=== PATIENT | female | born 1935 | race Caucasian/White ===

== ENCOUNTER → 2016-03-10 | Outpatient (CLI) | payer MEDICARE ==
[~2016-03-10] MED LIST: /RISE35TA PO; ALBU83IN IN; ASPI325T PO; BUDEPOW; CALCCHW12 PO; CEFT250T OR; CETI10TA PO; COLA100C2 OR; DIABETA PO; DRISDOL PO; FISHCAP PO; GLUC500T3 PO; KLOR10TA PO; LASI80TA PO; LISI10TA4 PO; LISI20TA5 OR; LOPR50TA PO; METO10TA2 PO; MULTIVIT PO; PLAV75TA2 PO; PREV15CA PO; QVAR INH; TYLENOL #3 PO; TYLENOL ES PO; VENTOLIN NEBULIZER INH; VITA500T PO; ZOCO40TA PO; [UNRECOGNIZED DRUG - REMARK] PO; bystolic PO; lasix PO; ventolin neb INH
--- NOTE | 2016-03-10 17:57 | REP ---
Chest x-ray: Three views: History: Asthma exacerbation. Comparison chest x-ray 01/08/2016. Findings: There is mild bilateral perihilar fibrosis. Heart is at the upper range of normal. Pulmonary vasculature is not increased. Pleural angles are sharp. The aorta is calcific and tortuous. There are degenerative changes in the lower thoracic spine. Impression: Borderline heart size. Bilateral perihilar fibrosis. No acute infiltrate. No significant change from 01/08/2016. Signed by Sam Chaudhry MD 03/11/2016 08:01 A
== END ==
LOC: M ADAMS 15:34
PROVIDERS: ATTEND Physician Assistant
DX: J84.10 Pulmonary fibrosis, unspecified (principal)
CPT/HCPCS: 71020; G0463

== ENCOUNTER → 2016-03-27 | Outpatient (REF) | payer MEDICARE ==
[2016-03-27 12:34] LABS: MEAN CORPUSCULAR HEMOGLOBIN 31.5 pg (27.0-33.0); MEAN CORPUSCULAR HGB CONC 32.9 g/dl (32.0-36.5); MEAN CORPUSCULAR VOLUME 95.6 fl (80.0-96.0); RED CELL DISTRIBUTION WIDTH 13.4 % (11.5-14.5); WHITE BLOOD COUNT 6.1 K/mm3 (4.0-10.0)
[2016-03-27 12:37] LABS: ALBUMIN 3.6 GM/DL (3.2-5.2); ALBUMIN/GLOBULIN RATIO 1.06 (1.00-1.93); BILIRUBIN,TOTAL 0.4 MG/DL (0.2-1.0); CALCIUM LEVEL 9.8 MG/DL (8.8-10.2); CREATININE FOR GFR 1.41 MG/DL (0.55-1.02); GLOMERULAR FILTRATION RATE 38.1 (>32); POTASSIUM SERUM 4.6 MEQ/L (3.5-5.1)
== END ==
LOC: M SFHCADAM 09:19
PROVIDERS: ATTEND Family Medicine
DX: E11.8 Type 2 diabetes mellitus with unspecified complications (principal); R07.89 Other chest pain
CPT/HCPCS: 80053; 82550; 82553; 83036; 83880; 84484; 85027; 93005; G0463

== ENCOUNTER → 2016-06-24 | Outpatient (REF) | payer MEDICARE ==
[2016-06-24 13:00] LABS: MEAN CORPUSCULAR HEMOGLOBIN 31.8 pg (27.0-33.0); MEAN CORPUSCULAR HGB CONC 32.7 g/dl (32.0-36.5); MEAN CORPUSCULAR VOLUME 97.5 fl (80.0-96.0); RED CELL DISTRIBUTION WIDTH 14.3 % (11.5-14.5); WHITE BLOOD COUNT 5.2 K/mm3 (4.0-10.0)
[2016-06-24 13:20] LABS: ALBUMIN 3.3 GM/DL (3.2-5.2); ALBUMIN/GLOBULIN RATIO 1.1 (1.00-1.93); BILIRUBIN,TOTAL 0.3 MG/DL (0.2-1.0); CALCIUM LEVEL 9.6 MG/DL (8.8-10.2); CREATININE FOR GFR 1.42 MG/DL (0.55-1.02); GLOMERULAR FILTRATION RATE 37.8 (>32); POTASSIUM SERUM 4.1 MEQ/L (3.5-5.1); TOTAL PROTEIN 6.3 GM/DL (6.4-8.2)
== END ==
LOC: M SFHCADAM 09:00
PROVIDERS: ATTEND Physician Assistant
DX: I13.0 Hypertensive heart and chronic kidney disease with heart failure and stage 1 through stage 4 chronic kidney disease, or unspecified chronic kidney disease (principal); I50.32 Chronic diastolic (congestive) heart failure; N18.3 Chronic kidney disease, stage 3 (moderate); E13.22 Other specified diabetes mellitus with diabetic chronic kidney disease

== ENCOUNTER → 2016-07-01 | Outpatient (REF) | payer MEDICARE ==
[2016-07-01 20:28] LABS: FOLATE > 24.0 NG/ML; VITAMIN B12 LEVEL 437 PG/ML
[2016-07-01 20:33] LABS: FERRITIN 109 NG/ML (8-252); FREE T4 0.95 NG/DL (0.76-1.46); PERCENT SATURATION 22.4 % (13.2-37.4); TOTAL IRON BINDING CAPACITY 384 UG/DL (250-450)
== END ==
LOC: M SFHCADAM 16:01
PROVIDERS: ATTEND Physician Assistant
DX: D64.9 Anemia, unspecified (principal)
CPT/HCPCS: 82607; 82728; 82746; 83550; 84439; 84443; G0463

== ENCOUNTER → 2016-09-22 | Outpatient (REF) | payer MEDICARE | LOC: M LAB REF 13:19 | PROVIDERS: ATTEND Internal Medicine Nephrology | DX: N18.3 Chronic kidney disease, stage 3 (moderate) (principal); E11.22 Type 2 diabetes mellitus with diabetic chronic kidney disease ==

== ENCOUNTER → 2016-09-23 | Outpatient (REF) | payer MEDICARE ==
[2016-09-23 12:53] LABS: ALBUMIN 3.3 GM/DL (3.2-5.2); ALBUMIN/GLOBULIN RATIO 1.03 (1.00-1.93); BILIRUBIN,TOTAL 0.4 MG/DL (0.2-1.0); CALCIUM LEVEL 10.1 MG/DL (8.8-10.2); CREATININE FOR GFR 1.49 MG/DL (0.55-1.02); GLOMERULAR FILTRATION RATE 35.8 (>32); POTASSIUM SERUM 4.4 MEQ/L (3.5-5.1); TOTAL PROTEIN 6.5 GM/DL (6.4-8.2)
[2016-09-23 12:59] LABS: MEAN CORPUSCULAR HEMOGLOBIN 32.8 pg (27.0-33.0); MEAN CORPUSCULAR HGB CONC 33.6 g/dl (32.0-36.5); MEAN CORPUSCULAR VOLUME 97.5 fl (80.0-96.0); RED CELL DISTRIBUTION WIDTH 14.1 % (11.5-14.5); WHITE BLOOD COUNT 5.8 K/mm3 (4.0-10.0)
== END ==
LOC: M SFHCADAM 09:21
PROVIDERS: ATTEND Physician Assistant
DX: E11.8 Type 2 diabetes mellitus with unspecified complications (principal); D64.9 Anemia, unspecified

== ENCOUNTER → 2016-09-28 | Outpatient (CLI) | payer MEDICARE ==
--- NOTE | 2016-09-28 15:09 | REP ---
REASON FOR EXAM: Renal disease. COMPARISON: None. Right kidney measures 11 x 4.8 x 4.3 cm and left kidney measures 11.7 x 5 x 4.9 cm. The renal cortices are echogenic bilaterally and there is less than optimal corticomedullary differentiation. There are no cystic or solid masses seen involving the right kidney. There is a tiny 1 cm sized cyst in the left kidney. There is no hydronephrosis. IMPRESSION: Echogenic kidney is consistent with medical renal disease. Signed by Beni García DO 09/29/2016 11:29 A
== END ==
LOC: M RAD 11:25
PROVIDERS: ATTEND Internal Medicine Nephrology
DX: N28.1 Cyst of kidney, acquired (principal); N18.3 Chronic kidney disease, stage 3 (moderate); E11.22 Type 2 diabetes mellitus with diabetic chronic kidney disease; I12.9 Hypertensive chronic kidney disease with stage 1 through stage 4 chronic kidney disease, or unspecified chronic kidney disease

== ENCOUNTER → 2016-11-23 | Outpatient (REF) | payer MEDICARE | LOC: M LAB REF 13:08 | PROVIDERS: ATTEND Internal Medicine Nephrology | DX: N18.3 Chronic kidney disease, stage 3 (moderate) (principal); E11.9 Type 2 diabetes mellitus without complications; I10 Essential (primary) hypertension ==

== ENCOUNTER → 2017-04-09 | Outpatient (REF) | payer MEDICARE ==
[2017-04-09 13:30] LABS: ESTIMATED AVERAGE GLUCOSE 180 MG/DL (60-110); HEMOGLOBIN A1c 7.9 %
== END ==
LOC: M SFHCADAM 10:29
DX: E11.8 Type 2 diabetes mellitus with unspecified complications (principal); I50.32 Chronic diastolic (congestive) heart failure
CPT/HCPCS: 83036

== ENCOUNTER → 2017-07-07 | Outpatient (REF) | payer MEDICARE ==
[2017-07-07 13:27] LABS: ESTIMATED AVERAGE GLUCOSE 157 MG/DL (60-110); HEMOGLOBIN A1c 7.1 %
== END ==
LOC: M SFHCADAM 09:27
DX: E11.8 Type 2 diabetes mellitus with unspecified complications (principal)
CPT/HCPCS: 83036

== ENCOUNTER → 2017-10-11 | Outpatient (REF) | payer MEDICARE ==
[2017-10-11 19:02] LABS: ESTIMATED AVERAGE GLUCOSE 166 MG/DL (60-110); HEMOGLOBIN A1c 7.4 %
[2017-10-11 19:15] LABS: CHOLESTEROL LEVEL 166 MG/DL (<200); FREE T4 1.01 NG/DL (0.76-1.46); HDL CHOLESTEROL 43 MG/DL (>40); LDL CHOLESTEROL 58.6 MG/DL (<100); NON-HDL-C 123 MG/DL; TRIGLYCERIDES LEVEL 322 MG/DL (<150)
== END ==
LOC: M SFHCADAM 13:47
DX: E11.8 Type 2 diabetes mellitus with unspecified complications (principal); I11.0 Hypertensive heart disease with heart failure
CPT/HCPCS: 84443

== ENCOUNTER → 2018-04-04 | Outpatient (REF) | payer MEDICARE ==
[2018-04-04 12:32] LABS: ALBUMIN 3.5 GM/DL (3.2-5.2); CALCIUM LEVEL 9.5 MG/DL (8.8-10.2); CREATININE FOR GFR 1.58 MG/DL (0.55-1.30); GLOMERULAR FILTRATION RATE 33.2 (>32); MAGNESIUM LEVEL 2.1 MG/DL (1.8-2.4); PHOSPHORUS LEVEL 3.3 MG/DL (2.5-4.9); POTASSIUM SERUM 4.2 MEQ/L (3.5-5.1)
== END ==
LOC: M LABDRAWP 10:56
PROVIDERS: ATTEND Internal Medicine Cardiovascular Disease
DX: I11.0 Hypertensive heart disease with heart failure (principal); I50.32 Chronic diastolic (congestive) heart failure; I49.3 Ventricular premature depolarization

== ENCOUNTER → 2018-04-27 | Outpatient (REF) | payer MEDICARE ==
[2018-04-27 13:16] LABS: HEMATOCRIT 38.6 % (36.0-47.0); HEMOGLOBIN 12.3 g/dl (12.0-15.5); MEAN CORPUSCULAR HEMOGLOBIN 31.2 pg (27.0-33.0); MEAN CORPUSCULAR HGB CONC 31.9 g/dl (32.0-36.5); PLATELET COUNT, AUTOMATED 169 10^3/uL (150-450); RED BLOOD COUNT 3.94 10^6/uL (4.00-5.40); WHITE BLOOD COUNT 5.7 10^3/uL (4.0-10.0)
[2018-04-27 13:20] LABS: ALBUMIN 3.5 GM/DL (3.2-5.2); BILIRUBIN,TOTAL 0.5 MG/DL (0.2-1.0); CALCIUM LEVEL 9.4 MG/DL (8.8-10.2); CREATININE FOR GFR 1.69 MG/DL (0.55-1.30); GLOMERULAR FILTRATION RATE 30.8 (>32); POTASSIUM SERUM 4.3 MEQ/L (3.5-5.1); TOTAL PROTEIN 6.7 GM/DL (6.4-8.2)
[2018-04-27 14:12] LABS: HEMOGLOBIN A1c 8.4 %
== END ==
LOC: M SFHCADAM 08:16
PROVIDERS: ATTEND Family Medicine
DX: Z00.00 Encounter for general adult medical examination without abnormal findings (principal); E11.8 Type 2 diabetes mellitus with unspecified complications; N18.3 Chronic kidney disease, stage 3 (moderate); I11.0 Hypertensive heart disease with heart failure

== ENCOUNTER → 2018-05-27 | Outpatient (REF) | payer MEDICARE | LOC: M SFHCPLAZ 15:52 | PROVIDERS: ATTEND Family Medicine | DX: D23.30 Other benign neoplasm of skin of unspecified part of face (principal) ==

== ENCOUNTER → 2018-07-05 | Outpatient (REF) | payer MEDICARE ==
[2018-07-05 19:50] LABS: ALBUMIN 3.6 GM/DL (3.2-5.2); CALCIUM LEVEL 9.6 MG/DL (8.8-10.2); CREATININE FOR GFR 1.65 MG/DL (0.55-1.30); GLOMERULAR FILTRATION RATE 31.6 (>32); MAGNESIUM LEVEL 2.3 MG/DL (1.8-2.4); PHOSPHORUS LEVEL 3.3 MG/DL (2.5-4.9); POTASSIUM SERUM 4.2 MEQ/L (3.5-5.1)
== END ==
LOC: M LABDRWAD 19:17
PROVIDERS: ATTEND Internal Medicine Cardiovascular Disease
DX: I50.32 Chronic diastolic (congestive) heart failure (principal)

== ENCOUNTER → 2018-07-29 | Outpatient (REF) | payer MEDICARE ==
[2018-07-29 12:52] LABS: HEMATOCRIT 39.2 % (36.0-47.0); HEMOGLOBIN 12.5 g/dl (12.0-15.5); MEAN CORPUSCULAR HGB CONC 31.9 g/dl (32.0-36.5); MEAN CORPUSCULAR VOLUME 97.3 fl (80.0-96.0); PLATELET COUNT, AUTOMATED 180 10^3/uL (150-450); RED BLOOD COUNT 4.03 10^6/uL (4.00-5.40); WHITE BLOOD COUNT 5.8 10^3/uL (4.0-10.0)
[2018-07-29 12:56] LABS: ALBUMIN 3.7 GM/DL (3.2-5.2); BILIRUBIN,TOTAL 0.5 MG/DL (0.2-1.0); CALCIUM LEVEL 10.2 MG/DL (8.8-10.2); CHOLESTEROL RISK RATIO 3.782 (<5); CREATININE FOR GFR 1.99 MG/DL (0.55-1.30); GLOMERULAR FILTRATION RATE 25.5 (>32); POTASSIUM SERUM 5.1 MEQ/L (3.5-5.1); TOTAL PROTEIN 6.8 GM/DL (6.4-8.2)
[2018-07-29 13:21] LABS: HEMOGLOBIN A1c 8.4 %
== END ==
LOC: M SFHCADAM 08:34
PROVIDERS: ATTEND Family Medicine
DX: N18.3 Chronic kidney disease, stage 3 (moderate) (principal); E11.8 Type 2 diabetes mellitus with unspecified complications; I25.10 Atherosclerotic heart disease of native coronary artery without angina pectoris; E78.2 Mixed hyperlipidemia

== ENCOUNTER 2018-08-18 14:09 | Emergency (ER) | payer MEDICARE ==
[~2018-08-18] VITALS: Ht 160 cm; Wt 286.0 kg
[2018-08-18] MEDS ORDERED: PANTOPRAZOLE 40MG INJ (PROTONIX) (C9113) IV ONE (14:45)
[2018-08-18] MEDS ORDERED: TORS100T PO (14:53)
[2018-08-18] MEDS ORDERED: FLON1SPR NARES (14:53)
[2018-08-18] MEDS ORDERED: TRAD5TAB PO (14:53)
[2018-08-18] MEDS ORDERED: OMEP-221 PO (14:53)
[2018-08-18] MEDS ORDERED: LOSA25TA14 PO (14:53)
[2018-08-18] MEDS ORDERED: SYST0.4D2 OP (14:53)
[2018-08-18] MEDS ORDERED: ALLO100T PO (14:53)
[2018-08-18] MEDS ORDERED: GLIM4TAB PO (14:53)
[2018-08-18 14:58] LABS: BASO % 0.4 % (0.0-1.0); EOS # 0.1 10^3/uL (0.0-0.50); EOS % 1.9 % (0.0-3.0); HEMATOCRIT 37.2 % (36.0-47.0); HEMOGLOBIN 12.3 g/dl (12.0-15.5); LYMPH # 1.2 10^3/uL (1.5-4.5); LYMPH % 25.6 % (24.0-44.0); MEAN CORPUSCULAR HEMOGLOBIN 31.9 pg (27.0-33.0); MEAN CORPUSCULAR HGB CONC 33.1 g/dl (32.0-36.5); MEAN CORPUSCULAR VOLUME 96.6 fl (80.0-96.0); MONO # 0.5 10^3/uL (0.0-0.8); MONO % 9.4 % (0.0-5.0); NEUTROPHILS % 62.3 % (36.0-66.0); PLATELET COUNT, AUTOMATED 158 10^3/uL (150-450); RED BLOOD COUNT 3.85 10^6/uL (4.00-5.40); WHITE BLOOD COUNT 4.8 10^3/uL (4.0-10.0)
--- NOTE | 2018-08-18 15:02 | REP ---
Portable chest, 02:47 p.m., single AP view, patient sitting: Comparisons are 01/28/2011 and 09/14/2011. There is chronic cardiomegaly, unchanged. Lung olw are clear. The bora, mediastinum, skeletal structures are unremarkable. Impression: Chronic cardiomegaly. No acute cardiopulmonary findings. Electronically Signed by Caleb Kwong MD 08/18/2018 02:53 P
[2018-08-18 15:28] LABS: ALBUMIN 3.5 GM/DL (3.2-5.2); ALT/SGPT 29 U/L (12-78); BILIRUBIN,DIRECT 0.1 MG/DL (0.0-0.2); BILIRUBIN,TOTAL 0.5 MG/DL (0.2-1.0); BLOOD UREA NITROGEN 69 MG/DL (7-18); CALCIUM LEVEL 9.6 MG/DL (8.8-10.2); CARBON DIOXIDE LEVEL 32 MEQ/L (21-32); CHLORIDE LEVEL 99 MEQ/L (98-107); CK-MB VALUE MASS < 1.0 NG/ML (<3.6); CPK CREATINE PHOSPHOKINASE 60 U/L (26-192); CREATININE FOR GFR 1.61 MG/DL (0.55-1.30); FREE T4 0.98 NG/DL (0.76-1.46); GLOMERULAR FILTRATION RATE 32.5 (>32); GLUCOSE, FASTING 243 MG/DL (70-100); LIPASE 276 U/L (73-393); MB/CK RELATIVE INDEX 1.67 (< OR =4); NT-PRO BNP 1863 PG/ML (<450); SODIUM LEVEL 138 MEQ/L (136-145); TOTAL PROTEIN 7.1 GM/DL (6.4-8.2); TROPONIN I < 0.02 NG/ML (< 0.10)
[2018-08-18] MEDS ORDERED: IPRATROPIUM 0.5MG/ALBUTEROL 2.5MG INH SOL UD 3ML (DUONEB)(J7620) NEB ONE (16:15)
[2018-08-18] MEDS ORDERED: MAALOX 30 ML SUSP *UDC PO ONE (16:15)
[2018-08-18 17:36] LABS: CK-MB VALUE MASS < 1.0 NG/ML (<3.6); CPK CREATINE PHOSPHOKINASE 60 U/L (26-192); MB/CK RELATIVE INDEX 1.67 (< OR =4); TROPONIN I < 0.02 NG/ML (< 0.10)
[2018-08-18] MEDS ORDERED: SUCR1SS PO (18:26)
[2018-08-18 18:39] VITALS: BP 157/62
--- NOTE | 2018-08-18 21:50 | ECGEPIP ---
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
--- NOTE | 2018-08-18 21:52 | ECGEPIP ---
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
== END 2018-08-18 18:46 | disposition home or self-care (01) ==
LOC: M ED 14:09
DX: K44.9 Diaphragmatic hernia without obstruction or gangrene (principal); R94.31 Abnormal electrocardiogram [ECG] [EKG]; E11.9 Type 2 diabetes mellitus without complications; I25.2 Old myocardial infarction; F32.9 Major depressive disorder, single episode, unspecified; Z79.51 Long term (current) use of inhaled steroids; Z79.82 Long term (current) use of aspirin; Z79.84 Long term (current) use of oral hypoglycemic drugs; Z79.891 Long term (current) use of opiate analgesic; Z79.899 Other long term (current) drug therapy; Z86.73 Personal history of transient ischemic attack (TIA), and cerebral infarction without residual deficits; Z88.0 Allergy status to penicillin; Z88.6 Allergy status to analgesic agent; Z88.8 Allergy status to other drugs, medicaments and biological substances; Z91.018 Allergy to other foods; Z91.030 Bee allergy status; Z91.048 Other nonmedicinal substance allergy status; Z95.5 Presence of coronary angioplasty implant and graft
CPT/HCPCS: 71045; 80048; 80076; 82550; 82553; 83690; 83880; 84439; 84443; 84484; 85025; 93005; 93041; 94640; 94760; 96374; 99285; C9113

== ENCOUNTER → 2018-10-21 | Outpatient (REF) | payer MEDICARE ==
[~2018-10-21] MED LIST changes: +ALLO100T PO; +FLON1SPR NARES; +GLIM4TAB PO; +LOSA25TA14 PO; +OMEP-221 PO; +SUCR1SS PO; +SYST0.4D2 OP; +TORS100T PO; +TRAD5TAB PO
[2018-10-21 13:40] LABS: ALBUMIN 3.3 GM/DL (3.2-5.2); CALCIUM LEVEL 9.6 MG/DL (8.8-10.2); CREATININE FOR GFR 1.52 MG/DL (0.55-1.30); GLOMERULAR FILTRATION RATE 34.8 (>32); MAGNESIUM LEVEL 2.5 MG/DL (1.8-2.4); PHOSPHORUS LEVEL 3.4 MG/DL (2.5-4.9); POTASSIUM SERUM 4.1 MEQ/L (3.5-5.1)
== END ==
LOC: M LABDRWAD 12:36
PROVIDERS: ATTEND Internal Medicine Cardiovascular Disease
DX: I50.32 Chronic diastolic (congestive) heart failure (principal)

== ENCOUNTER → 2018-11-07 | Outpatient (REF) | payer MEDICARE, MEDICAID ==
[~2018-11-07] MED LIST changes: +ALBU83IN INH; +ASPI325T36 PO; +BRONCHW PO; +CALC1TAB26 PO; +CETI10TA8 PO; +FLUT11IN INH; -GLIM4TAB PO; +GLIM4TAB5 PO; +GLUCCAP23 PO; +OMEP40CA97 PO; +RA T500C2 PO; +SIMV20TA22 PO; +SYST0.6S OP
[2018-11-07 19:45] LABS: HEMOGLOBIN A1c 8.2 %
== END ==
LOC: M SFHCADAM 14:06
PROVIDERS: ATTEND Physician Assistant Medical
DX: E11.8 Type 2 diabetes mellitus with unspecified complications (principal)
CPT/HCPCS: 83036; G0463

== ENCOUNTER 2018-11-17 08:47 | Day surgery (SDC) | payer MEDICARE ==
[~2018-11-17] VITALS: Ht 152.4 cm; Wt 130.6 kg
[~2018-11-17 08:47] MED LIST changes: +BALANCED SALT IRRIGATION SOLUTION 500ML BAG (FOR OR EYE MACHINE) As Ordered ONE; +DUOVISC (0.50ML VISCOAT/0.55ML PROVISC) OPHTH KIT As Ordered ONE; +GLIM4TAB PO; -GLIM4TAB5 PO; +OFLOXACIN 0.3 % (OCUFLOX) OPTH SOL 5ML OS ONE; +OMEP40CA2 PO; -OMEP40CA97 PO; +PHENYLEPHRINE 2.5% OPHTH SOL 2ML OS ONE; +POVIDONE-IODINE 5% OPHTH PREP SOL 30ML As Ordered ONE; +PROPARACAINE 0.5% OPHTH SOL 15ML OS ONE; +SIMV20TA2 PO; -SIMV20TA22 PO; +TROPICAMIDE 1% OPHTH SOLN 2ML OS ONE
[2018-11-17] MEDS ORDERED: MIDAZOLAM INJ 2 MG/2 ML VIAL (J2250) As Ordered ONE (09:41)
[2018-11-17] MEDS ORDERED: fentaNYL 100 MCG/2 ML INJECTION (J3010) As Ordered ONE (09:41)
[2018-11-17] MEDS ORDERED: METOCLOPRAMIDE INJ 10MG/2ML VIAL (J2765) As Ordered ONE (10:35)
[2018-11-17] MEDS ORDERED: BICITRA 30ML SOLN UDC As Ordered ONE (10:35)
[2018-11-17 11:50] VITALS: BP 148/82
--- NOTE | 2018-11-19 20:40 | RO ---
DATE OF PROCEDURE: 11/17/2018 PREOPERATIVE DIAGNOSIS: 1. Visually significant nuclear sclerotic cataract left eye. POSTOPERATIVE DIAGNOSIS: 1. Visually significant nuclear sclerotic cataract left eye. PROCEDURE: 1. Cataract extraction with use of phacoemulsification and placement of intraocular lens, AU00T0, 20.0 D, left eye. SURGEON: Rafat Guzmán DO WOOL DYER: None. ANESTHESIA: Local with monitored anesthesia care (MAC). COMPLICATIONS: None. POSTOPERATIVE CONDITION: Stable. INDICATIONS FOR SURGERY: 1. Blurred vision affecting patients activities of daily living. DESCRIPTION OF PROCEDURE: The patient was seen in the preoperative area and properly identified. The correct operative eye was identified and marked. The patient received topical anesthetic, antibiotics, and topical dilating drops. The patient was then transferred to the operating room. The correct side was re-identified, and a time-out was performed. The eye was prepped and draped in a sterile fashion. The eyelids were isolated with Tegaderm tape, and the lids were held open with an adjustable speculum. A 1.0 mm paracentesis incision was made. Intraocular preservative-free Shugarcaine was then injected into the anterior chamber. Viscoelastic was then injected into the anterior chamber through the paracentesis. Using a 2.4 mm sharp-tipped keratome, the anterior chamber was entered via a temporal clear cornea incision. A continuous curvilinear capsulorrhexis was created with Utrata forceps. Hydrodissection was performed with balanced salt solution (BSS) on a blunt cannula until the nucleus was able to rotate freely. The crystalline lens was phacoemulsified and aspirated. Irrigation/aspiration was used to remove the cortical material. Cohesive viscoelastic was placed into the capsular bag to deepen it. The implant was placed into the capsular bag and allowed to unfold. Placement was confirmed by visualizing the anterior capsulorrhexis. Irrigation/aspiration was used to remove the viscoelastic. The clear corneal incision was hydrated with BSS on a blunt cannula. The lens was well positioned. The incisions were then tested for leaks and found to be negative. The eye was then palpated for appropriate pressure and adjusted accordingly with BSS. The eyelid speculum was then carefully removed. A shield was placed over the eye. The patient tolerated the procedure well and was discharged to the recovery unit in a stable condition.
== END 2018-11-17 12:17 | disposition home or self-care (01) ==
LOC: M SDC 08:47
PROVIDERS: ATTEND Ophthalmology
DX: H25.12 Age-related nuclear cataract, left eye (principal); I25.10 Atherosclerotic heart disease of native coronary artery without angina pectoris; I10 Essential (primary) hypertension; J44.9 Chronic obstructive pulmonary disease, unspecified; D64.9 Anemia, unspecified; E11.9 Type 2 diabetes mellitus without complications; K21.9 Gastro-esophageal reflux disease without esophagitis; Z86.73 Personal history of transient ischemic attack (TIA), and cerebral infarction without residual deficits; F32.9 Major depressive disorder, single episode, unspecified; Z79.82 Long term (current) use of aspirin; Z79.899 Other long term (current) drug therapy; E78.5 Hyperlipidemia, unspecified; Z91.040 Latex allergy status; Z91.030 Bee allergy status; Z88.0 Allergy status to penicillin; Z88.8 Allergy status to other drugs, medicaments and biological substances; G47.30 Sleep apnea, unspecified
CPT/HCPCS: 66984; J2250; J2765; J3010; V2632

== ENCOUNTER 2018-12-01 10:59 | Day surgery (SDC) | payer MEDICARE ==
[~2018-12-01] VITALS: Ht 154.9 cm; Wt 106.1 kg
[~2018-12-01 10:59] MED LIST changes: +LIDOCAINE 0.75%/EPINEPHRINE 0.025% IN BSS 0.8ML SYR INTRACAMERAL--OR ONLY As Ordered ONE; +MIDAZOLAM INJ 2 MG/2 ML VIAL (J2250) As Ordered ONE; +OFLOXACIN 0.3 % (OCUFLOX) OPTH SOL 5ML OD ONE; -OFLOXACIN 0.3 % (OCUFLOX) OPTH SOL 5ML OS ONE; +PHENYLEPHRINE 2.5% OPHTH SOL 2ML OD ONE; -PHENYLEPHRINE 2.5% OPHTH SOL 2ML OS ONE; +PROPARACAINE 0.5% OPHTH SOL 15ML OD ONE; -PROPARACAINE 0.5% OPHTH SOL 15ML OS ONE; +TROPICAMIDE 1% OPHTH SOLN 2ML OD ONE; -TROPICAMIDE 1% OPHTH SOLN 2ML OS ONE; +fentaNYL 100 MCG/2 ML INJECTION (J3010) As Ordered ONE
[2018-12-01] MEDS ORDERED: BICITRA 30ML SOLN UDC As Ordered ONE (11:58)
[2018-12-01] MEDS ORDERED: HumaLOG INSULIN (NovoLOG) PER UNIT As Ordered ONE (11:58)
[2018-12-01] MEDS ORDERED: METOCLOPRAMIDE INJ 10MG/2ML VIAL (J2765) As Ordered ONE (11:59)
[2018-12-01] MEDS ORDERED: HumuLIN R (REGULAR) INSULIN (NovoLIN R) **100U/ML** PER UNIT SC ONE (12:30)
[2018-12-01] MEDS ORDERED: BICITRA 30ML SOLN UDC PO ONE (13:00)
[2018-12-01] MEDS ORDERED: METOCLOPRAMIDE INJ 10MG/2ML VIAL (J2765) IV ONE (13:00)
[2018-12-01 13:10] VITALS: BP 134/87
[2018-12-01] MEDS ORDERED: HumaLOG INSULIN (NovoLOG) PER UNIT SC ONE (14:00)
--- NOTE | 2018-12-06 18:00 | RO ---
DATE OF PROCEDURE: 12/01/2018 PREOPERATIVE DIAGNOSIS: 1. Visually significant nuclear sclerotic cataract right eye. POSTOPERATIVE DIAGNOSIS: 1. Visually significant nuclear sclerotic cataract right eye. PROCEDURE: 1. Cataract extraction with use of phacoemulsification and placement of intraocular lens, AU00T0, 21.0 D, right eye. SURGEON: Rafat Guzmán DO VARNISH DIPPER: None. ANESTHESIA: Local with monitored anesthesia care (MAC). COMPLICATIONS: None. POSTOPERATIVE CONDITION: Stable. INDICATIONS FOR SURGERY: 1. Blurred vision affecting patients activities of daily living. DESCRIPTION OF PROCEDURE: The patient was seen in the preoperative area and properly identified. The correct operative eye was identified and marked. The patient received topical anesthetic, antibiotics, and topical dilating drops. The patient was then transferred to the operating room. The correct side was re-identified, and a time-out was performed. The eye was prepped and draped in a sterile fashion. The eyelids were isolated with Tegaderm tape, and the lids were held open with an adjustable speculum. A 1.0 mm paracentesis incision was made. Intraocular preservative-free Shugarcaine was then injected into the anterior chamber. Viscoelastic was then injected into the anterior chamber through the paracentesis. Using a 2.4 mm sharp-tipped keratome, the anterior chamber was entered via a temporal clear cornea incision. A continuous curvilinear capsulorrhexis was created with Utrata forceps. Hydrodissection was performed with balanced salt solution (BSS) on a blunt cannula until the nucleus was able to rotate freely. The crystalline lens was phacoemulsified and aspirated. Irrigation/aspiration was used to remove the cortical material. Cohesive viscoelastic was placed into the capsular bag to deepen it. The implant was placed into the capsular bag and allowed to unfold. Placement was confirmed by visualizing the anterior capsulorrhexis. Irrigation/aspiration was used to remove the viscoelastic. The clear corneal incision was hydrated with BSS on a blunt cannula. The lens was well positioned. The incisions were then tested for leaks and found to be negative. The eye was then palpated for appropriate pressure and adjusted accordingly with BSS. The eyelid speculum was then carefully removed. A shield was placed over the eye. The patient tolerated the procedure well and was discharged to the recovery unit in a stable condition.
== END 2018-12-01 13:34 | disposition home or self-care (01) ==
LOC: M SDC 10:59
PROVIDERS: ATTEND Ophthalmology
DX: H25.11 Age-related nuclear cataract, right eye (principal); I10 Essential (primary) hypertension; E11.9 Type 2 diabetes mellitus without complications; E78.5 Hyperlipidemia, unspecified; K21.9 Gastro-esophageal reflux disease without esophagitis; K44.9 Diaphragmatic hernia without obstruction or gangrene; Z91.040 Latex allergy status; G47.30 Sleep apnea, unspecified; Z88.0 Allergy status to penicillin; Z88.5 Allergy status to narcotic agent; Z88.8 Allergy status to other drugs, medicaments and biological substances; Z91.030 Bee allergy status; Z79.899 Other long term (current) drug therapy; Z79.82 Long term (current) use of aspirin
CPT/HCPCS: 66984; J2250; J2765; J3010; V2632

== ENCOUNTER 2019-04-26 14:45 | Emergency (ER) | payer MEDICARE ==
[~2019-04-26] VITALS: Ht 157.5 cm; Wt 127.4 kg
[~2019-04-26 14:45] MED LIST changes: -BALANCED SALT IRRIGATION SOLUTION 500ML BAG (FOR OR EYE MACHINE) As Ordered ONE; -DUOVISC (0.50ML VISCOAT/0.55ML PROVISC) OPHTH KIT As Ordered ONE; -GLIM4TAB PO; +GLIM4TAB5 PO; -LIDOCAINE 0.75%/EPINEPHRINE 0.025% IN BSS 0.8ML SYR INTRACAMERAL--OR ONLY As Ordered ONE; -MIDAZOLAM INJ 2 MG/2 ML VIAL (J2250) As Ordered ONE; -OFLOXACIN 0.3 % (OCUFLOX) OPTH SOL 5ML OD ONE; -OMEP40CA2 PO; +OMEP40CA97 PO; -PHENYLEPHRINE 2.5% OPHTH SOL 2ML OD ONE; -POVIDONE-IODINE 5% OPHTH PREP SOL 30ML As Ordered ONE; -PROPARACAINE 0.5% OPHTH SOL 15ML OD ONE; -SIMV20TA2 PO; +SIMV20TA22 PO; -TROPICAMIDE 1% OPHTH SOLN 2ML OD ONE; -fentaNYL 100 MCG/2 ML INJECTION (J3010) As Ordered ONE
[2019-04-26 16:26] LABS: BASO % 0.5 % (0.0-1.0); EOS # 0.2 10^3/uL (0.0-0.5); HEMATOCRIT 38.8 % (36.0-47.0); HEMOGLOBIN 12.7 g/dl (12.0-15.5); LYMPH # 1.8 10^3/uL (1.5-5.0); MEAN CORPUSCULAR HEMOGLOBIN 31.3 pg (27.0-33.0); MEAN CORPUSCULAR HGB CONC 32.7 g/dl (32.0-36.5); MEAN CORPUSCULAR VOLUME 95.6 fl (80.0-96.0); MONO # 0.7 10^3/uL (0.0-0.8); NEUTROPHILS # 3.3 10^3/uL (1.5-8.5); NEUTROPHILS % 55.2 % (36.0-66.0); PLATELET COUNT, AUTOMATED 179 10^3/uL (150-450); RED BLOOD COUNT 4.06 10^6/uL (4.00-5.40); WHITE BLOOD COUNT 5.9 10^3/uL (4.0-10.0)
[2019-04-26 16:33] LABS: BLOOD UREA NITROGEN 37 MG/DL (7-18); CALCIUM LEVEL 9.8 MG/DL (8.8-10.2); CARBON DIOXIDE LEVEL 30 MEQ/L (21-32); CHLORIDE LEVEL 100 MEQ/L (98-107); CK-MB VALUE MASS < 1.0 NG/ML (<3.6); CPK CREATINE PHOSPHOKINASE 43 U/L (26-192); CREATININE FOR GFR 1.41 MG/DL (0.55-1.30); GLOMERULAR FILTRATION RATE 37.8 (>32); GLUCOSE, FASTING 190 MG/DL (70-100); MB/CK RELATIVE INDEX 2.33 (< OR =4); POTASSIUM SERUM 3.8 MEQ/L (3.5-5.1); SODIUM LEVEL 137 MEQ/L (136-145); TROPONIN I < 0.02 NG/ML (< 0.10)
[2019-04-26] MEDS ORDERED: DICYCLOMINE 10 MG CAP PO ONE (16:45)
[2019-04-26] MEDS ORDERED: LABETALOL HCL 100 MG/20 ML VIAL IV STA ×2 (17:33→17:45)
[2019-04-26 17:54] VITALS: BP 170/74
--- NOTE | 2019-04-26 18:18 | REP ---
CHEST, PORTABLE: AP portable view of the chest is performed and compared to prior study of 08/18/2018. Cardiomegaly is unchanged. There is linear fibroatelectatic change bilaterally. No acute infiltrate is seen. There is calcification of the thoracic aorta. The mediastinal silhouette is unchanged. IMPRESSION: Cardiomegaly and chronic changes with no acute infiltrate. Electronically Signed by Caleb Dos Santos MD 04/27/2019 10:25 A
--- NOTE | 2019-04-26 18:19 | REP ---
KUB ABDOMEN AND PELVIS: Two KUB films of abdomen and pelvis performed. Bowel gas pattern is unremarkable. No significantly dilated small bowel loops are seen, with no evidence of small bowel obstruction. There is mild air and fecal material scattered throughout the colon. There are moderate degenerative changes of the spine. IMPRESSION: No radiographic evidence of bowel obstruction. Electronically Signed by Caleb Dos Santos MD 04/27/2019 10:25 A
[2019-04-26 18:30] VITALS: BP 147/59
[2019-04-26] MEDS ORDERED: DICY10CA13 PO (18:48)
--- NOTE | 2019-04-27 05:52 | ECGEPIP ---
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
== END 2019-04-26 19:07 | disposition home or self-care (01) ==
LOC: M ED 14:45 → EDBD 14:45 → EDSEX 14:45 → M ED 19:07
DX: K29.70 Gastritis, unspecified, without bleeding (principal); I51.7 Cardiomegaly; E11.9 Type 2 diabetes mellitus without complications; E78.5 Hyperlipidemia, unspecified; K21.9 Gastro-esophageal reflux disease without esophagitis; J44.1 Chronic obstructive pulmonary disease with (acute) exacerbation; Z88.0 Allergy status to penicillin; Z88.1 Allergy status to other antibiotic agents; Z88.4 Allergy status to anesthetic agent; Z88.8 Allergy status to other drugs, medicaments and biological substances; Z91.018 Allergy to other foods; Z91.048 Other nonmedicinal substance allergy status; Z91.040 Latex allergy status; Z79.51 Long term (current) use of inhaled steroids; Z79.82 Long term (current) use of aspirin; Z79.899 Other long term (current) drug therapy

== ENCOUNTER → 2019-06-21 | Outpatient (REF) | payer MEDICARE ==
[~2019-06-21] MED LIST changes: +DICY10CA13 PO; +VITA-243 PO
[2019-06-21 13:11] LABS: CALCIUM LEVEL 10.5 MG/DL (8.8-10.2); CREATININE FOR GFR 1.58 MG/DL (0.55-1.30); GLOMERULAR FILTRATION RATE 33.2 (>32); POTASSIUM SERUM 4.7 MEQ/L (3.5-5.1)
[2019-06-21 13:28] LABS: HEMOGLOBIN A1c 8.2 %
== END ==
LOC: M SFHCADAM 09:10
PROVIDERS: ATTEND Family Medicine
DX: E11.8 Type 2 diabetes mellitus with unspecified complications (principal)

== ENCOUNTER → 2019-11-30 | Outpatient (REF) | payer MEDICARE ==
[~2019-11-30] MED LIST changes: +ALB2.5NEB INH; +D31000TA2 PO; +DOK1CAP7 PO; +HYDR20VI2 IV; +IMIP1INJ IV; +INSUHUMDS SC; +MORP2INJ4 IV; +ONDA4INJ4 IV; +PANT40IN4 IV; +THERTAB52 PO
[2019-11-30 13:10] LABS: HEMATOCRIT 37.4 % (36.0-47.0); HEMOGLOBIN 11.9 g/dl (12.0-15.5); MEAN CORPUSCULAR HEMOGLOBIN 30.1 pg (27.0-33.0); MEAN CORPUSCULAR HGB CONC 31.8 g/dl (32.0-36.5); MEAN CORPUSCULAR VOLUME 94.4 fl (80.0-96.0); PLATELET COUNT, AUTOMATED 252 10^3/uL (150-450); RED BLOOD COUNT 3.96 10^6/uL (4.00-5.40); WHITE BLOOD COUNT 8.1 10^3/uL (4.0-10.0)
[2019-11-30 13:26] LABS: HEMOGLOBIN A1c 7.7 %
[2019-11-30 13:41] LABS: ALBUMIN 3.2 GM/DL (3.2-5.2); BILIRUBIN,TOTAL 0.4 MG/DL (0.2-1.0); CALCIUM LEVEL 10.3 MG/DL (8.8-10.2); CREATININE FOR GFR 1.66 MG/DL (0.55-1.30); GLOMERULAR FILTRATION RATE 31.3 (>32); POTASSIUM SERUM 3.9 MEQ/L (3.5-5.1); TOTAL PROTEIN 6.9 GM/DL (6.4-8.2)
== END ==
LOC: M SFHCADAM 10:38
PROVIDERS: ATTEND Family Medicine
DX: N18.30 Chronic kidney disease, stage 3 unspecified (principal); E11.8 Type 2 diabetes mellitus with unspecified complications

== ENCOUNTER 2019-12-22 18:04 | Inpatient (IN) | payer MEDICARE ==
[~2019-12-22] VITALS: Ht 160 cm; Wt 117.0 kg
[~2019-12-22 18:04] MED LIST changes: -ALB2.5NEB INH; -D31000TA2 PO; -DOK1CAP7 PO; -HYDR20VI2 IV; -IMIP1INJ IV; -INSUHUMDS SC; -MORP2INJ4 IV; -ONDA4INJ4 IV; -PANT40IN4 IV; -THERTAB52 PO
[2019-12-22] MEDS ORDERED: ONDANSETRON 4MG/2ML VIAL IV ONE ×2 (18:45→21:00)
[2019-12-22 19:00] LABS: BASO % 0.4 % (0.0-1.0); EOS # 0.1 10^3/uL (0.0-0.5); EOS % 1.1 % (0.0-3.0); HEMATOCRIT 37.9 % (36.0-47.0); LYMPH # 1.2 10^3/uL (1.5-5.0); LYMPH % 16.3 % (24.0-44.0); MEAN CORPUSCULAR HEMOGLOBIN 29.7 pg (27.0-33.0); MEAN CORPUSCULAR HGB CONC 31.7 g/dl (32.0-36.5); MEAN CORPUSCULAR VOLUME 93.8 fl (80.0-96.0); MONO # 0.6 10^3/uL (0.0-0.8); MONO % 8.1 % (0.0-5.0); NEUTROPHILS # 5.2 10^3/uL (1.5-8.5); NEUTROPHILS % 73.4 % (36.0-66.0); PLATELET COUNT, AUTOMATED 225 10^3/uL (150-450); RED BLOOD COUNT 4.04 10^6/uL (4.00-5.40)
[2019-12-22 19:13] LABS: INR 0.91; PROTHROMBIN TIME 12.4 SECONDS (12.5-14.3)
[2019-12-22 19:14] LABS: PARTIAL THROMBOPLASTIN TIME 34.5 SECONDS (24.2-38.5)
--- NOTE | 2019-12-22 19:30 | REP ---
INDICATION: CHEST PAIN COMPARISON: 04/26/2019 TECHNIQUE: Portable semi upright AP view FINDINGS: The mediastinum and cardiac silhouette are stable and cardiomegaly is again noted. The lung low are clear without acute consolidation, effusion, or pneumothorax. Skeletal structures are intact. IMPRESSION: No acute cardiopulmonary process appreciated. <Electronically signed by Austin Charles > 12/22/19 [id number]
[2019-12-22 19:31] LABS: ALT/SGPT 19 U/L (12-78); BILIRUBIN,DIRECT 0.2 MG/DL (0.0-0.2); BILIRUBIN,TOTAL 0.5 MG/DL (0.2-1.0); BLOOD UREA NITROGEN 26 MG/DL (7-18); CALCIUM LEVEL 9.9 MG/DL (8.8-10.2); CARBON DIOXIDE LEVEL 31 MEQ/L (21-32); CHLORIDE LEVEL 98 MEQ/L (98-107); CK-MB VALUE MASS < 1.0 NG/ML (<3.6); CPK CREATINE PHOSPHOKINASE 33 U/L (26-192); CREATININE FOR GFR 1.38 MG/DL (0.55-1.30); GLOMERULAR FILTRATION RATE 38.8 (>32); GLUCOSE, FASTING 207 MG/DL (70-100); LIPASE 187 U/L (73-393); MB/CK RELATIVE INDEX 3.03 (< OR =4); SODIUM LEVEL 136 MEQ/L (136-145); TOTAL PROTEIN 7.1 GM/DL (6.4-8.2); TROPONIN I < 0.02 NG/ML (< 0.10)
[2019-12-22] MEDS ORDERED: MAALOX 30 ML SUSP *UDC PO ONE (19:45)
[2019-12-22] MEDS: FLUTICASONE HFA 110 MCG 12 GM INHALER (FLOVENT) INH SCH (20:00)
--- NOTE | 2019-12-22 20:41 | ECGEPIP ---
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
[2019-12-22] MEDS ORDERED: PANTOPRAZOLE 40MG VIAL (C9113 PER 1) IV ONE (21:00)
[2019-12-22] MEDS ORDERED: NS 1,000 ML IV SCH (21:01)
[2019-12-22] MEDS ORDERED: ISOVUE-370 76% 100ML VIAL As Ordered ONE (21:07)
--- NOTE | 2019-12-22 22:04 | REPVR ---
PROCEDURE INFORMATION: Exam: CT Angiography Chest With Contrast Exam date and time: 12/22/2019 9:30 PM Age: 84 years old Clinical indication: Chest pain TECHNIQUE: Imaging protocol: Computed tomographic angiography of the chest with intravenous contrast. 3D rendering (Not supervised by radiologist): MIP and/or 3D reconstructed images were created by the technologist. Radiation optimization: All CT scans at this facility use at least one of these dose optimization techniques: automated exposure control; mA and/or kV adjustment per patient size (includes targeted exams where dose is matched to clinical indication); or iterative reconstruction. Contrast material: ISOVUE 370; Contrast volume: 100 ml; Contrast route: INTRAVENOUS (IV); COMPARISON: CR PORTABLE CHEST X-RAY 12/22/2019 7:10 PM FINDINGS: Pulmonary arteries: No pulmonary embolism. Aorta: The thoracic aorta is intact and patent. There is no thoracic aortic aneurysm, pseudoaneurysm, penetrating atherosclerotic ulcer, intramural hematoma, or dissection. There are moderate atherosclerotic calcifications. Great vessels off aortic arch: The brachiocephalic artery, imaged proximal portions of the common carotid arteries, imaged proximal portions of the vertebral arteries, and subclavian arteries are intact. No stenosis or occlusion of these vessels is noted. Thyroid: The thyroid gland is heterogeneous in appearance and there is a 12 mm in nodule in the right lobe of the thyroid gland and a 9 mm nodule in the left lobe of the thyroid gland (image 30 of the axial series 401). Tracheobronchial tree: Intact and patent. Lungs: There is dependent atelectasis in both lower lobes. There are scars in both upper lobes. The lungs are otherwise clear. There is no lung consolidation or mass. No emphysematous changes or interstitial lung disease is noted. Pleural space: Normal. No pneumothorax or pleural effusion. Heart: There is dilation of the left ventricle and left atrium. There is thinning of the wall of the apex of the left ventricle. Coronary artery calcifications are present. No pericardial effusion is noted. Mediastinal space: No mediastinal fluid collection or pneumomediastinum is noted. Lymph nodes: No enlarged lymph nodes. Bones/joints: There is no fracture or dislocation. No suspicious osteolytic or osteoblastic lesion. 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 There are degenerative changes in the thoracic spine imaged portion of the cervical spine. Soft tissues: Unremarkable. No soft tissue fluid collection. Other findings: Refer to the CT abdomen and pelvis report on 12/22/2019 for details regarding the abdominal and pelvic findings. IMPRESSION: 1. No acute findings in the chest. No pulmonary embolism. 2. Thyroid nodules as described above, the largest measuring 12 mm, for which further evaluation or follow-up is not necessary. COMMENTS: Consistent with the [employer]'s Incidental Findings Committee white paper (J Am Agatha Radiol 2015): In patients aged 35 years and older with an incidental thyroid nodule equal to or greater than 1.[address], MRI or extrathyroidal US, further evaluation with dedicated thyroid US is recommended for patients with normal life expectancy and without comorbidities. For smaller nodules without suspicious features, no further evaluation or follow up is recommended. Electronically signed by: Jerry Barrios On 12/22/2019 22:04:11 PM
--- NOTE | 2019-12-22 22:05 | REPVR ---
PROCEDURE INFORMATION: Exam: CT Abdomen And Pelvis With Contrast Exam date and time: 12/22/2019 9:30 PM Age: 84 years old Clinical indication: Vomiting; Abdominal pain; Localized; Upper; Additional info: Upper abd pain, vomiting TECHNIQUE: Imaging protocol: Computed tomography of the abdomen and pelvis with intravenous contrast. Radiation optimization: All CT scans at this facility use at least one of these dose optimization techniques: automated exposure control; mA and/or kV adjustment per patient size (includes targeted exams where dose is matched to clinical indication); or iterative reconstruction. Contrast material: ISOVUE 370; Contrast volume: 100 ml; Contrast route: INTRAVENOUS (IV); COMPARISON: No relevant prior studies available. FINDINGS: Lungs: Refer to the CTA chest report on 12/22/2019 for details. Heart: Refer to the CTA chest report on 12/22/2019 for details. Liver: No liver lesion is seen. The contour of the liver is smooth. The liver is enlarged and measures 18.2 cm in craniocaudal dimension at the level of the right midclavicular line. Gallbladder and bile ducts: There is thickening of the wall of the gallbladder and inflammatory fat stranding around the gallbladder. There is a probable fistulous connection between the gallbladder and antrum of the stomach with calculi measuring approximately 1.9 cm and 4.2 cm in the antrum of the stomach, the smaller of which has a rim of calcification. The common bile duct is dilated and measures 11 mm in diameter. No intrahepatic biliary ductal dilation is noted. Pancreas: Normal. No dilation of the main pancreatic duct is noted. There is no inflammatory fat stranding around the pancreas to suggest acute pancreatitis. Spleen: The spleen is heterogeneous in appearance, which is likely secondary to the arterial timing of the contrast bolus. The spleen is enlarged and measures 16 cm. Adrenals: Normal. No adrenal mass is noted. Kidneys and ureters: There is a 12 mm simple cyst in the superior pole of the left kidney, for which follow-up is not necessary. No stones are noted in the kidneys or ureters. There is no hydronephrosis or hydroureter. Stomach and bowel: The stomach is distended with fluid. There is a periampullary duodenal diverticulum. There is colonic diverticulosis without evidence for diverticulitis. There is no evidence for a bowel obstruction, colitis, pneumatosis intestinalis, intussusception, volvulus, or perforated viscus. There is a large amount of formed stool in the rectum. Appendix: Normal. There is no evidence for appendicitis. Intraperitoneal space: No fluid collection. No free air. Retroperitoneal space: No fluid collection. No mass. Vasculature: The abdominal aorta is normal in caliber and there are extensive atherosclerotic calcifications. Lymph nodes: Normal. No enlarged lymph nodes. Urinary bladder: The partially distended urinary bladder is unremarkable. No stones or masses are seen in the bladder. Reproductive: The uterus is anterverted and unremarkable. The ovaries are unremarkable. Bones/joints: There is no fracture or dislocation. No suspicious osteolytic or osteoblastic lesion. There are degenerative changes involving the lumbar spine. Soft tissues: There is a large fat containing umbilical hernia. IMPRESSION: 1. Thickening of the wall of the gallbladder and inflammatory changes around the gallbladder, which are findings compatible with acute cholecystitis, and there is a probable fistulous connection between the gallbladder and antrum of the stomach, with calculi in the antrum of the stomach and proximal distention of the stomach with fluid. 2. Duodenal and colonic diverticulosis without evidence for diverticulitis. 3. Large amount of formed stool in the rectum. 4. Large fat containing umbilical hernia. 5. Hepatosplenomegaly. Electronically signed by: Jerry Barrios On 12/22/2019 22:05:12 PM
[2019-12-22] MEDS: NS 1,000 ML IV SCH (22:45)
[2019-12-22] MEDS ORDERED: GLUCOSE 4GM CHEW TABLET PO PRN (22:45)
[2019-12-22] MEDS ORDERED: DEXTROSE 50% 50 ML SYRINGE IV PRN (22:45)
[2019-12-22] MEDS ORDERED: GLUCAGON INJ 1MG VIAL SC PRN (22:45)
[2019-12-22] MEDS ORDERED: IMIPENEM/CILASTATIN 500 MG in D5W MINI-BAG PLUS 100 ML IV ONE (22:45)
--- NOTE | 2019-12-22 22:47 | HPEPDOC ---
[facility] Medical History & Physical Date of Admission Dec 22, 2019 Date of Service: Dec 22, 2019 Primary Care Physician: Hitesh Worthington MD Attending Physician: ALEXANDER NICOLE MD History and Physical TIME OF SERVICE 1120PM CHIEF COMPLAINT: abdominal pain HISTORY OF PRESENT ILLNESS: This 84 yr old F presented w c/o 8/10 in severity epigastric pain that radiates to the shoulders that she has had for 3 days. She initially thought it was due to her hiatal hernia, but today she had multiple episodes of vomiting (bilious and clear) therefore she decided to come to the hospital. She has been told that the has a "bad gallbladder" in the past but that she would not be a candidate for surgery because she may have problems with anesthesia because she has multiple co-morbidities. ROS: 12 point ROS negative except as listed in HPI PAST MEDICAL/SURGICAL HISTORY: CKD 3/4 CAD s/p PTCAx 3 w placement of RAFAELA in LAD CVA DM2 refused insulin Chronic diastolic CHF Dyslipidemia Gout LA w periodic limb movement disorder on CPAP 8cm H2O GERD/ Hiatal Hernia Umbilical hernia Hepatosplenomegaly Diverticulosis Impaired hearing Left knee osteoarthritis Osteoporosis had ADR to Fosamax Left breast lumpectomy for benign mass SOCIAL HISTORY: - Tobacco or alcohol FAMILY HISTORY: Cervical, Pancreatic, bladder and lung Cancer CAD DM ALLERGIES: Please see below. HOME MEDICATIONS: Please see below. PHYSICAL EXAMINATION: Vital Signs Date Time Temp Pulse Resp B/P (MAP) Pulse Ox O2 Delivery O2 Flow Rate FiO2 12/22/19 18:04 97.1 83 20 112/75 (87) 95 Room Air GEN: well-nourished / well developed/ appears ill INTEGUMENT: not flushed/ not jaundice / slightly pale HEENT: lips acyanotic /mucus membranes moist and pink / sclera anicteric CVS: RRR/NMRG/ radial pulses intact LUNGS: able to speak full sentences without stopping to take a breath / no coughing / lungs are clear to auscultation bilaterally on room air ABDOMEN: gagging and vomiting frequently / Contour ( obese ) /soft & not tender with palpation MSK/EXTREMITIES: NCAT / range of motion intact in all 4 extremities NEURO: CN 2-12 are grossly intact / speech is not dysarthric PSYCH: alert and oriented / able to understand and follow all commands LABORATORY DATA: 12/22/19 18:48 12/22/19 18:48: Immature Granulocyte % (Auto) 0.7, Neutrophils (%) (Auto) 73.4H, Lymphocytes (%) (Auto) 16.3L, Monocytes (%) (Auto) 8.1H, Eosinophils (%) (Auto) 1.1, Basophils (%) (Auto) 0.4, Neutrophils # (Auto) 5.2, Lymphocytes # (Auto) 1.2L, Monocytes # (Auto) 0.6, Eosinophils # (Auto) 0.1, Basophils # (Auto) 0.0, Nucleated Red Blood Cells % (auto) 0.0, Prothrombin Time 12.4, Prothromb Time International Ratio 0.91, Activated Partial Thromboplast Time 34.5, Anion Gap 7L, Glomerular Filtration Rate 38.8, Calcium Level 9.9, Total Bilirubin 0.5, Direct Bilirubin 0.2, Aspartate Amino Transf (AST/SGOT) 22, Alanine Aminotransferase (ALT/SGPT) 19, Alkaline Phosphatase 91, Total Creatine Kinase 33, Creatine Kinase MB < 1.0, Creatine Kinase MB Relative Index 3.03, Troponin I < 0.02, Total Protein 7.1, Albumin 3.0L, Albumin/Globulin Ratio 0.7L, Lipase 187 IMAGING: Chest xray "IMPRESSION: No acute cardiopulmonary process appreciated." CTA chest "IMPRESSION: 1. No acute findings in the chest. No pulmonary embolism. 2. Thyroid nodules as described above, the largest measuring 12 mm, for which further evaluation or follow-up is not necessary. COMMENTS: Consistent with the [employer]'s Incidental Findings Committee white paper (J Am Agatha Radiol 2015): In patients aged 35 years and older with an incidental thyroid nodule equal to or greater than 1.[address], MRI or extrathyroidal US, further evaluation with dedicated thyroid US is recommended for patients with normal life expectancy and without comorbidities. For smaller nodules without suspicious features, no further evaluation or follow up is recommended. " CT abd/pelvis " IMPRESSION: 1. Thickening of the wall of the gallbladder and inflammatory changes around the gallbladder, which are findings compatible with acute cholecystitis, and there is a probable fistulous connection between the gallbladder and antrum of the stomach, with calculi in the antrum of the stomach and proximal distention of the stomach with fluid. 2. Duodenal and colonic diverticulosis without evidence for diverticulitis. 3. Large amount of formed stool in the rectum. 4. Large fat containing umbilical hernia. 5. Hepatosplenomegaly." ASSESSMENT: Ms Abdi is an 84-year-old with a history of CKD 3, chronic CAD, CVA, diabetes, chronic diastolic CHF, dyslipidemia, gout, LA, hiatal hernia, hepatosplenomegaly, osteoporosis, osteoarthritis, and history of biliary colic who presented with complaints of nausea, vomiting and abdominal pain and was found to have imaging findings c/w acute cholecystitis; she will be admitted for management of the later. PLAN: 1. Acute cholecystitis She currently doesn't meet SIRS criteria. Plan: Admit to medical floor/nothing by mouth/IV fluids/IV Primaxin (selected this abx per PharmD Roshan mcmahon pt has multiple allergies) /follow-up with Dr. Benitez in the morning / every Zofran when necessary for n/v /morphine for pain when necessary 2. GERD/Hiatal Hernia Plan: IV PPI 3. Osteoporosis Plan: hold CA w vitamin D 4. CKD 3/4 Plan: f/u BMP 5. Chronic CAD / CVA / Dyslipidemia Plan: hold ASA & statin 6. DM2 refused insulin Plan: f/u FSBS, A1C / SSI w hypoglycemia protocol / hold home DM meds 7. Chronic diastolic CHF / Chronic HTN Plan: losartan & torsemide 8. Gout Plan: allopurinol 9. LA Plan: CPAP 10. Class 3 obesity She has co-existing DM and LA Complicates care Plan: f/u w PCP to discuss diet and exercise recommendations DVT PROPHYLAXIS: SCDs DISPOSITION: home after more than 2 midnight's stay Home Medications Scheduled Allopurinol (Allopurinol) 100 Mg Tablet, 100 MG PO DAILY NOON Ascorbic Acid (Vitamin C) 500 Mg Tablet, 1,000 MG PO DAILY NOON Aspirin (Aspirin EC) 325 Mg Tablet.dr, 325 MG PO DAILY Calcium Carbonate/Vitamin D3 (Calcium 600-Vit D3 800 Tablet) 1 Each Tablet, 1 TAB PO DAILY NOON Cetirizine HCl (Cetirizine HCl) 10 Mg Tablet, 10 MG PO DAILY Cholecalciferol (Vitamin D3) (Vitamin D3) 1,000 Unit Tablet, 1,000 UNITS PO DAILY NOON Fluticasone Propionate (Flonase Allergy Relief) 9.9 Ml Blair.susp, 2 SPRAY NARES DAILY Fluticasone Propionate (Flovent Hfa) 110 Mcg/Act Aer.w.adap, 2 PUFF INH BID Glimepiride (Glimepiride) 4 Mg Tablet, 4 MG PO BID Glucos Sul 2Kcl/MSM/Chond/C/Mn (Glucosamine Chondroitin Cap) 1 Each Capsule, 1 EACH PO DAILY NOON Linagliptin (Tradjenta) 5 Mg Tablet, 5 MG PO DAILY Losartan Potassium (Losartan Potassium) 25 Mg Tablet, 25 MG PO QPM Metoclopramide HCl (Metoclopramide HCl) 10 Mg Tablet, 10 MG PO QAM Multivitamin,Therapeutic (Thera-Tabs) 1 Each Tablet, 1 TAB PO DAILY NOON Omeprazole (Omeprazole) 40 Mg Capsule.dr, 40 MG PO DAILY Propylene Glycol (Systane Complete) 10 Ml Drops, 0.6 % OP BID Simvastatin (Simvastatin) 20 Mg Tablet, 20 MG PO QPM Torsemide (Torsemide) 100 Mg Tablet, 50 MG PO BID Turmeric Root Extract (Turmeric) 500 Mg Capsule, 500 MG PO DAILY NOON Scheduled PRN Albuterol Sulf (Albuterol Sulfate) 2.5 Mg/3 Ml Vial.neb, 2.5 MG INH BIDP PRN for SHORTNESS OF BREATH Docusate Sodium (Dok) 100 Mg Capsule, 100 MG PO DAILY PRN for CONSTIPATION Allergies Coded Allergies: Penicillins (Verified Allergy, Severe, angioedema, 11/10/18) bee pollen (Verified Allergy, Severe, anaphylaxis, 11/10/18) erythromycin base (Verified Allergy, Severe, anaphylaxis, 11/10/18) lidocaine (Verified Allergy, Severe, anaphylaxis, 11/10/18) procaine (Verified Allergy, Severe, facial swelling, 11/10/18) TAPE (Verified Allergy, Intermediate, RASH, 03/18/10) doxycycline (Verified Allergy, Intermediate, hives, 11/10/18) alendronate sodium (Verified Allergy, Mild, nausea, vomiting, rash, ) WOOL (FABRIC) (Verified Allergy, Unknown, rash, 08/18/18) diclofenac (Verified Allergy, Unknown, unknown, 08/18/18) latex (Verified Allergy, Unknown, swells up and breaks out, 11/10/18) PEPPERS (Verified Adverse Reaction, Mild, NAUSEA, 03/18/10) sucralfate (Verified Adverse Reaction, Mild, nausea and vomiting, 11/10/18) moxifloxacin (Verified Adverse Reaction, Unknown, biceps tendonitis, 08/18/18) prednisone (Verified Adverse Reaction, Unknown, palpitations, syncope, 08/18/18) A-FIB/CHADSVASC A-FIB History Current/History of A-Fib/PAF?: No Current PO Anticoag Therapy: No ALEXANDER NICOLE MD Dec 22, 2019 22:47
[2019-12-22] MEDS ORDERED: THERTAB52 PO (23:15)
[2019-12-22] MEDS ORDERED: D31000TA2 PO (23:17)
[2019-12-22] MEDS ORDERED: DOK1CAP7 PO (23:17)
[2019-12-23] VITALS (7 sets, daily range): BP systolic 138–176; BP diastolic 60–82; O2SAT 90–93
[2019-12-23] MEDS ORDERED: MORPHINE 2 MG/ML 1ML VIAL (J2270) IV PRN (00:45)
[2019-12-23] MEDS ORDERED: ALBUTEROL SULFATE 2.5 MG/0.5 ML INH NEB SOLN INH PRN (00:45)
[2019-12-23] MEDS ORDERED: cefTRIAXone SOD 1 GM in D5W MINI-BAG PLUS 50 ML IV SCH (01:00)
[2019-12-23] MEDS ORDERED: IMIPENEM/CILASTATIN 250 MG in D5W MINI-BAG PLUS 100 ML IV SCH (01:00)
[2019-12-23] MEDS: ONDANSETRON 4MG/2ML VIAL IV PRN ×4 (01:45→20:28)
[2019-12-23] MEDS: LOSARTAN 25 MG TAB PO SCH ×2 (01:46→20:29)
[2019-12-23] MEDS: TORSEMIDE (DEMADEX) 50 MG PER 1/2 TAB PO SCH ×3 (02:04→20:28)
[2019-12-23] MEDS: IMIPENEM/CILASTATIN 500 MG in D5W MINI-BAG PLUS 100 ML IV SCH ×2 (02:20→15:55)
[2019-12-23] MEDS: HumaLOG INSULIN (NovoLOG) PER UNIT SC SCH ×4 (06:00→18:24)
[2019-12-23 06:51] LABS: HEMATOCRIT 37.8 % (36.0-47.0); MEAN CORPUSCULAR HEMOGLOBIN 30.1 pg (27.0-33.0); MEAN CORPUSCULAR HGB CONC 31.7 g/dl (32.0-36.5); MEAN CORPUSCULAR VOLUME 94.7 fl (80.0-96.0); PLATELET COUNT, AUTOMATED 233 10^3/uL (150-450); RED BLOOD COUNT 3.99 10^6/uL (4.00-5.40); WHITE BLOOD COUNT 7.4 10^3/uL (4.0-10.0)
[2019-12-23 07:32] LABS: ALBUMIN 2.8 GM/DL (3.2-5.2); BILIRUBIN,TOTAL 0.5 MG/DL (0.2-1.0); CALCIUM LEVEL 9.8 MG/DL (8.8-10.2); CREATININE FOR GFR 1.51 MG/DL (0.55-1.30); MAGNESIUM LEVEL 2.1 MG/DL (1.8-2.4); POTASSIUM SERUM 3.6 MEQ/L (3.5-5.1); TOTAL PROTEIN 7.4 GM/DL (6.4-8.2)
[2019-12-23] MEDS: FLUTICASONE HFA 110 MCG 12 GM INHALER (FLOVENT) INH SCH ×2 (07:39→20:00)
[2019-12-23] MEDS: PANTOPRAZOLE 40MG VIAL (C9113 PER 1) IV SCH (08:52)
[2019-12-23] MEDS ORDERED: OMEPRAZOLE 20 MG CAP PO SCH (09:00)
[2019-12-23] MEDS: FLUTICASONE PROP 0.05% NASAL SPRAY 16 GM (FLONASE) NARES SCH (09:00)
[2019-12-23] MEDS: allopurinoL 100 MG TAB PO SCH (12:38)
--- NOTE | 2019-12-23 14:35 | IPNPDOC ---
Text Note Date of Service The patient was seen on 12/23/19. NOTE Subjective: Patient seen at bedside on 12/23/2019. She reports having mild abdominal pain, and nausea. She reports having few episodes of vomiting bilious without any blood overnight. She states she has headache since coming to the hospital. Denies having any diarrhea, chest pain. Objective:; no JVD, no displacement of PMI, no carotid or abdominal bruits. General: Built: obese, Patient is awake, alert, oriented times three, lying in bed , no apparent distress. Eyes: Conjunctiva clear, pupils equal round and reactive to light. Cardiovascular: S1, S2, normal rhythm, no murmur, rub, or gallop Respiratory: Chest is clear to auscultation bilaterally. No rhonchi, wheezes or rubs. Abdomen: Soft, bowel sounds positive, no bruits. No tenderness on palpation, no masses felt. Couldn't appreciate the liver border cause of the body habitus. Extremities: No clubbing or cyanosis. No edema, no tenderness. Central nervous system (HAZMAT TECHNICIAN): Awake, alert and fully oriented. Motor: Strength normal, patient moves all extremities. Skin: No rashes, lesions, ulcerations, subcutaneous nodules or induration. Assessment: Mr. Abdi is an 84-year-old female patient with extensive past medical history of CKD III, chronic CAD s/p drug eluting stent in LAD, CVA, diabetes type 2, ch ronic diastolic CHF, dyslipidemia, gout, LA on CPAP, hiatal hernia, osteoporosis, osteoarthritis and diverticulosis presented to the emergency department with multiple episodes of vomiting, abdominal pain on further imaging showed acute cholecystitis and was admitted to the hospital for further man agement. Imaging: Chest x-ray 12/22/2019: Reported as no acute cardiopulmonary process. CT angiogram chest, 12/22/2019: Reported as no acute findings in chest. No pulmonary embolism. Thyroid gland is heterogeneous in appearance and there is 12mm nodule in right lobe of the thyroid gland and 9 mm nodule in the left lobe of the thyroid gland for which further evaluation or follow-up is not necessary. CT abdomen/pelvis with IV contrast, 12/22/2019: Reported as thickening of the wall of gallbladder and and symmetric changes around the gallbladder, which are findings compatible with acute cholecystitis and there is probable fistulous connection between the gallbladder and the antrum of the stomach, with calculus in the antrum of the stomach and proximal distention of the stomach with fluid. Duodenal and colonic diverticulosis without evidence for diverticulitis. Large amount of formed stool in the rectum. Large fat containing umbilical hernia. Hepatosplenomegaly. Plan: 1. Acute cholecystitis / Fistula between gallbladder and stomach / Possible gastric outlet obstruction She was kept nothing by mouth overnight. Surgery was consulted Dr. Benitez saw her in the morning and decided to do an endoscopy tomorrow morning. Plan for surgery based on the endoscopic findings. Continue Zofran for her vomiting. Continue antibiotics imipenem Day# 1 Her labs were looking normal today morning. LFT normal, bilirubin 0.5, WBC 7.4 Will give patient clear liquid diet for now and will keep him nothing by mouth from midnight. 2. CAD/CVA/dyslipidemia. Will Start aspirin and statin. 3. Diabetes mellitus type 2: Patient is on sliding scale insulin. 4. Hypertension: Will continue losartan and torsemide. 5. Gout: Will continue allopurinol.. 6. LA: Patient is on CPAP at home. Can continue CPAP. 7. DVT prophylaxis: Teds and sequentials 8. GI prophylaxis: IV Protonix 40 MG VS,Fishbone, I+O VS, Fishbone, I+O Laboratory Tests 12/22/19 18:48 12/23/19 06:41 Vital Signs Date Time Temp Pulse Resp B/P (MAP) Pulse Ox O2 Delivery O2 Flow Rate FiO2 12/23/19 12:00 97.4 79 18 138/71 (93) Room Air 12/23/19 08:00 96 I&O- Last 24 Hours up to 6 AM 12/23/19 06:00 Intake Total 1330 ml Output Total 0 ml Balance 1330 ml GME ATTESTATION GME ATTESTATION My faculty preceptor for this patient encounter was physically present during the encounter and was fully available. All aspects of the patient interview, examination, medical decision making process, and medical care plan development were reviewed and approved by the faculty preceptor. The faculty preceptor is aware and concurs with the plan as stated in the body of this note and will attest to such by his/her cosignature. ATTENDING NOTE I, Sathya Spence, have independently examined this patient and performed my own physical exam, as well as reviewed the documentation and edited where necessary. I have discussed in detail with the resident / student the findings and plan of treatment as documented by the resident / student and edited their note. I agree with their findings and treatment plan and have edited their documentation. I will continue to follow the patient during this hospital stay. Ute Tuttle MD Dec 23, 2019 14:35 SATHYA SPNECE MD Dec 24, 2019 11:46
[2019-12-23] MEDS ORDERED: ASPIRIN 325 MG TAB PO ONE (15:00)
[2019-12-23] MEDS: NS 1,000 ML IV SCH (20:29)
[2019-12-23] MEDS: SIMVASTATIN 20 MG TAB PO SCH (20:29)
[2019-12-24] VITALS (9 sets, daily range): BP systolic 143–182; BP diastolic 64–76; O2SAT 92–96
[2019-12-24] MEDS ORDERED: PROMETHAZINE INJ 25 MG/ML VIAL (J2550) IV ONE (00:45)
[2019-12-24] MEDS: IMIPENEM/CILASTATIN 500 MG in D5W MINI-BAG PLUS 100 ML IV SCH ×2 (01:10→13:47)
[2019-12-24] MEDS: HumaLOG INSULIN (NovoLOG) PER UNIT SC SCH ×4 (01:25→18:50)
[2019-12-24] MEDS: D5W/0.45% SODIUM CHLORIDE 1,000 ML IV SCH ×2 (05:20→13:47)
--- NOTE | 2019-12-24 08:46 | IPNPDOC ---
Text Note Date of Service The patient was seen on 12/24/19. NOTE No acute events overnight. She is still having persistent nausea and emesis, and an NG is being placed this am. No other new complaints. VSSAF NAD abd - soft, nt, nd labs - below A) 84y/o female with possible fistula between the gallbladder and stomach persistent emesis possible due to gastric outlet obstruction P) NPO NGT OR for EGD this am No changes to H+P. Ben Benitez DO VS,Stare, I+O VS, Fishbone, I+O Vital Signs Date Time Temp Pulse Resp B/P (MAP) Pulse Ox O2 Delivery O2 Flow Rate FiO2 12/24/19 05:00 69 12/24/19 04:00 97.8 18 145/75 (98) 92 Nasal Cannula 1.0 I&O- Last 24 Hours up to 6 AM 12/24/19 06:00 Intake Total 1010 ml Output Total 600 ml Balance 410 ml NETO BENITEZ DO Dec 24, 2019 08:45
[2019-12-24] MEDS: FLUTICASONE PROP 0.05% NASAL SPRAY 16 GM (FLONASE) NARES SCH (09:00)
--- NOTE | 2019-12-24 09:15 | IPNPDOC ---
Text Note Date of Service The patient was seen on 12/24/19. NOTE Subjective: Patient is an 84-year-old female with a PMHx of CAD s/p RAFAELA in LAD, Chronic Diastolic CHF, CVA, LA on CPAP, DM2, DLP, CKD3, Gout, GERD/Hiatal hernia who presented to the hospital with abdominal pain started with nausea, vomiting. 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 Patient was admitted to hospital service and general surgery was called on consultation. Patient was seen and examined at the bedside. Currently patient has continued to experience worsening nausea and vomiting overnight describes the vomitus as clear yellow. Denies any chest pain, any significant abdominal pain, diarrhea, or urinary discomfort. Denies chest pain, short of breath. Objective: Vitals (See below) General: Sitting up in bed, nauseated, had vomited once while in the room, AAOx3 HEENT: NC, AT CVS: +S1S2 Lungs: Fair air entry b/l, -w/r/r Abdomen: Soft, ND, NT, obese, buccal hernia noted Extremities: - Edema, - Calf tenderness Imaging: CXR 12/21: No acute cardiopulmonary process appreciated." CTA chest 12/21: 1. No acute findings in the chest. No pulmonary embolism. 2. Thyroid nodules as described above, the largest measuring 12 mm, for which further evaluation or follow-up is not necessary. COMMENTS: Consistent with the [place] [employer]'s Incidental Findings Committee white paper (J Am Agatha Radiol 2015): In patients aged 35 years and older with an incidental thyroid nodule equal to or greater than 1.[address], MRI or extrathyroidal US, further evaluation with dedicated thyroid US is recommended for patients with normal life expectancy and without comorbidities. For smaller nodules without suspicious features, no further evaluation or follow up is recommended. " CT abd/pelvis 12/21: 1. Thickening of the wall of the gallbladder and inflammatory changes around the gallbladder, which are findings compatible with acute cholecystitis, and there is a probable fistulous connection between the gallbladder and antrum of the stomach, with calculi in the antrum of the stomach and proximal distention of the stomach with fluid. 2. Duodenal and colonic diverticulosis without evidence for diverticulitis. 3. Large amount of formed stool in the rectum. 4. Large fat containing umbilical hernia. 5. Hepatosplenomegaly." Assessment and plan: Nausea / Vomiting - possibly 2/2 Gastric outlet obstruction / Fistula (Gallbladder to stomach); less likely 2/2 acute cholecystitis - Currently patient - Hemodynamically stable / Afebrile - c/w Imipenem for intra-abdominal coverage (Day #3) - c/w symptomatic control with Zofran / Reglan / Morphine - Will insert NG tube for decompression of stomach and alleviation of nausea and vomiting - Dr. Benitez on consultation; will be taking patient for EGD today CKD3 - Baseline Cr of ~1.5 - Cr at baseline - Will hold Torsemide - Will start Fluids (re: persistent nausea and vomiting) Chronic CAD / CVA / Dyslipidemia - c/w ASA & statin - non-administered (re: N&V) DM2 - c/w ISS Chronic diastolic CHF / Chronic HTN - c/w Losartan - Will DC Torsemide (re: Nausea and Vomiting / NPO; Rx: on fluids) Gout - c/w allopurinol AL on CPAP - Allow CPAP use while inpatient Class 3 obesity - BMI 46.5 - Complicating medical care Osteoporosis - Hold CA w vitamin D (re: N&V with possible gastric outlet obstruction) GI prophylaxis / GERD / Hiatal hernia - c/w Protonix DVT prophylaxis - c/w TEDs/Sequentials - Will start Heparin post EGD if possible Disposition: - Awaiting clinical improvement VS,Arnulfo, I+O VS, Estebanbone, I+O Vital Signs Date Time Temp Pulse Resp B/P (MAP) Pulse Ox O2 Delivery O2 Flow Rate FiO2 12/24/19 08:00 98.0 81 8 143/64 (90) 95 Room Air 12/24/19 04:00 1.0 I&O- Last 24 Hours up to 6 AM 12/24/19 06:00 Intake Total 1010 ml Output Total 600 ml Balance 410 ml WELLINGTON FINLEY MD Dec 24, 2019 09:15
[2019-12-24] MEDS ORDERED: ROCURONIUM BROMIDE 50 MG/5 ML VIAL As Ordered ONE (10:03)
[2019-12-24] MEDS ORDERED: fentaNYL 100 MCG/2 ML INJECTION (J3010) As Ordered ONE (10:03)
[2019-12-24] MEDS ORDERED: dexameTHASONE 4 MG/ML 1ML VIAL (J1100 PER 1MG) As Ordered ONE (10:03)
[2019-12-24] MEDS ORDERED: ePHEDrine SULFATE 25 MG/5 ML(5MG/ML) SYRINGE As Ordered ONE (10:03)
[2019-12-24] MEDS ORDERED: ONDANSETRON 4MG/2ML VIAL As Ordered ONE (10:03)
[2019-12-24] MEDS ORDERED: propofoL 200 MG/20 ML VIAL As Ordered ONE (10:03)
[2019-12-24] MEDS ORDERED: SUCCINYLCHOLINE 100 MG/5 ML SYRINGE (J0330) As Ordered ONE (10:03)
--- NOTE | 2019-12-24 10:39 | ROOR ---
Patient Name: Yola Abdi Procedure Date: 12/24/2019 7:58 AM Date of : 1935 Age: 84 Room: Main OR Gender: Female Note Status: Finalized Procedure: Upper GI endoscopy Indications: Suspected gastric outlet obstruction, Gastric Fistula Providers: Caleb Benitez DO Referring MD: Caleb Benitez DO Requesting Provider: Medicines: General Anesthesia Complications: No immediate complications. Procedure: Pre-Anesthesia Assessment: - Prior to the procedure, a History and Physical was performed, and patient medications and allergies were reviewed. The patient is competent. The risks and benefits of the procedure and the sedation options and risks were discussed with the patient. All questions were answered and informed consent was obtained. Patient identification and proposed procedure were verified by the physician, the nurse, the anesthesiologist, the satellite communications engineer and the control technician in the procedure room. Mental Status Examination: alert and oriented. Airway Examination: normal oropharyngeal airway and neck mobility. Respiratory Examination: clear to auscultation. CV Examination: normal. Prophylactic Antibiotics: The patient does not require prophylactic antibiotics. Prior Anticoagulants: The patient has taken no previous anticoagulant or antiplatelet agents. ASA Grade Assessment: IV - A patient with severe systemic disease that is a constant threat to life. After reviewing the risks and benefits, the patient was deemed in satisfactory condition to undergo the procedure. The anesthesia plan was to use general anesthesia. Immediately prior to administration of medications, the patient was re-assessed for adequacy to receive sedatives. The heart rate, respiratory rate, oxygen saturations, blood pressure, adequacy of pulmonary ventilation, and response to care were monitored throughout the procedure. The physical status of the patient was re-assessed after the procedure. The Endoscope was introduced through the mouth, and advanced to the pylorus. The upper GI endoscopy was technically difficult and complex due to abnormal anatomy. The patient tolerated the procedure fairly well. Findings: Gallstone were found at the pylorus. Estimated blood loss was minimal. The exam was otherwise without abnormality. Impression: - Gallstone were found in the stomach. - The examination was otherwise normal. - No specimens collected. Recommendation: - Return patient to [facility] for ongoing care. - NPO today. - Continue present medications. Caleb Benitez DO 12/24/2019 10:39:02 AM Electronically signed by Caleb Benitez DO Number of Addenda: 0 Note Initiated On: 12/24/2019 7:58 AM Estimated Blood Loss: Estimated blood loss was minimal.
[2019-12-24] MEDS: allopurinoL 100 MG TAB PO SCH (12:00)
[2019-12-24] MEDS: PANTOPRAZOLE 40MG VIAL (C9113 PER 1) IV SCH (13:10)
[2019-12-24] MEDS: FLUTICASONE HFA 110 MCG 12 GM INHALER (FLOVENT) INH SCH (19:58)
[2019-12-24] MEDS: LOSARTAN 25 MG TAB PO SCH (20:57)
[2019-12-24] MEDS: SIMVASTATIN 20 MG TAB PO SCH (20:57)
[2019-12-25] VITALS: BP 150/86
[2019-12-25] MEDS: HumaLOG INSULIN (NovoLOG) PER UNIT SC SCH ×4 (00:25→17:44)
[2019-12-25] MEDS: IMIPENEM/CILASTATIN 500 MG in D5W MINI-BAG PLUS 100 ML IV SCH ×2 (02:59→14:48)
[2019-12-25 04:00] VITALS: BP 154/82
--- NOTE | 2019-12-25 07:35 | IPNPDOC ---
Text Note Date of Service The patient was seen on 12/25/19. NOTE No acute events overnight. She is still having epigastric pains, but the nausea and emesis have subsided with the NG in place. 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 I gave her the option of stone removal endoscopically vs. robotic cholecystectomy and partial gastrectomy. She is going to think about it, and we will discuss it together and come up with a plan in the morning. Ben Benitez DO VS,Arnulfo, I+O VS, Stare, I+O Vital Signs Date Time Temp Pulse Resp B/P (MAP) Pulse Ox O2 Delivery O2 Flow Rate FiO2 12/25/19 04:00 2.0 12/25/19 04:00 97.2 71 22 154/82 (106) 96 Nasal Cannula I&O- Last 24 Hours up to 6 AM 12/25/19 06:00 Intake Total 1020 ml Output Total 2050 ml Balance -1030 ml NETO BENITEZ DO Dec 25, 2019 07:35
[2019-12-25] MEDS: FLUTICASONE PROP 0.05% NASAL SPRAY 16 GM (FLONASE) NARES SCH (07:54)
[2019-12-25 08:00] VITALS: BP 132/62
[2019-12-25 08:02] LABS: BASO % 0.5 % (0.0-1.0); EOS # 0.1 10^3/uL (0.0-0.5); EOS % 1.6 % (0.0-3.0); HEMOGLOBIN 10.8 g/dl (12.0-15.5); LYMPH # 1.7 10^3/uL (1.5-5.0); LYMPH % 22.5 % (24.0-44.0); MEAN CORPUSCULAR HEMOGLOBIN 29.8 pg (27.0-33.0); MEAN CORPUSCULAR HGB CONC 30.9 g/dl (32.0-36.5); MEAN CORPUSCULAR VOLUME 96.7 fl (80.0-96.0); MONO # 0.9 10^3/uL (0.0-0.8); MONO % 12.3 % (0.0-5.0); NEUTROPHILS # 4.8 10^3/uL (1.5-8.5); NEUTROPHILS % 62.8 % (36.0-66.0); PLATELET COUNT, AUTOMATED 210 10^3/uL (150-450); RED BLOOD COUNT 3.62 10^6/uL (4.00-5.40); WHITE BLOOD COUNT 7.6 10^3/uL (4.0-10.0)
[2019-12-25] MEDS: PANTOPRAZOLE 40MG VIAL (C9113 PER 1) IV SCH (08:04)
[2019-12-25] MEDS: D5W/0.45% SODIUM CHLORIDE 1,000 ML IV SCH (08:05)
[2019-12-25] MEDS: FLUTICASONE HFA 110 MCG 12 GM INHALER (FLOVENT) INH SCH ×2 (08:14→20:21)
[2019-12-25 08:31] LABS: ALBUMIN 2.6 GM/DL (3.2-5.2); BILIRUBIN,TOTAL 0.4 MG/DL (0.2-1.0); CALCIUM LEVEL 9.4 MG/DL (8.8-10.2); CREATININE FOR GFR 2.15 MG/DL (0.55-1.30); GLOMERULAR FILTRATION RATE 23.2 (>32); MAGNESIUM LEVEL 2.2 MG/DL (1.8-2.4); TOTAL PROTEIN 6.4 GM/DL (6.4-8.2)
[2019-12-25 08:32] LABS: POTASSIUM SERUM 2.9 MEQ/L (3.5-5.1)
[2019-12-25] MEDS: KCL 40MEQ IN D5/0.45NS 1000ML 1,000 ML IV SCH ×2 (09:28→21:15)
[2019-12-25] MEDS: KCL 10MEQ/100ML SWI (KRUN) 10 MEQ in IV 1 EA IV SCH ×5 (09:29→18:53)
--- NOTE | 2019-12-25 10:15 | IPNPDOC ---
Text Note Date of Service The patient was seen on 12/25/19. NOTE Subjective: Patient is an 84-year-old female with a PMHx of CAD s/p RAFAELA in LAD, Chronic Diastolic CHF, CVA, LA on CPAP, DM2, DLP, CKD3, Gout, GERD/Hiatal hernia who presented to the hospital with abdominal pain started with nausea, vomiting. 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 Patient was admitted to hospital service and general surgery was called on consultation. Patient was seen and examined at the bedside. Patient reports her nausea and v omiting have resolved with NG tube. Reports some abdominal discomfort in the upper portion of her abdomen. Denies any CP, SOB or palpitations. Objective: Vitals (See below) General: Sitting up in bed, appears comfortable, AAOx3 HEENT: NC, AT CVS: +S1S2 Lungs: Fair air entry b/l, no appreciable wheezing / rhonchi / rales Abdomen: Soft, non-distended, non-tender Extremities: No evidence of LE edema, - Calf tenderness Imaging: CXR 12/21: No acute cardiopulmonary process appreciated." CTA chest 12/21: 1. No acute findings in the chest. No pulmonary embolism. 2. Thyroid nodules as described above, the largest measuring 12 mm, for which furt her evaluation or follow-up is not necessary. COMMENTS: Consistent with the [employer]'s Incidental Findings Committee white paper (J Am Agatha Radiol 2015): In patients aged 35 years and older with an incidental thyroid nodule equal to or greater than 1.[address], MRI or extrathyroidal US, further evaluation with dedicated thyroid US is recommended for patients with normal life expectancy and without comorbidities. For smaller nodules without suspicious features, no further evaluation or follow up is recommended. " CT abd/pelvis 12/21: 1. Thickening of the wall of the gallbladder and inflammatory changes around the gallbladder, which are findings compatible with acute cholecystitis, and there is a probable fistulous connection between the gallbladder and antrum of the stomach, with calculi in the antrum of the stomach and proximal distention of the stomach with fluid. 2. Duodenal and colonic diverticulosis without evidence for diverticulitis. 3. Large amount of formed stool in the rectum. 4. Large fat containing umbilical hernia. 5. Hepatosplenomegaly." Assessment and plan: Nausea / Vomiting - possibly 2/2 Gastric outlet obstruction / Fistula (Gallbladder to stomach); less likely 2/2 acute cholecystitis - Currently patient reports resolution of nausea and vomiting - Hemodynamically stable / Afebrile - c/w Imipenem for intra-abdominal coverage (Day #3) - c/w symptomatic control with Zofran / Reglan / Morphine - c/w NG tube (re: decompression of stomach / alleviation of nausea and vomiting) - s/p EGD 12/23: Evidence of gastric obstruction from gallstones; unable to remove gallstones completely - Dr. Benitez on consultation; discussed case plan for potential transfer to [facility] Increased Cr on baselien CKD3 - Baseline Cr of ~1.5 - Cr has increased - Will hold Torsemide - Will increase rate of IV Fluids (re: persistent nausea and vomiting) Hypokalemia - Will provide potassium supplementation via IV routes (re: NPO) Chronic CAD / CVA / Dyslipidemia - c/w ASA & statin - non-administered (re: N&V) DM2 - c/w ISS Chronic diastolic CHF / Chronic HTN - BP well controlled - Will DC Losartan - Will DC Torsemide (re: Nausea and Vomiting / NPO; Rx: on fluids) Gout - Will DC allopurinol LA on CPAP - Allow CPAP use while inpatient Class 3 obesity - BMI 46.5 - Complicating medical care Osteoporosis - Will Hold Calcium and vitamin D (re: N&V with possible gastric outlet obstruction) GI prophylaxis / GERD / Hiatal hernia - c/w Protonix DVT prophylaxis - c/w TEDs/Sequentials Disposition: - Awaiting clinical improvement Arnulfo POWERS, I+O VSArnulfo I+O Laboratory Tests 12/25/19 07:36 Vital Signs Date Time Temp Pulse Resp B/P (MAP) Pulse Ox O2 Delivery O2 Flow Rate FiO2 12/25/19 08:00 97.1 71 18 132/62 (85) 97 Nasal Cannula 2.0 I&O- Last 24 Hours up to 6 AM 12/25/19 05:59 Intake Total 940 ml Output Total 1550 ml Balance -610 ml WELLINGTON FINLEY MD Dec 25, 2019 10:15
[2019-12-25] MEDS: ONDANSETRON 4MG/2ML VIAL IV PRN (11:00)
[2019-12-25 12:00] VITALS: BP 152/71
[2019-12-25 15:43] LABS: CALCIUM LEVEL 9.9 MG/DL (8.8-10.2); CREATININE FOR GFR 2.17 MG/DL (0.55-1.30); POTASSIUM SERUM 3.1 MEQ/L (3.5-5.1)
[2019-12-25 16:00] VITALS: BP 135/97
[2019-12-25 20:00] VITALS: BP 128/70
[2019-12-26] VITALS (7 sets, daily range): BP systolic 116–160; BP diastolic 50–86
[2019-12-26] MEDS: HumaLOG INSULIN (NovoLOG) PER UNIT SC SCH ×4 (00:33→17:51)
[2019-12-26] MEDS: IMIPENEM/CILASTATIN 500 MG in D5W MINI-BAG PLUS 100 ML IV SCH ×2 (02:58→14:47)
[2019-12-26] MEDS: KCL 40MEQ IN D5/0.45NS 1000ML 1,000 ML IV SCH (06:06)
[2019-12-26 06:16] LABS: BASO % 0.6 % (0.0-1.0); EOS # 0.4 10^3/uL (0.0-0.5); EOS % 5.5 % (0.0-3.0); HEMATOCRIT 37.8 % (36.0-47.0); HEMOGLOBIN 11.9 g/dl (12.0-15.5); LYMPH # 1.6 10^3/uL (1.5-5.0); MEAN CORPUSCULAR HEMOGLOBIN 30.4 pg (27.0-33.0); MEAN CORPUSCULAR HGB CONC 31.5 g/dl (32.0-36.5); MEAN CORPUSCULAR VOLUME 96.7 fl (80.0-96.0); MONO # 0.8 10^3/uL (0.0-0.8); MONO % 11.5 % (0.0-5.0); NEUTROPHILS # 3.8 10^3/uL (1.5-8.5); NEUTROPHILS % 57.9 % (36.0-66.0); PLATELET COUNT, AUTOMATED 245 10^3/uL (150-450); RED BLOOD COUNT 3.91 10^6/uL (4.00-5.40); WHITE BLOOD COUNT 6.5 10^3/uL (4.0-10.0)
[2019-12-26 06:43] LABS: ALBUMIN 2.8 GM/DL (3.2-5.2); BILIRUBIN,TOTAL 0.6 MG/DL (0.2-1.0); CREATININE FOR GFR 2.21 MG/DL (0.55-1.30); GLOMERULAR FILTRATION RATE 22.5 (>32); MAGNESIUM LEVEL 2.1 MG/DL (1.8-2.4); POTASSIUM SERUM 3.5 MEQ/L (3.5-5.1); TOTAL PROTEIN 6.5 GM/DL (6.4-8.2)
[2019-12-26] MEDS: FLUTICASONE HFA 110 MCG 12 GM INHALER (FLOVENT) INH SCH ×2 (07:54→20:02)
--- NOTE | 2019-12-26 08:33 | IPNPDOC ---
Text Note Date of Service The patient was seen on 12/26/19. NOTE No acute events overnight. She is still feeling much better. The pains are all gone, and she is in much better spirits. I explained to her about going to [facility] soon with the hopes of just removing the stone and avoiding a major operation. She understands and has no questions for me. 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 We do not have the proper equipment here to be able to do this. Ben Benitez DO VS,Arnulfo, I+O VS, Arnulfo, I+O Laboratory Tests 12/25/19 15:04 12/26/19 05:56 Vital Signs Date Time Temp Pulse Resp B/P (MAP) Pulse Ox O2 Delivery O2 Flow Rate FiO2 12/26/19 04:00 2.0 12/26/19 04:00 97.1 72 20 156/86 (109) 97 Nasal Cannula I&O- Last 24 Hours up to 6 AM 12/26/19 05:59 Intake Total 1340 ml Output Total 1675 ml Balance -335 ml NETO BENITEZ DO Dec 26, 2019 08:33
[2019-12-26] MEDS: PANTOPRAZOLE 40MG VIAL (C9113 PER 1) IV SCH (09:30)
[2019-12-26] MEDS: KCL 40MEQ IN D5/NS 1000ML 1,000 ML IV SCH ×2 (09:30→22:08)
[2019-12-26] MEDS: FLUTICASONE PROP 0.05% NASAL SPRAY 16 GM (FLONASE) NARES SCH (09:30)
--- NOTE | 2019-12-26 10:27 | IPNPDOC ---
Text Note Date of Service The patient was seen on 12/26/19. NOTE Subjective: Patient is an 84-year-old female with a PMHx of CAD s/p RAFAELA in LAD, Chronic Diastolic CHF, CVA, LA on CPAP, DM2, DLP, CKD3, Gout, GERD/Hiatal hernia who presented to the hospital with abdominal pain started with nausea, vomiting. 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 Patient was admitted to hospital service and general surgery was called on consultation. Patient was seen and examined at the bedside. Patient reports that she has not experience any further nausea, vomiting. Denies any chest pain, shortness breath, palpitations. Reports no significant pain. No constipation, diarrhea, dysuria. Reports restless legs. Objective: Vitals (See below) General: Patient is sitting up in bed, does not appear to be in any acute distress, AAOx3 HEENT: NC, AT, NG tube in place CVS: +S1S2 Lungs: Air entry is fair bilaterally without any auscultated rhonchi, crackles or wheezing Abdomen: Remains soft without any distention or tenderness Extremities: No edema of lower extremities, - Calf tenderness Imaging: CXR 12/21: No acute cardiopulmonary process appreciated." CTA chest 12/21: 1. No acute findings in the chest. No pulmonary embolism. 2. Thyroid nodules as described above, the largest measuring 12 mm, for which further evaluation or follow-up is not necessary. COMMENTS: Consistent with the [employer]'s Incidental Findings Committee white paper (J Am Agatha Radiol 2015): In patients aged 35 years and older with an incidental thyroid nodule equal to or greater than 1.[address], MRI or extrathyroidal US, further evaluation with dedicated thyroid US is recommended for patients with normal life expectancy and without comorbidities. For smaller nodules without suspicious features, no further evaluation or follow up is recommended. " CT abd/pelvis 12/21: 1. Thickening of the wall of the gallbladder and inflammatory changes around the gallbladder, which are findings compatible with acute cholecystitis, and there is a probable fistulous connection between the gallbladder and antrum of the stomach, with calculi in the antrum of the stomach and proximal distention of the stomach with fluid. 2. Duodenal and colonic diverticulosis without evidence for diverticulitis. 3. Large amount of formed stool in the rectum. 4. Large fat containing umbilical hernia. 5. Hepatosplenomegaly." Assessment and plan: Nausea / Vomiting - possibly 2/2 Gastric outlet obstruction / Fistula (Gallbladder to stomach); less likely 2/2 acute cholecystitis - NG tube has improved nausea and vomiting - Hemodynamically stable / Afebrile - c/w Imipenem for intra-abdominal coverage (Day #4) - c/w symptomatic control with Zofran / Reglan / Morphine - c/w NG tube (re: decompression of stomach / alleviation of nausea and vomiting) - s/p EGD 12/23: Evidence of gastric obstruction from gallstones; unable to remove gallstones completely - Dr. Benitez on consultation; discussed case plan for potential transfer to [facility] - Awaiting bed [facility] Increased Cr on baselien CKD3 - Baseline Cr of ~1.5 - Cr has increased - Will hold Torsemide - c/w IV Fluids (re: persistent nausea and vomiting) - will adjust s/p Hypokalemia Chronic CAD / CVA / Dyslipidemia - c/w ASA & statin - non-administered (re: N&V) DM2 - c/w ISS Chronic diastolic CHF / Chronic HTN - BP well controlled - Will DC Losartan - Will DC Torsemide (re: Nausea and Vomiting / NPO; Rx: on fluids) Gout - Will DC allopurinol LA on CPAP - Allow CPAP use while inpatient Class 3 obesity - BMI 46.5 - Complicating medical care Osteoporosis - Will Hold Calcium and vitamin D (re: N&V with possible gastric outlet obstruction) GI prophylaxis / GERD / Hiatal hernia - c/w Protonix DVT prophylaxis - c/w TEDs/Sequentials Disposition: - Awaiting bed [facility] VS,Arnulfo, I+O VS, Arnulfo, I+O Laboratory Tests 12/25/19 15:04 12/26/19 05:56 Vital Signs Date Time Temp Pulse Resp B/P (MAP) Pulse Ox O2 Delivery O2 Flow Rate FiO2 12/26/19 04:00 2.0 12/26/19 04:00 97.1 72 20 156/86 (109) 97 Nasal Cannula I&O- Last 24 Hours up to 6 AM0 12/26/19 06:00 Intake Total 1220 ml Output Total 1175 ml Balance 45 ml WELLINGTON FINLEY MD Dec 26, 2019:27
[2019-12-26] MEDS: hydrALAZINE 20MG/ML 1ML VIAL (J0360 PER 20MG) IV SCH ×3 (11:57→23:00)
[2019-12-27] VITALS: BP 140/76
[2019-12-27] MEDS: HumaLOG INSULIN (NovoLOG) PER UNIT SC SCH ×3 (00:36→13:12)
[2019-12-27] MEDS: IMIPENEM/CILASTATIN 500 MG in D5W MINI-BAG PLUS 100 ML IV SCH ×2 (02:41→13:12)
[2019-12-27 04:00] VITALS: BP 136/80
[2019-12-27] MEDS: hydrALAZINE 20MG/ML 1ML VIAL (J0360 PER 20MG) IV SCH ×3 (05:00→15:42)
[2019-12-27 05:04] LABS: BASO % 0.8 % (0.0-1.0); EOS # 0.2 10^3/uL (0.0-0.5); EOS % 4.7 % (0.0-3.0); HEMATOCRIT 36.4 % (36.0-47.0); HEMOGLOBIN 11.2 g/dl (12.0-15.5); LYMPH # 1.1 10^3/uL (1.5-5.0); LYMPH % 23.3 % (24.0-44.0); MEAN CORPUSCULAR HEMOGLOBIN 29.8 pg (27.0-33.0); MEAN CORPUSCULAR HGB CONC 30.8 g/dl (32.0-36.5); MEAN CORPUSCULAR VOLUME 96.8 fl (80.0-96.0); MONO # 0.7 10^3/uL (0.0-0.8); MONO % 14.1 % (0.0-5.0); NEUTROPHILS # 2.8 10^3/uL (1.5-8.5); NEUTROPHILS % 56.3 % (36.0-66.0); PLATELET COUNT, AUTOMATED 188 10^3/uL (150-450); RED BLOOD COUNT 3.76 10^6/uL (4.00-5.40); WHITE BLOOD COUNT 4.9 10^3/uL (4.0-10.0)
[2019-12-27 05:23] LABS: ALBUMIN 2.4 GM/DL (3.2-5.2); BILIRUBIN,TOTAL 0.5 MG/DL (0.2-1.0); CALCIUM LEVEL 9.5 MG/DL (8.8-10.2); CREATININE FOR GFR 2.15 MG/DL (0.55-1.30); GLOMERULAR FILTRATION RATE 23.2 (>32); MAGNESIUM LEVEL 2.1 MG/DL (1.8-2.4); POTASSIUM SERUM 3.8 MEQ/L (3.5-5.1); TOTAL PROTEIN 6.2 GM/DL (6.4-8.2)
[2019-12-27] MEDS: KCL 40MEQ IN D5/NS 1000ML 1,000 ML IV SCH ×2 (06:11→16:34)
[2019-12-27] MEDS: FLUTICASONE HFA 110 MCG 12 GM INHALER (FLOVENT) INH SCH (07:54)
[2019-12-27 08:00] VITALS: BP 160/70
[2019-12-27] MEDS: FLUTICASONE PROP 0.05% NASAL SPRAY 16 GM (FLONASE) NARES SCH (10:08)
[2019-12-27] MEDS: PANTOPRAZOLE 40MG VIAL (C9113 PER 1) IV SCH (10:08)
--- NOTE | 2019-12-27 10:10 | IPNPDOC ---
Text Note Date of Service The patient was seen on 12/27/19. NOTE Subjective: Patient is an 84-year-old female with a PMHx of CAD s/p RAFAELA in LAD, Chronic Diastolic CHF, CVA, LA on CPAP, DM2, DLP, CKD3, Gout, GERD/Hiatal hernia who presented to the hospital with abdominal pain started with nausea, vomiting. 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 Patient was admitted to hospital service and general surgery was called on consultation. Patient was seen and examined at the bedside. Patient has not experience any f urther nausea or vomiting. Denies any abdominal discomfort. Denies any chest pain, shortness of breath. Does report a mild cough. Denies any diarrhea, or urinary discomfort. Objective: Vitals (See below) General: Patient is sitting up in bed, reports a mild cough, appears comfortable, AAOx3 HEENT: NC, AT, NG tube in place CVS: +S1S2 Lungs: Again, air entry is fair bilaterally without any auscultated rhonchi, wheezing or crackles Abdomen: without distention / tenderness, remains soft Extremities: LE are without any edema, - Calf tenderness Imaging: CXR 12/21: No acute cardiopulmonary process appreciated." CTA chest 12/21: 1. No acute findings in the chest. No pulmonary embolism. 2. Thyroid nodules as described above, the largest measuring 12 mm, for which further evaluation or follow-up is not necessary. COMMENTS: Consistent with the [employer]'s Incidental Findings Committee white paper (J Am Agatha Radiol 2015): In patients aged 35 years and older with an incidental thyroid nodule equal to or greater than 1.[address], MRI or extrathyroidal US, further evaluation with dedicated thyroid US is recommended for patients with normal life expectancy and without comorbidities. For smaller nodules without suspicious features, no further evaluation or follow up is recommended. " CT abd/pelvis 12/21: 1. Thickening of the wall of the gallbladder and inflammatory changes around the gallbladder, which are findings compatible with acute cholecystitis, and there is a probable fistulous connection between the gallbladder and antrum of the stomach, with calculi in the antrum of the stomach and proximal distention of the stomach with fluid. 2. Duodenal and colonic diverticulosis without evidence for diverticulitis. 3. Large amount of formed stool in the rectum. 4. Large fat containing umbilical hernia. 5. Hepatosplenomegaly." Assessment and plan: Nausea / Vomiting - possibly 2/2 Gastric outlet obstruction / Fistula (Gallbladder to stomach); less likely 2/2 acute cholecystitis - Remains hemodynamically stable / Afebrile - No leukocytosis - Imaging reviewed above - c/w Imipenem for intra-abdominal coverage (Day #5) - c/w symptomatic control with Zofran / Reglan / Morphine - c/w NG tube (re: decompression of stomach / alleviation of nausea and vomiting) - s/p EGD 12/23: Evidence of gastric obstruction from gallstones; unable to remove gallstones completely - Dr. Benitez on consultation; discussed case plan for potential transfer to [facility], will discuss with [facility] - awaiting call back - Awaiting transfer for higher level of care Increased Cr on baseline CKD3 - Baseline Cr of ~1.5 - Cr remains stable - s/p Torsemide - Will increase rate of IV Fluids (re: persistent nausea and vomiting) - will adjust s/p Hypokalemia Chronic CAD / CVA / Dyslipidemia - c/w ASA & statin - non-administered (re: N&V) DM2 - c/w ISS Chronic diastolic CHF / Chronic HTN - BP well controlled - Hold Losartan - Hold Torsemide (re: Nausea and Vomiting / NPO; Rx: on fluids) Gout - Hold allopurinol LA on CPAP - Allow CPAP use while inpatient Class 3 obesity - BMI 46.5 - Complicating medical care Osteoporosis - Hold Calcium and vitamin D (re: N&V with possible gastric outlet obstruction) GI prophylaxis / GERD / Hiatal hernia - c/w Protonix DVT prophylaxis - c/w TEDs/Sequentials Disposition: - Awaiting transfer to higher level of care VS,Fishbone, I+O VS, Fishbone, I+O Laboratory Tests 12/27/19 04:42 12/27/19 04:43 Vital Signs Date Time Temp Pulse Resp B/P (MAP) Pulse Ox O2 Delivery O2 Flow Rate FiO2 12/27/19 09:54 78 18 97 Nasal Cannula 2 12/27/19 08:56 97.9 12/27/19 08:00 160/70 (100) I&O- Last 24 Hours up to 6 AM 12/27/19 06:00 Intake Total 720 ml Output Total 1500 ml Balance -780 ml WELLINGTON FINLEY MD Dec 27, 2019 10:10
--- NOTE | 2019-12-27 10:56 | IPNPDOC ---
Text Note Date of Service The patient was seen on 12/27/19. NOTE No acute events overnight. Only complaint this morning is a productive cough with yellow sputum as well as a sore throat and right nostril. No problems with nausea, emesis, or abd pains. 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 We do not have the proper equipment here to be able to do this. I am also waiting to talk to [place] about possible transfer there as well. check chest xray due to cough with risk of possible aspiration pnemonia prior to the NGT being placed. Ben Benitez DO VS,Arnulfo, I+O VS, Stare, I+O Laboratory Tests 12/27/19 04:42 12/27/19 04:43 Vital Signs Date Time Temp Pulse Resp B/P (MAP) Pulse Ox O2 Delivery O2 Flow Rate FiO2 12/27/19 10:08 167/83 12/27/19 09:54 78 18 97 Nasal Cannula 2 12/27/19 08:56 97.9 I&O- Last 24 Hours up to 6 AM 12/27/19 06:00 Intake Total 720 ml Output Total 1500 ml Balance -780 ml NETO BENITEZ DO Dec 27, 2019 10:56
[2019-12-27] MEDS ORDERED: SODIUM CHLORIDE 0.9% INJ 10 ML SYR IV PRN (11:30)
--- NOTE | 2019-12-27 11:54 | REP ---
INDICATION: cough. COMPARISON: 12/22/2019 TECHNIQUE: SINGLE PORTABLE AP VIEW OF THE CHEST WAS PERFORMED. FINDINGS: There is no evidence of acute infiltrate. Lung low appear unchanged. There is mild cardiomegaly. The mediastinal silhouette is unchanged with mild calcification of the thoracic aorta. Right arm PICC line is seen with the tip in the right subclavian vein. A nasogastric tube traverses into the stomach. IMPRESSION: No acute infiltrate. <Electronically signed by Caleb Dos Santos > 12/27/19 [id number]
--- NOTE | 2019-12-27 13:12 | REP ---
INDICATION: Calf pain. COMPARISON: No comparison study.. TECHNIQUE: Bilateral lower extremity duplex venous scanning. FINDINGS: The deep veins are anechoic and fully compressible from the groin to the popliteal fossa in the left and right lower extremity. Color flow imaging is homogeneous. Spectral Doppler interrogation demonstrates intact respiratory variation in flow and normal manual augmentation of flow. There is no evidence of deep vein thrombosis. IMPRESSION: Negative bilateral lower extremity duplex venous ultrasound. No evidence of deep vein thrombosis. <Electronically signed by Brendan Chaudhry > 12/27/19 [id number]
--- NOTE | 2019-12-27 14:13 | DS.PDOC ---
Discharge Summary General Date of Admission Dec 22, 2019 at 22:39 Date of Discharge 12/27/2019 Discharge Summary PROCEDURES PERFORMED DURING STAY: EGD with Dr. 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 HISTORY OF PRESENT ILLNESS: Patient is an 84-year-old female with a PMHx of CAD s/p RAFAELA in LAD, Chronic Diastolic CHF, CVA, LA on CPAP, DM2, DLP, CKD3, Gout, GERD/Hiatal hernia who presented to the hospital with abdominal pain started with nausea, vomiting. 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 Patient was admitted to hospital service and general surgery was called on consultation. 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 Benitez on consultation; discussed case plan with [facility]; will be transferred today for higher level of care Increased Cr on baseline CKD3 - Baseline Cr of ~1.5 - Cr remains stable at ~2.0 - s/p Torsemide - Will c/w Fluids (re: persistent nausea and vomiting) - will adjust s/p Hypokalemia Chronic CAD / CVA / Dyslipidemia - c/w ASA & statin - non-administered (re: N&V) DM2 - c/w ISS Chronic diastolic CHF / Chronic HTN - BP well controlled - Hold Losartan - Hold Torsemide (re: Nausea and Vomiting / NPO; Rx: on fluids) Gout - Hold allopurinol LA on CPAP - Allow CPAP use while inpatient Class 3 obesity - BMI 46.5 - Complicating medical care Osteoporosis - Hold Calcium and vitamin D (re: N&V with possible gastric outlet obstruction) GI prophylaxis / GERD / Hiatal hernia - c/w Protonix DVT prophylaxis - c/w TEDs/Sequentials DISCHARGE MEDICATIONS: Please see below. ALLERGIES: Please see below. PHYSICAL EXAMINATION ON DISCHARGE: Vitals (See below) General: Sitting up in bed, appears comfortable, AAOx3 HEENT: NC, AT, NG tube in place CVS: +S1S2 Lungs: Air entry is fair bilaterally, no evidence of rhonchi, wheezing or crackles Abdomen: no distention / tenderness, remains soft Extremities: LE are without any edema, - Calf tenderness LABORATORY DATA: Please see below. IMAGING: CXR 12/21: No acute cardiopulmonary process appreciated. CTA chest 12/21: 1. No acute findings in the chest. No pulmonary embolism. 2. Thyroid nodules as described above, the largest measuring 12 mm, for which further evaluation or follow-up is not necessary. COMMENTS: Consistent with the [employer]'s Incidental Findings Committee white paper (J Am Agatha Radiol 2015): In patients aged 35 years and older with an incidental thyroid nodule equal to or greater than 1.[address], MRI or extrathyroidal US, further evaluation with dedicated thyroid US is recommended for patients with normal life expectancy and without comorbidities. For smaller nodules without suspicious features, no further evaluation or follow up is recommended. CT abd/pelvis 12/21: 1. Thickening of the wall of the gallbladder and inflammatory changes around the gallbladder, which are findings compatible with acute cholecystitis, and there is a probable fistulous connection between the gallbladder and antrum of the stomach, with calculi in the antrum of the stomach and proximal distention of the stomach with fluid. 2. Duodenal and colonic diverticulosis without evidence for diverticulitis. 3. Large amount of formed stool in the rectum. 4. Large fat containing umbilical hernia. 5. Hepatosplenomegaly. ACTIVITY: [As tolerated]. DIET: NPO DISCHARGE PLAN: Transfer to [facility] under the care of Dr. Warren Remain compliant with treatment plan and medications Return to the ER if you experience any problems DISPOSITION: Transfer to [facility] DISCHARGE CONDITION: [Stable]. TIME SPENT ON DISCHARGE: 35 minutes. Vital Signs/I&Os Vital Signs Date Time Temp Pulse Resp B/P (MAP) Pulse Ox O2 Delivery O2 Flow Rate FiO2 12/27/19 13:12 18 Nasal Cannula 12/27/19 12:00 97.7 78 99 2.0 12/27/19 10:08 167/83 I&O- Last 24 Hours up to 6 AM 12/27/19 06:00 Intake Total 720 ml Output Total 1500 ml Balance -780 ml Laboratory Data Labs 24H Laboratory Tests 2 12/26/19 17:35: Bedside Glucose (Misc Panel) 166H 12/27/19 00:03: Bedside Glucose (Misc Panel) 155H 12/27/19 04:42: Immature Granulocyte % (Auto) 0.8, Neutrophils (%) (Auto) 56.3, Lymphocytes (%) (Auto) 23.3L, Monocytes (%) (Auto) 14.1H, Eosinophils (%) (Auto) 4.7H, Basophils (%) (Auto) 0.8, Neutrophils # (Auto) 2.8, Lymphocytes # (Auto) 1.1L, Monocytes # (Auto) 0.7, Eosinophils # (Auto) 0.2, Basophils # (Auto) 0.0, Nucleated Red Blood Cells % (auto) 0.0 12/27/19 04:43: Anion Gap 6L, Glomerular Filtration Rate 23.2L, Calcium Level 9.5, Magnesium Level 2.1, Total Bilirubin 0.5, Aspartate Amino Transf (AST/SGOT) 25, Alanine Aminotransferase (ALT/SGPT) 14, Alkaline Phosphatase 67, Total Protein 6.2L, Albumin 2.4L, Albumin/Globulin Ratio 0.6L 12/27/19 11:32: Coronavirus (COVID-19)(PCR) NEGATIVE 12/27/19 12:09: Bedside Glucose (Misc Panel) 215H CBC/BMP Laboratory Tests 12/27/19 04:42 12/27/19 04:43 FSBS Laboratory Tests Test 12/26/19 17:35 12/27/19 00:03 12/27/19 12:09 Range/Units Bedside Glucose (Misc Panel) 166 155 215 83-110 MG/DL Discharge Medications Scheduled Allopurinol (Allopurinol) 100 Mg Tablet, 100 MG PO DAILY, (Reported) NOON Ascorbic Acid (Vitamin C) 500 Mg Tablet, 1,000 MG PO DAILY, (Reported) NOON Aspirin (Aspirin EC) 325 Mg Tablet.dr, 325 MG PO DAILY, (Reported) Calcium Carbonate/Vitamin D3 (Calcium 600-Vit D3 800 Tablet) 1 Each Tablet, 1 TAB PO DAILY, (Reported) NOON Cetirizine HCl (Cetirizine HCl) 10 Mg Tablet, 10 MG PO DAILY, (Reported) Cholecalciferol (Vitamin D3) (Vitamin D3) 1,000 Unit Tablet, 1,000 UNITS PO DAILY, (Reported) NOON Fluticasone Propionate (Flonase Allergy Relief) 9.9 Ml [place]akes[place].susp, 2 SPRAY NARES DAILY, (Reported) Fluticasone Propionate (Flovent Hfa) 110 Mcg/Act Aer.w.adap, 2 PUFF INH BID, (Reported) Glimepiride (Glimepiride) 4 Mg Tablet, 4 MG PO BID, (Reported) Glucos Sul 2Kcl/MSM/Chond/C/Mn (Glucosamine Chondroitin Cap) 1 Each Capsule, 1 EACH PO DAILY, (Reported) NOON Linagliptin (Tradjenta) 5 Mg Tablet, 5 MG PO DAILY, (Reported) Losartan Potassium (Losartan Potassium) 25 Mg Tablet, 25 MG PO QPM, (Reported) Metoclopramide HCl (Metoclopramide HCl) 10 Mg Tablet, 10 MG PO QAM, (Reported) Multivitamin,Therapeutic (Thera-Tabs) 1 Each Tablet, 1 TAB PO DAILY, (Reported) NOON Omeprazole (Omeprazole) 40 Mg Capsule.dr, 40 MG PO DAILY, (Reported) Propylene Glycol (Systane Complete) 10 Ml Drops, 0.6 % OP BID, (Reported) Simvastatin (Simvastatin) 20 Mg Tablet, 20 MG PO QPM, (Reported) Torsemide (Torsemide) 100 Mg Tablet, 50 MG PO BID, (Reported) Turmeric Root Extract (Turmeric) 500 Mg Capsule, 500 MG PO DAILY, (Reported) NOON Scheduled PRN Albuterol Sulf (Albuterol Sulfate) 2.5 Mg/3 Ml Vial.neb, 2.5 MG INH BIDP PRN for SHORTNESS OF BREATH, (Reported) Docusate Sodium (Dok) 100 Mg Capsule, 100 MG PO DAILY PRN for CONSTIPATION, (Reported) Allergies Coded Allergies: Penicillins (Verified Allergy, Severe, angioedema, 11/10/18) bee pollen (Verified Allergy, Severe, anaphylaxis, 11/10/18) erythromycin base (Verified Allergy, Severe, anaphylaxis, 11/10/18) lidocaine (Verified Allergy, Severe, anaphylaxis, 11/10/18) procaine (Verified Allergy, Severe, facial swelling, 11/10/18) TAPE (Verified Allergy, Intermediate, RASH, 03/18/10) doxycycline (Verified Allergy, Intermediate, hives, 11/10/18) alendronate sodium (Verified Allergy, Mild, nausea, vomiting, rash, 11/10/18) WOOL (FABRIC) (Verified Allergy, Unknown, rash, 08/18/18) diclofenac (Verified Allergy, Unknown, unknown, 08/18/18) latex (Verified Allergy, Unknown, swells up and breaks out, 11/10/18) PEPPERS (Verified Adverse Reaction, Mild, NAUSEA, 03/18/10) sucralfate (Verified Adverse Reaction, Mild, nausea and vomiting, 11/10/18) moxifloxacin (Verified Adverse Reaction, Unknown, biceps tendonitis, 08/18/18) prednisone (Verified Adverse Reaction, Unknown, palpitations, syncope, 08/18/18) WELLINGTON FINLEY MD Dec 27, 2019 14:13
[2019-12-27] MEDS ORDERED: HYDR20VI2 IV (14:33)
[2019-12-27] MEDS ORDERED: ALB2.5NEB INH (14:33)
[2019-12-27] MEDS ORDERED: IMIP1INJ IV (14:33)
[2019-12-27] MEDS ORDERED: FLUT11IN INH (14:33)
[2019-12-27] MEDS ORDERED: ONDA4INJ4 IV (14:33)
[2019-12-27] MEDS ORDERED: MORP2INJ4 IV (14:33)
[2019-12-27] MEDS ORDERED: INSUHUMDS SC (14:33)
[2019-12-27] MEDS ORDERED: PANT40IN4 IV (14:33)
[2019-12-27 15:42] VITALS: BP 180/60
[2019-12-27 15:54] VITALS: BP 180/60
[2019-12-27] MEDS ORDERED: ANALGESIC BALM CRM 120 GM TOP PRN (16:00)
--- NOTE | 2019-12-27 16:49 | REP ---
PROCEDURE NAME: PICC LINE INSERTION W/SITERITE CLINICAL INFORMATION: poor access. COMPARISON: None. PROCEDURE DESCRIPTION: The procedure was performed by EDWARD Davenport, under the direct supervision of Dr. Dos Santos. The risks and benefits of the procedure were explained to the patient and an informed consent was obtained both verbally and written. Directly prior to the start of the procedure a formal time-out was completed in the procedure room. The right basilic vein was localized using ultrasound guidance. The skin was prepped and draped in sterile fashion. One mL of 1% lidocaine 10 mg/mL was used as a local anesthetic. Using ultrasound guidance the right basilic vein was cannulated, and a 0.018 guidewire was inserted and advanced to the level of SVC using fluoroscopic guidance. The needle was removed and a 5.5 Beninese dilator and peel-away sheath was inserted over the guidewire. A 5.5 Beninese dual lumen catheter was cut to a length of 40 cm. The dilator was removed and the catheter was inserted over the guidewire with the tip ending at the level of the SVC. The peel-away sheath was removed and the catheter was flushed with heparinized saline as per hospital protocol. The catheter was affixed to the skin and a sterile dressing was applied. 0.2 minutes of fluoroscopy time was utilized for this procedure. Some fluoroscopic images are performed with last image hold technology. These images require no additional radiation. The patient tolerated the procedure well and there were no immediate complications. CONCLUSION: Successful PICC line insertion into the right basilic vein. <Electronically signed by Nataliya Christensen > 12/27/19 1307 <Electronically signed by Caleb Dos Santos > 12/27/19 [id number]
[2019-12-27] MEDS ORDERED: SODIUM CHLORIDE 0.9% INJ 10 ML SYR IV SCH (18:00)
--- NOTE | 2019-12-29 14:31 | CR ---
REASON FOR CONSULTATION: Abdominal pain. HISTORY OF PRESENT ILLNESS: The patient is an 84-year-old female who presented with severe epigastric pain going on for the past 3 days that radiates into her back and shoulders. She came into the Emergency Room thinking that it was hiatal hernia. She has had a known medium sized hiatal hernia in the past and at first assumed that her nausea, vomiting and pains were from that. However when the pain was persistent she came in for evaluation. She also has a known history of cholelithiasis. She has been in the hospital, she claims once a year for like the last 30-40 years due to bad gallbladder, but was always told that due to her comorbidities surgery would be difficult, so she has not had any surgeries. She also has pain around her umbilicus from a large umbilical hernia and also has been recommended in the past to not have any surgery for that. She is currently complaining of mainly of emesis. She had multiple episodes every 5 minutes in the E.R. Since reaching the Floor, she has only had a few episodes, mainly of just spitting up yellow to biliously colored fluid. Her abdominal pain is all in the epigastric area only. No radiation to the sides. No right upper quadrant or left upper quadrant pains, but the pain does shoot straight in through her back. No lower abdominal pains either. She denies fevers or chills. No shortness of breath or cough. PAST MEDICAL HISTORY: The patient's past medical history is significant for: * Chronic kidney disease. * Coronary artery disease. * CVA. * Diabetes. * Diastolic congestive heart failure. * Dyslipidemia. * Gout. * Obstructive sleep apnea. * Gastroesophageal reflux disease. * Hiatal hernia. * Umbilical hernia. * Hepatosplenomegaly. * Diverticulosis. * Hearing impairment. * Left knee osteoarthritis. * Osteoporosis. PAST SURGICAL HISTORY: The patient's past surgical history is significant for: * Left breast lumpectomy. * Bilateral cataract surgery. FAMILY HISTORY: Noncontributory. SOCIAL HISTORY: Denies drug, alcohol, tobacco usage. ALLERGIES: Multiple please see Med Rec. MEDICATIONS: Please see Med Rec. REVIEW OF SYSTEMS: Pertinent positives and negatives as stated in the HPI. PHYSICAL EXAMINATION: GENERAL APPEARANCE: The patient is alert and oriented x3, in no acute distress. VITAL SIGNS: Temperature 97.9, pulse 91, respirations 20, blood pressure 156/74, pulse oximetry 96% on room air. HEENT: Pupils are equal, round and reactive to light and accommodation. HEART: S1, S2, regular rate and rhythm. LUNGS: Clear to auscultation bilaterally. ABDOMEN: Soft, tenderness to palpation in the epigastric. No rebound or guarding. No rigidity. There is a large periumbilical hernia, non reducible. EXTREMITIES: Bilateral lower extremity edema. LABORATORY DATA: White count 7.4, hemoglobin 12, platelets 233. Sodium 137, potassium 3.6, creatinine 1.51, glucose 188. LFTs within normal limits, albumin 2.8. IMAGING DATA: CT abdomen and pelvis shows thickening of the wall of the gallbladder with inflammatory changes surrounding the gallbladder, consistent with acute cholecystitis and there is probable fistulous connection between the gallbladder and the antrum of the stomach with a calculi in the antrum of the stomach and proximal distention of the stomach with fluid. Duodenal and colonic diverticulosis without evidence for diverticulitis. Large amount of formed stool in the rectum. Large fat containing umbilical hernia and hepatosplenomegaly. ASSESSMENT AND PLAN: The patient is an 84-year-old female with significant comorbidities, currently presenting with possible gastric outlet, partial versus complete obstruction as well as cholecystitis and possible fistulous connection between the gallbladder and the antrum of the stomach. She also has an incarcerated fat containing umbilical hernia. RECOMMENDATIONS: * At this time start with an EGD to evaluate the stomach to see if there is any outlet obstruction or stones within the stomach. * Also evaluate to see if I can determine exactly where the fistula is connecting. Once that is completed, we will discuss with the patient and her family and determine the next course of action, whether it be further imaging versus preparing her for an operative procedure to do the cholecystectomy as well as partial gastrectomy. I explained this in detail with the patient and she asked me to speak to her daughter, Veena, which I did as well and both are on board for the procedure tomorrow morning, and I will have further recommendations after the EGD. [facility]
== END 2019-12-27 16:43 | disposition short-term general hospital (02) | DRG 381 ==
LOC: M ED 18:04 → M ED INP 22:39 → ENRESERV 23:18 → M PCU 12-23 00:45
PROVIDERS: ADMIT Internal Medicine; ATTEND Internal Medicine
PROC: 0DJ08ZZ Inspection of Upper Intestinal Tract, Via Natural or Artificial Opening Endoscopic (ICD-10-PCS; principal; 2019-12-24 08:30)
PROC: 02HV33Z Insertion of Infusion Device into Superior Vena Cava, Percutaneous Approach (ICD-10-PCS; 2019-12-27)
DX: K31.1 Adult hypertrophic pyloric stenosis (principal); K82.3 Fistula of gallbladder; I50.32 Chronic diastolic (congestive) heart failure; K81.0 Acute cholecystitis; I13.0 Hypertensive heart and chronic kidney disease with heart failure and stage 1 through stage 4 chronic kidney disease, or unspecified chronic kidney disease; Z68.42 Body mass index [BMI] 45.0-49.9, adult; N18.30 Chronic kidney disease, stage 3 unspecified; E78.5 Hyperlipidemia, unspecified; I25.10 Atherosclerotic heart disease of native coronary artery without angina pectoris; K21.9 Gastro-esophageal reflux disease without esophagitis; M81.0 Age-related osteoporosis without current pathological fracture; Z86.73 Personal history of transient ischemic attack (TIA), and cerebral infarction without residual deficits; G47.33 Obstructive sleep apnea (adult) (pediatric); E87.6 Hypokalemia; E11.9 Type 2 diabetes mellitus without complications; E66.9 Obesity, unspecified; K44.9 Diaphragmatic hernia without obstruction or gangrene; Z79.82 Long term (current) use of aspirin; Z79.899 Other long term (current) drug therapy; Z88.0 Allergy status to penicillin; Z91.030 Bee allergy status; Z91.040 Latex allergy status; Z91.018 Allergy to other foods; Z88.1 Allergy status to other antibiotic agents

== ENCOUNTER 2020-01-15 00:23 | Inpatient (IN) | payer MEDICARE ==
[~2020-01-15] VITALS: Ht 172.7 cm; Wt 122.9 kg
[~2020-01-15 00:23] MED LIST changes: +ALB2.5NEB INH; +D31000TA2 PO; +DOK1CAP7 PO; +HYDR20VI2 IV; +IMIP1INJ IV; +INSUHUMDS SC; +MORP2INJ4 IV; +ONDA4INJ4 IV; +PANT40IN4 IV; +THERTAB52 PO
[2020-01-15 01:14] LABS: BASO % 0.3 % (0.0-1.0); EOS # 0.2 10^3/uL (0.0-0.5); EOS % 1.6 % (0.0-3.0); HEMATOCRIT 31.8 % (36.0-47.0); HEMOGLOBIN 9.7 g/dl (12.0-15.5); LYMPH # 1.5 10^3/uL (1.5-5.0); MEAN CORPUSCULAR HEMOGLOBIN 29.7 pg (27.0-33.0); MEAN CORPUSCULAR HGB CONC 30.5 g/dl (32.0-36.5); MEAN CORPUSCULAR VOLUME 97.2 fl (80.0-96.0); MONO # 0.8 10^3/uL (0.0-0.8); NEUTROPHILS # 7.2 10^3/uL (1.5-8.5); NEUTROPHILS % 73.4 % (36.0-66.0); PLATELET COUNT, AUTOMATED 313 10^3/uL (150-450); RED BLOOD COUNT 3.27 10^6/uL (4.00-5.40); WHITE BLOOD COUNT 9.9 10^3/uL (4.0-10.0)
[2020-01-15 01:26] LABS: INR 1.06
[2020-01-15 01:27] LABS: PARTIAL THROMBOPLASTIN TIME 32.2 SECONDS (24.2-38.5)
[2020-01-15 01:51] LABS: ALBUMIN 2.7 GM/DL (3.2-5.2); ALT/SGPT 24 U/L (12-78); BILIRUBIN,DIRECT 0.1 MG/DL (0.0-0.2); BILIRUBIN,TOTAL 0.3 MG/DL (0.2-1.0); BLOOD UREA NITROGEN 44 MG/DL (7-18); CALCIUM LEVEL 9.1 MG/DL (8.8-10.2); CARBON DIOXIDE LEVEL 25 MEQ/L (21-32); CHLORIDE LEVEL 104 MEQ/L (98-107); CK-MB VALUE MASS 1.4 NG/ML (<3.6); CPK CREATINE PHOSPHOKINASE 49 U/L (26-192); CREATININE FOR GFR 1.51 MG/DL (0.55-1.30); FREE T4 1.13 NG/DL (0.76-1.46); GLUCOSE, FASTING 52 MG/DL (70-100); MB/CK RELATIVE INDEX 2.86 (< OR =4); POTASSIUM SERUM 4.4 MEQ/L (3.5-5.1); SODIUM LEVEL 136 MEQ/L (136-145); TOTAL PROTEIN 6.7 GM/DL (6.4-8.2); TROPONIN I < 0.02 NG/ML (< 0.10)
[2020-01-15] MEDS ORDERED: DEXTROSE 50% 50 ML SYRINGE IV STA ×2 (03:00→05:00)
[2020-01-15] MEDS ORDERED: DEXTROSE 50% 50 ML SYRINGE As Ordered ONE ×2 (03:01→03:02)
--- NOTE | 2020-01-15 03:05 | REPVR ---
PROCEDURE INFORMATION: Exam: CT Head Without Contrast Exam date and time: 01/15/2020 2:49 AM Age: 84 years old Clinical indication: Pain; Headache; Additional info: Altered mental status TECHNIQUE: Imaging protocol: Computed tomography of the head without contrast. Radiation optimization: All CT scans at this facility use at least one of these dose optimization techniques: automated exposure control; mA and/or kV adjustment per patient size (includes targeted exams where dose is matched to clinical indication); or iterative reconstruction. COMPARISON: CT IAC W/O CONTRAST 07/03/2013 1:21 PM FINDINGS: Brain: Mild decreased attenuation of the supratentorial white matter is likely secondary to chronic microvascular ischemia. No acute intracranial hemorrhage. Cerebral ventricles: Ventricular and subarachnoid spaces are age appropriate. Bones/joints: Unremarkable. No acute fracture. Paranasal sinuses: Visualized sinuses are unremarkable. No fluid levels. Mastoid air cells: Visualized mastoid air cells are well aerated. Vasculature: Intracranial vascular calcification. Soft tissues: Unremarkable. IMPRESSION: No acute intracranial abnormality. Electronically signed by: Diego Morris On 01/15/2020 03:05:20 AM
[2020-01-15] MEDS ORDERED: D5W/0.45% SODIUM CHLORIDE 1,000 ML IV SCH (03:15)
--- NOTE | 2020-01-15 03:15 | REPVR ---
PROCEDURE INFORMATION: Exam: XR Chest, 2 Views Exam date and time: 01/15/2020 2:54 AM Age: 84 years old Clinical indication: Shortness of breath; Additional info: SOB TECHNIQUE: Imaging protocol: XR of the chest Views: 2 views. COMPARISON: [facility] PORTABLE CHEST X-RAY 12/27/2019 11:07 AM FINDINGS: Lungs: No consolidation. Pleural space: Unremarkable. No pleural effusion. No pneumothorax. Heart/Mediastinum: Cardiomegaly. Vasculature: Elongation of the thoracic aorta with calcification. Bones/joints: Osteopenia. There are degenerative changes involving the spine. IMPRESSION: No acute cardiopulmonary process. Electronically signed by: Diego Morris On 01/15/2020 03:14:54 AM
[2020-01-15] MEDS ORDERED: OYST1TAB PO (03:38)
[2020-01-15] MEDS ORDERED: FLUT11IN INH (03:38)
[2020-01-15] MEDS ORDERED: TORS100T PO (03:38)
[2020-01-15] MEDS ORDERED: GLIM4TAB5 PO (03:38)
[2020-01-15] MEDS ORDERED: ALLO100T PO (03:38)
[2020-01-15] MEDS ORDERED: D31000TA2 PO (03:38)
[2020-01-15] MEDS ORDERED: VITA500C19 PO (03:38)
[2020-01-15] MEDS ORDERED: SIMV20TA22 PO (03:38)
[2020-01-15] MEDS ORDERED: THERTAB52 PO (03:38)
[2020-01-15] MEDS ORDERED: TRAD5TAB PO (03:38)
[2020-01-15] MEDS ORDERED: FLUTISP (03:38)
[2020-01-15] MEDS ORDERED: OMEP-221 PO (03:38)
[2020-01-15] MEDS ORDERED: LOSA25TA14 PO (03:38)
[2020-01-15] MEDS ORDERED: METO10TA2 PO (03:38)
[2020-01-15] MEDS: D10W/0.45% SODIUM CHLORIDE 1,000 ML IV SCH ×2 (04:54→15:13)
--- NOTE | 2020-01-15 06:22 | HPEPDOC ---
[facility] Medical History & Physical Date of Admission Jan 15, 2020 Date of Service: Jan 15, 2020 History and Physical CHIEF COMPLAINT: Sluggish altered mental status HISTORY OF PRESENT ILLNESS: 84-year-old female with history of diabetes, recently underwent cholecystectomy at [facility] found to be sluggish and not herself without any diaphoresis or tremors. Glucose level was persistently at home 58 despite holding her med ications. EMS administered glucagon IM due to lack of access. Repeat glucose in the ER was 44. Patient was given D5 half-normal saline , D50 and orange juice. . She denies any diaphoresis, palpitations, lightheadedness or dizziness. Hospitalist was asked to admit the patient for persistent hypoglycemia. Patient denies any acute infections. Denies any fever, chills, dysuria, urgency, frequency, cough, shortness of breath. No open skin sores or lesions. . UA was negative. Chest x-ray and Covid [address] of the head negative PAST MEDICAL HISTORY: LA w periodic limb movement disorder on CPAP 8cm H2O GERD Hiatal Hernia Umbilical hernia Osteoporosis had ADR to Fosamax Left breast lumpectomy for benign mass CKD 3 HepatosplenomegalyDiverticulosis Impaired hearing Left knee osteoarthritis CAD s/p PTCAx 3 w placement of RAFAELA in LAD, cholecystitis CVA DM2 refused insulin Chronic diastolic CHF Dyslipidemia Gout, diverticulitis, morbid obesity, anxiety, depression, Osteoporosis, vitamin D deficiency PAST SURGICAL HISTORY: Left breast lumpectomy for benign mass. He CA 3. Placement of drug-eluting stent in the LAD, cholecystectomy, Colonoscopy HOME MEDICATIONS: SEE BELOW ALLERGIES: SEE BELOW SOCIAL HISTORY: Lives at home. Denies tobacco , recreational drug or alcohol use. FAMILY HISTORY: Noncontributory due to age REVIEW OF SYSTEMS 10 POINT SYSTEMS REVIEW NEGATIVE ASIDE FROM POSITIVE FINDINGS ON HPI PHYSICAL EXAMINATION: VITALS: See below Gen: Awake, alert, oriented 3 HEENT: Pupils are round, reactive to light accommodation. Extra muscles are intact. No JVD, no thyromegaly, no cervical lymphadenopathy. Moist mucous membranes HEART: S1, S2, sinus rhythm, no murmurs, rubs or gallop LUNGS: Clear to auscultation. Wheezing, rales or rhonchi. No adventitious breath sounds. No kyphoscoliosis ABDOMEN: Positive bowel sounds, obese, bilateral ecchymoses in the lower quadrant. Midline incision with maxine, some erythema without any purulent drainage, no induration EXTREMITIES: 2+ pitting edema to the sacrum LABORATORY DATA: See below IMAGING STUDIES: See below Exam: CT Head Without Contrast Exam date and time: 01/15/2020 2:49 AM Age: 84 years old Clinical indication: Pain; Headache; Additional info: Altered mental status TECHNIQUE: Imaging protocol: Computed tomography of the head without contrast. Radiation optimization: All CT scans at this facility use at least one of these dose optimization techniques: automated exposure control; mA and/or kV adjustment per patient size (includes targeted exams where dose is matched to clinical indication); or iterative reconstruction. COMPARISON: CT IAC W/O CONTRAST 07/03/2013 1:21 PM FINDINGS: Brain: Mild decreased attenuation of the supratentorial white matter is likely secondary to chronic microvascular ischemia. No acute intracranial hemorrhage. Cerebral ventricles: Ventricular and subarachnoid spaces are age appropriate. Bones/joints: Unremarkable. No acute fracture. Paranasal sinuses: Visualized sinuses are unremarkable. No fluid levels. Mastoid air cells: Visualized mastoid air cells are well aerated. Vasculature: Intracranial vascular calcification. Soft tissues: Unremarkable. IMPRESSION: No acute intracranial abnormality. Electronically signed by: Diego Morris On 01/15/2020 03:05:20 AM Exam: XR Chest, 2 Views Exam date and time: 01/15/2020 2:54 AM Age: 84 years old Clinical indication: Shortness of breath; Additional info: SOB TECHNIQUE: Imaging protocol: XR of the chest Views: 2 views. COMPARISON: [place] PORTABLE CHEST X-RAY 12/27/2019 11:07 AM FINDINGS: Lungs: No consolidation. Pleural space: Unremarkable. No pleural effusion. No pneumothorax. Heart/Mediastinum: Cardiomegaly. Vasculature: Elongation of the thoracic aorta with calcification. Bones/joints: Osteopenia. There are degenerative changes involving the spine. IMPRESSION: No acute cardiopulmonary process. Electronically signed by: Diego Morris On 01/15/2020 03:14:54 AM ASSESSMENT AND PLAN: 84-year-old female with history of diabetes, recently underwent cholecystectomy at [facility] found to be sluggish and not herself without any diaphoresis or tremors. Glucose level was persistently at home 58 despite holding her medications. EMS administered glucagon IM due to lack of access. Repeat glucose in the ER was 44. Patient was given D5 half-normal saline , D50 and orange juice. . She denies any diaphoresis, palpitations, lightheadedness or dizziness. Hospitalist was asked to admit the patient for persistent hypoglycemia. Patient denies any acute infections. Denies any fever, chills, dysuria, urgency, frequency, cough, shortness of breath. No open skin sores or lesions. . UA was negative. Chest x-ray and Covid [address] of the head negative Hypoglycemia -Patient does not appear to have any acute infectious process. UA, chest x-ray respiratory panel Covid 19 all negative. Patient is on hypoglycemic protocol. Initially D5 half-normal saline changed to D10. Due to persistent hypoglycemia less than 50, consistent carbohydrate diet, sliding scale. Patient received glucagon IM given by EMS. CAD s/p PTCAx 3 w placement of RAFAELA in LAD, -Resume all home medications with holding parameters for hypotension -Denies any acute cardiac ischemia Symptoms History of cholecystitis status post cholecystectomy -Obtain records from [facility] regarding recent surgery CVA -Chronic. Assisted ambulation only. Activity as tolerated. -Continue home meds DM2 with hypoglycemia -Check A1c. Continue with supportive care with D10. Monitor patient's metabolic panel, mental status changes Fingerstick Chronic diastolic CHF, compensated -May resume patient's diuretic despite being on IV fluids for hypoglycemia To prevent decompensation and fluid overload LA w periodic limb movement disorder on CPAP 8cm H2O -Resume home CPAP, complicating care GERD Hiatal Hernia Umbilical hernia -Resume home meds Osteoporosis Left breast lumpectomy for benign mass -Chronic CKD 3 -Avoid nephrotoxins. Renally dose all medications -Serial BMP testing daily Dyslipidemia -Check lipid profile. Resume home meds Gout, -Resume home meds morbid obesity, -Complicating care. Check lipid profile, A1c anxiety, depression, -Chronic. Denies any suicidal or homicidal ideation. Resume home medications Osteoporosis/vitamin D deficiency -Chronic resume home meds Vital Signs Vital Signs Date Time Temp Pulse Resp B/P (MAP) Pulse Ox O2 Delivery O2 Flow Rate FiO2 01/15/20 03:16 76 14 99 Room Air 01/15/20 03:15 136/62 (86) 01/15/20 01:26 97.5 Laboratory Data Labs 24H Laboratory Tests 2 01/15/20 00:47: Immature Granulocyte % (Auto) 1.7, Neutrophils (%) (Auto) 73.4H, Lymphocytes (%) (Auto) 15.0L, Monocytes (%) (Auto) 8.0H, Eosinophils (%) (Auto) 1.6, Basophils (%) (Auto) 0.3, Neutrophils # (Auto) 7.2, Lymphocytes # (Auto) 1.5, Monocytes # (Auto) 0.8, Eosinophils # (Auto) 0.2, Basophils # (Auto) 0.0, Nucleated Red Blood Cells % (auto) 0.0, Prothrombin Time 14.0, Prothromb Time International Ratio 1.06, Activated Partial Thromboplast Time 32.2, Anion Gap 7L, Glomerular Filtration Rate 35.0, Calcium Level 9.1, Total Bilirubin 0.3, Direct Bilirubin 0.1, Aspartate Amino Transf (AST/SGOT) 32, Alanine Aminotransferase (ALT/SGPT) 24, Alkaline Phosphatase 144H, Total Creatine Kinase 49, Creatine Kinase MB 1.4, Creatine Kinase MB Relative Index 2.86, Troponin I < 0.02, Total Protein 6.7, Albumin 2.7L, Albumin/Globulin Ratio 0.7L, Thyroid Stimulating Hormone (TSH) 1.580, Free Thyroxine 1.13 01/15/20 01:07: Bedside Glucose (Misc Panel) 71L 01/15/20 02:16: Urine Color STRAW, Urine Appearance CLEAR, Urine pH 5.0, Urine Specific [place] 1.003, Urine Protein NEGATIVE, Urine Glucose (UA) NEGATIVE, Urine Ketones NEGATIVE, Urine Blood NEGATIVE, Urine Nitrite NEGATIVE, Urine Bilirubin NEGATIVE, Urine Urobilinogen 0.2, Urine Leukocyte Esterase NEGATIVE, Urine WBC (Auto) 0, Urine RBC (Auto) 0, Urine Hyaline Casts (Auto) 0, Urine Bacteria (Auto) NEGATIVE, Urine Squamous Epithelial Cells 0, Urine Mucus (Auto) SMALL, Urine Sperm (Auto) CBC/BMP Laboratory Tests 01/15/20 00:47 Microbiology Microbiology 01/15/20 Respiratory Virus Panel (PCR) ([facility]) - Final, Complete Home Medications Scheduled Allopurinol (Allopurinol) 100 Mg Tablet, 100 MG PO DAILY Ascorbic Acid (Vitamin C) 500 Mg Capsule.er, 500 MG PO BID Calcium Carbonate (Calcium) 500 Mg Tablet, 500 MG PO BID Cholecalciferol (Vitamin D3) (Vitamin D3) 1,000 Unit Tablet, 1,000 UNITS PO DAILY Fluticasone Propionate (Flovent Hfa) 110 Mcg/Act Aer.w.adap, 2 PUFF INH BID Fluticasone Propionate (Fluticasone Propionate) 16 Gm [place].susp, 2 SPRAYS NA DAILY Glimepiride (Glimepiride) 4 Mg Tablet, 4 MG PO BID Linagliptin (Tradjenta) 5 Mg Tablet, 5 MG PO DAILY Losartan Potassium (Losartan Potassium) 25 Mg Tablet, 25 MG PO QHS Metoclopramide HCl (Metoclopramide HCl) 10 Mg Tablet, 10 MG PO DAILY Multivitamin,Therapeutic (Thera-Tabs) 1 Each Tablet, 1 TAB PO DAILY Omeprazole (Omeprazole) 40 Mg Capsule.dr, 20 MG PO DAILY Simvastatin (Simvastatin) 20 Mg Tablet, 20 MG PO QHS Torsemide (Torsemide) 100 Mg Tablet, 50 MG PO BID skip dose if light headed Allergies Coded Allergies: Penicillins (Verified Allergy, Severe, angioedema, 11/10/18) bee pollen (Verified Allergy, Severe, anaphylaxis, 11/10/18) erythromycin base (Verified Allergy, Severe, anaphylaxis, 11/10/18) lidocaine (Verified Allergy, Severe, anaphylaxis, 11/10/18) procaine (Verified Allergy, Severe, facial swelling, 11/10/18) TAPE (Verified Allergy, Intermediate, RASH, 03/18/10) doxycycline (Verified Allergy, Intermediate, hives, 11/10/18) alendronate sodium (Verified Allergy, Mild, nausea, vomiting, rash, 11/10/18) WOOL (FABRIC) (Verified Allergy, Unknown, rash, 08/18/18) diclofenac (Verified Allergy, Unknown, unknown, 08/18/18) latex (Verified Allergy, Unknown, swells up and breaks out, 11/10/18) PEPPERS (Verified Adverse Reaction, Mild, NAUSEA, 03/18/10) sucralfate (Verified Adverse Reaction, Mild, nausea and vomiting, 11/10/18) moxifloxacin (Verified Adverse Reaction, Unknown, biceps tendonitis, 08/18/18) prednisone (Verified Adverse Reaction, Unknown, palpitations, syncope, 08/18/18) A-FIB/CHADSVASC A-FIB History Current/History of A-Fib/PAF?: No Current PO Anticoag Therapy: No Age/Risk Factor Scoring CHADSVASC: CHADSVASC Response (Comments) Value Age Risk Factor Age >/= 75 years old 2 Gender Risk Factor Female 1 Hx of CHF Yes 1 Hx of HTN Yes 1 Hx of Stroke/TIA/or VTE No 0 Hx of Diabetes Yes 1 Hx of Vascular Disease No 0 Total 6 Treatment Treatment ordered: NONE LINK SHAW MD Jan 15, 2020 03:27
[2020-01-15 09:05] VITALS: BP 134/42
[2020-01-15] MEDS: VITAMIN D 1,000 INTERNATIONAL UNITS TABLET PO SCH (10:14)
[2020-01-15] MEDS: allopurinoL 100 MG TAB PO SCH (10:14)
[2020-01-15] MEDS: MULTIVITAMINS/MINERALS THERAP 1 TAB PO SCH (10:14)
[2020-01-15] MEDS: OMEPRAZOLE 20 MG CAP PO SCH (10:14)
[2020-01-15] MEDS: METOCLOPRAMIDE 10 MG TAB PO SCH (10:14)
[2020-01-15] MEDS: ASCORBIC ACID 500 MG TAB PO SCH ×2 (10:14→22:13)
--- NOTE | 2020-01-15 10:23 | ECGEPIP ---
[facility] - ED Test Date: 2020-01-15 Pat Name: TERESA CAMPBELL Department: Room: [place] [address] Gender: Female [employer] Singer: : 1935 Requested By: DANETTE Phillips Order Number: [id number] Reading MD: Noam Winter Measurements Intervals [place] Rate: 77 P: -60 NV: 156 QRS: -31 QRSD: 99 T: 110 QT: 365 QTc: 414 Interpretive Statements SINUS RHYTHM WITH FIRST DEGREE AV BLOCK WITH OCCASIONAL VENTRICULAR PREMATURE COMPLEXES NSTTW ABNORMALITY(S) SIMILAR TO 12/22/19 Electronically Signed on 01-15-2020 10:23:32 EST by Noam Winter
[2020-01-15] MEDS: TORSEMIDE (DEMADEX) 50 MG PER 1/2 TAB PO SCH ×2 (11:08→22:14)
[2020-01-15] MEDS: OYSTER SHELL CALCIUM 500 MG TAB PO SCH ×2 (11:08→22:13)
[2020-01-15] MEDS: FLUTICASONE PROP 0.05% NASAL SPRAY 16 GM (FLONASE) SCH (11:08)
[2020-01-15] MEDS: FLUTICASONE HFA 110 MCG 12 GM INHALER (FLOVENT) INH SCH ×2 (11:39→20:07)
--- NOTE | 2020-01-15 11:48 | IPNPDOC ---
Text Note Date of Service The patient was seen on 01/15/20. NOTE Patient was seen and examined this morning at the bedside with the nurse. The patient states that she is feeling okay. No acute overnight events. The patient is still on D5 water 100 mL and had 2 episodes where her sugars were still in 60s. PHYSICAL EXAMINATION: Gen: Awake, alert, oriented 3 HEENT: Pupils are round, reactive to light accommodation. Extra muscles are intact. No JVD, no thyromegaly, no cervical lymphadenopathy. Moist mucous membranes HEART: S1, S2, sinus rhythm, no murmurs, rubs or gallop LUNGS: Clear to auscultation. Wheezing, rales or rhonchi. No adventitious breath sounds. No kyphoscoliosis ABDOMEN: Positive bowel sounds, obese, bilateral ecchymoses in the lower quadrant. Midline incision with lyn[place], some erythema without any purulent drainage, no induration EXTREMITIES: 2+ pitting edema to the sacrum Labs reviewed Radiology reviewed ASSESSMENT AND PLAN: 84-year-old female with history of diabetes linagliptin and glemepride. The patient recently underwent cholecystectomy at [place] and was discharged home, where she continued to take her oral hypoglycemics till Wednesday. Her PCP told her to stop taking the. She was found to be sluggish and not herself without any diaphoresis or tremors. Glucose level was persistently at home 58 despite holding her medications. EMS administered glucagon IM due to lack of ac cess. Repeat glucose in the ER was 44. Patient was given D5 half-normal saline , D50 and orange juice. And she was admitted to the hospital for persistent hypoglycemia. No acute infections identified. UA was negative. Chest x-ray and Covid [address] of the head negative 1. Hypoglycemia: Likely medication induced. She is on linagliptin and glemepride which she took until her stay after surgery. Given her age and renal function glemepride will be discontinued.. We will get HbA1c as well. Patient is on hypoglycemic protocol with frequent glucose checks. On D10. Will continue to follow. 2. CAD s/p PTCAx 3 w placement of RAFAELA in LAD in the remote past : Resume all home medications with holding parameters for hypotension, Denies any acute cardiac ischemia Symptoms 3. History of cholecystitis status post cholecystectomy : Midline surgical wound healing well. [place] in place. No erythema 4. CVA : Chronic. Assisted ambulation only. Activity as tolerated. Continue home meds 5. DM2 with hypoglycemia . Check A1c. Continue with supportive care with D10. Management as per 1. 6. Chronic diastolic CHF, compensated . We'll continue to follow. 7. LA w periodic limb movement disorder on CPAP 8cm H2O Resume home CPAP 8. CKD 3 . Avoid nephrotoxins. Renally dose all medications Disposition unknown at this time. But likely home in the next 48 hours. VS,Fishbone, I+O VS, Fishbone, I+O Laboratory Tests 01/15/20 00:47 Vital Signs Date Time Temp Pulse Resp B/P (MAP) Pulse Ox O2 Delivery O2 Flow Rate FiO2 01/15/20 09:05 98.3 84 21 134/42 (72) 99 Room Air I&O- Last 24 Hours up to 6 AM 01/15/20 06:00 Intake Total 200 ml Balance 200 ml JON MCKINNEY MD Jan 15, 2020 11:48
[2020-01-15 14:00] VITALS: BP 129/50
[2020-01-15 22:00] VITALS: BP 143/50
[2020-01-15] MEDS: SIMVASTATIN 20 MG TAB PO SCH (22:13)
[2020-01-15] MEDS: LOSARTAN 25 MG TAB PO SCH (22:14)
[2020-01-16] MEDS: D10W/0.45% SODIUM CHLORIDE 1,000 ML IV SCH (00:16)
[2020-01-16] MEDS ORDERED: ACETAMINOPHEN TAB 650MG DOSE (2X325MG) PO ONE (05:00)
[2020-01-16 06:00] VITALS: BP 147/51
[2020-01-16 07:08] LABS: HEMOGLOBIN A1c 7.5 %
[2020-01-16 07:11] LABS: CHOLESTEROL RISK RATIO 2.641 (<5)
[2020-01-16] MEDS: FLUTICASONE HFA 110 MCG 12 GM INHALER (FLOVENT) INH SCH ×2 (08:00→19:26)
[2020-01-16] MEDS: OMEPRAZOLE 20 MG CAP PO SCH (09:59)
[2020-01-16] MEDS: ASCORBIC ACID 500 MG TAB PO SCH ×2 (09:59→21:18)
[2020-01-16] MEDS: MULTIVITAMINS/MINERALS THERAP 1 TAB PO SCH (09:59)
[2020-01-16] MEDS: VITAMIN D 1,000 INTERNATIONAL UNITS TABLET PO SCH (09:59)
[2020-01-16] MEDS: OYSTER SHELL CALCIUM 500 MG TAB PO SCH ×2 (09:59→21:18)
[2020-01-16] MEDS: METOCLOPRAMIDE 10 MG TAB PO SCH (10:00)
[2020-01-16] MEDS: allopurinoL 100 MG TAB PO SCH (10:00)
[2020-01-16] MEDS: FLUTICASONE PROP 0.05% NASAL SPRAY 16 GM (FLONASE) SCH (10:04)
[2020-01-16] MEDS ORDERED: GLUCOSE 4GM CHEW TABLET PO PRN (10:30)
[2020-01-16] MEDS ORDERED: DEXTROSE 50% 50 ML SYRINGE IV PRN (10:30)
[2020-01-16] MEDS ORDERED: GLUCAGON INJ 1MG VIAL SC PRN (10:30)
[2020-01-16] MEDS: TORSEMIDE (DEMADEX) 50 MG PER 1/2 TAB PO SCH ×2 (10:41→21:17)
[2020-01-16] MEDS: HumaLOG INSULIN (NovoLOG) PER UNIT SC SCH ×3 (12:08→21:18)
[2020-01-16 14:00] VITALS: BP 136/48
--- NOTE | 2020-01-16 14:41 | IPNPDOC ---
Text Note Date of Service The patient was seen on 01/16/20. NOTE Patient was seen and examined this morning at the bedside with the nurse. The patient states that she is feeling okay. No acute overnight events. PHYSICAL EXAMINATION: Gen: Awake, alert, oriented 3 HEENT: Pupils are round, reactive to light accommodation. Extra muscles are intact. No JVD, no thyromegaly, no cervical lymphadenopathy. Moist mucous membranes HEART: S1, S2, sinus rhythm, no murmurs, rubs or gallop LUNGS: Clear to auscultation. Wheezing, rales or rhonchi. No adventitious breath sounds. No kyphoscoliosis ABDOMEN: Positive bowel sounds, obese, bilateral ecchymoses in the lower quadrant. Midline incision with maxine, some erythema without any purulent drainage, no induration EXTREMITIES: 2+ pitting edema to the sacrum Labs reviewed Radiology reviewed ASSESSMENT AND PLAN: 84-year-old female with history of diabetes linagliptin and glemepride. The pat ienathaly recently underwent cholecystectomy at [place] and was discharged home, where she continued to take her oral hypoglycemics till Wednesday. Her PCP told her to stop taking the. She was found to be sluggish and not herself without any diaphoresis or tremors. Glucose level was persistently at home 58 despite holding her medications. EMS administered glucagon IM due to lack of access. Repeat glucose in the ER was 44. Patient was given D5 half-normal saline , D50 and orange juice. And she was admitted to the hospital for persistent hypoglycemia. No acute infections identified. UA was negative. Chest x-ray and Covid [address] of the head negative 1. Hypoglycemia: Resolved. Likely medication induced. She is on linagliptin and glemepride which she took until her stay after surgery. Given her age and renal function glemepride will be discontinued A1c of 7.5 Patient is on hypoglycemic protocol with frequent glucose checks. D10 has been discontinued as the patient's blood sugars have been consistently in 160s to 250s. Sliding scale insulin has been started, before meals and at bedtime. 2. CAD s/p PTCAx 3 w placement of RAFAELA in LAD in the remote past : Resume all home medications with holding parameters for hypotension, Denies any acute cardiac ischemia Symptoms 3. History of cholecystitis status post cholecystectomy : Midline surgical wound healing well. [place] in place. No erythema 4. CVA : Chronic. Assisted ambulation only. Activity as tolerated. Continue home meds 5. DM2 with hypoglycemia . Check A1c. Continue with supportive care with D10. Management as per 1. 6. Chronic diastolic CHF, compensated . We'll continue to follow. 7. LA w periodic limb movement disorder on CPAP 8cm H2O Resume home CPAP 8. CKD 3 . Avoid nephrotoxins. Renally dose all medications Disposition unknown at this time. But likely home in the next 48 hours. VS,Fishbone, I+O VS, Fishbone, I+O Vital Signs Date Time Temp Pulse Resp B/P (MAP) Pulse Ox O2 Delivery O2 Flow Rate FiO2 01/16/20 14:00 98.4 69 17 136/48 (77) 94 Room Air I&O- Last 24 Hours up to 6 AM 01/16/20 06:00 Intake Total 1850 ml Output Total 1550 ml Balance 300 ml JON MCKINNEY MD Jan 16, 2020 14:41
[2020-01-16] MEDS: ACETAMINOPHEN TAB 650MG DOSE (2X325MG) PO PRN (18:04)
[2020-01-16] MEDS: LOSARTAN 25 MG TAB PO SCH (21:18)
[2020-01-16] MEDS: SIMVASTATIN 20 MG TAB PO SCH (21:18)
[2020-01-16 22:00] VITALS: BP 160/68
[2020-01-17] MEDS: ACETAMINOPHEN TAB 650MG DOSE (2X325MG) PO PRN ×4 (00:21→21:50)
[2020-01-17 06:00] VITALS: BP 166/73
[2020-01-17 06:41] LABS: BASO % 0.4 % (0.0-1.0); EOS # 0.1 10^3/uL (0.0-0.5); EOS % 1.9 % (0.0-3.0); LYMPH # 1.3 10^3/uL (1.5-5.0); LYMPH % 23.1 % (24.0-44.0); MEAN CORPUSCULAR HEMOGLOBIN 29.7 pg (27.0-33.0); MEAN CORPUSCULAR VOLUME 95.7 fl (80.0-96.0); MONO # 0.7 10^3/uL (0.0-0.8); MONO % 12.4 % (0.0-5.0); NEUTROPHILS # 3.4 10^3/uL (1.5-8.5); NEUTROPHILS % 59.9 % (36.0-66.0); PLATELET COUNT, AUTOMATED 243 10^3/uL (150-450); RED BLOOD COUNT 3.03 10^6/uL (4.00-5.40); WHITE BLOOD COUNT 5.7 10^3/uL (4.0-10.0)
[2020-01-17 07:08] LABS: CALCIUM LEVEL 9.6 MG/DL (8.8-10.2); CREATININE FOR GFR 1.58 MG/DL (0.55-1.30); GLOMERULAR FILTRATION RATE 33.2 (>32); POTASSIUM SERUM 3.7 MEQ/L (3.5-5.1)
[2020-01-17] MEDS: FLUTICASONE HFA 110 MCG 12 GM INHALER (FLOVENT) INH SCH ×2 (07:20→20:21)
[2020-01-17] MEDS: OYSTER SHELL CALCIUM 500 MG TAB PO SCH ×2 (07:58→21:49)
[2020-01-17] MEDS: METOCLOPRAMIDE 10 MG TAB PO SCH (07:59)
[2020-01-17] MEDS: VITAMIN D 1,000 INTERNATIONAL UNITS TABLET PO SCH (07:59)
[2020-01-17] MEDS: TORSEMIDE (DEMADEX) 50 MG PER 1/2 TAB PO SCH ×2 (07:59→21:49)
[2020-01-17] MEDS: ASCORBIC ACID 500 MG TAB PO SCH ×2 (07:59→21:50)
[2020-01-17] MEDS: allopurinoL 100 MG TAB PO SCH (07:59)
[2020-01-17] MEDS: MULTIVITAMINS/MINERALS THERAP 1 TAB PO SCH (07:59)
[2020-01-17] MEDS: OMEPRAZOLE 20 MG CAP PO SCH (07:59)
[2020-01-17] MEDS: HumaLOG INSULIN (NovoLOG) PER UNIT SC SCH ×4 (08:00→21:00)
[2020-01-17] MEDS: FLUTICASONE PROP 0.05% NASAL SPRAY 16 GM (FLONASE) SCH (08:00)
--- NOTE | 2020-01-17 14:08 | IPNPDOC ---
Text Note Date of Service The patient was seen on 01/17/20. NOTE Patient was seen and examined this morning at the bedside with the nurse. The patient states that she is feeling okay. No acute overnight events. PHYSICAL EXAMINATION: Gen: Awake, alert, oriented 3 HEENT: Pupils are round, reactive to light accommodation. Extra muscles are intact. No JVD, no thyromegaly, no cervical lymphadenopathy. Moist mucous membranes HEART: S1, S2, sinus rhythm, no murmurs, rubs or gallop LUNGS: Clear to auscultation. Wheezing, rales or rhonchi. No adventitious breath sounds. No kyphoscoliosis ABDOMEN: Positive bowel sounds, obese, bilateral ecchymoses in the lower quadrant. Midline incision with maxine, some erythema without any purulent venessa inage, no induration EXTREMITIES: 2+ pitting edema to the sacrum Labs reviewed Radiology reviewed ASSESSMENT AND PLAN: 84-year-old female with history of diabetes linagliptin and glemepride. The patient recently underwent cholecystectomy at [place] and was discharged [facility] , where she continued to take her oral hypoglycemics till Wednesday. Her PCP told her to stop taking the. She was found to be sluggish and not herself without any diaphoresis or tremors. Glucose level was persistently at home 58 despite holding her medications. EMS administered glucagon IM due to lack of access. Repeat glucose in the ER was 44. Patient was given D5 half-normal saline , D50 and orange juice. And she was admitted to the hospital for persistent hypoglycemia. No acute infections identified. UA was negative. Chest x-ray and Covid [address] of the head negative 1. Hypoglycemia: Resolved. Likely medication induced. She is on linagliptin and glemepride which she took until her stay after surgery. Given her age and renal function glemepride will be discontinued A1c of 7.5 Patient is on hypoglycemic protocol with frequent glucose checks. D10 has been discontinued as the patient's blood sugars have been consistently in 160s to 250s. Sliding scale insulin has been started, before meals and at bedtime. 2. CAD s/p PTCAx 3 w placement of RAFAELA in LAD in the remote past : Resume all home medications with holding parameters for hypotension, Denies any acute cardiac ischemia Symptoms 3. History of cholecystitis status post cholecystectomy : Midline surgical wound healing well. [place] in place. No erythema 4. CVA : Chronic. Assisted ambulation only. Activity as tolerated. Continue home meds 5. DM2 with hypoglycemia . Check A1c. Continue with supportive care with D10. Management as per 1. 6. Chronic diastolic CHF, compensated . We'll continue to follow. 7. LA w periodic limb movement disorder on CPAP 8cm H2O Resume home CPAP 8. CKD 3 . Avoid nephrotoxins. Renally dose all medications Disposition: likely home tomorrow VS,Fishbone, I+O VS, Fishbone, I+O Laboratory Tests 01/17/20 06:28 Vital Signs Date Time Temp Pulse Resp B/P (MAP) Pulse Ox O2 Delivery O2 Flow Rate FiO2 01/17/20 06:00 97.4 75 18 166/73 (104) 96 Room Air I&O- Last 24 Hours up to 6 AM 01/17/20 06:00 Intake Total 1700 ml Output Total 5200 ml Balance -3500 ml JON MCKINNEY MD Jan 17, 2020 14:08
[2020-01-17 14:29] VITALS: BP 152/50
[2020-01-17 21:50] VITALS: BP 133/60
[2020-01-17] MEDS: LOSARTAN 25 MG TAB PO SCH (21:50)
[2020-01-17] MEDS: SIMVASTATIN 20 MG TAB PO SCH (21:50)
[2020-01-17 21:51] VITALS: BP 133/60
[2020-01-18] MEDS: ACETAMINOPHEN TAB 650MG DOSE (2X325MG) PO PRN ×2 (04:14→16:07)
[2020-01-18 05:42] VITALS: BP 163/83
[2020-01-18 06:10] LABS: BASO % 0.6 % (0.0-1.0); EOS # 0.1 10^3/uL (0.0-0.5); EOS % 1.9 % (0.0-3.0); HEMATOCRIT 28.3 % (36.0-47.0); HEMOGLOBIN 8.8 g/dl (12.0-15.5); LYMPH # 1.4 10^3/uL (1.5-5.0); LYMPH % 25.1 % (24.0-44.0); MEAN CORPUSCULAR HEMOGLOBIN 29.6 pg (27.0-33.0); MEAN CORPUSCULAR HGB CONC 31.1 g/dl (32.0-36.5); MEAN CORPUSCULAR VOLUME 95.3 fl (80.0-96.0); MONO # 0.8 10^3/uL (0.0-0.8); MONO % 14.1 % (0.0-5.0); NEUTROPHILS # 3.1 10^3/uL (1.5-8.5); NEUTROPHILS % 57.2 % (36.0-66.0); PLATELET COUNT, AUTOMATED 250 10^3/uL (150-450); RED BLOOD COUNT 2.97 10^6/uL (4.00-5.40); WHITE BLOOD COUNT 5.4 10^3/uL (4.0-10.0)
[2020-01-18 06:24] LABS: CALCIUM LEVEL 9.3 MG/DL (8.8-10.2); CREATININE FOR GFR 1.43 MG/DL (0.55-1.30); GLOMERULAR FILTRATION RATE 37.2 (>32); POTASSIUM SERUM 3.8 MEQ/L (3.5-5.1)
[2020-01-18] MEDS: FLUTICASONE HFA 110 MCG 12 GM INHALER (FLOVENT) INH SCH (07:24)
[2020-01-18] MEDS: HumaLOG INSULIN (NovoLOG) PER UNIT SC SCH ×2 (07:59→12:20)
[2020-01-18] MEDS: TORSEMIDE (DEMADEX) 50 MG PER 1/2 TAB PO SCH (08:00)
[2020-01-18] MEDS: METOCLOPRAMIDE 10 MG TAB PO SCH (08:00)
[2020-01-18] MEDS: OMEPRAZOLE 20 MG CAP PO SCH (08:00)
[2020-01-18] MEDS: VITAMIN D 1,000 INTERNATIONAL UNITS TABLET PO SCH (08:00)
[2020-01-18] MEDS: ASCORBIC ACID 500 MG TAB PO SCH (08:00)
[2020-01-18] MEDS: MULTIVITAMINS/MINERALS THERAP 1 TAB PO SCH (08:01)
[2020-01-18] MEDS: allopurinoL 100 MG TAB PO SCH (08:01)
[2020-01-18] MEDS: FLUTICASONE PROP 0.05% NASAL SPRAY 16 GM (FLONASE) SCH (08:01)
[2020-01-18] MEDS: OYSTER SHELL CALCIUM 500 MG TAB PO SCH (08:01)
--- NOTE | 2020-01-18 11:33 | DS.PDOC ---
Discharge Summary General Date of Admission Jan 15, 2020 at 03:28 Date of Discharge 01/18/20 Discharge Summary Chief complaint Alteration in mental status Final diagnosis Hypoglycemia Status post cholecystectomy History of present illness and Hospital course 84-year-old female with history of diabetes linagliptin and glemepride. The patient recently underwent cholecystectomy at [place] and was discharged home, where she continued to take her oral hypoglycemics till Wednesday. Her PCP told her to stop taking the. She was found to be sluggish and not herself without any diaphoresis or tremors. Glucose level was persistently at home 58 despite holding her medications. EMS administered glucagon IM due to lack of access. Repeat glucose in the ER was 44. Patient was given D5 half-normal saline , D50 and orange juice. And she was admitted to the hospital for persistent hypoglycemia. No acute infections identified. UA was negative. Chest x-ray and Covid [address] of the head negative For her Hypoglycemia which is Resolved. Likely medication induced. She is on linagliptin and glemepride which she took until her stay after surgery. Given her age and renal function glemepride will be discontinued A1c of 7.5. patient's blood sugars have been consistently in 160s to 250s. . She is doing fairly well now and will be only discharged on Levaquin" 10 and she has been advised to follow with her PCP regarding any other adjustment of her diabetic medications. Again, given her age as well as CK. The degree adjustment needs to be done for her diabetic medications. For her History of cholecystitis status post cholecystectomy : Midline surgical wound healing well. Lyndsay in place. No puneet thema. Placed to follow with PCP for that. She has been advised to follow-up with her PCP for all other chronic medical problems which are at baseline, requiring no further adjustments. She is medically optimized for discharge. All the information has been given to her daughter as well PHYSICAL EXAMINATION: Gen: Awake, alert, oriented 3 HEENT: Pupils are round, reactive to light accommodation. Extra muscles are intact. No JVD, no thyromegaly, no cervical lymphadenopathy. Moist mucous membranes HEART: S1, S2, sinus rhythm, no murmurs, rubs or gallop LUNGS: Clear to auscultation. Wheezing, rales or rhonchi. No adventitious breath sounds. No kyphoscoliosis ABDOMEN: Positive bowel sounds, obese, bilateral ecchymoses in the lower quadrant. Midline incision with lyndsay, some erythema without any purulent drainage, no induration EXTREMITIES: 2+ pitting edema to the sacrum Medications. As per discharge reconciliation medication list Activity as tolerated Diet. 2 g sodium diet, consistent carb diet Follow-up appointments. PCP in 1 week. Condition on discharge. Patient is medically optimized for discharge Wound care. She will need to follow with the PCP/surgeon for the staple removals in the next 1-2 weeks. Discharge disposition: Home Total time spent on this discharge including coordination of care, review of chart documentation and actual patient contact is around 35 minutes Vital Signs/I&Os Vital Signs Date Time Temp Pulse Resp B/P (MAP) Pulse Ox O2 Delivery O2 Flow Rate FiO2 01/18/20 05:42 98.0 80 16 163/83 (109) 98 Room Air I&O- Last 24 Hours up to 6 AM 01/18/20 06:00 Intake Total 2360 ml Output Total 5250 ml Balance -2890 ml Laboratory Data Labs 24H Laboratory Tests 2 01/17/20 11:52: Bedside Glucose (Misc Panel) 217H 01/17/20 16:48: Bedside Glucose (Misc Panel) 284H 01/17/20 21:43: Bedside Glucose (Misc Panel) 214H 01/18/20 05:34: Immature Granulocyte % (Auto) 1.1, Neutrophils (%) (Auto) 57.2, Lymphocytes (%) (Auto) 25.1, Monocytes (%) (Auto) 14.1H, Eosinophils (%) (Auto) 1.9, Basophils (%) (Auto) 0.6, Neutrophils # (Auto) 3.1, Lymphocytes # (Auto) 1.4L, Monocytes # (Auto) 0.8, Eosinophils # (Auto) 0.1, Basophils # (Auto) 0.0, Nucleated Red Blood Cells % (auto) 0.0, Anion Gap 6L, Glomerular Filtration Rate 37.2, Calcium Level 9.3 CBC/BMP Laboratory Tests 01/18/20 05:34 FSBS Laboratory Tests Test 01/17/20 11:52 01/17/20 16:48 01/17/20 21:43 Range/Units Bedside Glucose (Misc Panel) 217 284 214 83-110 MG/DL Microbiology Microbiology 01/15/20 Respiratory Virus Panel (PCR) (JENNA) - Final, Complete Discharge Medications Scheduled Allopurinol (Allopurinol) 100 Mg Tablet, 100 MG PO DAILY, (Reported) Ascorbic Acid (Vitamin C) 500 Mg Capsule.er, 500 MG PO BID, (Reported) Calcium Carbonate (Calcium) 500 Mg Tablet, 500 MG PO BID, (Reported) Cholecalciferol (Vitamin D3) (Vitamin D3) 1,000 Unit Tablet, 1,000 UNITS PO DAILY, (Reported) Fluticasone Propionate (Flovent Hfa) 110 Mcg/Act Aer.w.adap, 2 PUFF INH BID, (Reported) Fluticasone Propionate (Fluticasone Propionate) 16 Gm [place].susp, 2 SPRAYS NA DAILY, (Reported) Linagliptin (Tradjenta) 5 Mg Tablet, 5 MG PO DAILY, (Reported) Losartan Potassium (Losartan Potassium) 25 Mg Tablet, 25 MG PO QHS, (Reported) Metoclopramide HCl (Metoclopramide HCl) 10 Mg Tablet, 10 MG PO DAILY, (Reported) Multivitamin,Therapeutic (Thera-Tabs) 1 Each Tablet, 1 TAB PO DAILY, (Reported) Omeprazole (Omeprazole) 40 Mg Capsule.dr, 20 MG PO DAILY, (Reported) Simvastatin (Simvastatin) 20 Mg Tablet, 20 MG PO QHS, (Reported) Torsemide (Torsemide) 100 Mg Tablet, 50 MG PO BID, (Reported) skip dose if light headed Allergies Coded Allergies: Penicillins (Verified Allergy, Severe, angioedema, 11/10/18) bee pollen (Verified Allergy, Severe, anaphylaxis, 11/10/18) erythromycin base (Verified Allergy, Severe, anaphylaxis, 11/10/18) lidocaine (Verified Allergy, Severe, anaphylaxis, 11/10/18) procaine (Verified Allergy, Severe, facial swelling, 11/10/18) TAPE (Verified Allergy, Intermediate, RASH, 03/18/10) doxycycline (Verified Allergy, Intermediate, hives, 11/10/18) alendronate sodium (Verified Allergy, Mild, nausea, vomiting, rash, 11/10/18) WOOL (FABRIC) (Verified Allergy, Unknown, rash, 08/18/18) diclofenac (Verified Allergy, Unknown, unknown, 08/18/18) latex (Verified Allergy, Unknown, swells up and breaks out, 11/10/18) PEPPERS (Verified Adverse Reaction, Mild, NAUSEA, 03/18/10) sucralfate (Verified Adverse Reaction, Mild, nausea and vomiting, 11/10/18) moxifloxacin (Verified Adverse Reaction, Unknown, biceps tendonitis, 08/18/18) prednisone (Verified Adverse Reaction, Unknown, palpitations, syncope, 08/18/18) JON MCKINNEY MD Jan 18, 2020 11:33
[2020-01-18 14:00] VITALS: BP 145/55
== END 2020-01-18 17:25 | disposition home or self-care (01) | DRG 638 ==
LOC: M ED 00:23 → M ED INP 03:28 → ENRESERV 07:35 → M MS5PR 09:05
PROVIDERS: ADMIT General Practice; ATTEND Internal Medicine
DX: E11.649 Type 2 diabetes mellitus with hypoglycemia without coma (principal); I50.32 Chronic diastolic (congestive) heart failure; Z68.41 Body mass index [BMI] 40.0-44.9, adult; E66.01 Morbid (severe) obesity due to excess calories; Z79.899 Other long term (current) drug therapy; Z88.0 Allergy status to penicillin; Z88.8 Allergy status to other drugs, medicaments and biological substances; Z91.030 Bee allergy status; Z88.1 Allergy status to other antibiotic agents; Z91.018 Allergy to other foods; Z91.040 Latex allergy status; G47.33 Obstructive sleep apnea (adult) (pediatric); K21.9 Gastro-esophageal reflux disease without esophagitis; K44.9 Diaphragmatic hernia without obstruction or gangrene; M81.0 Age-related osteoporosis without current pathological fracture; N18.30 Chronic kidney disease, stage 3 unspecified; K57.30 Diverticulosis of large intestine without perforation or abscess without bleeding; Z86.73 Personal history of transient ischemic attack (TIA), and cerebral infarction without residual deficits; M17.12 Unilateral primary osteoarthritis, left knee; E78.5 Hyperlipidemia, unspecified; E55.9 Vitamin D deficiency, unspecified; F41.9 Anxiety disorder, unspecified; F32.9 Major depressive disorder, single episode, unspecified

== ENCOUNTER → 2020-02-14 | Outpatient (REF) | payer MEDICARE ==
[~2020-02-14] MED LIST changes: +FLUTISP; +OYST1TAB PO; +VITA500C19 PO
[2020-02-14 18:18] LABS: PERCENT SATURATION 13.1 % (13.2-45.0)
== END ==
LOC: M LAB REF 16:45
PROVIDERS: ATTEND Internal Medicine Nephrology
DX: N18.30 Chronic kidney disease, stage 3 unspecified (principal); D63.1 Anemia in chronic kidney disease

== ENCOUNTER → 2020-03-05 | Outpatient (REF) | payer MEDICARE ==
[2020-03-05 13:17] LABS: HEMATOCRIT 35.3 % (36.0-47.0); MEAN CORPUSCULAR HEMOGLOBIN 29.6 pg (27.0-33.0); MEAN CORPUSCULAR HGB CONC 31.2 g/dl (32.0-36.5); MEAN CORPUSCULAR VOLUME 95.1 fl (80.0-96.0); PLATELET COUNT, AUTOMATED 195 10^3/uL (150-450); RED BLOOD COUNT 3.71 10^6/uL (4.00-5.40); WHITE BLOOD COUNT 6.7 10^3/uL (4.0-10.0)
[2020-03-05 13:19] LABS: ALBUMIN 3.3 GM/DL (3.2-5.2); BILIRUBIN,TOTAL 0.4 MG/DL (0.2-1.0); CHOLESTEROL RISK RATIO 3.458 (<5); CREATININE FOR GFR 1.35 MG/DL (0.55-1.30); GLOMERULAR FILTRATION RATE 39.7 (>32); POTASSIUM SERUM 4.5 MEQ/L (3.5-5.1); TOTAL PROTEIN 6.9 GM/DL (6.4-8.2)
[2020-03-05 14:43] LABS: HEMOGLOBIN A1c 6.8 %
== END ==
LOC: M SFHCADAM 09:36
PROVIDERS: ATTEND Family Medicine
DX: I50.32 Chronic diastolic (congestive) heart failure (principal); N18.30 Chronic kidney disease, stage 3 unspecified; I11.0 Hypertensive heart disease with heart failure; E11.8 Type 2 diabetes mellitus with unspecified complications; I25.10 Atherosclerotic heart disease of native coronary artery without angina pectoris; E78.2 Mixed hyperlipidemia

== ENCOUNTER → 2020-03-05 | Outpatient (REF) | payer MEDICARE | LOC: M LABDRWAD 12:26 | PROVIDERS: ATTEND Internal Medicine Cardiovascular Disease | DX: I50.32 Chronic diastolic (congestive) heart failure (principal) ==

== ENCOUNTER → 2020-04-16 | Outpatient (CLI) | payer MEDICARE ==
--- NOTE | 2020-04-16 17:09 | REP ---
INDICATION: HEMOPTYSIS. COMPARISON: CT a chest 12/22/2019. TECHNIQUE: Noncontrast CT of the chest with coronal and sagittal reconstructions provided FINDINGS: The lung low are better inflated than on the previous study. Some basilar fibrotic change as well some curvilinear fibrotic change in the right mid and upper lung zone. Some ground-glass opacities are seen in the left upper lobe the posterior segment of the right upper lobe and in the right lower lobe. These are scattered in a different pattern compared to the previous study. Findings may reflect some subsegmental atelectatic change or interstitial infiltrates versus edema. There is cardiomegaly with left atrial and ventricular enlargement. I do not see pericardial effusion. Heavy atherosclerotic calcifications in the coronary arteries are suggested. Main, right and left pulmonary arteries are prominent, centrally taper fairly rapidly suggesting some degree of pulmonary artery hypertension. There is no pleural effusion. No dense consolidation with air bronchograms or discrete masses. The aorta is a tortuous, somewhat ectatic and with calcifications at the arch and descending portion as well as at the aortic root. Some calcifications at the mitral annulus also noted. No pathologic sized mediastinal or hilar adenopathy identified. No axillary or supraclavicular mass seen. Stable appearance of the some small of slightly hypodense thyroid nodules again seen. Bone windows show scattered areas with the endplate sclerosis and diffuse marginal osteophytes with some disc space narrowing and vacuum phenomenon, also scattered. No acute compression deformity or destructive lesion. The sternum, manubrium, medial clavicles and visualized ribs are without evidence of an acute fracture or destructive lesion. There are advanced degenerative changes at the right greater than left shoulder. The upper abdomen shows liver in part and suggests some hepatomegaly. Spleen is not enlarged and shows no focal lesion. Gallbladder shows no calcified stone or mass. There is colonic interposition between the chest wall and right lobe of the liver as anatomic normal variation. A portion of the pancreas seen was grossly intact adrenal glands unchanged. The kidneys show no hydronephrosis, stone or visible mass. There are some vascular calcifications in the left renal hilus. No hiatal hernia. IMPRESSION: 1. Cardiomegaly with left atrial and ventricular enlargement but no pericardial effusion. Some venous engorgement and some patchy ground-glass opacities are present but no pleural effusion on either side. Pattern of the ground-glass opacities in the lung low is different than on the previous study suggesting subsegmental atelectatic change, interstitial infiltrates and/or edema. 2. Chronic changes in the spine and shoulders, probable hepatomegaly and a tortuous calcified aorta without gross aneurysm. <Electronically signed by Jatinder Camacho > 04/16/20 [id number]
== END ==
LOC: M RAD 13:54
PROVIDERS: ATTEND Internal Medicine Cardiovascular Disease
DX: K92.0 Hematemesis (principal)

== ENCOUNTER → 2020-06-20 | Outpatient (REF) | payer MEDICARE ==
[~2020-06-20] MED LIST changes: -ASPI325T36 PO; +ASPI325T49 PO
[2020-06-20 13:05] LABS: CALCIUM LEVEL 10.1 MG/DL (8.8-10.2); CREATININE FOR GFR 1.52 MG/DL (0.55-1.30); GLOMERULAR FILTRATION RATE 34.6 (>32); POTASSIUM SERUM 4.1 MEQ/L (3.5-5.1)
[2020-06-20 13:25] LABS: HEMOGLOBIN A1c 7.1 %
== END ==
LOC: M SFHCADAM 08:41
PROVIDERS: ATTEND Family Medicine
DX: E11.8 Type 2 diabetes mellitus with unspecified complications (principal)

== ENCOUNTER 2020-07-29 14:27 | Emergency (ER) | payer MEDICARE ==
[~2020-07-29] VITALS: Ht 160 cm; Wt 114.1 kg
[2020-07-29] MEDS ORDERED: CALC1TAB26 PO (14:46)
[2020-07-29] MEDS ORDERED: ASPI81TA26 PO (14:46)
[2020-07-29] MEDS ORDERED: TORS100T PO (14:46)
[2020-07-29] MEDS ORDERED: CETI10CH PO (14:46)
[2020-07-29] MEDS ORDERED: ALBU83IN INH (14:46)
[2020-07-29] MEDS ORDERED: tumeric PO (14:46)
[2020-07-29] MEDS ORDERED: GLUCTAB6 PO (14:46)
[2020-07-29] MEDS ORDERED: GLIM1TAB4 PO (14:47)
[2020-07-29] MEDS ORDERED: COLA100C5 PO (14:47)
[2020-07-29] MEDS ORDERED: ACET500P3 PO (14:47)
[2020-07-29] MEDS ORDERED: tylenol with codeine PO (14:47)
[2020-07-29] MEDS ORDERED: DICY10CA13 PO (14:47)
[2020-07-29] MEDS ORDERED: D3 H10002 PO (14:47)
[2020-07-29] MEDS ORDERED: ACETAMINOPHEN 500 MG TAB PO ONE (15:00)
--- NOTE | 2020-07-29 15:37 | REP ---
INDICATION: trauma COMPARISON: 01/15/2020 TECHNIQUE: Axial noncontrast images from the skull base to the thoracic inlet with coronal reformations. This CT examination was performed using the following dose reduction techniques: Automated exposure control, adjustment of mA and/or kv according to the patient's size, and use of iterative reconstruction technique. FINDINGS: Atrophy with periventricular leukomalacia and microvascular ischemic changes are appreciated. The ventricles and sulci are symmetric. Dos Santos-white differentiation is maintained. There is no evidence for acute intracranial hemorrhage, mass/mass effect, pathology or infarction. No extra-axial fluid collection. Calvarium is intact. Paranasal sinuses and mastoid air cells are clear. IMPRESSION: Atrophy and microvascular ischemic changes. No acute intracranial hemorrhage, infarction, or mass/mass effect. <Electronically signed by Austin Charles > 07/29/20 1530
--- NOTE | 2020-07-29 15:39 | REP ---
INDICATION: trauma COMPARISON: None. TECHNIQUE: Axial noncontrast images from the skull base to the thoracic inlet with coronal and sagittal re-formations This CT examination was performed using the following dose reduction techniques: Automated exposure control, adjustment of mA and/or kv according to the patient's size, and use of iterative reconstruction technique. FINDINGS: Age-related osteopenia and advanced multilevel degenerative disc osteophyte complexes are appreciated. Findings include osteophytosis, endplate sclerosis, disc space narrowing and facet hypertrophy. No acute fracture/compression injury or subluxation. Spinal canal is grossly patent.. Paravertebral soft tissues are normal. IMPRESSION: Advanced multilevel degenerative spondylosis. No acute fracture/compression injury or subluxation. <Electronically signed by Austin Charles > 07/29/20 [id number]
--- NOTE | 2020-07-29 15:45 | REP ---
INDICATION: trauma COMPARISON: None. TECHNIQUE: Four views of the right and left hemithorax. FINDINGS: Examination is significantly limited due to underpenetration and body habitus. Multiple views of the right and left hemithorax demonstrates no obvious acute rib fracture/injury or pathology. IMPRESSION: No obvious acute rib fracture.. <Electronically signed by Austin Charles > 07/29/20 1547
[2020-07-29 16:34] VITALS: BP 204/98
== END 2020-07-29 16:35 | disposition home or self-care (01) ==
LOC: M ED 14:27
DX: S20.219A Contusion of unspecified front wall of thorax, initial encounter (principal); S00.03XA Contusion of scalp, initial encounter; W01.0XXA Fall on same level from slipping, tripping and stumbling without subsequent striking against object, initial encounter; N18.30 Chronic kidney disease, stage 3 unspecified; G47.33 Obstructive sleep apnea (adult) (pediatric); E11.9 Type 2 diabetes mellitus without complications; I11.0 Hypertensive heart disease with heart failure; I50.9 Heart failure, unspecified; J45.909 Unspecified asthma, uncomplicated; Z79.51 Long term (current) use of inhaled steroids; Z79.82 Long term (current) use of aspirin; Z79.899 Other long term (current) drug therapy; Z88.0 Allergy status to penicillin; Z88.6 Allergy status to analgesic agent; Z88.8 Allergy status to other drugs, medicaments and biological substances; Z91.09 Other allergy status, other than to drugs and biological substances; Z91.040 Latex allergy status; Z99.89 Dependence on other enabling machines and devices

== ENCOUNTER → 2020-08-01 | Outpatient (REF) | payer MEDICARE ==
[~2020-08-01] MED LIST changes: +ACET500P3 PO; +ASPI81TA26 PO; +CETI10CH PO; +COLA100C5 PO; +D3 H10002 PO; +GLIM1TAB4 PO; +GLUCTAB6 PO; +OMEP40CA4 PO; -OMEP40CA97 PO; +tumeric PO; +tylenol with codeine PO
== END ==
LOC: M SFHCPLAZ 10:10
PROVIDERS: ATTEND Family Medicine
DX: L72.0 Epidermal cyst (principal); D10.30 Benign neoplasm of unspecified part of mouth

== ENCOUNTER → 2020-08-13 | Outpatient (CLI) | payer MEDICARE ==
--- NOTE | 2020-08-13 16:56 | REP ---
INDICATION: RIB AND BACK PAIN. COMPARISON: 07/29/2020 TECHNIQUE: Bilateral FINDINGS: The frontal view of the chest today's unchanged from the prior frontal view the chest showing no evidence of acute disease. Once again, the exam is limited particularly due to the patient's body habitus obscuring multiple views of the lower ribs bilaterally. I cannot rule out a lower rib fracture on either side. There is evidence of a fracture involving the right 6th rib. This was not present on the prior exam. The right 5th rib might also be fractured. The right 7th rib might be fractured. I see no evidence of a definite left rib fracture. IMPRESSION: Findings and limitations as described above. Although there are visualize rib fractures I would recommend a CT of the chest to assess for other fractures. <Electronically signed by Beni García > 08/13/20 0531
--- NOTE | 2020-08-13 17:01 | REP ---
INDICATION: RIB AND BACK PAIN. COMPARISON: None. TECHNIQUE: AP and lateral views FINDINGS: There is advanced disc space narrowing seen at multiple levels with heavy anterior lipping involving the lower thoracic levels. Vertebral body height and alignment appears to be within normal limits. There is bilateral marginal osteophyte formation seen at multiple all. IMPRESSION: Chronic changes <Electronically signed by Beni García > 08/13/20 [id number]
== END ==
LOC: M ADAMS 15:30
PROVIDERS: ATTEND Family Medicine
DX: M51.34 Other intervertebral disc degeneration, thoracic region (principal); R07.81 Pleurodynia
CPT/HCPCS: 71111; 72072; G0463

== ENCOUNTER 2020-08-19 15:41 | Emergency (ER) | payer MEDICARE ==
[~2020-08-19] VITALS: Ht 162.6 cm; Wt 116.4 kg
--- NOTE | 2020-08-19 16:21 | REP ---
INDICATION: CHEST PAIN. COMPARISON: Comparison study August 13, 2020. TECHNIQUE: Portable upright AP chest radiograph. FINDINGS: The lungs are symmetrically aerated and free of infiltrate. The pleural angles are sharp. Monitoring electrodes are seen. Moderate cardiac enlargement is observed unchanged. Pulmonary vasculature is not increased. The aorta is calcific and tortuous.. IMPRESSION: Moderate cardiac enlargement. Otherwise no acute disease.. <Electronically signed by Brendan Chaudhry > 08/19/20 [id number]
[2020-08-19 16:59] LABS: BASO % 0.3 % (0.0-1.0); EOS # 0.2 10^3/uL (0.0-0.5); EOS % 2.4 % (0.0-3.0); HEMATOCRIT 35.3 % (36.0-47.0); HEMOGLOBIN 11.3 g/dl (12.0-15.5); LYMPH # 1.4 10^3/uL (1.5-5.0); LYMPH % 22.9 % (24.0-44.0); MEAN CORPUSCULAR HEMOGLOBIN 31.4 pg (27.0-33.0); MEAN CORPUSCULAR VOLUME 98.1 fl (80.0-96.0); MONO # 0.5 10^3/uL (0.0-0.8); MONO % 7.3 % (2.0-8.0); NEUTROPHILS # 4.1 10^3/uL (1.5-8.5); NEUTROPHILS % 66.6 % (36.0-66.0); PLATELET COUNT, AUTOMATED 187 10^3/uL (150-450); WHITE BLOOD COUNT 6.2 10^3/uL (4.0-10.0)
[2020-08-19] MEDS ORDERED: ACETAMINOPHEN 325 MG TAB PO ONE (17:10)
[2020-08-19] MEDS ORDERED: MAALOX 30 ML SUSP *UDC PO ONE (17:10)
[2020-08-19 17:13] LABS: INR 0.99; PROTHROMBIN TIME 13.3 SECONDS (12.5-14.3)
[2020-08-19 17:14] LABS: PARTIAL THROMBOPLASTIN TIME 33.3 SECONDS (24.2-38.5)
[2020-08-19 17:19] LABS: ALBUMIN 3.5 GM/DL (3.2-5.2); ALT/SGPT 19 U/L (12-78); BILIRUBIN,DIRECT 0.1 MG/DL (0.0-0.2); BILIRUBIN,TOTAL 0.5 MG/DL (0.2-1.0); BLOOD UREA NITROGEN 66 MG/DL (7-18); CALCIUM LEVEL 9.4 MG/DL (8.8-10.2); CARBON DIOXIDE LEVEL 30 MEQ/L (21-32); CHLORIDE LEVEL 101 MEQ/L (98-107); CK-MB VALUE MASS 1.1 NG/ML (<3.6); CPK CREATINE PHOSPHOKINASE 41 U/L (26-192); GLOMERULAR FILTRATION RATE 32.6 (>32); GLUCOSE, FASTING 138 MG/DL (70-100); LIPASE 208 U/L (73-393); MB/CK RELATIVE INDEX 2.68 (< OR =4); NT-PRO BNP 1375 PG/ML (<450); SODIUM LEVEL 136 MEQ/L (136-145); TOTAL PROTEIN 7.1 GM/DL (6.4-8.2); TROPONIN I < 0.02 NG/ML (< 0.10)
--- NOTE | 2020-08-19 18:20 | REPVR ---
PROCEDURE INFORMATION: Exam: CT Head Without Contrast Exam date and time: 08/19/2020 5:06 PM Age: 85 years old Clinical indication: Pain; Headache; Additional info: Severe headache TECHNIQUE: Imaging protocol: Computed tomography of the head without contrast. Radiation optimization: All CT scans at this facility use at least one of these dose optimization techniques: automated exposure control; mA and/or kV adjustment per patient size (includes targeted exams where dose is matched to clinical indication); or iterative reconstruction. COMPARISON: CT Head without contrast 07/29/2020 3:09 PM FINDINGS: Brain: There is no acute intracranial hemorrhage, cerebral edema, or midline shift. Age-related cerebral and cerebellar volume loss is present. Cerebral ventricles: No hydrocephalus. Paranasal sinuses: There is no acute sinusitis. Mastoid air cells: Visualized mastoid air cells are well aerated. Orbital cavity: Unremarkable as visualized. Vasculature: Atherosclerotic calcifications are seen involving the cavernous carotid arteries. Bones/joints: No acute fracture. Soft tissues: Unremarkable. IMPRESSION: No acute intracranial abnormality. Electronically signed by: Jeremiah Holcomb On 08/19/2020 18:19:48 PM
--- NOTE | 2020-08-19 20:37 | ECGEPIP ---
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
--- NOTE | 2020-08-19 20:46 | ECGEPIP ---
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
[2020-08-19 20:59] LABS: CK-MB VALUE MASS < 1.0 NG/ML (<3.6); CPK CREATINE PHOSPHOKINASE 43 U/L (26-192); MB/CK RELATIVE INDEX 2.33 (< OR =4); TROPONIN I < 0.02 NG/ML (< 0.10)
[2020-08-19 21:31] VITALS: BP 167/85
== END 2020-08-19 21:52 | disposition home or self-care (01) ==
LOC: M ED 15:41
DX: R10.13 Epigastric pain (principal); R51.9 Headache, unspecified; I11.0 Hypertensive heart disease with heart failure; E78.5 Hyperlipidemia, unspecified; J44.9 Chronic obstructive pulmonary disease, unspecified; Z88.0 Allergy status to penicillin; Z88.6 Allergy status to analgesic agent; Z91.048 Other nonmedicinal substance allergy status; Z91.040 Latex allergy status; Z95.5 Presence of coronary angioplasty implant and graft

== ENCOUNTER → 2020-10-15 | Outpatient (REF) | payer MEDICARE ==
[~2020-10-15] MED LIST changes: +DOK1CAP4 PO; -DOK1CAP7 PO
[2020-10-15 13:50] LABS: ALBUMIN 3.6 GM/DL (3.2-5.2); BILIRUBIN,TOTAL 0.5 MG/DL (0.2-1.0); CALCIUM LEVEL 9.8 MG/DL (8.8-10.2); CREATININE FOR GFR 1.3 MG/DL (0.55-1.30); GLOMERULAR FILTRATION RATE 41.4 (>32); POTASSIUM SERUM 3.9 MEQ/L (3.5-5.1); TOTAL PROTEIN 6.9 GM/DL (6.4-8.2)
[2020-10-15 14:24] LABS: HEMATOCRIT 38.8 % (36.0-47.0); HEMOGLOBIN 12.5 g/dl (12.0-15.5); MEAN CORPUSCULAR HEMOGLOBIN 31.6 pg (27.0-33.0); MEAN CORPUSCULAR HGB CONC 32.2 g/dl (32.0-36.5); PLATELET COUNT, AUTOMATED 195 10^3/uL (150-450); RED BLOOD COUNT 3.96 10^6/uL (4.00-5.40); WHITE BLOOD COUNT 6.4 10^3/uL (4.0-10.0)
[2020-10-15 14:28] LABS: BASO % 0.5 % (0.0-1.0); EOS # 0.2 10^3/uL (0.0-0.5); EOS % 3.4 % (0.0-3.0); LYMPH # 2.2 10^3/uL (1.5-5.0); LYMPH % 33.9 % (24.0-44.0); MONO # 0.7 10^3/uL (0.0-0.8); MONO % 11.4 % (2.0-8.0); NEUTROPHILS # 3.2 10^3/uL (1.5-8.5); NEUTROPHILS % 50.5 % (36.0-66.0)
== END ==
LOC: M LABDRWAD 13:22
PROVIDERS: ATTEND Internal Medicine Cardiovascular Disease
DX: I50.32 Chronic diastolic (congestive) heart failure (principal); I34.0 Nonrheumatic mitral (valve) insufficiency; I25.10 Atherosclerotic heart disease of native coronary artery without angina pectoris; I11.0 Hypertensive heart disease with heart failure

== ENCOUNTER → 2020-10-15 | Outpatient (REF) | payer MEDICARE ==
[2020-10-15 12:31] LABS: BASO % 0.5 % (0.0-1.0); EOS # 0.2 10^3/uL (0.0-0.5); EOS % 3.4 % (0.0-3.0); HEMATOCRIT 38.8 % (36.0-47.0); HEMOGLOBIN 12.5 g/dl (12.0-15.5); LYMPH # 2.2 10^3/uL (1.5-5.0); LYMPH % 33.9 % (24.0-44.0); MEAN CORPUSCULAR HEMOGLOBIN 31.6 pg (27.0-33.0); MEAN CORPUSCULAR HGB CONC 32.2 g/dl (32.0-36.5); MONO # 0.7 10^3/uL (0.0-0.8); MONO % 11.4 % (2.0-8.0); NEUTROPHILS # 3.2 10^3/uL (1.5-8.5); NEUTROPHILS % 50.5 % (36.0-66.0); PLATELET COUNT, AUTOMATED 195 10^3/uL (150-450); RED BLOOD COUNT 3.96 10^6/uL (4.00-5.40); WHITE BLOOD COUNT 6.4 10^3/uL (4.0-10.0)
[2020-10-15 12:48] LABS: HEMOGLOBIN A1c 7.1 %
[2020-10-15 13:12] LABS: ALBUMIN 3.7 GM/DL (3.2-5.2); ALT/SGPT 19 U/L (12-78); BILIRUBIN,TOTAL 0.5 MG/DL (0.2-1.0); BLOOD UREA NITROGEN 39 MG/DL (7-18); CALCIUM LEVEL 10.2 MG/DL (8.8-10.2); CARBON DIOXIDE LEVEL 34 MEQ/L (21-32); CHLORIDE LEVEL 103 MEQ/L (98-107); CHOLESTEROL LEVEL 183 MG/DL (<200); CHOLESTEROL RISK RATIO 3.734 (<5); CREATININE FOR GFR 1.31 MG/DL (0.55-1.30); FOLATE > 24.0 NG/ML; GLOMERULAR FILTRATION RATE 41.1 (>32); GLUCOSE, FASTING 119 MG/DL (70-100); HDL CHOLESTEROL 49 MG/DL (>40); LDL CHOLESTEROL 74 MG/DL (<100); NON-HDL-C 134 MG/DL; POTASSIUM SERUM 3.9 MEQ/L (3.5-5.1); SODIUM LEVEL 140 MEQ/L (136-145); TRIGLYCERIDES LEVEL 299 MG/DL (<150); VITAMIN B12 LEVEL 725 PG/ML
== END ==
LOC: M SFHCADAM 09:32
PROVIDERS: ATTEND Family Medicine
DX: I25.10 Atherosclerotic heart disease of native coronary artery without angina pectoris (principal); I11.0 Hypertensive heart disease with heart failure; E11.8 Type 2 diabetes mellitus with unspecified complications; K21.9 Gastro-esophageal reflux disease without esophagitis; I50.32 Chronic diastolic (congestive) heart failure; I34.0 Nonrheumatic mitral (valve) insufficiency

== ENCOUNTER → 2020-10-24 | Outpatient (CLI) | payer MEDICARE ==
--- NOTE | 2020-10-24 14:15 | REP ---
INDICATION: ARTHRITIS OF RIGHT SHOULDER REGION COMPARISON: None. TECHNIQUE: Internal rotation, external rotation, and Y view. FINDINGS: Osteoarthritic degenerative changes include subchondral heterogeneity and cystic changes to the humeral head with osteophyte formation along the inferior margin as well as irregular sclerosis and contour to the calcified glenoid rim. Cortical irregularities are also identified at the acromioclavicular. The subacromial space is normal. No discrete periarticular calcifications or loose bodies are identified. No acute fracture or dislocation. IMPRESSION: Osteoarthritic degenerative changes. <Electronically signed by Austin Charles > 10/24/20 [id number]
== END ==
LOC: M ADAMS 13:51
PROVIDERS: ATTEND Family Medicine
DX: M19.011 Primary osteoarthritis, right shoulder (principal)

== ENCOUNTER → 2020-12-24 | Outpatient (REF) | payer MEDICARE | LOC: M LAB REF 18:06 | PROVIDERS: ATTEND Internal Medicine Nephrology | DX: E83.42 Hypomagnesemia (principal) ==

== ENCOUNTER → 2021-01-08 | Outpatient (REF) | payer MEDICARE ==
[2021-01-08 13:09] LABS: HEMATOCRIT 35.4 % (36.0-47.0); HEMOGLOBIN 11.3 g/dl (12.0-15.5); MEAN CORPUSCULAR HEMOGLOBIN 31.5 pg (27.0-33.0); MEAN CORPUSCULAR HGB CONC 31.9 g/dl (32.0-36.5); MEAN CORPUSCULAR VOLUME 98.6 fl (80.0-96.0); PLATELET COUNT, AUTOMATED 172 10^3/uL (150-450); RED BLOOD COUNT 3.59 10^6/uL (4.00-5.40); WHITE BLOOD COUNT 5.7 10^3/uL (4.0-10.0)
[2021-01-08 13:24] LABS: ALBUMIN 3.2 GM/DL (3.2-5.2); BILIRUBIN,TOTAL 0.5 MG/DL (0.2-1.0); CREATININE FOR GFR 1.61 MG/DL (0.55-1.30); GLOMERULAR FILTRATION RATE 32.4 (>32); POTASSIUM SERUM 4.4 MEQ/L (3.5-5.1); TOTAL PROTEIN 6.8 GM/DL (6.4-8.2)
[2021-01-08 13:33] LABS: HEMOGLOBIN A1c 7.5 %
== END ==
LOC: M SFHCADAM 10:14
PROVIDERS: ATTEND Family Medicine
DX: I11.0 Hypertensive heart disease with heart failure (principal); E11.8 Type 2 diabetes mellitus with unspecified complications; D63.1 Anemia in chronic kidney disease

== ENCOUNTER → 2021-05-14 | Outpatient (REF) | payer MEDICARE ==
[~2021-05-14] MED LIST changes: +CETI-25 PO; -CETI10TA8 PO; -D31000TA2 PO; +LOSA25TA13 PO; -LOSA25TA14 PO; -OMEP-221 PO; +OMEP40CA5 PO; +VITA100093 PO
[2021-05-14 11:52] LABS: HEMATOCRIT 35.3 % (36.0-47.0); HEMOGLOBIN 11.7 g/dl (12.0-15.5); MEAN CORPUSCULAR HEMOGLOBIN 32.2 pg (27.0-33.0); MEAN CORPUSCULAR HGB CONC 33.1 g/dl (32.0-36.5); MEAN CORPUSCULAR VOLUME 97.2 fl (80.0-96.0); PLATELET COUNT, AUTOMATED 169 10^3/uL (150-450); RED BLOOD COUNT 3.63 10^6/uL (4.00-5.40)
[2021-05-14 12:12] LABS: HEMOGLOBIN A1c 7.5 %
[2021-05-14 12:30] LABS: CALCIUM LEVEL 9.8 MG/DL (8.8-10.2); CREATININE FOR GFR 1.58 MG/DL (0.55-1.30); PERCENT SATURATION 28.8 % (13.2-45.0); POTASSIUM SERUM 4.1 MEQ/L (3.5-5.1)
== END ==
LOC: M SFHCADAM 09:28
PROVIDERS: ATTEND Family Medicine
DX: E11.8 Type 2 diabetes mellitus with unspecified complications (principal); D63.1 Anemia in chronic kidney disease

== ENCOUNTER → 2021-06-03 | Outpatient (REF) | payer MEDICARE | LOC: M SFHCADAM 12:24 | PROVIDERS: ATTEND Physician Assistant | DX: J06.9 Acute upper respiratory infection, unspecified (principal) ==

== ENCOUNTER → 2021-09-10 | Outpatient (REF) | payer MEDICARE ==
[~2021-09-10] MED LIST changes: +ALBU2.5V10 INH; -ALBU83IN INH; -GLUCTAB6 PO; +GLUCTAB7 PO
[2021-09-10 13:28] LABS: HEMATOCRIT 32.5 % (36.0-47.0); HEMOGLOBIN 10.5 g/dl (12.0-15.5); MEAN CORPUSCULAR HEMOGLOBIN 31.6 pg (27.0-33.0); MEAN CORPUSCULAR HGB CONC 32.3 g/dl (32.0-36.5); MEAN CORPUSCULAR VOLUME 97.9 fl (80.0-96.0); PLATELET COUNT, AUTOMATED 168 10^3/uL (150-450); RED BLOOD COUNT 3.32 10^6/uL (4.00-5.40); WHITE BLOOD COUNT 6.2 10^3/uL (4.0-10.0)
[2021-09-10 14:11] LABS: ALBUMIN 3.2 GM/DL (3.2-5.2); BILIRUBIN,TOTAL 0.4 MG/DL (0.2-1.0); CALCIUM LEVEL 9.6 MG/DL (8.8-10.2); CHOLESTEROL RISK RATIO 3.605 (<5); CREATININE FOR GFR 2.2 MG/DL (0.55-1.30); GLOMERULAR FILTRATION RATE 22.5 (>32); PERCENT SATURATION 20.8 % (13.2-45.0); TOTAL PROTEIN 6.5 GM/DL (6.4-8.2)
[2021-09-10 21:42] LABS: HEMOGLOBIN A1c 7.3 %
== END ==
LOC: M SFHCADAM 07:48
PROVIDERS: ATTEND Family Medicine
DX: I11.0 Hypertensive heart disease with heart failure (principal); E11.8 Type 2 diabetes mellitus with unspecified complications; I25.10 Atherosclerotic heart disease of native coronary artery without angina pectoris; E78.2 Mixed hyperlipidemia; D63.1 Anemia in chronic kidney disease

== ENCOUNTER 2021-10-29 06:15 | Inpatient (IN) | payer MEDICARE ==
[~2021-10-29] VITALS: Ht 162.6 cm; Wt 124.9 kg
[~2021-10-29 06:15] MED LIST changes: -FLUTISP; +FLUTISP NARES
[2021-10-29] MEDS ORDERED: dexameTHASONE 20MG/5ML VIAL (J1100 PER 1MG) IV ONE (06:35)
[2021-10-29 06:53] LABS: VENOUS BASE EXCESS 2.5 (-2.0-2.0); VENOUS HCO3 28.6 MEQ/L (23.0-27.0); VENOUS O2 SATURATION 82.4 % (60.0-80.0); VENOUS PARTIAL PRESSURE CO2 50.3 mmHg (38.0-50.0); VENOUS PARTIAL PRESSURE O2 48.1 mmHg (30.0-50.0); VENOUS PH 7.372 UNITS (7.330-7.430); VENOUS STANDARD HCO3 26.4 MEQ/L; VENOUS TOTAL CO2 30.1 MEQ/L (24.0-28.0)
[2021-10-29 07:13] LABS: BASO % 0.5 % (0.0-1.0); EOS # 0.1 10^3/uL (0.0-0.5); HEMATOCRIT 37.8 % (36.0-47.0); HEMOGLOBIN 12.1 g/dl (12.0-15.5); LYMPH # 2.1 10^3/uL (1.5-5.0); LYMPH % 32.7 % (24.0-44.0); MEAN CORPUSCULAR HEMOGLOBIN 30.7 pg (27.0-33.0); MEAN CORPUSCULAR VOLUME 95.9 fl (80.0-96.0); MONO # 0.7 10^3/uL (0.0-0.8); MONO % 10.1 % (2.0-8.0); NEUTROPHILS # 3.5 10^3/uL (1.5-8.5); NEUTROPHILS % 54.2 % (36.0-66.0); PLATELET COUNT, AUTOMATED 187 10^3/uL (150-450); RED BLOOD COUNT 3.94 10^6/uL (4.00-5.40); WHITE BLOOD COUNT 6.5 10^3/uL (4.0-10.0)
[2021-10-29] MEDS ORDERED: ALBUTEROL SULFATE 2.5 MG/0.5 ML INH NEB SOLN NEB ONE (07:25)
[2021-10-29 07:35] LABS: CK-MB VALUE MASS 1.1 NG/ML (<3.6); MB/CK RELATIVE INDEX 1.77 (< OR =4)
[2021-10-29 07:50] LABS: ALBUMIN 3.3 GM/DL (3.2-5.2); BILIRUBIN,DIRECT 0.3 MG/DL (0.0-0.2); BILIRUBIN,TOTAL 0.5 MG/DL (0.2-1.0); CALCIUM LEVEL 9.4 MG/DL (8.8-10.2); CREATININE FOR GFR 1.8 MG/DL (0.55-1.30); GLOMERULAR FILTRATION RATE 28.4 (>32); POTASSIUM SERUM 5.4 MEQ/L (3.5-5.1); THYROID STIMULATING HORMONE 1.23 uIU/ML (0.358-3.740); TOTAL PROTEIN 7.7 GM/DL (6.4-8.2)
[2021-10-29] MEDS ORDERED: FUROSEMIDE 100MG/10ML VIAL (J1940) IV ONE (08:40)
[2021-10-29] MEDS ORDERED: ACETAMINOPHEN 500 MG TAB PO ONE (08:50)
[2021-10-29 09:00] LABS: CK-MB VALUE MASS 1.1 NG/ML (<3.6); MB/CK RELATIVE INDEX 1.24 (< OR =4)
[2021-10-29] MEDS ORDERED: GLUCAGON INJ 1MG VIAL SC PRN (09:15)
[2021-10-29] MEDS ORDERED: GLUCOSE 4GM CHEW TABLET PO PRN (09:15)
[2021-10-29] MEDS ORDERED: DEXTROSE 50% 50 ML SYRINGE IV PRN (09:15)
[2021-10-29 09:56] LABS: INR 0.95; PROTHROMBIN TIME 13.1 SECONDS (12.7-14.5)
[2021-10-29 09:57] LABS: PARTIAL THROMBOPLASTIN TIME 34.6 SECONDS (25.9-37.0)
[2021-10-29] MEDS ORDERED: CETI-24 PO (10:11)
[2021-10-29] MEDS ORDERED: ACET500T15 PO (10:11)
[2021-10-29] MEDS ORDERED: VENTAER INH (10:11)
[2021-10-29] MEDS ORDERED: TURM500T PO (10:11)
[2021-10-29] MEDS ORDERED: TORS20TA2 PO (10:11)
[2021-10-29] MEDS ORDERED: ASCO500T PO (10:11)
[2021-10-29] MEDS ORDERED: HOME MED LIST COMPLETE! XX SCH (10:15)
[2021-10-29] MEDS ORDERED: DOCUSATE SODIUM 100MG CAPSULE PO PRN (11:15)
[2021-10-29] MEDS ORDERED: ALBUTEROL SULFATE 2.5 MG/0.5 ML INH NEB SOLN INH PRN (11:15)
[2021-10-29] MEDS ORDERED: NITROGLYCERIN 0.4 MG SUBL TABLET SL PRN (11:30)
[2021-10-29] MEDS: INSULIN LISPRO (NovoLOG) PER UNIT SC SCH ×3 (12:23→20:36)
[2021-10-29] MEDS: HEPARIN SOD (PORCINE) 5000UNITS/ML 1ML VIAL/SYRINGE SQ SCH ×2 (12:25→20:50)
[2021-10-29] MEDS: ASPIRIN 81MG ENTERIC TABLET PO SCH (12:27)
[2021-10-29] MEDS: METOCLOPRAMIDE 10MG TAB PO SCH (12:28)
[2021-10-29] MEDS: OMEPRAZOLE 20MG CAP PO SCH (12:28)
[2021-10-29] MEDS: allopurinoL 100 MG TAB PO SCH (12:29)
[2021-10-29] MEDS: CETIRIZINE (ZyrTEC) 10 MG TAB PO SCH (12:29)
[2021-10-29] MEDS: ASCORBIC ACID 500 MG TAB PO SCH ×2 (12:29→20:49)
[2021-10-29] MEDS: FLUTICASONE PROP 0.05% NASAL SPRAY 16 GM (FLONASE) NARES SCH ×2 (12:32→20:52)
[2021-10-29] MEDS: FUROSEMIDE 100MG/10ML VIAL (J1940) IV SCH (17:24)
[2021-10-29 18:15] VITALS: BP 187/78
[2021-10-29 20:00] VITALS: BP 190/81
[2021-10-29] MEDS: FLUTICASONE HFA 110 MCG 12 GM INHALER (FLOVENT) INH SCH (20:46)
[2021-10-29] MEDS: SIMVASTATIN 20 MG TAB PO SCH (20:49)
[2021-10-29] MEDS: ACETAMINOPHEN TAB 650MG DOSE (2X325MG) PO PRN (20:53)
[2021-10-29] MEDS ORDERED: **hydrALAZINE** 50 MG TAB PO ONE (21:05)
[2021-10-29] MEDS: ANALGESIC BALM CRM 3OZ TOP PRN (23:30)
[2021-10-29] MEDS ORDERED: CYCLOBENZAPRINE 10MG TABLET PO ONE (23:35)
[2021-10-30] VITALS (7 sets, daily range): BP systolic 151–192; BP diastolic 57–77
[2021-10-30] MEDS: FUROSEMIDE 100MG/10ML VIAL (J1940) IV SCH ×3 (00:30→17:12)
[2021-10-30] MEDS: HEPARIN SOD (PORCINE) 5000UNITS/ML 1ML VIAL/SYRINGE SQ SCH ×3 (05:27→21:10)
[2021-10-30] MEDS ORDERED: **hydrALAZINE** 50 MG TAB PO ONE (05:35)
[2021-10-30 07:18] LABS: MEAN CORPUSCULAR HEMOGLOBIN 31.6 pg (27.0-33.0); MEAN CORPUSCULAR HGB CONC 33.3 g/dl (32.0-36.5); MEAN CORPUSCULAR VOLUME 94.8 fl (80.0-96.0); PLATELET COUNT, AUTOMATED 220 10^3/uL (150-450); RED BLOOD COUNT 3.48 10^6/uL (4.00-5.40); WHITE BLOOD COUNT 7.1 10^3/uL (4.0-10.0)
[2021-10-30] MEDS: FLUTICASONE HFA 110 MCG 12 GM INHALER (FLOVENT) INH SCH ×2 (07:23→19:52)
[2021-10-30] MEDS: INSULIN LISPRO (NovoLOG) PER UNIT SC SCH ×4 (07:55→21:00)
[2021-10-30 08:03] LABS: ALBUMIN 3.3 GM/DL (3.2-5.2); BILIRUBIN,TOTAL 0.4 MG/DL (0.2-1.0); CALCIUM LEVEL 10.3 MG/DL (8.8-10.2); CREATININE FOR GFR 1.71 MG/DL (0.55-1.30); GLOMERULAR FILTRATION RATE 30.1 (>32); POTASSIUM SERUM 4.4 MEQ/L (3.5-5.1); TOTAL PROTEIN 6.7 GM/DL (6.4-8.2)
[2021-10-30] MEDS: FLUTICASONE PROP 0.05% NASAL SPRAY 16 GM (FLONASE) NARES SCH ×2 (09:04→21:00)
[2021-10-30] MEDS: CETIRIZINE (ZyrTEC) 10 MG TAB PO SCH (09:04)
[2021-10-30] MEDS: OMEPRAZOLE 20MG CAP PO SCH (09:04)
[2021-10-30] MEDS: METOCLOPRAMIDE 10MG TAB PO SCH (09:05)
[2021-10-30] MEDS: ASPIRIN 81MG ENTERIC TABLET PO SCH (09:05)
[2021-10-30] MEDS: allopurinoL 100 MG TAB PO SCH (12:23)
[2021-10-30] MEDS: ASCORBIC ACID 500 MG TAB PO SCH ×2 (12:23→17:11)
[2021-10-30] MEDS: **hydrALAZINE** 50 MG TAB PO SCH ×2 (14:53→21:10)
[2021-10-30] MEDS ORDERED: amLODIPine 5 MG TAB PO ONE (15:45)
[2021-10-30] MEDS: ACETAMINOPHEN TAB 650MG DOSE (2X325MG) PO PRN (17:35)
[2021-10-30] MEDS ORDERED: LOSARTAN 25 MG TAB PO SCH (21:00)
[2021-10-30] MEDS: SIMVASTATIN 20 MG TAB PO SCH (21:10)
[2021-10-31] MEDS: FUROSEMIDE 100MG/10ML VIAL (J1940) IV SCH ×3 (01:03→17:38)
[2021-10-31 05:30] VITALS: BP 152/58
[2021-10-31] MEDS: **hydrALAZINE** 50 MG TAB PO SCH ×3 (05:33→21:42)
[2021-10-31] MEDS: HEPARIN SOD (PORCINE) 5000UNITS/ML 1ML VIAL/SYRINGE SQ SCH ×3 (05:34→20:23)
[2021-10-31 05:59] LABS: HEMATOCRIT 33.4 % (36.0-47.0); HEMOGLOBIN 10.8 g/dl (12.0-15.5); MEAN CORPUSCULAR HEMOGLOBIN 30.9 pg (27.0-33.0); MEAN CORPUSCULAR HGB CONC 32.3 g/dl (32.0-36.5); MEAN CORPUSCULAR VOLUME 95.4 fl (80.0-96.0); PLATELET COUNT, AUTOMATED 214 10^3/uL (150-450); WHITE BLOOD COUNT 6.8 10^3/uL (4.0-10.0)
[2021-10-31 06:44] LABS: ALBUMIN 3.1 GM/DL (3.2-5.2); BILIRUBIN,TOTAL 0.4 MG/DL (0.2-1.0); CALCIUM LEVEL 9.7 MG/DL (8.8-10.2); CREATININE FOR GFR 1.79 MG/DL (0.55-1.30); GLOMERULAR FILTRATION RATE 28.6 (>32); MAGNESIUM LEVEL 2.4 MG/DL (1.8-2.4); PHOSPHORUS LEVEL 3.1 MG/DL (2.5-4.9); POTASSIUM SERUM 4.2 MEQ/L (3.5-5.1); TOTAL PROTEIN 6.6 GM/DL (6.4-8.2)
[2021-10-31] MEDS: FLUTICASONE HFA 110 MCG 12 GM INHALER (FLOVENT) INH SCH ×2 (07:21→21:10)
[2021-10-31] MEDS ORDERED: IPRATROPIUM 0.5MG/ALBUTEROL 2.5MG INH SOL UD 3ML (DUONEB) NEB SCH ×2 (08:00→10:00)
[2021-10-31] MEDS: ACETAMINOPHEN TAB 650MG DOSE (2X325MG) PO PRN ×2 (08:32→13:13)
[2021-10-31] MEDS: ASPIRIN 81MG ENTERIC TABLET PO SCH (08:33)
[2021-10-31] MEDS: INSULIN LISPRO (NovoLOG) PER UNIT SC SCH ×4 (08:33→20:23)
[2021-10-31] MEDS: OMEPRAZOLE 20MG CAP PO SCH (08:33)
[2021-10-31] MEDS: amLODIPine 5 MG TAB PO SCH (08:33)
[2021-10-31] MEDS: CETIRIZINE (ZyrTEC) 10 MG TAB PO SCH (08:33)
[2021-10-31] MEDS: METOCLOPRAMIDE 10MG TAB PO SCH (08:34)
[2021-10-31] MEDS: FLUTICASONE PROP 0.05% NASAL SPRAY 16 GM (FLONASE) NARES SCH ×2 (08:34→20:24)
[2021-10-31] MEDS ORDERED: guaiFENesin 200 MG TAB PO PRN (09:55)
[2021-10-31] MEDS ORDERED: AZITHROMYCIN 250MG TABLET PO SCH (10:00)
[2021-10-31 13:02] LABS: HEMATOCRIT 33.8 % (36.0-47.0); HEMOGLOBIN 11.3 g/dl (12.0-15.5)
[2021-10-31] MEDS: allopurinoL 100 MG TAB PO SCH (13:15)
[2021-10-31] MEDS: ASCORBIC ACID 500 MG TAB PO SCH ×2 (13:15→17:37)
[2021-10-31] MEDS: CEFDINIR 300 MG CAP (OMNICEF) PO SCH ×2 (13:24→20:22)
[2021-10-31] MEDS: methylPREDNISolone 40MG 1ML VIAL IV SCH (13:24)
[2021-10-31 13:56] VITALS: BP 147/56
[2021-10-31] MEDS: LEVALBUTEROL 1.25 MG/0.5 ML CONCENTRATE NEB INH SCH ×2 (15:15→20:00)
[2021-10-31] MEDS: SIMVASTATIN 20 MG TAB PO SCH (20:22)
[2021-10-31 21:00] VITALS: BP 162/61
[2021-11-01] MEDS: LEVALBUTEROL 1.25 MG/0.5 ML CONCENTRATE NEB INH SCH ×4 (02:00→19:40)
[2021-11-01] MEDS: HEPARIN SOD (PORCINE) 5000UNITS/ML 1ML VIAL/SYRINGE SQ SCH ×3 (05:57→20:31)
[2021-11-01] MEDS: **hydrALAZINE** 50 MG TAB PO SCH ×3 (05:59→21:53)
[2021-11-01 06:00] VITALS: BP 173/67
[2021-11-01] MEDS: ACETAMINOPHEN TAB 650MG DOSE (2X325MG) PO PRN (06:03)
[2021-11-01 06:07] LABS: HEMATOCRIT 31.4 % (36.0-47.0); HEMOGLOBIN 10.4 g/dl (12.0-15.5); MEAN CORPUSCULAR HEMOGLOBIN 31.6 pg (27.0-33.0); MEAN CORPUSCULAR HGB CONC 33.1 g/dl (32.0-36.5); MEAN CORPUSCULAR VOLUME 95.4 fl (80.0-96.0); PLATELET COUNT, AUTOMATED 209 10^3/uL (150-450); RED BLOOD COUNT 3.29 10^6/uL (4.00-5.40); WHITE BLOOD COUNT 5.2 10^3/uL (4.0-10.0)
[2021-11-01 06:48] LABS: ALBUMIN 3.1 GM/DL (3.2-5.2); BILIRUBIN,TOTAL 0.2 MG/DL (0.2-1.0); CALCIUM LEVEL 9.5 MG/DL (8.8-10.2); CREATININE FOR GFR 1.81 MG/DL (0.55-1.30); GLOMERULAR FILTRATION RATE 28.2 (>32); POTASSIUM SERUM 4.6 MEQ/L (3.5-5.1); TOTAL PROTEIN 6.6 GM/DL (6.4-8.2)
[2021-11-01] MEDS: FLUTICASONE HFA 110 MCG 12 GM INHALER (FLOVENT) INH SCH ×2 (07:43→19:40)
[2021-11-01] MEDS: INSULIN LISPRO (NovoLOG) PER UNIT SC SCH ×4 (08:34→20:32)
[2021-11-01] MEDS: ASPIRIN 81MG ENTERIC TABLET PO SCH (08:34)
[2021-11-01] MEDS: FLUTICASONE PROP 0.05% NASAL SPRAY 16 GM (FLONASE) NARES SCH ×2 (08:37→20:32)
[2021-11-01] MEDS: OMEPRAZOLE 20MG CAP PO SCH (08:37)
[2021-11-01] MEDS: CEFDINIR 300 MG CAP (OMNICEF) PO SCH ×2 (08:37→20:31)
[2021-11-01] MEDS: METOCLOPRAMIDE 10MG TAB PO SCH (08:37)
[2021-11-01] MEDS: CETIRIZINE (ZyrTEC) 10 MG TAB PO SCH (08:37)
[2021-11-01] MEDS: amLODIPine 5 MG TAB PO SCH (08:37)
[2021-11-01] MEDS: FUROSEMIDE 100MG/10ML VIAL (J1940) IV SCH ×2 (10:32→18:03)
[2021-11-01] MEDS: ASCORBIC ACID 500 MG TAB PO SCH ×2 (11:26→18:02)
[2021-11-01] MEDS: allopurinoL 100 MG TAB PO SCH (11:26)
[2021-11-01] MEDS: LOSARTAN 25 MG TAB PO SCH (11:27)
[2021-11-01] MEDS: methylPREDNISolone 40MG 1ML VIAL IV SCH (13:54)
[2021-11-01 14:00] VITALS: BP 164/66
[2021-11-01 20:00] VITALS: BP 162/66
[2021-11-01] MEDS: SIMVASTATIN 20 MG TAB PO SCH (20:31)
[2021-11-01] MEDS: SODIUM CHLORIDE NASAL 0.65% SPRAY BTL (OCEAN) SCH (20:31)
[2021-11-02] MEDS: LEVALBUTEROL 1.25 MG/0.5 ML CONCENTRATE NEB INH SCH ×4 (02:24→19:38)
[2021-11-02] MEDS: ACETAMINOPHEN TAB 650MG DOSE (2X325MG) PO PRN (03:22)
[2021-11-02] MEDS: **hydrALAZINE** 50 MG TAB PO SCH ×3 (05:20→21:07)
[2021-11-02] MEDS: HEPARIN SOD (PORCINE) 5000UNITS/ML 1ML VIAL/SYRINGE SQ SCH ×3 (05:20→21:07)
[2021-11-02 06:00] VITALS: BP 167/64
[2021-11-02 06:15] LABS: HEMATOCRIT 30.7 % (36.0-47.0); MEAN CORPUSCULAR HEMOGLOBIN 30.9 pg (27.0-33.0); MEAN CORPUSCULAR HGB CONC 32.6 g/dl (32.0-36.5); MEAN CORPUSCULAR VOLUME 94.8 fl (80.0-96.0); PLATELET COUNT, AUTOMATED 203 10^3/uL (150-450); RED BLOOD COUNT 3.24 10^6/uL (4.00-5.40); WHITE BLOOD COUNT 6.1 10^3/uL (4.0-10.0)
[2021-11-02 07:05] LABS: ALBUMIN 3.1 GM/DL (3.2-5.2); BILIRUBIN,TOTAL 0.4 MG/DL (0.2-1.0); CALCIUM LEVEL 9.4 MG/DL (8.8-10.2); CREATININE FOR GFR 1.75 MG/DL (0.55-1.30); GLOMERULAR FILTRATION RATE 29.3 (>32); MAGNESIUM LEVEL 2.3 MG/DL (1.8-2.4); POTASSIUM SERUM 4.2 MEQ/L (3.5-5.1); TOTAL PROTEIN 6.3 GM/DL (6.4-8.2)
[2021-11-02] MEDS: FLUTICASONE HFA 110 MCG 12 GM INHALER (FLOVENT) INH SCH ×2 (07:44→19:38)
[2021-11-02] MEDS: ASPIRIN 81MG ENTERIC TABLET PO SCH (08:33)
[2021-11-02] MEDS: INSULIN LISPRO (NovoLOG) PER UNIT SC SCH ×4 (08:33→21:08)
[2021-11-02] MEDS: FUROSEMIDE 100MG/10ML VIAL (J1940) IV SCH ×2 (08:33→17:45)
[2021-11-02] MEDS: amLODIPine 5 MG TAB PO SCH (08:34)
[2021-11-02] MEDS: OMEPRAZOLE 20MG CAP PO SCH (08:34)
[2021-11-02] MEDS: METOCLOPRAMIDE 10MG TAB PO SCH (08:34)
[2021-11-02] MEDS: FLUTICASONE PROP 0.05% NASAL SPRAY 16 GM (FLONASE) NARES SCH ×2 (08:34→21:08)
[2021-11-02] MEDS: LOSARTAN 25 MG TAB PO SCH (08:34)
[2021-11-02] MEDS: CEFDINIR 300 MG CAP (OMNICEF) PO SCH ×2 (08:34→21:07)
[2021-11-02] MEDS: CETIRIZINE (ZyrTEC) 10 MG TAB PO SCH (08:34)
[2021-11-02] MEDS: SENOKOT S TAB PO SCH ×2 (10:51→21:06)
[2021-11-02] MEDS: methylPREDNISolone 40MG 1ML VIAL IV SCH ×2 (13:17→14:00)
[2021-11-02] MEDS: ASCORBIC ACID 500 MG TAB PO SCH ×2 (13:17→17:45)
[2021-11-02] MEDS: allopurinoL 100 MG TAB PO SCH (13:17)
[2021-11-02 14:00] VITALS: BP 160/70
[2021-11-02 20:55] VITALS: BP 157/53
[2021-11-02] MEDS: SIMVASTATIN 20 MG TAB PO SCH (21:07)
[2021-11-02] MEDS: SODIUM CHLORIDE NASAL 0.65% SPRAY BTL (OCEAN) SCH (21:08)
[2021-11-03] MEDS: LEVALBUTEROL 1.25 MG/0.5 ML CONCENTRATE NEB INH SCH ×4 (02:45→19:43)
[2021-11-03] MEDS: HEPARIN SOD (PORCINE) 5000UNITS/ML 1ML VIAL/SYRINGE SQ SCH ×3 (05:28→21:13)
[2021-11-03 05:30] VITALS: BP 114/66
[2021-11-03] MEDS: **hydrALAZINE** 50 MG TAB PO SCH ×3 (05:30→21:14)
[2021-11-03 05:36] VITALS: BP 134/76
[2021-11-03 06:56] LABS: HEMATOCRIT 32.1 % (36.0-47.0); HEMOGLOBIN 10.3 g/dl (12.0-15.5); MEAN CORPUSCULAR HEMOGLOBIN 31.6 pg (27.0-33.0); MEAN CORPUSCULAR HGB CONC 32.1 g/dl (32.0-36.5); MEAN CORPUSCULAR VOLUME 98.5 fl (80.0-96.0); PLATELET COUNT, AUTOMATED 188 10^3/uL (150-450); RED BLOOD COUNT 3.26 10^6/uL (4.00-5.40)
[2021-11-03 07:32] LABS: ALBUMIN 2.9 GM/DL (3.2-5.2); BILIRUBIN,TOTAL 0.4 MG/DL (0.2-1.0); CALCIUM LEVEL 9.6 MG/DL (8.8-10.2); CREATININE FOR GFR 2.01 MG/DL (0.55-1.30); MAGNESIUM LEVEL 2.4 MG/DL (1.8-2.4); POTASSIUM SERUM 4.5 MEQ/L (3.5-5.1); TOTAL PROTEIN 5.9 GM/DL (6.4-8.2)
[2021-11-03] MEDS: FLUTICASONE HFA 110 MCG 12 GM INHALER (FLOVENT) INH SCH ×2 (07:56→19:43)
[2021-11-03] MEDS: OMEPRAZOLE 20MG CAP PO SCH (08:33)
[2021-11-03] MEDS: SENOKOT S TAB PO SCH ×2 (08:33→20:26)
[2021-11-03] MEDS: CEFDINIR 300 MG CAP (OMNICEF) PO SCH ×2 (08:33→20:26)
[2021-11-03] MEDS: INSULIN LISPRO (NovoLOG) PER UNIT SC SCH ×4 (08:33→21:00)
[2021-11-03] MEDS: ASPIRIN 81MG ENTERIC TABLET PO SCH (08:34)
[2021-11-03] MEDS: CETIRIZINE (ZyrTEC) 10 MG TAB PO SCH (08:34)
[2021-11-03] MEDS: METOCLOPRAMIDE 10MG TAB PO SCH (08:34)
[2021-11-03] MEDS: LOSARTAN 25 MG TAB PO SCH (08:34)
[2021-11-03] MEDS: FUROSEMIDE 100MG/10ML VIAL (J1940) IV SCH ×3 (08:39→21:13)
[2021-11-03] MEDS: amLODIPine 5 MG TAB PO SCH (08:42)
[2021-11-03] MEDS: FLUTICASONE PROP 0.05% NASAL SPRAY 16 GM (FLONASE) NARES SCH ×2 (08:43→20:26)
[2021-11-03] MEDS: ASCORBIC ACID 500 MG TAB PO SCH ×2 (13:09→17:44)
[2021-11-03] MEDS: allopurinoL 100 MG TAB PO SCH (13:09)
[2021-11-03 14:00] VITALS: BP 143/70
[2021-11-03] MEDS: SIMVASTATIN 20 MG TAB PO SCH (20:26)
[2021-11-03] MEDS: ANALGESIC BALM CRM 3OZ TOP PRN (20:27)
[2021-11-03] MEDS: SODIUM CHLORIDE NASAL 0.65% SPRAY BTL (OCEAN) SCH (20:28)
[2021-11-03] MEDS: ACETAMINOPHEN TAB 650MG DOSE (2X325MG) PO PRN (21:14)
[2021-11-03 22:00] VITALS: BP 160/62
[2021-11-04] MEDS: LEVALBUTEROL 1.25 MG/0.5 ML CONCENTRATE NEB INH SCH ×4 (02:50→19:53)
[2021-11-04 04:53] VITALS: BP 165/73
[2021-11-04] MEDS: HEPARIN SOD (PORCINE) 5000UNITS/ML 1ML VIAL/SYRINGE SQ SCH ×3 (05:45→22:03)
[2021-11-04] MEDS: **hydrALAZINE** 50 MG TAB PO SCH ×3 (05:46→22:04)
[2021-11-04] MEDS: FUROSEMIDE 100MG/10ML VIAL (J1940) IV SCH ×3 (05:46→20:17)
[2021-11-04 06:49] LABS: HEMATOCRIT 32.5 % (36.0-47.0); HEMOGLOBIN 10.5 g/dl (12.0-15.5); MEAN CORPUSCULAR HEMOGLOBIN 31.7 pg (27.0-33.0); MEAN CORPUSCULAR HGB CONC 32.3 g/dl (32.0-36.5); MEAN CORPUSCULAR VOLUME 98.2 fl (80.0-96.0); PLATELET COUNT, AUTOMATED 181 10^3/uL (150-450); RED BLOOD COUNT 3.31 10^6/uL (4.00-5.40); WHITE BLOOD COUNT 5.3 10^3/uL (4.0-10.0)
[2021-11-04] MEDS: FLUTICASONE HFA 110 MCG 12 GM INHALER (FLOVENT) INH SCH ×2 (07:13→19:53)
[2021-11-04 07:32] LABS: BILIRUBIN,TOTAL 0.4 MG/DL (0.2-1.0); CALCIUM LEVEL 9.8 MG/DL (8.8-10.2); CREATININE FOR GFR 2.12 MG/DL (0.55-1.30); GLOMERULAR FILTRATION RATE 23.5 (>32); MAGNESIUM LEVEL 2.3 MG/DL (1.8-2.4); POTASSIUM SERUM 4.3 MEQ/L (3.5-5.1); TOTAL PROTEIN 6.1 GM/DL (6.4-8.2)
[2021-11-04] MEDS: METOCLOPRAMIDE 10MG TAB PO SCH (07:54)
[2021-11-04] MEDS: amLODIPine 5 MG TAB PO SCH (07:54)
[2021-11-04] MEDS: INSULIN LISPRO (NovoLOG) PER UNIT SC SCH ×4 (07:54→21:00)
[2021-11-04] MEDS: CEFDINIR 300 MG CAP (OMNICEF) PO SCH ×2 (07:54→20:17)
[2021-11-04] MEDS: OMEPRAZOLE 20MG CAP PO SCH (07:55)
[2021-11-04] MEDS: FLUTICASONE PROP 0.05% NASAL SPRAY 16 GM (FLONASE) NARES SCH ×2 (07:55→20:17)
[2021-11-04] MEDS: ASPIRIN 81MG ENTERIC TABLET PO SCH (07:55)
[2021-11-04] MEDS: LOSARTAN 25 MG TAB PO SCH (07:56)
[2021-11-04] MEDS: SENOKOT S TAB PO SCH ×2 (07:56→20:17)
[2021-11-04] MEDS: CETIRIZINE (ZyrTEC) 10 MG TAB PO SCH (07:56)
[2021-11-04] MEDS ORDERED: predniSONE 10 MG TAB PO SCH (09:00)
[2021-11-04] MEDS: ASCORBIC ACID 500 MG TAB PO SCH ×2 (11:52→17:25)
[2021-11-04] MEDS: allopurinoL 100 MG TAB PO SCH (11:52)
[2021-11-04] MEDS: ACETAMINOPHEN TAB 650MG DOSE (2X325MG) PO PRN ×2 (11:52→16:08)
[2021-11-04 14:00] VITALS: BP 154/66
[2021-11-04 20:00] VITALS: BP 143/58
[2021-11-04] MEDS: SIMVASTATIN 20 MG TAB PO SCH (20:17)
[2021-11-04] MEDS: SODIUM CHLORIDE NASAL 0.65% SPRAY BTL (OCEAN) SCH (20:18)
[2021-11-04] MEDS: ANALGESIC BALM CRM 3OZ TOP PRN (20:23)
[2021-11-05] MEDS: LEVALBUTEROL 1.25 MG/0.5 ML CONCENTRATE NEB INH SCH ×3 (00:54→15:05)
[2021-11-05 06:00] VITALS: BP 149/56
[2021-11-05 06:26] LABS: HEMOGLOBIN 10.1 g/dl (12.0-15.5); MEAN CORPUSCULAR HEMOGLOBIN 31.5 pg (27.0-33.0); MEAN CORPUSCULAR HGB CONC 32.6 g/dl (32.0-36.5); MEAN CORPUSCULAR VOLUME 96.6 fl (80.0-96.0); PLATELET COUNT, AUTOMATED 168 10^3/uL (150-450); RED BLOOD COUNT 3.21 10^6/uL (4.00-5.40); WHITE BLOOD COUNT 5.2 10^3/uL (4.0-10.0)
[2021-11-05] MEDS: HEPARIN SOD (PORCINE) 5000UNITS/ML 1ML VIAL/SYRINGE SQ SCH (06:38)
[2021-11-05] MEDS: **hydrALAZINE** 50 MG TAB PO SCH (06:39)
[2021-11-05 07:01] LABS: ALBUMIN 2.9 GM/DL (3.2-5.2); BILIRUBIN,TOTAL 0.4 MG/DL (0.2-1.0); CALCIUM LEVEL 9.3 MG/DL (8.8-10.2); CREATININE FOR GFR 2.17 MG/DL (0.55-1.30); GLOMERULAR FILTRATION RATE 22.9 (>32); MAGNESIUM LEVEL 2.2 MG/DL (1.8-2.4); POTASSIUM SERUM 4.3 MEQ/L (3.5-5.1); TOTAL PROTEIN 5.8 GM/DL (6.4-8.2)
[2021-11-05] MEDS: FLUTICASONE HFA 110 MCG 12 GM INHALER (FLOVENT) INH SCH (07:38)
[2021-11-05] MEDS: INSULIN LISPRO (NovoLOG) PER UNIT SC SCH ×2 (09:07→12:41)
[2021-11-05] MEDS: ASPIRIN 81MG ENTERIC TABLET PO SCH (09:08)
[2021-11-05] MEDS: OMEPRAZOLE 20MG CAP PO SCH (09:08)
[2021-11-05] MEDS: METOCLOPRAMIDE 10MG TAB PO SCH (09:08)
[2021-11-05] MEDS: SENOKOT S TAB PO SCH (09:08)
[2021-11-05] MEDS: CETIRIZINE (ZyrTEC) 10 MG TAB PO SCH (09:08)
[2021-11-05] MEDS: ACETAMINOPHEN TAB 650MG DOSE (2X325MG) PO PRN (09:08)
[2021-11-05 09:11] VITALS: BP 172/60
[2021-11-05] MEDS: amLODIPine 5 MG TAB PO SCH (09:11)
[2021-11-05] MEDS: FUROSEMIDE 100MG/10ML VIAL (J1940) IV SCH (09:11)
[2021-11-05] MEDS: FLUTICASONE PROP 0.05% NASAL SPRAY 16 GM (FLONASE) NARES SCH (09:12)
[2021-11-05] MEDS ORDERED: AMLO1TAB24 PO (10:43)
[2021-11-05] MEDS ORDERED: HYDR50TA PO (10:43)
[2021-11-05 10:58] VITALS: BP 154/56
[2021-11-05] MEDS: ASCORBIC ACID 500 MG TAB PO SCH (12:41)
[2021-11-05] MEDS: allopurinoL 100 MG TAB PO SCH (12:41)
== END 2021-11-05 15:12 | disposition home or self-care (01) | DRG 291 ==
LOC: M ED 06:15 → EDBD 06:15 → M ED INP 09:15 → ENRESERV 16:16 → CANRESERV 16:16 → M 4MAIN 18:15 → M MSPAV 10-30 16:40
PROVIDERS: ADMIT Internal Medicine; ATTEND Internal Medicine
DX: I13.0 Hypertensive heart and chronic kidney disease with heart failure and stage 1 through stage 4 chronic kidney disease, or unspecified chronic kidney disease (principal); I50.33 Acute on chronic diastolic (congestive) heart failure; E87.1 Hypo-osmolality and hyponatremia; N17.9 Acute kidney failure, unspecified; E87.5 Hyperkalemia; E11.22 Type 2 diabetes mellitus with diabetic chronic kidney disease; E78.5 Hyperlipidemia, unspecified; N18.30 Chronic kidney disease, stage 3 unspecified; I25.10 Atherosclerotic heart disease of native coronary artery without angina pectoris; Z95.2 Presence of prosthetic heart valve; G47.33 Obstructive sleep apnea (adult) (pediatric); K21.9 Gastro-esophageal reflux disease without esophagitis; Z86.73 Personal history of transient ischemic attack (TIA), and cerebral infarction without residual deficits; Z79.899 Other long term (current) drug therapy; Z88.0 Allergy status to penicillin; Z91.030 Bee allergy status; Z88.2 Allergy status to sulfonamides; Z88.8 Allergy status to other drugs, medicaments and biological substances; Z91.018 Allergy to other foods; M10.9 Gout, unspecified; E66.01 Morbid (severe) obesity due to excess calories; F32.A Depression, unspecified; F41.9 Anxiety disorder, unspecified; M17.12 Unilateral primary osteoarthritis, left knee; E55.9 Vitamin D deficiency, unspecified; Z79.82 Long term (current) use of aspirin; D64.9 Anemia, unspecified

== ENCOUNTER → 2021-11-11 | Outpatient (REF) | payer MEDICARE ==
[~2021-11-11] MED LIST changes: +ACET500T15 PO; +AMLO1TAB24 PO; +ASCO500T PO; +CETI-24 PO; +HYDR50TA PO; +TORS20TA2 PO; +TURM500T PO; +VENTAER INH
[2021-11-11 18:30] LABS: HEMATOCRIT 34.2 % (36.0-47.0); HEMOGLOBIN 10.9 g/dl (12.0-15.5); MEAN CORPUSCULAR HEMOGLOBIN 31.6 pg (27.0-33.0); MEAN CORPUSCULAR HGB CONC 31.9 g/dl (32.0-36.5); MEAN CORPUSCULAR VOLUME 99.1 fl (80.0-96.0); PLATELET COUNT, AUTOMATED 154 10^3/uL (150-450); RED BLOOD COUNT 3.45 10^6/uL (4.00-5.40); WHITE BLOOD COUNT 5.9 10^3/uL (4.0-10.0)
[2021-11-11 18:51] LABS: ALBUMIN 3.3 GM/DL (3.2-5.2); BILIRUBIN,TOTAL 0.5 MG/DL (0.2-1.0); CALCIUM LEVEL 9.8 MG/DL (8.8-10.2); CREATININE FOR GFR 1.8 MG/DL (0.55-1.30); GLOMERULAR FILTRATION RATE 28.4 (>32); POTASSIUM SERUM 3.6 MEQ/L (3.5-5.1); TOTAL PROTEIN 6.8 GM/DL (6.4-8.2)
[2021-11-11 19:24] LABS: HEMOGLOBIN A1c 7.5 %
== END ==
LOC: M SFHCADAM 11:18
PROVIDERS: ATTEND Family Medicine
DX: I12.9 Hypertensive chronic kidney disease with stage 1 through stage 4 chronic kidney disease, or unspecified chronic kidney disease (principal); I50.32 Chronic diastolic (congestive) heart failure; E11.8 Type 2 diabetes mellitus with unspecified complications

== ENCOUNTER 2021-11-16 08:28 | Inpatient (IN) | payer MEDICARE ==
[~2021-11-16] VITALS: Ht 162.6 cm; Wt 118.1 kg
[2021-11-16] MEDS ORDERED: IPRATROPIUM 0.5MG/ALBUTEROL 2.5MG INH SOL UD 3ML (DUONEB) NEB ONE (08:40)
[2021-11-16] MEDS ORDERED: NITROGLYCERIN 0.4 MG SUBL TABLET SL STA (08:48)
[2021-11-16 08:49] LABS: VENOUS BASE EXCESS 0.9 (-2.0-2.0); VENOUS HCO3 27.7 MEQ/L (23.0-27.0); VENOUS O2 SATURATION 70.7 % (60.0-80.0); VENOUS PARTIAL PRESSURE CO2 54.3 mmHg (38.0-50.0); VENOUS PARTIAL PRESSURE O2 40.3 mmHg (30.0-50.0); VENOUS PH 7.325 UNITS (7.330-7.430); VENOUS STANDARD HCO3 24.7 MEQ/L; VENOUS TOTAL CO2 29.3 MEQ/L (24.0-28.0)
[2021-11-16] MEDS: ASPIRIN 81 MG CHEW TABLET PO SCH (09:00)
[2021-11-16] MEDS: allopurinoL 100 MG TAB PO SCH (09:00)
[2021-11-16] MEDS: OMEPRAZOLE 20MG CAP PO SCH (09:00)
[2021-11-16] MEDS: ASCORBIC ACID 500 MG TAB PO SCH ×2 (09:00→21:29)
[2021-11-16] MEDS: CETIRIZINE (ZyrTEC) 10 MG TAB PO SCH (09:00)
[2021-11-16] MEDS: FLUTICASONE HFA 110 MCG 12 GM INHALER (FLOVENT) INH SCH ×2 (09:00→19:43)
[2021-11-16 09:13] LABS: BASO % 0.3 % (0.0-1.0); EOS # 0.1 10^3/uL (0.0-0.5); EOS % 1.8 % (0.0-3.0); HEMATOCRIT 33.8 % (36.0-47.0); LYMPH # 1.7 10^3/uL (1.5-5.0); LYMPH % 25.2 % (24.0-44.0); MEAN CORPUSCULAR HGB CONC 32.5 g/dl (32.0-36.5); MEAN CORPUSCULAR VOLUME 98.3 fl (80.0-96.0); MONO # 0.4 10^3/uL (0.0-0.8); MONO % 6.5 % (2.0-8.0); NEUTROPHILS # 4.4 10^3/uL (1.5-8.5); NEUTROPHILS % 65.6 % (36.0-66.0); PLATELET COUNT, AUTOMATED 208 10^3/uL (150-450); RED BLOOD COUNT 3.44 10^6/uL (4.00-5.40); WHITE BLOOD COUNT 6.6 10^3/uL (4.0-10.0)
[2021-11-16] MEDS ORDERED: FUROSEMIDE 100MG/10ML VIAL (J1940) IV ONE (09:30)
[2021-11-16 09:34] LABS: ALBUMIN 3.4 GM/DL (3.2-5.2); BILIRUBIN,DIRECT 0.2 MG/DL (0.0-0.2); BILIRUBIN,TOTAL 0.6 MG/DL (0.2-1.0); CALCIUM LEVEL 9.5 MG/DL (8.8-10.2); CREATININE FOR GFR 1.79 MG/DL (0.55-1.30); GLOMERULAR FILTRATION RATE 28.6 (>32); POTASSIUM SERUM 3.6 MEQ/L (3.5-5.1); THYROID STIMULATING HORMONE 1.19 uIU/ML (0.358-3.740); TOTAL PROTEIN 6.9 GM/DL (6.4-8.2)
[2021-11-16] MEDS ORDERED: GLUCAGON INJ 1MG VIAL SC PRN (10:10)
[2021-11-16] MEDS ORDERED: DOCUSATE SODIUM 100MG CAPSULE PO PRN (10:10)
[2021-11-16] MEDS ORDERED: DEXTROSE 50% 50 ML SYRINGE IV PRN (10:10)
[2021-11-16] MEDS ORDERED: GLUCOSE 4GM CHEW TABLET PO PRN (10:10)
[2021-11-16] MEDS ORDERED: AMLO1TAB24 PO (10:32)
[2021-11-16] MEDS ORDERED: HYDR-3911 PO (10:32)
[2021-11-16] MEDS ORDERED: HOME MED LIST COMPLETE! XX SCH (10:35)
[2021-11-16] MEDS: LEVALBUTEROL 1.25 MG/0.5 ML CONCENTRATE NEB INH SCH ×3 (11:28→19:43)
[2021-11-16] MEDS: INSULIN LISPRO (NovoLOG) PER UNIT SC SCH ×3 (11:30→20:24)
[2021-11-16] MEDS: NITROGLYCERIN 2% OINT 1 GM *U/D* PKT TOP SCH ×2 (12:00→23:16)
[2021-11-16 15:04] VITALS: BP 142/58
[2021-11-16 16:00] VITALS: BP 148/76
[2021-11-16] MEDS ORDERED: LEVEMIR (INSULIN DETEMIR) 1 UNITS/0.01ML SC ONE (16:00)
[2021-11-16] MEDS ORDERED: NALOXONE INJ 0.4MG/1ML VIAL (J2310 PER 1MG) IV PRN (16:05)
[2021-11-16] MEDS ORDERED: FIORICET TAB PO ONE (16:30)
[2021-11-16] MEDS: FUROSEMIDE 100MG/10ML VIAL (J1940) IV SCH (17:09)
[2021-11-16] MEDS: ANALGESIC BALM CRM 3OZ TOP SCH ×2 (18:10→21:30)
[2021-11-16 19:06] LABS: CALCIUM LEVEL 9.1 MG/DL (8.8-10.2); CREATININE FOR GFR 1.73 MG/DL (0.55-1.30); GLOMERULAR FILTRATION RATE 29.7 (>32); MAGNESIUM LEVEL 2.3 MG/DL (1.8-2.4); POTASSIUM SERUM 3.8 MEQ/L (3.5-5.1)
[2021-11-16 19:10] LABS: CK-MB VALUE MASS 2.6 NG/ML (<3.6); MB/CK RELATIVE INDEX 4.26 (< OR =4)
[2021-11-16] MEDS: ACETAMINOPHEN TAB 650MG DOSE (2X325MG) PO PRN (19:39)
[2021-11-16 20:08] VITALS: BP 163/69
[2021-11-16] MEDS: LEVEMIR (INSULIN DETEMIR) 1 UNITS/0.01ML SC SCH (20:23)
[2021-11-16] MEDS ORDERED: FLUTICASONE HFA 110 MCG 12 GM INHALER (FLOVENT) INH SCH (21:00)
[2021-11-16] MEDS: SIMVASTATIN 20 MG TAB PO SCH (21:29)
[2021-11-16] MEDS: LEVALBUTEROL 1.25 MG/0.5 ML CONCENTRATE NEB INH PRN (23:06)
[2021-11-16] MEDS: PERCOCET 5MG/325MG TAB PO PRN (23:06)
[2021-11-17] VITALS: BP 174/82
[2021-11-17 00:43] LABS: CALCIUM LEVEL 9.3 MG/DL (8.8-10.2); CREATININE FOR GFR 1.76 MG/DL (0.55-1.30); GLOMERULAR FILTRATION RATE 29.1 (>32); MAGNESIUM LEVEL 2.1 MG/DL (1.8-2.4); POTASSIUM SERUM 3.8 MEQ/L (3.5-5.1)
[2021-11-17 00:46] LABS: CK-MB VALUE MASS 2.8 NG/ML (<3.6); MB/CK RELATIVE INDEX 4.31 (< OR =4)
[2021-11-17] MEDS: FUROSEMIDE 100MG/10ML VIAL (J1940) IV SCH ×3 (02:35→17:41)
[2021-11-17 04:00] VITALS: BP 138/60
[2021-11-17 04:58] LABS: HEMATOCRIT 29.3 % (36.0-47.0); HEMOGLOBIN 9.4 g/dl (12.0-15.5); MEAN CORPUSCULAR HEMOGLOBIN 31.3 pg (27.0-33.0); MEAN CORPUSCULAR HGB CONC 32.1 g/dl (32.0-36.5); MEAN CORPUSCULAR VOLUME 97.7 fl (80.0-96.0); PLATELET COUNT, AUTOMATED 188 10^3/uL (150-450); WHITE BLOOD COUNT 4.8 10^3/uL (4.0-10.0)
[2021-11-17] MEDS: ACETAMINOPHEN TAB 650MG DOSE (2X325MG) PO PRN ×3 (05:16→22:59)
[2021-11-17 05:34] LABS: CALCIUM LEVEL 9.5 MG/DL (8.8-10.2); CREATININE FOR GFR 1.69 MG/DL (0.55-1.30); GLOMERULAR FILTRATION RATE 30.5 (>32); MAGNESIUM LEVEL 2.1 MG/DL (1.8-2.4); POTASSIUM SERUM 3.4 MEQ/L (3.5-5.1)
[2021-11-17] MEDS: FLUTICASONE HFA 110 MCG 12 GM INHALER (FLOVENT) INH SCH ×2 (07:20→19:41)
[2021-11-17] MEDS: LEVALBUTEROL 1.25 MG/0.5 ML CONCENTRATE NEB INH SCH ×4 (07:20→19:41)
[2021-11-17 08:00] VITALS: BP 167/70
[2021-11-17] MEDS ORDERED: NITROGLYCERIN 0.4 MG SUBL TABLET SL STA (08:42)
[2021-11-17] MEDS ORDERED: MIRALAX *UNIT DOSE* 17GM PACKET PO PRN (08:45)
[2021-11-17] MEDS: ASPIRIN 81 MG CHEW TABLET PO SCH (09:57)
[2021-11-17] MEDS: ASCORBIC ACID 500 MG TAB PO SCH ×2 (09:58→21:13)
[2021-11-17] MEDS: CETIRIZINE (ZyrTEC) 10 MG TAB PO SCH (09:58)
[2021-11-17] MEDS: allopurinoL 100 MG TAB PO SCH (09:58)
[2021-11-17] MEDS: POTASSIUM CHLORIDE 10MEQ SR TABLET PO SCH ×2 (09:58→21:11)
[2021-11-17] MEDS: OMEPRAZOLE 20MG CAP PO SCH (09:58)
[2021-11-17] MEDS: SENOKOT S TAB PO SCH ×2 (09:59→21:12)
[2021-11-17] MEDS: LEVEMIR (INSULIN DETEMIR) 1 UNITS/0.01ML SC SCH ×2 (09:59→21:15)
[2021-11-17] MEDS: **hydrALAZINE** 50 MG TAB PO SCH ×2 (09:59→21:13)
[2021-11-17] MEDS: INSULIN LISPRO (NovoLOG) PER UNIT SC SCH ×4 (10:00→21:00)
[2021-11-17] MEDS: ANALGESIC BALM CRM 3OZ TOP SCH ×4 (10:01→21:15)
[2021-11-17] MEDS ORDERED: metOLazone 2.5 MG TAB PO ONE (10:05)
[2021-11-17 10:47] LABS: CK-MB VALUE MASS 2.2 NG/ML (<3.6); MB/CK RELATIVE INDEX 4.07 (< OR =4)
[2021-11-17 12:00] VITALS: BP 152/72
[2021-11-17 16:00] VITALS: BP 142/61
[2021-11-17 20:00] VITALS: BP 176/71
[2021-11-17] MEDS: SIMVASTATIN 20 MG TAB PO SCH (21:13)
[2021-11-17] MEDS: LEVALBUTEROL 1.25 MG/0.5 ML CONCENTRATE NEB INH PRN (23:17)
[2021-11-18] VITALS: BP 172/72
[2021-11-18] MEDS: FUROSEMIDE 100MG/10ML VIAL (J1940) IV SCH ×3 (02:51→17:58)
[2021-11-18 04:00] VITALS: BP 180/72
[2021-11-18 05:30] LABS: HEMATOCRIT 29.3 % (36.0-47.0); HEMOGLOBIN 9.3 g/dl (12.0-15.5); MEAN CORPUSCULAR HEMOGLOBIN 31.2 pg (27.0-33.0); MEAN CORPUSCULAR HGB CONC 31.7 g/dl (32.0-36.5); MEAN CORPUSCULAR VOLUME 98.3 fl (80.0-96.0); PLATELET COUNT, AUTOMATED 186 10^3/uL (150-450); RED BLOOD COUNT 2.98 10^6/uL (4.00-5.40); WHITE BLOOD COUNT 4.8 10^3/uL (4.0-10.0)
[2021-11-18 06:28] LABS: CALCIUM LEVEL 9.7 MG/DL (8.8-10.2); CREATININE FOR GFR 1.94 MG/DL (0.55-1.30); MAGNESIUM LEVEL 2.3 MG/DL (1.8-2.4); PERCENT SATURATION 12.5 % (13.2-45.0); POTASSIUM SERUM 3.9 MEQ/L (3.5-5.1)
[2021-11-18] MEDS: LEVALBUTEROL 1.25 MG/0.5 ML CONCENTRATE NEB INH SCH ×4 (07:03→20:27)
[2021-11-18] MEDS: FLUTICASONE HFA 110 MCG 12 GM INHALER (FLOVENT) INH SCH ×2 (07:04→20:30)
[2021-11-18 07:30] VITALS: BP 168/67
[2021-11-18] MEDS: LEVEMIR (INSULIN DETEMIR) 1 UNITS/0.01ML SC SCH ×2 (09:00→21:13)
[2021-11-18] MEDS: INSULIN LISPRO (NovoLOG) PER UNIT SC SCH ×4 (09:27→21:00)
[2021-11-18] MEDS ORDERED: metOLazone 5 MG TAB PO ONE (10:55)
[2021-11-18] MEDS: allopurinoL 100 MG TAB PO SCH (11:36)
[2021-11-18] MEDS: SENOKOT S TAB PO SCH ×2 (11:36→21:13)
[2021-11-18] MEDS: OMEPRAZOLE 20MG CAP PO SCH (11:36)
[2021-11-18] MEDS: POTASSIUM CHLORIDE 10MEQ SR TABLET PO SCH ×2 (11:37→21:14)
[2021-11-18] MEDS: ACETAMINOPHEN TAB 650MG DOSE (2X325MG) PO PRN (11:38)
[2021-11-18] MEDS: ASPIRIN 81 MG CHEW TABLET PO SCH (11:38)
[2021-11-18] MEDS: CETIRIZINE (ZyrTEC) 10 MG TAB PO SCH (11:38)
[2021-11-18] MEDS: ASCORBIC ACID 500 MG TAB PO SCH ×2 (11:38→21:13)
[2021-11-18] MEDS: **hydrALAZINE** 50 MG TAB PO SCH ×2 (11:45→21:14)
[2021-11-18] MEDS: ANALGESIC BALM CRM 3OZ TOP SCH ×4 (11:46→21:15)
[2021-11-18 12:00] VITALS: BP 149/71
[2021-11-18 15:00] VITALS: BP 145/64
[2021-11-18] MEDS ORDERED: POTASSIUM CHLORIDE 10MEQ SR TABLET PO ONE (15:00)
[2021-11-18 20:00] VITALS: BP 160/70
[2021-11-18] MEDS: SIMVASTATIN 20 MG TAB PO SCH (21:14)
[2021-11-19] VITALS (7 sets, daily range): BP systolic 122–208; BP diastolic 60–90
[2021-11-19] MEDS: ACETAMINOPHEN TAB 650MG DOSE (2X325MG) PO PRN ×4 (00:48→21:03)
[2021-11-19] MEDS: PERCOCET 5MG/325MG TAB PO PRN (03:24)
[2021-11-19] MEDS: FUROSEMIDE 100MG/10ML VIAL (J1940) IV SCH ×2 (03:25→21:03)
[2021-11-19 05:39] LABS: HEMATOCRIT 32.7 % (36.0-47.0); HEMOGLOBIN 10.3 g/dl (12.0-15.5); MEAN CORPUSCULAR HEMOGLOBIN 31.5 pg (27.0-33.0); MEAN CORPUSCULAR HGB CONC 31.5 g/dl (32.0-36.5); PLATELET COUNT, AUTOMATED 221 10^3/uL (150-450); RED BLOOD COUNT 3.27 10^6/uL (4.00-5.40); WHITE BLOOD COUNT 5.8 10^3/uL (4.0-10.0)
[2021-11-19 06:16] LABS: CALCIUM LEVEL 10.3 MG/DL (8.8-10.2); CREATININE FOR GFR 1.99 MG/DL (0.55-1.30); GLOMERULAR FILTRATION RATE 25.3 (>32); MAGNESIUM LEVEL 2.3 MG/DL (1.8-2.4); POTASSIUM SERUM 4.6 MEQ/L (3.5-5.1)
[2021-11-19 08:09] LABS: FOLATE 18.9 ng/mL (>3.0)
[2021-11-19] MEDS: FLUTICASONE HFA 110 MCG 12 GM INHALER (FLOVENT) INH SCH ×2 (08:14→19:25)
[2021-11-19] MEDS: LEVALBUTEROL 1.25 MG/0.5 ML CONCENTRATE NEB INH SCH ×4 (08:14→19:24)
[2021-11-19] MEDS: INSULIN LISPRO (NovoLOG) PER UNIT SC SCH ×4 (09:45→20:42)
[2021-11-19] MEDS: ASCORBIC ACID 500 MG TAB PO SCH ×2 (09:46→21:03)
[2021-11-19] MEDS: LEVEMIR (INSULIN DETEMIR) 1 UNITS/0.01ML SC SCH ×2 (09:46→21:02)
[2021-11-19] MEDS: SENOKOT S TAB PO SCH ×2 (09:46→21:03)
[2021-11-19] MEDS: ASPIRIN 81 MG CHEW TABLET PO SCH (09:47)
[2021-11-19] MEDS: allopurinoL 100 MG TAB PO SCH (09:47)
[2021-11-19] MEDS: POTASSIUM CHLORIDE 10MEQ SR TABLET PO SCH (09:47)
[2021-11-19] MEDS: OMEPRAZOLE 20MG CAP PO SCH (09:47)
[2021-11-19] MEDS: CETIRIZINE (ZyrTEC) 10 MG TAB PO SCH (09:48)
[2021-11-19] MEDS: **hydrALAZINE** 50 MG TAB PO SCH ×2 (09:48→21:10)
[2021-11-19] MEDS: SODIUM CHLORIDE NASAL 0.65% SPRAY BTL (OCEAN) SCH ×2 (09:50→21:12)
[2021-11-19] MEDS: ANALGESIC BALM CRM 3OZ TOP SCH ×4 (09:50→21:00)
[2021-11-19] MEDS ORDERED: metOLazone 2.5 MG TAB PO ONE (10:30)
[2021-11-19] MEDS: SIMVASTATIN 20 MG TAB PO SCH (21:11)
[2021-11-20 00:38] VITALS: BP 150/80
[2021-11-20] MEDS: PERCOCET 5MG/325MG TAB PO PRN (00:41)
[2021-11-20 04:10] VITALS: BP 132/60
[2021-11-20 06:08] LABS: HEMATOCRIT 32.7 % (36.0-47.0); HEMOGLOBIN 10.3 g/dl (12.0-15.5); MEAN CORPUSCULAR HEMOGLOBIN 31.1 pg (27.0-33.0); MEAN CORPUSCULAR HGB CONC 31.5 g/dl (32.0-36.5); MEAN CORPUSCULAR VOLUME 98.8 fl (80.0-96.0); PLATELET COUNT, AUTOMATED 206 10^3/uL (150-450); RED BLOOD COUNT 3.31 10^6/uL (4.00-5.40); WHITE BLOOD COUNT 5.5 10^3/uL (4.0-10.0)
[2021-11-20 06:35] LABS: CALCIUM LEVEL 9.9 MG/DL (8.8-10.2); CREATININE FOR GFR 2.04 MG/DL (0.55-1.30); GLOMERULAR FILTRATION RATE 24.6 (>32); MAGNESIUM LEVEL 2.3 MG/DL (1.8-2.4)
[2021-11-20] MEDS: FLUTICASONE HFA 110 MCG 12 GM INHALER (FLOVENT) INH SCH ×2 (07:31→20:27)
[2021-11-20] MEDS: LEVALBUTEROL 1.25 MG/0.5 ML CONCENTRATE NEB INH SCH ×4 (07:31→20:28)
[2021-11-20 08:00] VITALS: BP 148/68
[2021-11-20] MEDS: ACETAMINOPHEN TAB 650MG DOSE (2X325MG) PO PRN ×3 (08:43→20:56)
[2021-11-20] MEDS: INSULIN LISPRO (NovoLOG) PER UNIT SC SCH ×4 (08:51→20:51)
[2021-11-20] MEDS: FUROSEMIDE 100MG/10ML VIAL (J1940) IV SCH ×3 (09:00→20:52)
[2021-11-20] MEDS: LEVEMIR (INSULIN DETEMIR) 1 UNITS/0.01ML SC SCH ×2 (10:31→20:52)
[2021-11-20] MEDS: OMEPRAZOLE 20MG CAP PO SCH (10:32)
[2021-11-20] MEDS: CETIRIZINE (ZyrTEC) 10 MG TAB PO SCH (10:34)
[2021-11-20] MEDS: POTASSIUM CHLORIDE 10MEQ SR TABLET PO SCH (10:34)
[2021-11-20] MEDS: allopurinoL 100 MG TAB PO SCH (10:35)
[2021-11-20] MEDS: ASCORBIC ACID 500 MG TAB PO SCH ×2 (10:44→20:51)
[2021-11-20] MEDS: **hydrALAZINE** 50 MG TAB PO SCH ×2 (10:45→20:50)
[2021-11-20] MEDS: ASPIRIN 81 MG CHEW TABLET PO SCH (10:50)
[2021-11-20] MEDS: SODIUM CHLORIDE NASAL 0.65% SPRAY BTL (OCEAN) SCH ×2 (10:52→20:53)
[2021-11-20] MEDS: ANALGESIC BALM CRM 3OZ TOP SCH ×4 (10:53→20:53)
[2021-11-20] MEDS: SENOKOT S TAB PO SCH ×2 (10:58→20:51)
[2021-11-20 12:00] VITALS: BP 185/75
[2021-11-20 16:00] VITALS: BP 150/60
[2021-11-20 20:00] VITALS: BP 175/70
[2021-11-20] MEDS: SIMVASTATIN 20 MG TAB PO SCH (20:51)
[2021-11-21 00:16] VITALS: BP 156/70
[2021-11-21 03:52] VITALS: BP_SYST 112; BP_SYST 165; BP_DIAS 55; BP_DIAS 75
[2021-11-21] MEDS: ACETAMINOPHEN TAB 650MG DOSE (2X325MG) PO PRN ×2 (04:53→12:30)
[2021-11-21 07:15] LABS: HEMATOCRIT 32.1 % (36.0-47.0); HEMOGLOBIN 10.1 g/dl (12.0-15.5); MEAN CORPUSCULAR HEMOGLOBIN 30.8 pg (27.0-33.0); MEAN CORPUSCULAR HGB CONC 31.5 g/dl (32.0-36.5); MEAN CORPUSCULAR VOLUME 97.9 fl (80.0-96.0); PLATELET COUNT, AUTOMATED 209 10^3/uL (150-450); RED BLOOD COUNT 3.28 10^6/uL (4.00-5.40); WHITE BLOOD COUNT 4.9 10^3/uL (4.0-10.0)
[2021-11-21] MEDS: FLUTICASONE HFA 110 MCG 12 GM INHALER (FLOVENT) INH SCH ×2 (07:41→19:37)
[2021-11-21] MEDS: LEVALBUTEROL 1.25 MG/0.5 ML CONCENTRATE NEB INH SCH ×4 (07:41→19:37)
[2021-11-21 07:44] LABS: CALCIUM LEVEL 9.7 MG/DL (8.8-10.2); CREATININE FOR GFR 1.9 MG/DL (0.55-1.30); GLOMERULAR FILTRATION RATE 26.7 (>32); MAGNESIUM LEVEL 2.2 MG/DL (1.8-2.4); POTASSIUM SERUM 3.7 MEQ/L (3.5-5.1)
[2021-11-21 08:00] VITALS: BP 140/82
[2021-11-21] MEDS: ASCORBIC ACID 500 MG TAB PO SCH ×2 (08:38→21:22)
[2021-11-21] MEDS: **hydrALAZINE** 50 MG TAB PO SCH ×2 (08:38→21:21)
[2021-11-21] MEDS: CETIRIZINE (ZyrTEC) 10 MG TAB PO SCH (08:38)
[2021-11-21] MEDS: PERCOCET 5MG/325MG TAB PO PRN (08:38)
[2021-11-21] MEDS: OMEPRAZOLE 20MG CAP PO SCH (08:39)
[2021-11-21] MEDS: POTASSIUM CHLORIDE 10MEQ SR TABLET PO SCH (08:39)
[2021-11-21] MEDS: FUROSEMIDE 100MG/10ML VIAL (J1940) IV SCH ×2 (08:39→21:23)
[2021-11-21] MEDS: SENOKOT S TAB PO SCH ×2 (08:39→21:22)
[2021-11-21] MEDS: LEVEMIR (INSULIN DETEMIR) 1 UNITS/0.01ML SC SCH ×2 (08:40→21:22)
[2021-11-21] MEDS: INSULIN LISPRO (NovoLOG) PER UNIT SC SCH ×4 (08:40→21:00)
[2021-11-21] MEDS: allopurinoL 100 MG TAB PO SCH (08:40)
[2021-11-21] MEDS: ASPIRIN 81 MG CHEW TABLET PO SCH (08:40)
[2021-11-21] MEDS: ANALGESIC BALM CRM 3OZ TOP SCH ×4 (08:41→21:00)
[2021-11-21] MEDS: SODIUM CHLORIDE NASAL 0.65% SPRAY BTL (OCEAN) SCH ×2 (08:41→21:23)
[2021-11-21 12:37] VITALS: BP 155/77
[2021-11-21 19:47] VITALS: BP 164/60
[2021-11-21] MEDS: SIMVASTATIN 20 MG TAB PO SCH (21:22)
[2021-11-21 23:54] VITALS: BP 186/98
[2021-11-22] MEDS ORDERED: hydrALAZINE 20MG/ML 1ML VIAL (J0360 PER 20MG) IV ONE (00:05)
[2021-11-22 02:00] VITALS: BP 150/80
[2021-11-22] MEDS: ACETAMINOPHEN TAB 650MG DOSE (2X325MG) PO PRN ×4 (02:09→23:02)
[2021-11-22 03:49] VITALS: BP 149/68
[2021-11-22 06:59] LABS: HEMATOCRIT 33.7 % (36.0-47.0); HEMOGLOBIN 10.9 g/dl (12.0-15.5); MEAN CORPUSCULAR HEMOGLOBIN 31.1 pg (27.0-33.0); MEAN CORPUSCULAR HGB CONC 32.3 g/dl (32.0-36.5); MEAN CORPUSCULAR VOLUME 96.3 fl (80.0-96.0); PLATELET COUNT, AUTOMATED 220 10^3/uL (150-450); WHITE BLOOD COUNT 5.6 10^3/uL (4.0-10.0)
[2021-11-22 07:39] LABS: CALCIUM LEVEL 9.5 MG/DL (8.8-10.2); CREATININE FOR GFR 1.91 MG/DL (0.55-1.30); GLOMERULAR FILTRATION RATE 26.5 (>32); MAGNESIUM LEVEL 2.1 MG/DL (1.8-2.4); POTASSIUM SERUM 3.7 MEQ/L (3.5-5.1)
[2021-11-22] MEDS: FLUTICASONE HFA 110 MCG 12 GM INHALER (FLOVENT) INH SCH ×2 (07:50→19:37)
[2021-11-22] MEDS: LEVALBUTEROL 1.25 MG/0.5 ML CONCENTRATE NEB INH SCH ×4 (07:50→19:37)
[2021-11-22 08:00] VITALS: BP 160/80
[2021-11-22] MEDS: INSULIN LISPRO (NovoLOG) PER UNIT SC SCH ×4 (08:54→21:57)
[2021-11-22] MEDS: LEVEMIR (INSULIN DETEMIR) 1 UNITS/0.01ML SC SCH ×2 (08:54→21:53)
[2021-11-22] MEDS: allopurinoL 100 MG TAB PO SCH (08:55)
[2021-11-22] MEDS: OMEPRAZOLE 20MG CAP PO SCH (08:55)
[2021-11-22] MEDS: CETIRIZINE (ZyrTEC) 10 MG TAB PO SCH (08:55)
[2021-11-22] MEDS: ASPIRIN 81 MG CHEW TABLET PO SCH (08:55)
[2021-11-22] MEDS: POTASSIUM CHLORIDE 10MEQ SR TABLET PO SCH (08:55)
[2021-11-22] MEDS: ASCORBIC ACID 500 MG TAB PO SCH ×2 (08:55→21:53)
[2021-11-22] MEDS: **hydrALAZINE** 50 MG TAB PO SCH ×2 (08:55→21:59)
[2021-11-22] MEDS: SENOKOT S TAB PO SCH ×2 (08:56→21:53)
[2021-11-22] MEDS: FUROSEMIDE 100MG/10ML VIAL (J1940) IV SCH (08:56)
[2021-11-22] MEDS: ANALGESIC BALM CRM 3OZ TOP SCH ×4 (08:56→21:58)
[2021-11-22] MEDS: SODIUM CHLORIDE NASAL 0.65% SPRAY BTL (OCEAN) SCH ×2 (08:56→21:57)
[2021-11-22 16:39] VITALS: BP 119/57
[2021-11-22] MEDS: TORSEMIDE (DEMADEX) 50 MG PER 1/2 TAB PO SCH (17:22)
[2021-11-22 20:11] VITALS: BP 144/62
[2021-11-22] MEDS: SIMVASTATIN 20 MG TAB PO SCH (21:53)
[2021-11-22 23:28] VITALS: BP 160/68
[2021-11-23 03:41] VITALS: BP 160/58
[2021-11-23 06:08] LABS: HEMATOCRIT 31.2 % (36.0-47.0); HEMOGLOBIN 9.8 g/dl (12.0-15.5); MEAN CORPUSCULAR HEMOGLOBIN 30.2 pg (27.0-33.0); MEAN CORPUSCULAR HGB CONC 31.4 g/dl (32.0-36.5); MEAN CORPUSCULAR VOLUME 96.3 fl (80.0-96.0); PLATELET COUNT, AUTOMATED 208 10^3/uL (150-450); RED BLOOD COUNT 3.24 10^6/uL (4.00-5.40)
[2021-11-23 07:01] LABS: CALCIUM LEVEL 9.5 MG/DL (8.8-10.2); CREATININE FOR GFR 1.83 MG/DL (0.55-1.30); GLOMERULAR FILTRATION RATE 27.9 (>32); MAGNESIUM LEVEL 2.2 MG/DL (1.8-2.4); POTASSIUM SERUM 3.2 MEQ/L (3.5-5.1)
[2021-11-23] MEDS: LEVALBUTEROL 1.25 MG/0.5 ML CONCENTRATE NEB INH SCH ×4 (07:35→19:47)
[2021-11-23] MEDS: FLUTICASONE HFA 110 MCG 12 GM INHALER (FLOVENT) INH SCH ×2 (07:35→19:47)
[2021-11-23 08:00] VITALS: BP 162/78
[2021-11-23] MEDS ORDERED: POTASSIUM CHLORIDE 10MEQ SR TABLET PO ONE (08:00)
[2021-11-23] MEDS: CETIRIZINE (ZyrTEC) 10 MG TAB PO SCH (09:21)
[2021-11-23] MEDS: ASCORBIC ACID 500 MG TAB PO SCH ×2 (09:22→20:30)
[2021-11-23] MEDS: allopurinoL 100 MG TAB PO SCH (09:22)
[2021-11-23] MEDS: ASPIRIN 81 MG CHEW TABLET PO SCH (09:22)
[2021-11-23] MEDS: SENOKOT S TAB PO SCH ×2 (09:22→20:29)
[2021-11-23] MEDS: TORSEMIDE (DEMADEX) 50 MG PER 1/2 TAB PO SCH ×2 (09:22→17:47)
[2021-11-23] MEDS: OMEPRAZOLE 20MG CAP PO SCH (09:22)
[2021-11-23] MEDS: **hydrALAZINE** 50 MG TAB PO SCH ×2 (09:22→20:30)
[2021-11-23] MEDS: POTASSIUM CHLORIDE 10MEQ SR TABLET PO SCH (09:23)
[2021-11-23] MEDS: LEVEMIR (INSULIN DETEMIR) 1 UNITS/0.01ML SC SCH ×2 (09:23→20:30)
[2021-11-23] MEDS: INSULIN LISPRO (NovoLOG) PER UNIT SC SCH ×4 (09:23→20:30)
[2021-11-23] MEDS: ANALGESIC BALM CRM 3OZ TOP SCH ×4 (09:24→20:32)
[2021-11-23] MEDS: SODIUM CHLORIDE NASAL 0.65% SPRAY BTL (OCEAN) SCH ×2 (09:24→20:31)
[2021-11-23] MEDS: ACETAMINOPHEN TAB 650MG DOSE (2X325MG) PO PRN ×2 (11:38→17:47)
[2021-11-23 15:48] VITALS: BP 134/62
[2021-11-23 20:09] VITALS: BP 142/68
[2021-11-23] MEDS: SIMVASTATIN 20 MG TAB PO SCH (20:29)
[2021-11-24 05:10] VITALS: BP 129/58
[2021-11-24] MEDS: ACETAMINOPHEN TAB 650MG DOSE (2X325MG) PO PRN (05:39)
[2021-11-24] MEDS: FLUTICASONE HFA 110 MCG 12 GM INHALER (FLOVENT) INH SCH (07:17)
[2021-11-24] MEDS: LEVALBUTEROL 1.25 MG/0.5 ML CONCENTRATE NEB INH SCH ×2 (07:17→11:21)
[2021-11-24 08:00] VITALS: BP 175/77
[2021-11-24 08:44] LABS: HEMATOCRIT 31.5 % (36.0-47.0); HEMOGLOBIN 10.2 g/dl (12.0-15.5); MEAN CORPUSCULAR HEMOGLOBIN 31.5 pg (27.0-33.0); MEAN CORPUSCULAR HGB CONC 32.4 g/dl (32.0-36.5); MEAN CORPUSCULAR VOLUME 97.2 fl (80.0-96.0); PLATELET COUNT, AUTOMATED 217 10^3/uL (150-450); RED BLOOD COUNT 3.24 10^6/uL (4.00-5.40); WHITE BLOOD COUNT 5.5 10^3/uL (4.0-10.0)
[2021-11-24] MEDS: LEVEMIR (INSULIN DETEMIR) 1 UNITS/0.01ML SC SCH (09:00)
[2021-11-24] MEDS: SENOKOT S TAB PO SCH (09:05)
[2021-11-24] MEDS: INSULIN LISPRO (NovoLOG) PER UNIT SC SCH ×2 (09:05→12:55)
[2021-11-24] MEDS: OMEPRAZOLE 20MG CAP PO SCH (09:05)
[2021-11-24] MEDS: ASPIRIN 81 MG CHEW TABLET PO SCH (09:05)
[2021-11-24 09:06] VITALS: BP 175/77
[2021-11-24] MEDS: **hydrALAZINE** 50 MG TAB PO SCH (09:06)
[2021-11-24] MEDS: CETIRIZINE (ZyrTEC) 10 MG TAB PO SCH (09:06)
[2021-11-24] MEDS: ASCORBIC ACID 500 MG TAB PO SCH (09:06)
[2021-11-24] MEDS: POTASSIUM CHLORIDE 10MEQ SR TABLET PO SCH (09:06)
[2021-11-24] MEDS: SODIUM CHLORIDE NASAL 0.65% SPRAY BTL (OCEAN) SCH (09:07)
[2021-11-24] MEDS: allopurinoL 100 MG TAB PO SCH (09:07)
[2021-11-24] MEDS: ANALGESIC BALM CRM 3OZ TOP SCH ×2 (09:07→13:00)
[2021-11-24] MEDS: TORSEMIDE (DEMADEX) 50 MG PER 1/2 TAB PO SCH (09:15)
[2021-11-24 09:19] LABS: CALCIUM LEVEL 9.8 MG/DL (8.8-10.2); CREATININE FOR GFR 1.84 MG/DL (0.55-1.30); GLOMERULAR FILTRATION RATE 27.7 (>32); MAGNESIUM LEVEL 2.2 MG/DL (1.8-2.4); POTASSIUM SERUM 3.6 MEQ/L (3.5-5.1)
[2021-11-24] MEDS ORDERED: TORS100T PO (09:45)
[2021-11-24] MEDS ORDERED: HYDR-3910 PO (09:45)
[2021-11-24] MEDS ORDERED: METO25TA PO (10:54)
== END 2021-11-24 14:37 | disposition home health service (06) | DRG 291 ==
LOC: EDBD 08:28 → M ED 08:28 → M ED INP 09:49 → ENRESERV 14:57 → M PCU 15:01
PROVIDERS: ADMIT General Practice; ATTEND Internal Medicine
DX: I13.0 Hypertensive heart and chronic kidney disease with heart failure and stage 1 through stage 4 chronic kidney disease, or unspecified chronic kidney disease (principal); I50.33 Acute on chronic diastolic (congestive) heart failure; N17.9 Acute kidney failure, unspecified; Z68.42 Body mass index [BMI] 45.0-49.9, adult; N18.32 Chronic kidney disease, stage 3b; K21.9 Gastro-esophageal reflux disease without esophagitis; E66.01 Morbid (severe) obesity due to excess calories; E78.5 Hyperlipidemia, unspecified; G47.33 Obstructive sleep apnea (adult) (pediatric); D64.9 Anemia, unspecified; E11.22 Type 2 diabetes mellitus with diabetic chronic kidney disease; Z95.5 Presence of coronary angioplasty implant and graft; M10.9 Gout, unspecified; I25.10 Atherosclerotic heart disease of native coronary artery without angina pectoris; Z79.899 Other long term (current) drug therapy; Z79.82 Long term (current) use of aspirin; Z88.0 Allergy status to penicillin; Z91.030 Bee allergy status; Z88.8 Allergy status to other drugs, medicaments and biological substances; Z91.018 Allergy to other foods; Z95.2 Presence of prosthetic heart valve; M81.0 Age-related osteoporosis without current pathological fracture; K57.30 Diverticulosis of large intestine without perforation or abscess without bleeding; M17.12 Unilateral primary osteoarthritis, left knee; E55.9 Vitamin D deficiency, unspecified; F41.9 Anxiety disorder, unspecified; F32.A Depression, unspecified; Z91.19 Patient's noncompliance with other medical treatment and regimen

== ENCOUNTER → 2021-12-11 | Outpatient (REF) | payer MEDICARE ==
[~2021-12-11] MED LIST changes: +HYDR-3910 PO; +HYDR-3911 PO; +METO25TA PO
[2021-12-11 17:11] LABS: CALCIUM LEVEL 9.5 MG/DL (8.8-10.2); CREATININE FOR GFR 1.66 MG/DL (0.55-1.30); GLOMERULAR FILTRATION RATE 31.2 (>32); MAGNESIUM LEVEL 2.2 MG/DL (1.8-2.4); POTASSIUM SERUM 3.3 MEQ/L (3.5-5.1)
== END ==
LOC: M SHH 15:38
PROVIDERS: ATTEND General Practice
DX: I50.9 Heart failure, unspecified (principal)

== ENCOUNTER → 2021-12-18 | Outpatient (REF) | payer MEDICARE ==
[2021-12-18 14:58] LABS: CREATININE FOR GFR 1.89 MG/DL (0.55-1.30); GLOMERULAR FILTRATION RATE 26.8 (>32); POTASSIUM SERUM 2.8 MEQ/L (3.5-5.1)
[2021-12-18 14:59] LABS: CALCIUM LEVEL 10.1 MG/DL (8.8-10.2)
[2021-12-18 15:56] LABS: HEMOGLOBIN A1c 7.1 %
== END ==
LOC: M SFHCADAM 08:51
PROVIDERS: ATTEND Family Medicine
DX: E11.8 Type 2 diabetes mellitus with unspecified complications (principal)

== ENCOUNTER 2021-12-21 11:24 | Inpatient (IN) | payer MEDICARE, MEDICAID ==
[~2021-12-21] VITALS: Ht 157.5 cm; Wt 116.3 kg
[2021-12-21] MEDS ORDERED: methylPREDNISolone 125MG 2ML VIAL IV ONE (12:10)
[2021-12-21 12:34] LABS: BASO % 0.3 % (0.0-1.0); EOS % 0.6 % (0.0-3.0); HEMATOCRIT 33.4 % (36.0-47.0); LYMPH # 1.5 10^3/uL (1.5-5.0); LYMPH % 21.8 % (24.0-44.0); MEAN CORPUSCULAR HEMOGLOBIN 30.8 pg (27.0-33.0); MEAN CORPUSCULAR HGB CONC 32.9 g/dl (32.0-36.5); MEAN CORPUSCULAR VOLUME 93.6 fl (80.0-96.0); MONO # 0.7 10^3/uL (0.0-0.8); MONO % 9.5 % (2.0-8.0); NEUTROPHILS # 4.7 10^3/uL (1.5-8.5); NEUTROPHILS % 67.1 % (36.0-66.0); PLATELET COUNT, AUTOMATED 192 10^3/uL (150-450); RED BLOOD COUNT 3.57 10^6/uL (4.00-5.40)
[2021-12-21] MEDS ORDERED: FUROSEMIDE 40MG/4ML VIAL IV ONE (12:35)
[2021-12-21] MEDS: IPRATROPIUM 0.5MG/ALBUTEROL 2.5MG INH SOL UD 3ML (DUONEB) NEB PRN ×3 (12:40→13:16)
[2021-12-21] MEDS ORDERED: ACETAMINOPHEN TAB 650MG DOSE (2X325MG) PO ONE (12:45)
[2021-12-21 12:46] LABS: INR 0.88; PROTHROMBIN TIME 12.1 SECONDS (12.5-14.5)
[2021-12-21 12:58] LABS: ABG BASE EXCESS 0.5 (-2.0-2.0); ABG HCO3 24.4 MEQ/L (22.0-26.0); ABG O2 SATURATION 98.2 % (95.0-99.0); ABG PARTIAL PRESSURE CO2 36.9 mmHg (35.0-45.0); ABG PARTIAL PRESSURE O2 114.9 mmHg (75.0-100.0); ABG STANDARD HCO3 24.9 MEQ/L (22.0-26.0); ABG TOTAL CO2 25.6 MEQ/L (23.0-31.0); ABG pH (ARTERIAL) 7.439 UNITS (7.350-7.450)
[2021-12-21 13:17] LABS: CK-MB VALUE MASS 2.2 NG/ML (<3.6); MB/CK RELATIVE INDEX 2.59 (< OR =4)
[2021-12-21 13:20] LABS: ALBUMIN 3.4 GM/DL (3.2-5.2); BILIRUBIN,DIRECT 0.2 MG/DL (0.0-0.2); BILIRUBIN,TOTAL 0.6 MG/DL (0.2-1.0); CALCIUM LEVEL 9.5 MG/DL (8.8-10.2); CREATININE FOR GFR 1.73 MG/DL (0.55-1.30); GLOMERULAR FILTRATION RATE 29.7 (>32); POTASSIUM SERUM 3.9 MEQ/L (3.5-5.1); THYROID STIMULATING HORMONE 1.5 uIU/ML (0.358-3.740)
[2021-12-21 14:39] LABS: CK-MB VALUE MASS 2.1 NG/ML (<3.6); MB/CK RELATIVE INDEX 3.09 (< OR =4)
[2021-12-21] MEDS ORDERED: SUPE600T4 PO (15:50)
[2021-12-21] MEDS ORDERED: CVS10CAP PO (15:50)
[2021-12-21] MEDS ORDERED: POTA-151 PO (15:50)
[2021-12-21] MEDS ORDERED: TORS100T PO (15:55)
[2021-12-21] MEDS ORDERED: AMLO1TAB24 PO (15:55)
[2021-12-21] MEDS ORDERED: HYDR-3910 PO (15:55)
[2021-12-21] MEDS ORDERED: HOME MED LIST COMPLETE! XX SCH (16:00)
[2021-12-21] MEDS ORDERED: GLUCAGON INJ 1MG VIAL SC PRN (16:25)
[2021-12-21] MEDS ORDERED: DEXTROSE 50% 50ML SYRINGE IV PRN (16:25)
[2021-12-21] MEDS ORDERED: GLUCOSE 4GM CHEW TABLET PO PRN (16:25)
[2021-12-21] MEDS: FUROSEMIDE 100MG/10ML VIAL IV SCH (18:30)
[2021-12-21] MEDS: amLODIPine 5 MG TAB PO SCH (18:30)
[2021-12-21] MEDS: INSULIN LISPRO (NovoLOG) PER UNIT SC SCH ×2 (18:37→22:29)
[2021-12-21] MEDS: allopurinoL 100 MG TAB PO SCH (18:39)
[2021-12-21] MEDS: ACETAMINOPHEN 500 MG TAB PO PRN (20:16)
[2021-12-21] MEDS: DOCUSATE SODIUM 100MG CAPSULE PO SCH (22:27)
[2021-12-21] MEDS: **hydrALAZINE HCL** 25 MG TAB PO SCH (22:28)
[2021-12-21] MEDS: SIMVASTATIN 20 MG TAB PO SCH (22:28)
[2021-12-21] MEDS: FLUTICASONE HFA 110MCG 12GM INHALER (FLOVENT) INH SCH (22:53)
[2021-12-22] MEDS: FUROSEMIDE 100MG/10ML VIAL IV SCH ×4 (02:01→18:15)
[2021-12-22] MEDS: IPRATROPIUM 0.5MG/ALBUTEROL 2.5MG INH SOL UD 3ML (DUONEB) NEB PRN ×2 (02:18→06:15)
[2021-12-22 06:06] LABS: HEMATOCRIT 31.2 % (36.0-47.0); HEMOGLOBIN 10.2 g/dl (12.0-15.5); MEAN CORPUSCULAR HEMOGLOBIN 30.9 pg (27.0-33.0); MEAN CORPUSCULAR HGB CONC 32.7 g/dl (32.0-36.5); MEAN CORPUSCULAR VOLUME 94.5 fl (80.0-96.0); PLATELET COUNT, AUTOMATED 176 10^3/uL (150-450); WHITE BLOOD COUNT 4.8 10^3/uL (4.0-10.0)
[2021-12-22] MEDS: ACETAMINOPHEN 500 MG TAB PO PRN (06:36)
[2021-12-22 06:45] LABS: CALCIUM LEVEL 9.5 MG/DL (8.8-10.2); CREATININE FOR GFR 1.92 MG/DL (0.55-1.30); GLOMERULAR FILTRATION RATE 26.4 (>32); POTASSIUM SERUM 3.7 MEQ/L (3.5-5.1)
[2021-12-22] MEDS: INSULIN LISPRO (NovoLOG) PER UNIT SC SCH ×4 (08:55→21:00)
[2021-12-22] MEDS ORDERED: POTASSIUM CHLORIDE 10MEQ SR TABLET PO SCH (09:00)
[2021-12-22] MEDS: FLUTICASONE HFA 110MCG 12GM INHALER (FLOVENT) INH SCH ×2 (09:09→18:47)
[2021-12-22] MEDS: DOCUSATE SODIUM 100MG CAPSULE PO SCH ×2 (10:54→21:21)
[2021-12-22] MEDS: ASPIRIN 81MG ENTERIC TABLET PO SCH (10:54)
[2021-12-22] MEDS: **hydrALAZINE HCL** 25 MG TAB PO SCH ×2 (10:56→21:21)
[2021-12-22] MEDS: POTASSIUM CHLORIDE 10MEQ SR TABLET PO SCH ×2 (10:56→21:21)
[2021-12-22] MEDS: PANTOPRAZOLE 40MG TAB (PROTONIX) PO SCH (10:57)
[2021-12-22] MEDS: CETIRIZINE (ZyrTEC) 10 MG TAB PO SCH (10:57)
[2021-12-22] MEDS: ENOXAPARIN 40MG/0.4ML SYRINGE (J1650 PER 10MG) SC SCH ×2 (10:58→21:20)
[2021-12-22] MEDS: allopurinoL 100 MG TAB PO SCH (12:00)
[2021-12-22] MEDS: amLODIPine 5 MG TAB PO SCH (12:00)
[2021-12-22] MEDS: METOCLOPRAMIDE 10MG TAB PO SCH (12:00)
[2021-12-22] MEDS: SIMVASTATIN 20 MG TAB PO SCH (21:21)
[2021-12-22 23:45] VITALS: BP 145/69
[2021-12-23] MEDS: FUROSEMIDE 100MG/10ML VIAL IV SCH ×2 (00:33→06:22)
[2021-12-23 03:50] VITALS: BP 150/82
[2021-12-23] MEDS: ACETAMINOPHEN 500 MG TAB PO PRN ×3 (04:57→21:01)
[2021-12-23] MEDS ORDERED: ERTAPENEM SODIUM 1 GM in NS MINI-BAG PLUS 50 ML IV SCH (06:00)
[2021-12-23] MEDS: IPRATROPIUM 0.5MG/ALBUTEROL 2.5MG INH SOL UD 3ML (DUONEB) NEB PRN (06:19)
[2021-12-23] MEDS: FLUTICASONE HFA 110MCG 12GM INHALER (FLOVENT) INH SCH ×2 (07:28→19:59)
[2021-12-23 07:44] LABS: HEMATOCRIT 31.4 % (36.0-47.0); MEAN CORPUSCULAR HEMOGLOBIN 30.5 pg (27.0-33.0); MEAN CORPUSCULAR HGB CONC 31.8 g/dl (32.0-36.5); MEAN CORPUSCULAR VOLUME 95.7 fl (80.0-96.0); PLATELET COUNT, AUTOMATED 205 10^3/uL (150-450); RED BLOOD COUNT 3.28 10^6/uL (4.00-5.40); WHITE BLOOD COUNT 7.5 10^3/uL (4.0-10.0)
[2021-12-23 07:58] LABS: CALCIUM LEVEL 9.4 MG/DL (8.8-10.2); CREATININE FOR GFR 2.11 MG/DL (0.55-1.30); GLOMERULAR FILTRATION RATE 23.6 (>32)
[2021-12-23 08:00] VITALS: BP 155/98
[2021-12-23] MEDS: CETIRIZINE (ZyrTEC) 10 MG TAB PO SCH (08:16)
[2021-12-23] MEDS: ASPIRIN 81MG ENTERIC TABLET PO SCH (08:16)
[2021-12-23] MEDS: DOCUSATE SODIUM 100MG CAPSULE PO SCH ×2 (08:16→21:01)
[2021-12-23] MEDS: METOCLOPRAMIDE 10MG TAB PO SCH (08:17)
[2021-12-23] MEDS: **hydrALAZINE HCL** 25 MG TAB PO SCH ×2 (08:17→21:00)
[2021-12-23] MEDS: INSULIN LISPRO (NovoLOG) PER UNIT SC SCH ×4 (08:19→21:06)
[2021-12-23] MEDS: ENOXAPARIN 40MG/0.4ML SYRINGE (J1650 PER 10MG) SC SCH ×2 (08:20→21:02)
[2021-12-23] MEDS: PANTOPRAZOLE 40MG TAB (PROTONIX) PO SCH (08:20)
[2021-12-23] MEDS: POTASSIUM CHLORIDE 10MEQ SR TABLET PO SCH ×2 (08:21→21:02)
[2021-12-23 11:25] LABS: MAGNESIUM LEVEL 2.4 MG/DL (1.8-2.4)
[2021-12-23 12:00] VITALS: BP 158/78
[2021-12-23] MEDS: amLODIPine 5 MG TAB PO SCH (12:16)
[2021-12-23] MEDS: methylPREDNISolone 125MG 2ML VIAL IV SCH ×2 (12:16→18:07)
[2021-12-23] MEDS: allopurinoL 100 MG TAB PO SCH (12:17)
[2021-12-23] MEDS: IPRATROPIUM 0.5MG/ALBUTEROL 2.5MG INH SOL UD 3ML (DUONEB) NEB SCH ×2 (14:44→19:59)
[2021-12-23 15:50] VITALS: BP 148/90
[2021-12-23 20:00] VITALS: BP 180/78
[2021-12-23] MEDS: ASCORBIC ACID 500 MG TAB PO SCH (21:00)
[2021-12-23] MEDS: SIMVASTATIN 20 MG TAB PO SCH (21:00)
[2021-12-24] VITALS (8 sets, daily range): BP systolic 135–185; BP diastolic 67–82
[2021-12-24] MEDS: IPRATROPIUM 0.5MG/ALBUTEROL 2.5MG INH SOL UD 3ML (DUONEB) NEB SCH ×4 (01:45→19:57)
[2021-12-24] MEDS: methylPREDNISolone 125MG 2ML VIAL IV SCH ×2 (03:47→10:29)
[2021-12-24] MEDS ORDERED: **hydrALAZINE** 10 MG TAB PO ONE (04:50)
[2021-12-24 05:49] LABS: HEMATOCRIT 30.4 % (36.0-47.0); MEAN CORPUSCULAR HGB CONC 32.9 g/dl (32.0-36.5); MEAN CORPUSCULAR VOLUME 94.1 fl (80.0-96.0); PLATELET COUNT, AUTOMATED 182 10^3/uL (150-450); RED BLOOD COUNT 3.23 10^6/uL (4.00-5.40)
[2021-12-24 06:26] LABS: CALCIUM LEVEL 9.8 MG/DL (8.8-10.2); CREATININE FOR GFR 2.09 MG/DL (0.55-1.30); GLOMERULAR FILTRATION RATE 23.9 (>32); POTASSIUM SERUM 4.3 MEQ/L (3.5-5.1)
[2021-12-24 07:47] LABS: ALBUMIN 3.2 GM/DL (3.2-5.2); BILIRUBIN,DIRECT 0.1 MG/DL (0.0-0.2); BILIRUBIN,TOTAL 0.4 MG/DL (0.2-1.0); TOTAL PROTEIN 6.6 GM/DL (6.4-8.2)
[2021-12-24] MEDS: DOCUSATE SODIUM 100MG CAPSULE PO SCH ×2 (07:50→21:38)
[2021-12-24] MEDS: INSULIN LISPRO (NovoLOG) PER UNIT SC SCH ×4 (07:50→21:39)
[2021-12-24] MEDS: ENOXAPARIN 40MG/0.4ML SYRINGE (J1650 PER 10MG) SC SCH ×2 (07:50→21:39)
[2021-12-24] MEDS: ASCORBIC ACID 500 MG TAB PO SCH ×2 (07:50→21:37)
[2021-12-24] MEDS: ASPIRIN 81MG ENTERIC TABLET PO SCH (07:50)
[2021-12-24] MEDS: PANTOPRAZOLE 40MG TAB (PROTONIX) PO SCH (07:51)
[2021-12-24] MEDS: CETIRIZINE (ZyrTEC) 10 MG TAB PO SCH (07:51)
[2021-12-24] MEDS: POTASSIUM CHLORIDE 10MEQ SR TABLET PO SCH ×2 (07:51→21:38)
[2021-12-24] MEDS: CEFDINIR 300 MG CAP (OMNICEF) PO SCH (07:51)
[2021-12-24] MEDS: METOCLOPRAMIDE 10MG TAB PO SCH (07:52)
[2021-12-24] MEDS: **hydrALAZINE HCL** 25 MG TAB PO SCH ×2 (07:53→21:37)
[2021-12-24] MEDS: FLUTICASONE HFA 110MCG 12GM INHALER (FLOVENT) INH SCH ×2 (08:43→19:57)
[2021-12-24] MEDS ORDERED: LEVEMIR (INSULIN DETEMIR) 1 UNITS/0.01ML SC SCH (09:50)
[2021-12-24] MEDS ORDERED: SENNA 8.6 MG TAB (SENOKOT) PO PRN (09:55)
[2021-12-24] MEDS: MIRALAX *UNIT DOSE* 17GM PACKET PO SCH (10:29)
[2021-12-24] MEDS: allopurinoL 100 MG TAB PO SCH (11:35)
[2021-12-24] MEDS: METAMUCIL (PSYLLIUM) PACKET PO SCH ×2 (11:35→21:38)
[2021-12-24] MEDS: BUMETANIDE 1MG/4ML VIAL IV SCH (14:51)
[2021-12-24] MEDS: ACETAMINOPHEN 500 MG TAB PO PRN ×2 (14:52→22:39)
[2021-12-24] MEDS ORDERED: BUMETANIDE 1MG/4ML VIAL IV SCH (21:00)
[2021-12-24] MEDS: SIMVASTATIN 20 MG TAB PO SCH (21:38)
[2021-12-24] MEDS ORDERED: ALBUTEROL SULFATE 2.5MG/0.5ML INH NEB SOLN NEB ONE (22:40)
[2021-12-25] VITALS (10 sets, daily range): BP systolic 136–240; BP diastolic 65–104
[2021-12-25] MEDS ORDERED: IPRATROPIUM 0.5MG/ALBUTEROL 2.5MG INH SOL UD 3ML (DUONEB) NEB ONE (01:20)
[2021-12-25] MEDS: IPRATROPIUM 0.5MG/ALBUTEROL 2.5MG INH SOL UD 3ML (DUONEB) NEB SCH ×4 (01:47→20:20)
[2021-12-25] MEDS ORDERED: **hydrALAZINE** 10 MG TAB PO ONE ×2 (04:40→23:40)
[2021-12-25 05:18] LABS: HEMATOCRIT 31.1 % (36.0-47.0); HEMOGLOBIN 10.2 g/dl (12.0-15.5); MEAN CORPUSCULAR HGB CONC 32.8 g/dl (32.0-36.5); MEAN CORPUSCULAR VOLUME 94.5 fl (80.0-96.0); PLATELET COUNT, AUTOMATED 186 10^3/uL (150-450); RED BLOOD COUNT 3.29 10^6/uL (4.00-5.40); WHITE BLOOD COUNT 7.4 10^3/uL (4.0-10.0)
[2021-12-25] MEDS: BUMETANIDE 1MG/4ML VIAL IV SCH (05:19)
[2021-12-25 05:46] LABS: CALCIUM LEVEL 9.4 MG/DL (8.8-10.2); CREATININE FOR GFR 2.4 MG/DL (0.55-1.30); GLOMERULAR FILTRATION RATE 20.4 (>32); POTASSIUM SERUM 4.5 MEQ/L (3.5-5.1)
[2021-12-25] MEDS: CEFDINIR 300 MG CAP (OMNICEF) PO SCH (08:26)
[2021-12-25] MEDS: ASPIRIN 81MG ENTERIC TABLET PO SCH (08:26)
[2021-12-25] MEDS: **hydrALAZINE HCL** 25 MG TAB PO SCH ×2 (08:27→20:34)
[2021-12-25] MEDS: POTASSIUM CHLORIDE 10MEQ SR TABLET PO SCH ×2 (08:27→20:34)
[2021-12-25] MEDS: ASCORBIC ACID 500 MG TAB PO SCH ×2 (08:27→20:35)
[2021-12-25] MEDS: DOCUSATE SODIUM 100MG CAPSULE PO SCH ×2 (08:27→20:34)
[2021-12-25] MEDS: METOCLOPRAMIDE 10MG TAB PO SCH (08:27)
[2021-12-25] MEDS: CETIRIZINE (ZyrTEC) 10 MG TAB PO SCH (08:28)
[2021-12-25] MEDS: INSULIN LISPRO (NovoLOG) PER UNIT SC SCH ×7 (08:28→20:34)
[2021-12-25] MEDS: PANTOPRAZOLE 40MG TAB (PROTONIX) PO SCH (08:28)
[2021-12-25] MEDS: ENOXAPARIN 40MG/0.4ML SYRINGE (J1650 PER 10MG) SC SCH ×2 (08:32→20:36)
[2021-12-25] MEDS: methylPREDNISolone 125MG 2ML VIAL IV SCH (08:32)
[2021-12-25] MEDS: METAMUCIL (PSYLLIUM) PACKET PO SCH ×2 (08:34→20:35)
[2021-12-25] MEDS: FLUTICASONE HFA 110MCG 12GM INHALER (FLOVENT) INH SCH ×2 (08:41→20:20)
[2021-12-25] MEDS: MIRALAX *UNIT DOSE* 17GM PACKET PO SCH ×2 (08:55→20:35)
[2021-12-25] MEDS ORDERED: LEVEMIR (INSULIN DETEMIR) 1 UNITS/0.01ML SC SCH (09:00)
[2021-12-25] MEDS: allopurinoL 100 MG TAB PO SCH (12:06)
[2021-12-25] MEDS: CARVedilol 3.125 MG TAB PO SCH ×2 (12:57→20:35)
[2021-12-25 14:02] LABS: OSMOLALITY URINE 271 MOSM/KG (50-1400)
[2021-12-25 14:32] LABS: SODIUM,RANDOM URINE 10 MEQ/L
[2021-12-25] MEDS: ACETAMINOPHEN 500 MG TAB PO PRN ×2 (15:15→23:05)
[2021-12-25] MEDS ORDERED: MOM 30ML SUSPENSION UDC PO PRN (15:20)
[2021-12-25] MEDS ORDERED: FLEET ENEMA PR PRN (15:30)
[2021-12-25] MEDS: SIMVASTATIN 20 MG TAB PO SCH (20:34)
[2021-12-25] MEDS: SENNA 8.6 MG TAB (SENOKOT) PO SCH (20:35)
[2021-12-25] MEDS ORDERED: RAMELTEON 8 MG TAB (ROZEREM) PO ONE (21:00)
[2021-12-25] MEDS: ALBUTEROL 90 MCG/ACT 8GM HFA INHALER INH PRN (23:19)
[2021-12-26] VITALS (20 sets, daily range): BP systolic 142–186; BP diastolic 61–121; O2SAT 87–99
[2021-12-26] MEDS: IPRATROPIUM 0.5MG/ALBUTEROL 2.5MG INH SOL UD 3ML (DUONEB) NEB SCH ×6 (02:46→23:14)
[2021-12-26] MEDS ORDERED: **hydrALAZINE** 10 MG TAB PO ONE (03:55)
[2021-12-26 05:32] LABS: HEMATOCRIT 31.4 % (36.0-47.0); HEMOGLOBIN 10.4 g/dl (12.0-15.5); MEAN CORPUSCULAR HEMOGLOBIN 31.2 pg (27.0-33.0); MEAN CORPUSCULAR HGB CONC 33.1 g/dl (32.0-36.5); MEAN CORPUSCULAR VOLUME 94.3 fl (80.0-96.0); PLATELET COUNT, AUTOMATED 210 10^3/uL (150-450); RED BLOOD COUNT 3.33 10^6/uL (4.00-5.40); WHITE BLOOD COUNT 10.1 10^3/uL (4.0-10.0)
[2021-12-26] MEDS: ACETAMINOPHEN 500 MG TAB PO PRN ×3 (05:40→18:37)
[2021-12-26] MEDS: ALBUTEROL 90 MCG/ACT 8GM HFA INHALER INH PRN (05:52)
[2021-12-26 06:04] LABS: CALCIUM LEVEL 9.5 MG/DL (8.8-10.2); CREATININE FOR GFR 2.25 MG/DL (0.55-1.30); POTASSIUM SERUM 5.2 MEQ/L (3.5-5.1)
[2021-12-26] MEDS: FLUTICASONE HFA 110MCG 12GM INHALER (FLOVENT) INH SCH ×2 (07:25→19:20)
[2021-12-26] MEDS ORDERED: PATIROMER SORBITEX CALCIUM 8.4 GM POWDER PACKET (VELTASSA) PO ONE (07:30)
[2021-12-26 07:39] LABS: ABG BASE EXCESS -2.4 (-2.0-2.0); ABG HCO3 22.2 MEQ/L (22.0-26.0); ABG O2 SATURATION 98.7 % (95.0-99.0); ABG PARTIAL PRESSURE CO2 37.8 mmHg (35.0-45.0); ABG PARTIAL PRESSURE O2 165.3 mmHg (75.0-100.0); ABG STANDARD HCO3 22.5 MEQ/L (22.0-26.0); ABG TOTAL CO2 23.4 MEQ/L (23.0-31.0); ABG pH (ARTERIAL) 7.387 UNITS (7.350-7.450)
[2021-12-26 07:46] LABS: MAGNESIUM LEVEL 2.4 MG/DL (1.8-2.4); PHOSPHORUS LEVEL 4.9 MG/DL (2.5-4.9)
[2021-12-26] MEDS: BUDESONIDE 0.5 MG/2 ML INHALATION SUSPENSION INH SCH ×2 (08:00→19:22)
[2021-12-26] MEDS: MIRALAX *UNIT DOSE* 17GM PACKET PO SCH ×2 (09:00→20:31)
[2021-12-26] MEDS: SENNA 8.6 MG TAB (SENOKOT) PO SCH ×2 (09:00→20:31)
[2021-12-26] MEDS: METAMUCIL (PSYLLIUM) PACKET PO SCH ×2 (09:00→20:31)
[2021-12-26] MEDS: DOCUSATE SODIUM 100MG CAPSULE PO SCH ×2 (09:00→20:31)
[2021-12-26] MEDS ORDERED: guaiFENesin SYRUP 200MG 10ML UDC PO PRN (09:45)
[2021-12-26] MEDS: CEFDINIR 300 MG CAP (OMNICEF) PO SCH (09:47)
[2021-12-26] MEDS: ENOXAPARIN 40MG/0.4ML SYRINGE (J1650 PER 10MG) SC SCH ×2 (09:47→20:43)
[2021-12-26] MEDS: INSULIN LISPRO (NovoLOG) PER UNIT SC SCH ×7 (09:48→20:29)
[2021-12-26] MEDS: ASCORBIC ACID 500 MG TAB PO SCH ×2 (09:49→20:44)
[2021-12-26] MEDS: LEVEMIR (INSULIN DETEMIR) 1 UNITS/0.01ML SC SCH (09:49)
[2021-12-26] MEDS: ASPIRIN 81MG ENTERIC TABLET PO SCH (09:49)
[2021-12-26] MEDS: PANTOPRAZOLE 40MG TAB (PROTONIX) PO SCH (09:49)
[2021-12-26] MEDS: CETIRIZINE (ZyrTEC) 10 MG TAB PO SCH (09:52)
[2021-12-26] MEDS: methylPREDNISolone 125MG 2ML VIAL IV SCH (09:52)
[2021-12-26] MEDS: **hydrALAZINE HCL** 25 MG TAB PO SCH ×2 (09:52→20:44)
[2021-12-26] MEDS: CARVedilol 6.25 MG TAB PO SCH ×2 (09:52→20:54)
[2021-12-26] MEDS: METOCLOPRAMIDE 10MG TAB PO SCH (09:57)
[2021-12-26] MEDS: allopurinoL 100 MG TAB PO SCH (12:18)
[2021-12-26] MEDS ORDERED: MAGNESIUM SULFATE IN WATER 2 GM in IV 1 EA IV STA ×4 (14:05→14:13)
[2021-12-26] MEDS ORDERED: HYDROMORPHONE HCL 0.5 MG/ 0.5 ML SYRINGE IV ONE (14:10)
[2021-12-26] MEDS ORDERED: FUROSEMIDE 100MG/10ML VIAL IV ONE (14:10)
[2021-12-26] MEDS: MONTELUKAST 10 MG TAB PO SCH (14:35)
[2021-12-26] MEDS: SIMVASTATIN 20 MG TAB PO SCH (20:44)
[2021-12-26] MEDS: ANALGESIC BALM CRM 3OZ TOP SCH (22:09)
[2021-12-27] VITALS (19 sets, daily range): BP systolic 167–179; BP diastolic 69–78; O2SAT 81–98
[2021-12-27] MEDS: ACETAMINOPHEN 500 MG TAB PO PRN ×2 (00:59→11:38)
[2021-12-27 07:36] LABS: HEMATOCRIT 30.5 % (36.0-47.0); HEMOGLOBIN 10.1 g/dl (12.0-15.5); MEAN CORPUSCULAR HEMOGLOBIN 30.1 pg (27.0-33.0); MEAN CORPUSCULAR HGB CONC 33.1 g/dl (32.0-36.5); PLATELET COUNT, AUTOMATED 227 10^3/uL (150-450); RED BLOOD COUNT 3.35 10^6/uL (4.00-5.40); WHITE BLOOD COUNT 9.1 10^3/uL (4.0-10.0)
[2021-12-27] MEDS: FLUTICASONE HFA 110MCG 12GM INHALER (FLOVENT) INH SCH ×2 (07:44→20:00)
[2021-12-27] MEDS: BUDESONIDE 0.5 MG/2 ML INHALATION SUSPENSION INH SCH ×2 (07:44→20:11)
[2021-12-27] MEDS: IPRATROPIUM 0.5MG/ALBUTEROL 2.5MG INH SOL UD 3ML (DUONEB) NEB SCH ×6 (07:44→23:44)
[2021-12-27 07:58] LABS: ALBUMIN 3.4 GM/DL (3.2-5.2); CALCIUM LEVEL 9.6 MG/DL (8.8-10.2); CREATININE FOR GFR 2.28 MG/DL (0.55-1.30); GLOMERULAR FILTRATION RATE 21.6 (>32); MAGNESIUM LEVEL 2.6 MG/DL (1.8-2.4); PHOSPHORUS LEVEL 5.4 MG/DL (2.5-4.9)
[2021-12-27] MEDS ORDERED: LIDOCAINE 5% (LIDODERM) PATCH TD SCH (09:00)
[2021-12-27] MEDS: ANALGESIC BALM CRM 3OZ TOP SCH ×3 (09:00→20:31)
[2021-12-27] MEDS: DOCUSATE SODIUM 100MG CAPSULE PO SCH ×2 (09:00→19:59)
[2021-12-27] MEDS: SENNA 8.6 MG TAB (SENOKOT) PO SCH (09:00)
[2021-12-27] MEDS: MIRALAX *UNIT DOSE* 17GM PACKET PO SCH ×2 (09:00→11:46)
[2021-12-27] MEDS: METAMUCIL (PSYLLIUM) PACKET PO SCH ×2 (09:00→19:59)
[2021-12-27] MEDS: INSULIN LISPRO (NovoLOG) PER UNIT SC SCH ×7 (09:10→20:07)
[2021-12-27] MEDS: LEVEMIR (INSULIN DETEMIR) 1 UNITS/0.01ML SC SCH (09:11)
[2021-12-27] MEDS: CEFDINIR 300 MG CAP (OMNICEF) PO SCH (09:11)
[2021-12-27] MEDS: PANTOPRAZOLE 40MG TAB (PROTONIX) PO SCH (09:11)
[2021-12-27] MEDS: METOCLOPRAMIDE 10MG TAB PO SCH (09:11)
[2021-12-27] MEDS: ASPIRIN 81MG ENTERIC TABLET PO SCH (09:11)
[2021-12-27] MEDS: ASCORBIC ACID 500 MG TAB PO SCH ×2 (09:12→20:32)
[2021-12-27] MEDS: MONTELUKAST 10 MG TAB PO SCH (09:12)
[2021-12-27] MEDS: methylPREDNISolone 125MG 2ML VIAL IV SCH (09:12)
[2021-12-27] MEDS: CARVedilol 6.25 MG TAB PO SCH (09:12)
[2021-12-27] MEDS: CETIRIZINE (ZyrTEC) 10 MG TAB PO SCH (09:12)
[2021-12-27] MEDS: ENOXAPARIN 40MG/0.4ML SYRINGE (J1650 PER 10MG) SC SCH ×2 (09:13→20:31)
[2021-12-27] MEDS: **hydrALAZINE HCL** 25 MG TAB PO SCH ×2 (09:13→20:33)
[2021-12-27] MEDS ORDERED: CEFDINIR 300 MG CAP (OMNICEF) PO SCH (11:10)
[2021-12-27] MEDS ORDERED: SENNA 8.6 MG TAB (SENOKOT) PO PRN (11:15)
[2021-12-27] MEDS: allopurinoL 100 MG TAB PO SCH (11:38)
[2021-12-27] MEDS ORDERED: BUMETANIDE 1MG/4ML VIAL IV ONE (12:00)
[2021-12-27] MEDS: HYDROMORPHONE HCL 0.5 MG/ 0.5 ML SYRINGE IV PRN ×2 (14:29→20:32)
[2021-12-27] MEDS ORDERED: FUROSEMIDE 100MG/10ML VIAL IV ONE (17:00)
[2021-12-27] MEDS: ACETAMINOPHEN 500 MG TAB PO SCH (18:27)
[2021-12-27] MEDS: SIMVASTATIN 20 MG TAB PO SCH (20:32)
[2021-12-28] VITALS (7 sets, daily range): BP systolic 146–188; BP diastolic 66–104; O2SAT 95–96
[2021-12-28] MEDS: ACETAMINOPHEN 500 MG TAB PO SCH ×4 (00:30→18:09)
[2021-12-28] MEDS: IPRATROPIUM 0.5MG/ALBUTEROL 2.5MG INH SOL UD 3ML (DUONEB) NEB SCH ×6 (03:43→23:33)
[2021-12-28] MEDS ORDERED: **hydrALAZINE** 50 MG TAB PO ONE (04:05)
[2021-12-28 04:50] LABS: HEMATOCRIT 29.6 % (36.0-47.0); HEMOGLOBIN 9.9 g/dl (12.0-15.5); MEAN CORPUSCULAR HEMOGLOBIN 30.7 pg (27.0-33.0); MEAN CORPUSCULAR HGB CONC 33.4 g/dl (32.0-36.5); MEAN CORPUSCULAR VOLUME 91.9 fl (80.0-96.0); PLATELET COUNT, AUTOMATED 196 10^3/uL (150-450); RED BLOOD COUNT 3.22 10^6/uL (4.00-5.40); WHITE BLOOD COUNT 7.2 10^3/uL (4.0-10.0)
[2021-12-28 05:23] LABS: ALBUMIN 3.4 GM/DL (3.2-5.2); CALCIUM LEVEL 9.5 MG/DL (8.8-10.2); CREATININE FOR GFR 2.48 MG/DL (0.55-1.30); GLOMERULAR FILTRATION RATE 19.6 (>32); MAGNESIUM LEVEL 2.6 MG/DL (1.8-2.4); PHOSPHORUS LEVEL 6.1 MG/DL (2.5-4.9); POTASSIUM SERUM 5.2 MEQ/L (3.5-5.1)
[2021-12-28] MEDS: FLUTICASONE HFA 110MCG 12GM INHALER (FLOVENT) INH SCH ×2 (07:26→20:00)
[2021-12-28] MEDS: BUDESONIDE 0.5 MG/2 ML INHALATION SUSPENSION INH SCH ×2 (07:26→20:50)
[2021-12-28] MEDS: INSULIN LISPRO (NovoLOG) PER UNIT SC SCH ×7 (07:30→21:00)
[2021-12-28] MEDS: METAMUCIL (PSYLLIUM) PACKET PO SCH ×2 (08:50→21:44)
[2021-12-28] MEDS: MIRALAX *UNIT DOSE* 17GM PACKET PO SCH (08:50)
[2021-12-28] MEDS: ASCORBIC ACID 500 MG TAB PO SCH ×2 (08:51→21:45)
[2021-12-28] MEDS: DOCUSATE SODIUM 100MG CAPSULE PO SCH ×2 (08:51→21:46)
[2021-12-28] MEDS: ASPIRIN 81MG ENTERIC TABLET PO SCH (08:51)
[2021-12-28] MEDS: methylPREDNISolone 125MG 2ML VIAL IV SCH (08:51)
[2021-12-28] MEDS: ANALGESIC BALM CRM 3OZ TOP SCH ×3 (08:51→21:53)
[2021-12-28] MEDS: CETIRIZINE (ZyrTEC) 10 MG TAB PO SCH (08:52)
[2021-12-28] MEDS: PANTOPRAZOLE 40MG TAB (PROTONIX) PO SCH (08:52)
[2021-12-28] MEDS: ENOXAPARIN 40MG/0.4ML SYRINGE (J1650 PER 10MG) SC SCH ×2 (08:52→21:46)
[2021-12-28] MEDS: METOCLOPRAMIDE 10MG TAB PO SCH (08:52)
[2021-12-28] MEDS: **hydrALAZINE HCL** 25 MG TAB PO SCH ×2 (08:52→21:45)
[2021-12-28] MEDS: HYDROMORPHONE HCL 0.5 MG/ 0.5 ML SYRINGE IV PRN ×3 (08:53→21:47)
[2021-12-28] MEDS: LEVEMIR (INSULIN DETEMIR) 1 UNITS/0.01ML SC SCH (08:54)
[2021-12-28] MEDS ORDERED: LIDOCAINE 5% (LIDODERM) PATCH TD SCH (09:00)
[2021-12-28] MEDS ORDERED: PATIROMER SORBITEX CALCIUM 8.4 GM POWDER PACKET (VELTASSA) PO ONE (12:00)
[2021-12-28] MEDS: MONTELUKAST 10 MG TAB PO SCH (12:04)
[2021-12-28] MEDS: allopurinoL 100 MG TAB PO SCH (12:04)
[2021-12-28] MEDS: NS 1,000 ML IV SCH (12:06)
[2021-12-28] MEDS: SIMVASTATIN 20 MG TAB PO SCH (21:45)
[2021-12-29] VITALS (7 sets, daily range): BP systolic 128–169; BP diastolic 66–90
[2021-12-29] MEDS: ACETAMINOPHEN 500 MG TAB PO SCH ×4 (00:38→17:52)
[2021-12-29] MEDS: IPRATROPIUM 0.5MG/ALBUTEROL 2.5MG INH SOL UD 3ML (DUONEB) NEB SCH ×6 (04:00→23:38)
[2021-12-29] MEDS: HYDROMORPHONE HCL 0.5 MG/ 0.5 ML SYRINGE IV PRN (04:20)
[2021-12-29] MEDS: NS 1,000 ML IV SCH (06:16)
[2021-12-29 07:03] LABS: HEMATOCRIT 29.7 % (36.0-47.0); MEAN CORPUSCULAR HEMOGLOBIN 30.5 pg (27.0-33.0); MEAN CORPUSCULAR HGB CONC 33.7 g/dl (32.0-36.5); MEAN CORPUSCULAR VOLUME 90.5 fl (80.0-96.0); PLATELET COUNT, AUTOMATED 203 10^3/uL (150-450); RED BLOOD COUNT 3.28 10^6/uL (4.00-5.40); WHITE BLOOD COUNT 9.2 10^3/uL (4.0-10.0)
[2021-12-29] MEDS: INSULIN LISPRO (NovoLOG) PER UNIT SC SCH ×7 (07:30→20:56)
[2021-12-29] MEDS: BUDESONIDE 0.5 MG/2 ML INHALATION SUSPENSION INH SCH ×2 (07:56→20:22)
[2021-12-29] MEDS: FLUTICASONE HFA 110MCG 12GM INHALER (FLOVENT) INH SCH ×2 (07:57→20:22)
[2021-12-29 08:16] LABS: ALBUMIN 3.4 GM/DL (3.2-5.2); CREATININE FOR GFR 2.35 MG/DL (0.55-1.30); GLOMERULAR FILTRATION RATE 20.9 (>32); MAGNESIUM LEVEL 2.4 MG/DL (1.8-2.4); PHOSPHORUS LEVEL 5.1 MG/DL (2.5-4.9); POTASSIUM SERUM 4.9 MEQ/L (3.5-5.1)
[2021-12-29] MEDS: LEVEMIR (INSULIN DETEMIR) 1 UNITS/0.01ML SC SCH (09:00)
[2021-12-29] MEDS: ENOXAPARIN 40MG/0.4ML SYRINGE (J1650 PER 10MG) SC SCH ×2 (09:02→20:54)
[2021-12-29] MEDS: methylPREDNISolone 125MG 2ML VIAL IV SCH (09:03)
[2021-12-29] MEDS: ASCORBIC ACID 500 MG TAB PO SCH ×2 (09:04→20:55)
[2021-12-29] MEDS: MONTELUKAST 10 MG TAB PO SCH (09:04)
[2021-12-29] MEDS: ASPIRIN 81MG ENTERIC TABLET PO SCH (09:04)
[2021-12-29] MEDS: DOCUSATE SODIUM 100MG CAPSULE PO SCH ×2 (09:04→20:55)
[2021-12-29] MEDS: PANTOPRAZOLE 40MG TAB (PROTONIX) PO SCH (09:04)
[2021-12-29] MEDS: CETIRIZINE (ZyrTEC) 10 MG TAB PO SCH (09:04)
[2021-12-29] MEDS: **hydrALAZINE HCL** 25 MG TAB PO SCH ×2 (09:05→20:56)
[2021-12-29] MEDS: METOCLOPRAMIDE 10MG TAB PO SCH (09:17)
[2021-12-29] MEDS: ANALGESIC BALM CRM 3OZ TOP SCH ×3 (09:20→20:57)
[2021-12-29] MEDS: METAMUCIL (PSYLLIUM) PACKET PO SCH ×2 (10:27→20:54)
[2021-12-29] MEDS: MIRALAX *UNIT DOSE* 17GM PACKET PO SCH (10:27)
[2021-12-29 10:43] LABS: POTASSIUM SERUM 4.9 MEQ/L (3.5-5.1)
[2021-12-29] MEDS: SODIUM CHLORIDE 3% 500 ML IV SCH (11:26)
[2021-12-29] MEDS: allopurinoL 100 MG TAB PO SCH (12:10)
[2021-12-29] MEDS: predniSONE 20 MG TAB PO SCH (12:10)
[2021-12-29 16:12] LABS: POTASSIUM SERUM 5.1 MEQ/L (3.5-5.1)
[2021-12-29 20:55] LABS: POTASSIUM SERUM 5.4 MEQ/L (3.5-5.1)
[2021-12-29] MEDS: SIMVASTATIN 20 MG TAB PO SCH (20:55)
[2021-12-30] VITALS (15 sets, daily range): BP systolic 136–180; BP diastolic 66–92; O2SAT 95–100
[2021-12-30] MEDS: SODIUM CHLORIDE 3% 500 ML IV SCH (01:20)
[2021-12-30] MEDS: ACETAMINOPHEN 500 MG TAB PO SCH ×4 (01:21→18:15)
[2021-12-30] MEDS: NS 1,000 ML IV SCH (02:00)
[2021-12-30] MEDS: HYDROMORPHONE HCL 0.5 MG/ 0.5 ML SYRINGE IV PRN (02:36)
[2021-12-30 06:32] LABS: HEMATOCRIT 30.6 % (36.0-47.0); HEMOGLOBIN 10.3 g/dl (12.0-15.5); MEAN CORPUSCULAR HEMOGLOBIN 30.7 pg (27.0-33.0); MEAN CORPUSCULAR HGB CONC 33.7 g/dl (32.0-36.5); MEAN CORPUSCULAR VOLUME 91.1 fl (80.0-96.0); PLATELET COUNT, AUTOMATED 186 10^3/uL (150-450); RED BLOOD COUNT 3.36 10^6/uL (4.00-5.40); WHITE BLOOD COUNT 8.8 10^3/uL (4.0-10.0)
[2021-12-30] MEDS: IPRATROPIUM 0.5MG/ALBUTEROL 2.5MG INH SOL UD 3ML (DUONEB) NEB SCH ×5 (07:06→20:55)
[2021-12-30] MEDS: BUDESONIDE 0.5 MG/2 ML INHALATION SUSPENSION INH SCH ×2 (07:06→20:00)
[2021-12-30] MEDS: FLUTICASONE HFA 110MCG 12GM INHALER (FLOVENT) INH SCH ×2 (07:07→20:48)
[2021-12-30 07:15] LABS: ALBUMIN 3.3 GM/DL (3.2-5.2); CALCIUM LEVEL 8.6 MG/DL (8.8-10.2); CREATININE FOR GFR 2.29 MG/DL (0.55-1.30); GLOMERULAR FILTRATION RATE 21.5 (>32); MAGNESIUM LEVEL 2.4 MG/DL (1.8-2.4); PHOSPHORUS LEVEL 5.1 MG/DL (2.5-4.9); POTASSIUM SERUM 5.3 MEQ/L (3.5-5.1)
[2021-12-30] MEDS: MIRALAX *UNIT DOSE* 17GM PACKET PO SCH (08:58)
[2021-12-30] MEDS: ENOXAPARIN 40MG/0.4ML SYRINGE (J1650 PER 10MG) SC SCH ×2 (08:58→21:10)
[2021-12-30] MEDS: METAMUCIL (PSYLLIUM) PACKET PO SCH ×2 (08:58→21:14)
[2021-12-30] MEDS: ASPIRIN 81MG ENTERIC TABLET PO SCH (08:59)
[2021-12-30] MEDS: MONTELUKAST 10 MG TAB PO SCH (08:59)
[2021-12-30] MEDS: LEVEMIR (INSULIN DETEMIR) 1 UNITS/0.01ML SC SCH (08:59)
[2021-12-30] MEDS: INSULIN LISPRO (NovoLOG) PER UNIT SC SCH ×7 (08:59→21:00)
[2021-12-30] MEDS: ASCORBIC ACID 500 MG TAB PO SCH ×2 (08:59→21:10)
[2021-12-30] MEDS: **hydrALAZINE HCL** 25 MG TAB PO SCH ×2 (09:00→21:13)
[2021-12-30] MEDS: DOCUSATE SODIUM 100MG CAPSULE PO SCH ×2 (09:00→21:13)
[2021-12-30] MEDS: METOCLOPRAMIDE 10MG TAB PO SCH (09:00)
[2021-12-30] MEDS: PANTOPRAZOLE 40MG TAB (PROTONIX) PO SCH (09:00)
[2021-12-30] MEDS: oxyCODONE 5MG TAB PO PRN (09:00)
[2021-12-30] MEDS: CETIRIZINE (ZyrTEC) 10 MG TAB PO SCH (09:00)
[2021-12-30] MEDS: ANALGESIC BALM CRM 3OZ TOP SCH ×3 (09:01→21:15)
[2021-12-30] MEDS: predniSONE 20 MG TAB PO SCH (09:01)
[2021-12-30] MEDS ORDERED: metOLazone 5 MG TAB PO ONE (10:15)
[2021-12-30] MEDS ORDERED: ESMOLOL INJ 100MG/10ML VIAL As Ordered ONE (11:28)
[2021-12-30] MEDS ORDERED: propofoL 200 MG/20 ML VIAL As Ordered ONE (11:30)
[2021-12-30] MEDS ORDERED: LIDOCAINE 2% 100MG/5ML SDV (FOR ANES.) As Ordered ONE ×2 (11:31→11:40)
[2021-12-30] MEDS: allopurinoL 100 MG TAB PO SCH (12:19)
[2021-12-30 14:55] LABS: POTASSIUM SERUM 5.2 MEQ/L (3.5-5.1)
[2021-12-30] MEDS: FUROSEMIDE injection 250 MG in D5W 225 ML IV SCH (17:22)
[2021-12-30] MEDS: SIMVASTATIN 20 MG TAB PO SCH (21:15)
[2021-12-30 21:33] LABS: POTASSIUM SERUM 5.3 MEQ/L (3.5-5.1)
[2021-12-31] VITALS (15 sets, daily range): BP systolic 108–162; BP diastolic 60–82; O2SAT 89–100
[2021-12-31] MEDS: IPRATROPIUM 0.5MG/ALBUTEROL 2.5MG INH SOL UD 3ML (DUONEB) NEB SCH ×7 (00:08→23:48)
[2021-12-31] MEDS: ACETAMINOPHEN 500 MG TAB PO SCH ×4 (00:48→18:12)
[2021-12-31 04:07] LABS: OSMOLALITY URINE 282 MOSM/KG (50-1400)
[2021-12-31 04:21] LABS: SODIUM,RANDOM URINE 34 MEQ/L
[2021-12-31] MEDS: FUROSEMIDE injection 250 MG in D5W 225 ML IV SCH ×2 (04:49→13:08)
[2021-12-31 07:17] LABS: ALBUMIN 3.4 GM/DL (3.2-5.2); CALCIUM LEVEL 8.6 MG/DL (8.8-10.2); CREATININE FOR GFR 2.35 MG/DL (0.55-1.30); GLOMERULAR FILTRATION RATE 20.9 (>32); POTASSIUM SERUM 4.8 MEQ/L (3.5-5.1)
[2021-12-31] MEDS: BUDESONIDE 0.5 MG/2 ML INHALATION SUSPENSION INH SCH ×2 (08:02→20:01)
[2021-12-31] MEDS: FLUTICASONE HFA 110MCG 12GM INHALER (FLOVENT) INH SCH ×2 (08:02→20:01)
[2021-12-31 08:13] LABS: POTASSIUM SERUM 4.9 MEQ/L (3.5-5.1)
[2021-12-31] MEDS: HYDROMORPHONE HCL 0.5 MG/ 0.5 ML SYRINGE IV PRN ×2 (09:01→12:20)
[2021-12-31] MEDS: LEVEMIR (INSULIN DETEMIR) 1 UNITS/0.01ML SC SCH (10:06)
[2021-12-31] MEDS: INSULIN LISPRO (NovoLOG) PER UNIT SC SCH ×7 (10:06→20:53)
[2021-12-31] MEDS: ENOXAPARIN 40MG/0.4ML SYRINGE (J1650 PER 10MG) SC SCH (10:07)
[2021-12-31] MEDS: MIRALAX *UNIT DOSE* 17GM PACKET PO SCH ×2 (10:07→21:17)
[2021-12-31] MEDS: METAMUCIL (PSYLLIUM) PACKET PO SCH ×2 (10:07→21:17)
[2021-12-31] MEDS: ASCORBIC ACID 500 MG TAB PO SCH ×2 (10:08→21:18)
[2021-12-31] MEDS: **hydrALAZINE HCL** 25 MG TAB PO SCH ×2 (10:08→21:18)
[2021-12-31] MEDS: METOCLOPRAMIDE 10MG TAB PO SCH (10:08)
[2021-12-31] MEDS: DOCUSATE SODIUM 100MG CAPSULE PO SCH ×2 (10:08→21:17)
[2021-12-31] MEDS: MONTELUKAST 10 MG TAB PO SCH (10:08)
[2021-12-31] MEDS: ASPIRIN 81MG ENTERIC TABLET PO SCH (10:09)
[2021-12-31] MEDS: predniSONE 20 MG TAB PO SCH (10:09)
[2021-12-31] MEDS: PANTOPRAZOLE 40MG TAB (PROTONIX) PO SCH (10:09)
[2021-12-31] MEDS: CETIRIZINE (ZyrTEC) 10 MG TAB PO SCH (10:09)
[2021-12-31] MEDS: ANALGESIC BALM CRM 3OZ TOP SCH ×3 (10:10→21:19)
[2021-12-31] MEDS ORDERED: LIDOCAINE 1% MDV 20ML VIAL As Ordered ONE (10:29)
[2021-12-31] MEDS ORDERED: HYDROmorphone HCL 2MG/ML 1ML VIAL As Ordered ONE (11:59)
[2021-12-31] MEDS: SENNA 8.6 MG TAB (SENOKOT) PO SCH (13:06)
[2021-12-31] MEDS: allopurinoL 100 MG TAB PO SCH (13:07)
[2021-12-31 13:20] LABS: HEMATOCRIT 28.9 % (36.0-47.0); HEMOGLOBIN 9.8 g/dl (12.0-15.5); MEAN CORPUSCULAR HEMOGLOBIN 31.1 pg (27.0-33.0); MEAN CORPUSCULAR HGB CONC 33.9 g/dl (32.0-36.5); MEAN CORPUSCULAR VOLUME 91.7 fl (80.0-96.0); RED BLOOD COUNT 3.15 10^6/uL (4.00-5.40); WHITE BLOOD COUNT 9.9 10^3/uL (4.0-10.0)
[2021-12-31 13:50] LABS: PLATELET COUNT, AUTOMATED 49 10^3/uL (150-450)
[2021-12-31 14:38] LABS: PLTBLUE- EDTA FREE CALC 161 K/mm3 (172-450); PLTBLUE- EDTA FREE MACHINE 146 10^3/uL (172-450)
[2021-12-31 14:55] LABS: INR 1.07; PROTHROMBIN TIME 14.1 SECONDS (12.5-14.5)
[2021-12-31 15:33] LABS: POTASSIUM SERUM 4.3 MEQ/L (3.5-5.1)
[2021-12-31] MEDS ORDERED: TOLVAPTAN 15 MG TAB (SAMSCA) PO ONE (16:50)
[2021-12-31] MEDS: SODIUM CHLORIDE 0.9% INJ 10 ML SYR IV SCH (18:14)
[2021-12-31 19:57] LABS: SODIUM,RANDOM URINE 49 MEQ/L
[2021-12-31 20:23] LABS: HEMATOCRIT 26.7 % (36.0-47.0); HEMOGLOBIN 9.1 g/dl (12.0-15.5); MEAN CORPUSCULAR HEMOGLOBIN 30.6 pg (27.0-33.0); MEAN CORPUSCULAR HGB CONC 34.1 g/dl (32.0-36.5); MEAN CORPUSCULAR VOLUME 89.9 fl (80.0-96.0); RED BLOOD COUNT 2.97 10^6/uL (4.00-5.40); WHITE BLOOD COUNT 7.2 10^3/uL (4.0-10.0)
[2021-12-31 20:25] LABS: PLATELET COUNT, AUTOMATED 176 10^3/uL (150-450)
[2021-12-31 20:46] LABS: POTASSIUM SERUM 4.7 MEQ/L (3.5-5.1)
[2021-12-31 21:08] LABS: OSMOLALITY URINE 266 MOSM/KG (50-1400)
[2021-12-31] MEDS: SIMVASTATIN 20 MG TAB PO SCH (21:18)
[2022-01-01] VITALS (16 sets, daily range): BP systolic 122–166; BP diastolic 59–74; O2SAT 95–100
[2022-01-01] MEDS: ACETAMINOPHEN 500 MG TAB PO SCH ×4 (00:25→18:44)
[2022-01-01] MEDS: IPRATROPIUM 0.5MG/ALBUTEROL 2.5MG INH SOL UD 3ML (DUONEB) NEB SCH ×5 (03:35→18:02)
[2022-01-01] MEDS: SODIUM CHLORIDE 0.9% INJ 10 ML SYR IV SCH ×2 (05:49→18:00)
[2022-01-01 06:34] LABS: HEMATOCRIT 26.1 % (36.0-47.0); HEMOGLOBIN 9.1 g/dl (12.0-15.5); MEAN CORPUSCULAR HEMOGLOBIN 31.3 pg (27.0-33.0); MEAN CORPUSCULAR HGB CONC 34.9 g/dl (32.0-36.5); MEAN CORPUSCULAR VOLUME 89.7 fl (80.0-96.0); PLATELET COUNT, AUTOMATED 162 10^3/uL (150-450); RED BLOOD COUNT 2.91 10^6/uL (4.00-5.40); WHITE BLOOD COUNT 6.8 10^3/uL (4.0-10.0)
[2022-01-01 06:44] LABS: INR 0.96
[2022-01-01] MEDS: FLUTICASONE HFA 110MCG 12GM INHALER (FLOVENT) INH SCH (07:23)
[2022-01-01] MEDS: BUDESONIDE 0.5 MG/2 ML INHALATION SUSPENSION INH SCH ×2 (07:23→18:02)
[2022-01-01 07:36] LABS: SODIUM,RANDOM URINE 35 MEQ/L
[2022-01-01] MEDS ORDERED: predniSONE 20 MG TAB PO SCH (09:00)
[2022-01-01] MEDS ORDERED: HEPARIN SOD (PORCINE) 5000UNITS/ML 1ML VIAL/SYRINGE SQ SCH (09:00)
[2022-01-01] MEDS: LEVEMIR (INSULIN DETEMIR) 1 UNITS/0.01ML SC SCH (09:13)
[2022-01-01] MEDS: INSULIN LISPRO (NovoLOG) PER UNIT SC SCH ×7 (09:14→21:00)
[2022-01-01] MEDS: METAMUCIL (PSYLLIUM) PACKET PO SCH ×2 (09:15→21:39)
[2022-01-01] MEDS: MIRALAX *UNIT DOSE* 17GM PACKET PO SCH ×2 (09:16→21:39)
[2022-01-01] MEDS: ASPIRIN 81MG ENTERIC TABLET PO SCH (09:17)
[2022-01-01] MEDS: **hydrALAZINE HCL** 25 MG TAB PO SCH ×3 (09:24→21:40)
[2022-01-01 09:25] LABS: CALCIUM LEVEL 8.8 MG/DL (8.8-10.2); CREATININE FOR GFR 2.32 MG/DL (0.55-1.30); GLOMERULAR FILTRATION RATE 21.2 (>32); POTASSIUM SERUM 4.1 MEQ/L (3.5-5.1)
[2022-01-01] MEDS: DOCUSATE SODIUM 100MG CAPSULE PO SCH ×2 (09:25→21:39)
[2022-01-01] MEDS: ASCORBIC ACID 500 MG TAB PO SCH ×2 (09:25→21:40)
[2022-01-01] MEDS: oxyCODONE 5MG TAB PO PRN ×2 (09:28→18:10)
[2022-01-01] MEDS: METOCLOPRAMIDE 10MG TAB PO SCH (09:28)
[2022-01-01] MEDS: SENNA 8.6 MG TAB (SENOKOT) PO SCH (09:28)
[2022-01-01] MEDS: MONTELUKAST 10 MG TAB PO SCH (09:29)
[2022-01-01] MEDS: CETIRIZINE (ZyrTEC) 10 MG TAB PO SCH (09:30)
[2022-01-01] MEDS: PANTOPRAZOLE 40MG TAB (PROTONIX) PO SCH (09:30)
[2022-01-01] MEDS: ANALGESIC BALM CRM 3OZ TOP SCH ×3 (09:38→21:43)
[2022-01-01 10:45] LABS: OSMOLALITY URINE 227 MOSM/KG (50-1400)
[2022-01-01] MEDS ORDERED: metOLazone 2.5 MG TAB PO ONE (11:30)
[2022-01-01] MEDS ORDERED: FUROSEMIDE injection 250 MG in D5W 225 ML IV SCH (12:00)
[2022-01-01] MEDS: allopurinoL 100 MG TAB PO SCH (12:47)
[2022-01-01] MEDS ORDERED: HYDROMORPHONE HCL 0.5 MG/ 0.5 ML SYRINGE IV PRN (13:00)
[2022-01-01] MEDS ORDERED: BISACODYL 10MG SUPP PR ONE (13:00)
[2022-01-01] MEDS: FUROSEMIDE injection 250 MG in D5W 225 ML IV SCH ×2 (13:27→18:13)
[2022-01-01] MEDS: HEPARIN SOD (PORCINE) 5000UNITS/ML 1ML VIAL/SYRINGE SQ SCH ×2 (15:31→21:42)
[2022-01-01 20:51] LABS: OSMOLALITY URINE 234 MOSM/KG (50-1400)
[2022-01-01 21:16] LABS: SODIUM,RANDOM URINE 43 MEQ/L
[2022-01-01] MEDS: SIMVASTATIN 20 MG TAB PO SCH (21:40)
[2022-01-01 22:37] LABS: CALCIUM LEVEL 8.2 MG/DL (8.8-10.2); CREATININE FOR GFR 2.16 MG/DL (0.55-1.30); POTASSIUM SERUM 3.6 MEQ/L (3.5-5.1)
[2022-01-02] VITALS (25 sets, daily range): BP systolic 117–151; BP diastolic 59–71; O2SAT 94–100
[2022-01-02] MEDS: FUROSEMIDE injection 250 MG in D5W 225 ML IV SCH ×5 (00:01→23:45)
[2022-01-02] MEDS: ACETAMINOPHEN 500 MG TAB PO SCH ×5 (00:02→23:45)
[2022-01-02 02:22] LABS: CALCIUM LEVEL 8.5 MG/DL (8.8-10.2); CREATININE FOR GFR 2.14 MG/DL (0.55-1.30); GLOMERULAR FILTRATION RATE 23.3 (>32); POTASSIUM SERUM 3.5 MEQ/L (3.5-5.1)
[2022-01-02] MEDS: IPRATROPIUM 0.5MG/ALBUTEROL 2.5MG INH SOL UD 3ML (DUONEB) NEB SCH ×7 (03:25→23:10)
[2022-01-02] MEDS: HEPARIN SOD (PORCINE) 5000UNITS/ML 1ML VIAL/SYRINGE SQ SCH ×2 (05:54→14:33)
[2022-01-02] MEDS: SODIUM CHLORIDE 0.9% INJ 10 ML SYR IV SCH ×2 (05:54→17:26)
[2022-01-02 06:02] LABS: HEMATOCRIT 24.3 % (36.0-47.0); HEMOGLOBIN 8.6 g/dl (12.0-15.5); MEAN CORPUSCULAR HEMOGLOBIN 31.3 pg (27.0-33.0); MEAN CORPUSCULAR HGB CONC 35.4 g/dl (32.0-36.5); MEAN CORPUSCULAR VOLUME 88.4 fl (80.0-96.0); PLATELET COUNT, AUTOMATED 146 10^3/uL (150-450); RED BLOOD COUNT 2.75 10^6/uL (4.00-5.40); WHITE BLOOD COUNT 7.5 10^3/uL (4.0-10.0)
[2022-01-02 06:16] LABS: INR 1.1; PROTHROMBIN TIME 14.4 SECONDS (12.5-14.5)
[2022-01-02 06:43] LABS: CALCIUM LEVEL 8.3 MG/DL (8.8-10.2); CREATININE FOR GFR 2.03 MG/DL (0.55-1.30); GLOMERULAR FILTRATION RATE 24.7 (>32); POTASSIUM SERUM 3.2 MEQ/L (3.5-5.1)
[2022-01-02] MEDS: BUDESONIDE 0.5 MG/2 ML INHALATION SUSPENSION INH SCH ×2 (08:00→19:29)
[2022-01-02 08:32] LABS: OSMOLALITY URINE 264 MOSM/KG (50-1400)
[2022-01-02 08:57] LABS: SODIUM,RANDOM URINE 41 MEQ/L
[2022-01-02] MEDS: ASCORBIC ACID 500 MG TAB PO SCH ×2 (08:58→20:30)
[2022-01-02] MEDS: SENNA 8.6 MG TAB (SENOKOT) PO SCH (08:58)
[2022-01-02] MEDS: METOCLOPRAMIDE 10MG TAB PO SCH (08:58)
[2022-01-02] MEDS: MONTELUKAST 10 MG TAB PO SCH (08:58)
[2022-01-02] MEDS: PANTOPRAZOLE 40MG TAB (PROTONIX) PO SCH (08:58)
[2022-01-02] MEDS: CETIRIZINE (ZyrTEC) 10 MG TAB PO SCH (08:58)
[2022-01-02] MEDS: predniSONE 20 MG TAB PO SCH (08:58)
[2022-01-02] MEDS: MIRALAX *UNIT DOSE* 17GM PACKET PO SCH ×2 (08:59→20:29)
[2022-01-02] MEDS: METAMUCIL (PSYLLIUM) PACKET PO SCH ×2 (08:59→20:29)
[2022-01-02] MEDS: **hydrALAZINE HCL** 25 MG TAB PO SCH ×2 (08:59→16:47)
[2022-01-02] MEDS: ASPIRIN 81MG ENTERIC TABLET PO SCH (08:59)
[2022-01-02] MEDS: LEVEMIR (INSULIN DETEMIR) 1 UNITS/0.01ML SC SCH (08:59)
[2022-01-02] MEDS: INSULIN LISPRO (NovoLOG) PER UNIT SC SCH ×7 (09:00→20:31)
[2022-01-02] MEDS: DOCUSATE SODIUM 100MG CAPSULE PO SCH ×2 (09:02→20:30)
[2022-01-02] MEDS: ANALGESIC BALM CRM 3OZ TOP SCH ×3 (09:03→20:30)
[2022-01-02] MEDS: POTASSIUM CHLORIDE 10MEQ SR TABLET PO SCH ×3 (11:10→20:29)
[2022-01-02] MEDS: allopurinoL 100 MG TAB PO SCH (11:53)
[2022-01-02] MEDS: SODIUM CHLORIDE 3% 500 ML IV SCH (12:04)
[2022-01-02 18:31] LABS: OSMOLALITY URINE 261 MOSM/KG (50-1400)
[2022-01-02 18:38] LABS: SODIUM,RANDOM URINE 41 MEQ/L
[2022-01-02] MEDS: CARVedilol 3.125 MG TAB PO SCH (18:42)
[2022-01-02 20:28] LABS: CALCIUM LEVEL 8.4 MG/DL (8.8-10.2); CREATININE FOR GFR 2.14 MG/DL (0.55-1.30); GLOMERULAR FILTRATION RATE 23.3 (>32); POTASSIUM SERUM 3.9 MEQ/L (3.5-5.1)
[2022-01-02] MEDS: SIMVASTATIN 20 MG TAB PO SCH (20:29)
[2022-01-02] MEDS: APIXABAN 2.5 MG TAB (ELIQUIS) PO SCH (20:30)
[2022-01-02] MEDS: **hydrALAZINE** 50 MG TAB PO SCH (20:34)
[2022-01-03] VITALS (19 sets, daily range): BP systolic 129–153; BP diastolic 54–110; O2SAT 90–99
[2022-01-03] MEDS: SODIUM CHLORIDE 3% 500 ML IV SCH ×2 (02:29→12:00)
[2022-01-03] MEDS: IPRATROPIUM 0.5MG/ALBUTEROL 2.5MG INH SOL UD 3ML (DUONEB) NEB SCH ×3 (04:00→12:00)
[2022-01-03] MEDS: SODIUM CHLORIDE 0.9% INJ 10 ML SYR IV SCH ×2 (05:12→17:50)
[2022-01-03] MEDS: FUROSEMIDE injection 250 MG in D5W 225 ML IV SCH ×3 (05:34→18:27)
[2022-01-03] MEDS: ACETAMINOPHEN 500 MG TAB PO SCH ×3 (06:24→21:01)
[2022-01-03 07:12] LABS: HEMATOCRIT 27.3 % (36.0-47.0); HEMOGLOBIN 9.4 g/dl (12.0-15.5); MEAN CORPUSCULAR HEMOGLOBIN 30.8 pg (27.0-33.0); MEAN CORPUSCULAR HGB CONC 34.4 g/dl (32.0-36.5); MEAN CORPUSCULAR VOLUME 89.5 fl (80.0-96.0); PLATELET COUNT, AUTOMATED 157 10^3/uL (150-450); RED BLOOD COUNT 3.05 10^6/uL (4.00-5.40); WHITE BLOOD COUNT 9.7 10^3/uL (4.0-10.0)
[2022-01-03 07:17] LABS: INR 1.09; PROTHROMBIN TIME 14.3 SECONDS (12.5-14.5)
[2022-01-03] MEDS: BUDESONIDE 0.5 MG/2 ML INHALATION SUSPENSION INH SCH ×2 (07:18→20:00)
[2022-01-03] MEDS: INSULIN LISPRO (NovoLOG) PER UNIT SC SCH ×4 (07:30→22:44)
[2022-01-03 08:09] LABS: CALCIUM LEVEL 8.7 MG/DL (8.8-10.2); CREATININE FOR GFR 2.02 MG/DL (0.55-1.30); GLOMERULAR FILTRATION RATE 24.9 (>32); MAGNESIUM LEVEL 2.3 MG/DL (1.8-2.4); PHOSPHORUS LEVEL 4.6 MG/DL (2.5-4.9)
[2022-01-03] MEDS: CETIRIZINE (ZyrTEC) 10 MG TAB PO SCH (08:39)
[2022-01-03] MEDS: DOCUSATE SODIUM 100MG CAPSULE PO SCH ×2 (08:39→20:54)
[2022-01-03] MEDS: **hydrALAZINE** 50 MG TAB PO SCH ×3 (08:39→21:01)
[2022-01-03] MEDS: predniSONE 20 MG TAB PO SCH (08:39)
[2022-01-03] MEDS: SENNA 8.6 MG TAB (SENOKOT) PO SCH (08:39)
[2022-01-03] MEDS: ASCORBIC ACID 500 MG TAB PO SCH ×2 (08:39→20:54)
[2022-01-03] MEDS: METAMUCIL (PSYLLIUM) PACKET PO SCH ×2 (08:40→20:53)
[2022-01-03] MEDS: MIRALAX *UNIT DOSE* 17GM PACKET PO SCH ×2 (08:40→20:53)
[2022-01-03] MEDS: ANALGESIC BALM CRM 3OZ TOP SCH ×3 (08:40→20:57)
[2022-01-03] MEDS: APIXABAN 2.5 MG TAB (ELIQUIS) PO SCH ×2 (08:40→20:54)
[2022-01-03] MEDS: CARVedilol 3.125 MG TAB PO SCH (08:40)
[2022-01-03] MEDS: PANTOPRAZOLE 40MG TAB (PROTONIX) PO SCH (08:40)
[2022-01-03] MEDS: METOCLOPRAMIDE 10MG TAB PO SCH (08:40)
[2022-01-03] MEDS: MONTELUKAST 10 MG TAB PO SCH (08:40)
[2022-01-03] MEDS: ASPIRIN 81MG ENTERIC TABLET PO SCH (08:40)
[2022-01-03] MEDS: allopurinoL 100 MG TAB PO SCH (11:58)
[2022-01-03] MEDS: CLOTRIMAZOLE 1% TOPICAL CREAM 30GM TOP SCH ×2 (11:59→20:57)
[2022-01-03] MEDS: oxyCODONE 5MG TAB PO PRN ×2 (12:14→20:55)
[2022-01-03] MEDS: COMBIVENT RESPIMAT 100-20MCG INHALER 4GM INH SCH ×2 (15:39→20:24)
[2022-01-03] MEDS: SIMVASTATIN 20 MG TAB PO SCH (20:54)
[2022-01-03] MEDS ORDERED: NYSTATIN OINTMENT 15 GM TOP SCH (21:00)
[2022-01-04] VITALS (21 sets, daily range): BP systolic 116–139; BP diastolic 56–76; O2SAT 98–100
[2022-01-04] MEDS: COMBIVENT RESPIMAT 100-20MCG INHALER 4GM INH SCH ×6 (00:06→19:35)
[2022-01-04] MEDS: FUROSEMIDE injection 250 MG in D5W 225 ML IV SCH ×4 (00:10→17:33)
[2022-01-04] MEDS: SODIUM CHLORIDE 3% 500 ML IV SCH ×2 (00:39→14:35)
[2022-01-04] MEDS: SODIUM CHLORIDE 0.9% INJ 10 ML SYR IV SCH ×2 (05:11→17:22)
[2022-01-04] MEDS: ACETAMINOPHEN 500 MG TAB PO SCH ×3 (05:11→21:28)
[2022-01-04] MEDS: BUDESONIDE 0.5 MG/2 ML INHALATION SUSPENSION INH SCH ×2 (08:00→19:35)
[2022-01-04] MEDS: METAMUCIL (PSYLLIUM) PACKET PO SCH ×2 (09:00→21:00)
[2022-01-04] MEDS: SENNA 8.6 MG TAB (SENOKOT) PO SCH (09:00)
[2022-01-04] MEDS: DOCUSATE SODIUM 100MG CAPSULE PO SCH ×2 (09:00→21:00)
[2022-01-04] MEDS: CARVedilol 3.125 MG TAB PO SCH ×2 (09:00→09:08)
[2022-01-04] MEDS: MIRALAX *UNIT DOSE* 17GM PACKET PO SCH ×2 (09:00→21:00)
[2022-01-04] MEDS: predniSONE 20 MG TAB PO SCH (09:07)
[2022-01-04] MEDS: METOCLOPRAMIDE 10MG TAB PO SCH (09:08)
[2022-01-04] MEDS: MONTELUKAST 10 MG TAB PO SCH (09:08)
[2022-01-04] MEDS: **hydrALAZINE** 50 MG TAB PO SCH ×3 (09:08→21:29)
[2022-01-04] MEDS: PANTOPRAZOLE 40MG TAB (PROTONIX) PO SCH (09:08)
[2022-01-04] MEDS: CETIRIZINE (ZyrTEC) 10 MG TAB PO SCH (09:09)
[2022-01-04] MEDS: ASCORBIC ACID 500 MG TAB PO SCH ×2 (09:09→21:30)
[2022-01-04] MEDS: ASPIRIN 81MG ENTERIC TABLET PO SCH (09:09)
[2022-01-04] MEDS: APIXABAN 2.5 MG TAB (ELIQUIS) PO SCH ×2 (09:09→21:29)
[2022-01-04] MEDS: ANALGESIC BALM CRM 3OZ TOP SCH ×3 (09:12→21:31)
[2022-01-04] MEDS: CLOTRIMAZOLE 1% TOPICAL CREAM 30GM TOP SCH ×2 (09:12→21:31)
[2022-01-04] MEDS: INSULIN LISPRO (NovoLOG) PER UNIT SC SCH ×4 (09:45→21:31)
[2022-01-04 09:59] LABS: HEMATOCRIT 25.9 % (36.0-47.0); HEMOGLOBIN 8.9 g/dl (12.0-15.5); MEAN CORPUSCULAR HEMOGLOBIN 31.3 pg (27.0-33.0); MEAN CORPUSCULAR HGB CONC 34.4 g/dl (32.0-36.5); MEAN CORPUSCULAR VOLUME 91.2 fl (80.0-96.0); PLATELET COUNT, AUTOMATED 127 10^3/uL (150-450); RED BLOOD COUNT 2.84 10^6/uL (4.00-5.40); WHITE BLOOD COUNT 7.9 10^3/uL (4.0-10.0)
[2022-01-04 10:12] LABS: INR 1.27; PROTHROMBIN TIME 16.1 SECONDS (12.5-14.5)
[2022-01-04 10:40] LABS: CALCIUM LEVEL 8.2 MG/DL (8.8-10.2); CREATININE FOR GFR 2.09 MG/DL (0.55-1.30); GLOMERULAR FILTRATION RATE 23.9 (>32); MAGNESIUM LEVEL 2.3 MG/DL (1.8-2.4); PHOSPHORUS LEVEL 4.1 MG/DL (2.5-4.9); POTASSIUM SERUM 3.3 MEQ/L (3.5-5.1)
[2022-01-04] MEDS: allopurinoL 100 MG TAB PO SCH (12:01)
[2022-01-04] MEDS: POTASSIUM CHLORIDE 10MEQ SR TABLET PO SCH ×2 (12:49→21:29)
[2022-01-04] MEDS: SIMVASTATIN 20 MG TAB PO SCH (21:30)
[2022-01-05] VITALS (22 sets, daily range): BP systolic 113–139; BP diastolic 54–73; O2SAT 93–100
[2022-01-05] MEDS: SODIUM CHLORIDE 3% 500 ML IV SCH (02:12)
[2022-01-05] MEDS: COMBIVENT RESPIMAT 100-20MCG INHALER 4GM INH SCH ×6 (03:22→19:43)
[2022-01-05 04:59] LABS: HEMATOCRIT 26.5 % (36.0-47.0); HEMOGLOBIN 8.9 g/dl (12.0-15.5); MEAN CORPUSCULAR HEMOGLOBIN 30.8 pg (27.0-33.0); MEAN CORPUSCULAR HGB CONC 33.6 g/dl (32.0-36.5); MEAN CORPUSCULAR VOLUME 91.7 fl (80.0-96.0); PLATELET COUNT, AUTOMATED 128 10^3/uL (150-450); RED BLOOD COUNT 2.89 10^6/uL (4.00-5.40); WHITE BLOOD COUNT 9.2 10^3/uL (4.0-10.0)
[2022-01-05 05:40] LABS: ALBUMIN 2.9 GM/DL (3.2-5.2); CREATININE FOR GFR 1.94 MG/DL (0.55-1.30); MAGNESIUM LEVEL 2.2 MG/DL (1.8-2.4); PHOSPHORUS LEVEL 3.7 MG/DL (2.5-4.9); POTASSIUM SERUM 3.3 MEQ/L (3.5-5.1)
[2022-01-05] MEDS: SODIUM CHLORIDE 0.9% INJ 10 ML SYR IV SCH ×2 (06:00→20:54)
[2022-01-05] MEDS: ACETAMINOPHEN 500 MG TAB PO SCH ×3 (06:09→21:22)
[2022-01-05] MEDS: FUROSEMIDE injection 250 MG in D5W 225 ML IV SCH ×5 (06:43→20:13)
[2022-01-05] MEDS: BUDESONIDE 0.5 MG/2 ML INHALATION SUSPENSION INH SCH ×2 (08:00→19:43)
[2022-01-05] MEDS: DOCUSATE SODIUM 100MG CAPSULE PO SCH ×2 (09:00→21:00)
[2022-01-05] MEDS: METAMUCIL (PSYLLIUM) PACKET PO SCH ×2 (09:00→21:00)
[2022-01-05] MEDS: MIRALAX *UNIT DOSE* 17GM PACKET PO SCH ×2 (09:00→21:00)
[2022-01-05] MEDS: CARVedilol 3.125 MG TAB PO SCH (09:00)
[2022-01-05] MEDS: SENNA 8.6 MG TAB (SENOKOT) PO SCH (09:00)
[2022-01-05] MEDS: predniSONE 20 MG TAB PO SCH (10:01)
[2022-01-05] MEDS: INSULIN LISPRO (NovoLOG) PER UNIT SC SCH ×4 (10:01→21:24)
[2022-01-05] MEDS: MONTELUKAST 10 MG TAB PO SCH (10:01)
[2022-01-05] MEDS: APIXABAN 2.5 MG TAB (ELIQUIS) PO SCH ×2 (10:02→21:23)
[2022-01-05] MEDS: PANTOPRAZOLE 40MG TAB (PROTONIX) PO SCH (10:03)
[2022-01-05] MEDS: CETIRIZINE (ZyrTEC) 10 MG TAB PO SCH (10:03)
[2022-01-05] MEDS: ASPIRIN 81MG ENTERIC TABLET PO SCH (10:04)
[2022-01-05] MEDS: ASCORBIC ACID 500 MG TAB PO SCH ×2 (10:04→21:22)
[2022-01-05] MEDS: POTASSIUM CHLORIDE 10MEQ SR TABLET PO SCH ×2 (10:04→21:21)
[2022-01-05] MEDS: **hydrALAZINE** 50 MG TAB PO SCH ×3 (10:04→21:23)
[2022-01-05] MEDS: METOCLOPRAMIDE 10MG TAB PO SCH (10:04)
[2022-01-05] MEDS: ANALGESIC BALM CRM 3OZ TOP SCH ×3 (10:06→21:24)
[2022-01-05] MEDS: CLOTRIMAZOLE 1% TOPICAL CREAM 30GM TOP SCH ×2 (10:06→21:24)
[2022-01-05] MEDS: allopurinoL 100 MG TAB PO SCH (13:25)
[2022-01-05 13:40] LABS: PERCENT SATURATION 12.5 % (13.2-45.0)
[2022-01-05 15:32] LABS: CALCIUM LEVEL 8.3 MG/DL (8.8-10.2); CREATININE FOR GFR 2.08 MG/DL (0.55-1.30); POTASSIUM SERUM 3.4 MEQ/L (3.5-5.1)
[2022-01-05] MEDS ORDERED: POTASSIUM CHLORIDE 10MEQ SR TABLET PO ONE (16:15)
[2022-01-05] MEDS ORDERED: SODIUM CHLORIDE 3% 500 ML IV SCH (17:25)
[2022-01-05 20:06] LABS: CALCIUM LEVEL 8.2 MG/DL (8.8-10.2); CREATININE FOR GFR 2.06 MG/DL (0.55-1.30); GLOMERULAR FILTRATION RATE 24.3 (>32); POTASSIUM SERUM 3.7 MEQ/L (3.5-5.1)
[2022-01-05] MEDS: SIMVASTATIN 20 MG TAB PO SCH (21:22)
[2022-01-06] VITALS (22 sets, daily range): BP systolic 120–143; BP diastolic 56–64; O2SAT 91–98
[2022-01-06] MEDS: FUROSEMIDE injection 250 MG in D5W 225 ML IV SCH ×4 (02:00→20:08)
[2022-01-06] MEDS: COMBIVENT RESPIMAT 100-20MCG INHALER 4GM INH SCH ×6 (04:00→20:56)
[2022-01-06 06:20] LABS: HEMATOCRIT 26.1 % (36.0-47.0); HEMOGLOBIN 8.7 g/dl (12.0-15.5); MEAN CORPUSCULAR HEMOGLOBIN 30.7 pg (27.0-33.0); MEAN CORPUSCULAR HGB CONC 33.3 g/dl (32.0-36.5); MEAN CORPUSCULAR VOLUME 92.2 fl (80.0-96.0); PLATELET COUNT, AUTOMATED 130 10^3/uL (150-450); RED BLOOD COUNT 2.83 10^6/uL (4.00-5.40); WHITE BLOOD COUNT 9.6 10^3/uL (4.0-10.0)
[2022-01-06] MEDS: SODIUM CHLORIDE 0.9% INJ 10 ML SYR IV SCH ×2 (06:32→17:56)
[2022-01-06] MEDS: ACETAMINOPHEN 500 MG TAB PO SCH ×3 (06:32→21:22)
[2022-01-06 07:19] LABS: CALCIUM LEVEL 8.5 MG/DL (8.8-10.2); CREATININE FOR GFR 1.93 MG/DL (0.55-1.30); GLOMERULAR FILTRATION RATE 26.2 (>32); MAGNESIUM LEVEL 2.3 MG/DL (1.8-2.4); PHOSPHORUS LEVEL 3.3 MG/DL (2.5-4.9); POTASSIUM SERUM 3.8 MEQ/L (3.5-5.1)
[2022-01-06] MEDS: BUDESONIDE 0.5 MG/2 ML INHALATION SUSPENSION INH SCH ×2 (08:00→20:56)
[2022-01-06] MEDS: MIRALAX *UNIT DOSE* 17GM PACKET PO SCH ×2 (08:46→20:26)
[2022-01-06] MEDS: METAMUCIL (PSYLLIUM) PACKET PO SCH ×2 (08:46→20:25)
[2022-01-06] MEDS: SENNA 8.6 MG TAB (SENOKOT) PO SCH (08:46)
[2022-01-06] MEDS: DOCUSATE SODIUM 100MG CAPSULE PO SCH ×2 (08:46→20:25)
[2022-01-06] MEDS: APIXABAN 2.5 MG TAB (ELIQUIS) PO SCH ×2 (09:00→21:23)
[2022-01-06] MEDS: predniSONE 20 MG TAB PO SCH (09:00)
[2022-01-06] MEDS: METOCLOPRAMIDE 10MG TAB PO SCH (09:00)
[2022-01-06] MEDS: ASCORBIC ACID 500 MG TAB PO SCH ×2 (09:00→21:22)
[2022-01-06] MEDS: CETIRIZINE (ZyrTEC) 10 MG TAB PO SCH (09:00)
[2022-01-06] MEDS: PANTOPRAZOLE 40MG TAB (PROTONIX) PO SCH (09:00)
[2022-01-06] MEDS: ASPIRIN 81MG ENTERIC TABLET PO SCH (09:00)
[2022-01-06] MEDS: MONTELUKAST 10 MG TAB PO SCH (09:00)
[2022-01-06] MEDS: **hydrALAZINE** 50 MG TAB PO SCH ×3 (09:01→21:23)
[2022-01-06] MEDS: CARVedilol 3.125 MG TAB PO SCH (09:01)
[2022-01-06] MEDS: INSULIN LISPRO (NovoLOG) PER UNIT SC SCH ×4 (09:01→21:19)
[2022-01-06] MEDS: CLOTRIMAZOLE 1% TOPICAL CREAM 30GM TOP SCH ×2 (09:02→21:23)
[2022-01-06] MEDS: ANALGESIC BALM CRM 3OZ TOP SCH ×3 (09:02→21:23)
[2022-01-06] MEDS ORDERED: methylPREDNISolone 40MG 1ML VIAL IV ONE (10:15)
[2022-01-06] MEDS: allopurinoL 100 MG TAB PO SCH (11:45)
[2022-01-06] MEDS: POTASSIUM CHLORIDE 10MEQ SR TABLET PO SCH ×2 (12:09→21:22)
[2022-01-06] MEDS: SIMVASTATIN 20 MG TAB PO SCH (21:22)
[2022-01-07] VITALS (18 sets, daily range): BP systolic 140–158; BP diastolic 60–76; O2SAT 95–98
[2022-01-07] MEDS: FUROSEMIDE injection 250 MG in D5W 225 ML IV SCH ×4 (01:54→21:00)
[2022-01-07] MEDS: COMBIVENT RESPIMAT 100-20MCG INHALER 4GM INH SCH ×6 (04:00→20:29)
[2022-01-07] MEDS: SODIUM CHLORIDE 0.9% INJ 10 ML SYR IV SCH ×2 (06:35→17:44)
[2022-01-07] MEDS: ACETAMINOPHEN 500 MG TAB PO SCH ×3 (06:36→22:54)
[2022-01-07 07:01] LABS: EOS % 0.2 % (0.0-3.0); HEMATOCRIT 26.1 % (36.0-47.0); HEMOGLOBIN 8.6 g/dl (12.0-15.5); LYMPH # 1.3 10^3/uL (1.5-5.0); LYMPH % 14.1 % (24.0-44.0); MEAN CORPUSCULAR HEMOGLOBIN 30.7 pg (27.0-33.0); MEAN CORPUSCULAR VOLUME 93.2 fl (80.0-96.0); MONO # 0.7 10^3/uL (0.0-0.8); MONO % 7.3 % (2.0-8.0); NEUTROPHILS # 7.2 10^3/uL (1.5-8.5); NEUTROPHILS % 77.6 % (36.0-66.0); PLATELET COUNT, AUTOMATED 128 10^3/uL (150-450); WHITE BLOOD COUNT 9.3 10^3/uL (4.0-10.0)
[2022-01-07 07:27] LABS: ALBUMIN 2.7 GM/DL (3.2-5.2); BILIRUBIN,TOTAL 0.5 MG/DL (0.2-1.0); CALCIUM LEVEL 8.7 MG/DL (8.8-10.2); CREATININE FOR GFR 1.97 MG/DL (0.55-1.30); GLOMERULAR FILTRATION RATE 25.6 (>32); MAGNESIUM LEVEL 2.2 MG/DL (1.8-2.4); POTASSIUM SERUM 3.9 MEQ/L (3.5-5.1); TOTAL PROTEIN 5.1 GM/DL (6.4-8.2)
[2022-01-07] MEDS: BUDESONIDE 0.5 MG/2 ML INHALATION SUSPENSION INH SCH ×2 (07:37→20:29)
[2022-01-07] MEDS: INSULIN LISPRO (NovoLOG) PER UNIT SC SCH ×4 (08:47→20:33)
[2022-01-07] MEDS: DOCUSATE SODIUM 100MG CAPSULE PO SCH ×3 (08:49→20:32)
[2022-01-07] MEDS: POTASSIUM CHLORIDE 10MEQ SR TABLET PO SCH ×2 (08:49→20:31)
[2022-01-07] MEDS: **hydrALAZINE** 50 MG TAB PO SCH ×3 (08:50→20:32)
[2022-01-07] MEDS: predniSONE 20 MG TAB PO SCH (08:50)
[2022-01-07] MEDS: MONTELUKAST 10 MG TAB PO SCH (08:50)
[2022-01-07] MEDS: APIXABAN 2.5 MG TAB (ELIQUIS) PO SCH ×2 (08:50→20:31)
[2022-01-07] MEDS: CETIRIZINE (ZyrTEC) 10 MG TAB PO SCH (08:50)
[2022-01-07] MEDS: METOCLOPRAMIDE 10MG TAB PO SCH (08:51)
[2022-01-07] MEDS: ASPIRIN 81MG ENTERIC TABLET PO SCH (08:51)
[2022-01-07] MEDS: ASCORBIC ACID 500 MG TAB PO SCH ×2 (08:51→20:30)
[2022-01-07] MEDS: SENNA 8.6 MG TAB (SENOKOT) PO SCH (08:51)
[2022-01-07] MEDS: PANTOPRAZOLE 40MG TAB (PROTONIX) PO SCH (08:51)
[2022-01-07] MEDS: CARVedilol 3.125 MG TAB PO SCH (08:51)
[2022-01-07] MEDS: CLOTRIMAZOLE 1% TOPICAL CREAM 30GM TOP SCH ×2 (08:52→20:34)
[2022-01-07] MEDS: ANALGESIC BALM CRM 3OZ TOP SCH ×3 (08:53→20:34)
[2022-01-07] MEDS: SODIUM CHLORIDE 1 GM TAB PO SCH ×3 (09:00→20:31)
[2022-01-07] MEDS: MIRALAX *UNIT DOSE* 17GM PACKET PO SCH ×2 (09:00→20:33)
[2022-01-07] MEDS: METAMUCIL (PSYLLIUM) PACKET PO SCH ×2 (09:00→20:32)
[2022-01-07] MEDS ORDERED: CHLOROTHIAZIDE 500MG VIAL IV ONE (10:55)
[2022-01-07] MEDS: allopurinoL 100 MG TAB PO SCH (12:36)
[2022-01-07] MEDS: SPIRONOLACTONE 50 MG TAB PO SCH ×2 (13:33→22:53)
[2022-01-07] MEDS: SIMVASTATIN 20 MG TAB PO SCH (20:31)
[2022-01-08] VITALS (7 sets, daily range): BP systolic 135–163; BP diastolic 61–71; O2SAT 92–96
[2022-01-08] MEDS: COMBIVENT RESPIMAT 100-20MCG INHALER 4GM INH SCH ×7 (00:05→23:23)
[2022-01-08] MEDS: FUROSEMIDE injection 250 MG in D5W 225 ML IV SCH (03:19)
[2022-01-08 05:15] LABS: BASO % 0.1 % (0.0-1.0); EOS # 0.1 10^3/uL (0.0-0.5); EOS % 0.6 % (0.0-3.0); HEMATOCRIT 26.3 % (36.0-47.0); HEMOGLOBIN 8.8 g/dl (12.0-15.5); LYMPH # 1.3 10^3/uL (1.5-5.0); LYMPH % 13.3 % (24.0-44.0); MEAN CORPUSCULAR HEMOGLOBIN 30.8 pg (27.0-33.0); MEAN CORPUSCULAR HGB CONC 33.5 g/dl (32.0-36.5); MONO # 0.6 10^3/uL (0.0-0.8); NEUTROPHILS # 7.7 10^3/uL (1.5-8.5); NEUTROPHILS % 79.3 % (36.0-66.0); PLATELET COUNT, AUTOMATED 136 10^3/uL (150-450); RED BLOOD COUNT 2.86 10^6/uL (4.00-5.40); WHITE BLOOD COUNT 9.7 10^3/uL (4.0-10.0)
[2022-01-08] MEDS: SODIUM CHLORIDE 0.9% INJ 10 ML SYR IV SCH ×2 (05:44→17:59)
[2022-01-08 06:01] LABS: ALBUMIN 2.6 GM/DL (3.2-5.2); BILIRUBIN,TOTAL 0.5 MG/DL (0.2-1.0); CALCIUM LEVEL 8.9 MG/DL (8.8-10.2); CREATININE FOR GFR 1.86 MG/DL (0.55-1.30); GLOMERULAR FILTRATION RATE 27.3 (>32); MAGNESIUM LEVEL 2.1 MG/DL (1.8-2.4); POTASSIUM SERUM 3.7 MEQ/L (3.5-5.1); TOTAL PROTEIN 5.5 GM/DL (6.4-8.2)
[2022-01-08] MEDS: SPIRONOLACTONE 50 MG TAB PO SCH ×3 (06:02→22:10)
[2022-01-08] MEDS: ACETAMINOPHEN 500 MG TAB PO SCH ×3 (06:03→22:07)
[2022-01-08] MEDS ORDERED: TOLVAPTAN 15 MG TAB (SAMSCA) PO ONE (07:05)
[2022-01-08] MEDS: BUDESONIDE 0.5 MG/2 ML INHALATION SUSPENSION INH SCH ×3 (08:00→21:08)
[2022-01-08] MEDS: SENNA 8.6 MG TAB (SENOKOT) PO SCH (08:20)
[2022-01-08] MEDS: MIRALAX *UNIT DOSE* 17GM PACKET PO SCH ×2 (08:20→22:09)
[2022-01-08] MEDS: DOCUSATE SODIUM 100MG CAPSULE PO SCH ×2 (08:20→21:00)
[2022-01-08] MEDS: METAMUCIL (PSYLLIUM) PACKET PO SCH ×2 (09:00→21:00)
[2022-01-08] MEDS: ASCORBIC ACID 500 MG TAB PO SCH ×2 (09:36→22:09)
[2022-01-08] MEDS: INSULIN LISPRO (NovoLOG) PER UNIT SC SCH ×4 (09:36→22:04)
[2022-01-08] MEDS: ASPIRIN 81MG ENTERIC TABLET PO SCH (09:36)
[2022-01-08] MEDS: SODIUM CHLORIDE 1 GM TAB PO SCH ×3 (09:36→22:10)
[2022-01-08] MEDS: MONTELUKAST 10 MG TAB PO SCH (09:36)
[2022-01-08] MEDS: APIXABAN 2.5 MG TAB (ELIQUIS) PO SCH ×2 (09:37→22:09)
[2022-01-08] MEDS: METOCLOPRAMIDE 10MG TAB PO SCH (09:37)
[2022-01-08] MEDS: **hydrALAZINE** 50 MG TAB PO SCH ×3 (09:37→22:08)
[2022-01-08] MEDS: POTASSIUM CHLORIDE 10MEQ SR TABLET PO SCH ×2 (09:37→22:07)
[2022-01-08] MEDS: CARVedilol 3.125 MG TAB PO SCH (09:37)
[2022-01-08] MEDS: CETIRIZINE (ZyrTEC) 10 MG TAB PO SCH (09:37)
[2022-01-08] MEDS: PANTOPRAZOLE 40MG TAB (PROTONIX) PO SCH (09:37)
[2022-01-08] MEDS: ANALGESIC BALM CRM 3OZ TOP SCH ×3 (09:38→22:11)
[2022-01-08] MEDS: CLOTRIMAZOLE 1% TOPICAL CREAM 30GM TOP SCH ×2 (09:38→22:12)
[2022-01-08 10:43] LABS: CALCIUM LEVEL 9.3 MG/DL (8.8-10.2); CREATININE FOR GFR 1.97 MG/DL (0.55-1.30); GLOMERULAR FILTRATION RATE 25.6 (>32); POTASSIUM SERUM 3.9 MEQ/L (3.5-5.1)
[2022-01-08] MEDS: allopurinoL 100 MG TAB PO SCH (12:50)
[2022-01-08 15:46] LABS: CREATININE FOR GFR 1.97 MG/DL (0.55-1.30); GLOMERULAR FILTRATION RATE 25.6 (>32); POTASSIUM SERUM 4.2 MEQ/L (3.5-5.1)
[2022-01-08] MEDS ORDERED: TOLVAPTAN 7.5 MG HALF-TAB PO ONE (18:30)
[2022-01-08] MEDS: SIMVASTATIN 20 MG TAB PO SCH (22:08)
[2022-01-09] VITALS (21 sets, daily range): BP systolic 130–158; BP diastolic 60–82; O2SAT 95–97
[2022-01-09] MEDS: ACETAMINOPHEN 500 MG TAB PO SCH ×3 (06:23→21:00)
[2022-01-09] MEDS: SPIRONOLACTONE 50 MG TAB PO SCH ×3 (06:24→21:00)
[2022-01-09] MEDS: SODIUM CHLORIDE 0.9% INJ 10 ML SYR IV SCH ×2 (06:24→18:32)
[2022-01-09 07:05] LABS: BASO % 0.1 % (0.0-1.0); EOS # 0.1 10^3/uL (0.0-0.5); EOS % 0.8 % (0.0-3.0); HEMATOCRIT 28.2 % (36.0-47.0); HEMOGLOBIN 9.3 g/dl (12.0-15.5); LYMPH # 1.1 10^3/uL (1.5-5.0); LYMPH % 10.4 % (24.0-44.0); MEAN CORPUSCULAR HEMOGLOBIN 30.6 pg (27.0-33.0); MEAN CORPUSCULAR VOLUME 92.8 fl (80.0-96.0); MONO # 0.5 10^3/uL (0.0-0.8); MONO % 5.2 % (2.0-8.0); NEUTROPHILS # 8.7 10^3/uL (1.5-8.5); NEUTROPHILS % 82.9 % (36.0-66.0); PLATELET COUNT, AUTOMATED 143 10^3/uL (150-450); RED BLOOD COUNT 3.04 10^6/uL (4.00-5.40); WHITE BLOOD COUNT 10.5 10^3/uL (4.0-10.0)
[2022-01-09 07:37] LABS: ALBUMIN 2.5 GM/DL (3.2-5.2); BILIRUBIN,TOTAL 0.6 MG/DL (0.2-1.0); CALCIUM LEVEL 9.3 MG/DL (8.8-10.2); CREATININE FOR GFR 1.93 MG/DL (0.55-1.30); GLOMERULAR FILTRATION RATE 26.2 (>32); POTASSIUM SERUM 4.1 MEQ/L (3.5-5.1); TOTAL PROTEIN 5.4 GM/DL (6.4-8.2)
[2022-01-09] MEDS: DOCUSATE SODIUM 100MG CAPSULE PO SCH ×2 (08:05→20:35)
[2022-01-09] MEDS: METAMUCIL (PSYLLIUM) PACKET PO SCH ×2 (08:06→20:33)
[2022-01-09] MEDS: SENNA 8.6 MG TAB (SENOKOT) PO SCH (08:06)
[2022-01-09] MEDS: MIRALAX *UNIT DOSE* 17GM PACKET PO SCH ×2 (08:06→20:34)
[2022-01-09] MEDS: ASPIRIN 81MG ENTERIC TABLET PO SCH (08:14)
[2022-01-09] MEDS: POTASSIUM CHLORIDE 10MEQ SR TABLET PO SCH ×2 (08:14→20:29)
[2022-01-09] MEDS: SODIUM CHLORIDE 1 GM TAB PO SCH ×3 (08:14→20:30)
[2022-01-09] MEDS: BUDESONIDE 0.5 MG/2 ML INHALATION SUSPENSION INH SCH ×2 (08:43→19:26)
[2022-01-09] MEDS: COMBIVENT RESPIMAT 100-20MCG INHALER 4GM INH SCH ×5 (08:43→23:27)
[2022-01-09] MEDS: ASCORBIC ACID 500 MG TAB PO SCH ×2 (08:59→20:30)
[2022-01-09] MEDS: INSULIN LISPRO (NovoLOG) PER UNIT SC SCH ×4 (08:59→20:32)
[2022-01-09] MEDS: CARVedilol 3.125 MG TAB PO SCH (09:02)
[2022-01-09] MEDS: CETIRIZINE (ZyrTEC) 10 MG TAB PO SCH (09:02)
[2022-01-09] MEDS: APIXABAN 2.5 MG TAB (ELIQUIS) PO SCH ×2 (09:02→20:29)
[2022-01-09] MEDS: MONTELUKAST 10 MG TAB PO SCH (09:02)
[2022-01-09] MEDS: PANTOPRAZOLE 40MG TAB (PROTONIX) PO SCH (09:03)
[2022-01-09] MEDS: CLOTRIMAZOLE 1% TOPICAL CREAM 30GM TOP SCH ×2 (09:03→20:32)
[2022-01-09] MEDS: **hydrALAZINE** 50 MG TAB PO SCH ×3 (09:03→20:29)
[2022-01-09] MEDS: ANALGESIC BALM CRM 3OZ TOP SCH ×3 (09:03→20:32)
[2022-01-09] MEDS: METOCLOPRAMIDE 10MG TAB PO SCH (09:07)
[2022-01-09] MEDS ORDERED: TOLVAPTAN 15 MG TAB (SAMSCA) PO ONE ×2 (11:00→18:00)
[2022-01-09] MEDS: allopurinoL 100 MG TAB PO SCH (13:28)
[2022-01-09 16:07] LABS: CALCIUM LEVEL 8.9 MG/DL (8.8-10.2); CREATININE FOR GFR 2.13 MG/DL (0.55-1.30); GLOMERULAR FILTRATION RATE 23.4 (>32); POTASSIUM SERUM 4.8 MEQ/L (3.5-5.1)
[2022-01-09] MEDS: SIMVASTATIN 20 MG TAB PO SCH (20:30)
[2022-01-10] VITALS (15 sets, daily range): BP systolic 134–164; BP diastolic 66–91; O2SAT 92–96
[2022-01-10] MEDS: COMBIVENT RESPIMAT 100-20MCG INHALER 4GM INH SCH ×6 (03:28→23:45)
[2022-01-10 04:31] LABS: EOS % 0.5 % (0.0-3.0); HEMATOCRIT 28.3 % (36.0-47.0); HEMOGLOBIN 9.3 g/dl (12.0-15.5); LYMPH # 0.8 10^3/uL (1.5-5.0); LYMPH % 10.4 % (24.0-44.0); MEAN CORPUSCULAR HEMOGLOBIN 30.5 pg (27.0-33.0); MEAN CORPUSCULAR HGB CONC 32.9 g/dl (32.0-36.5); MEAN CORPUSCULAR VOLUME 92.8 fl (80.0-96.0); MONO # 0.4 10^3/uL (0.0-0.8); MONO % 4.9 % (2.0-8.0); NEUTROPHILS # 6.6 10^3/uL (1.5-8.5); NEUTROPHILS % 83.4 % (36.0-66.0); PLATELET COUNT, AUTOMATED 116 10^3/uL (150-450); RED BLOOD COUNT 3.05 10^6/uL (4.00-5.40)
[2022-01-10 04:52] LABS: ALBUMIN 2.4 GM/DL (3.2-5.2); BILIRUBIN,TOTAL 0.6 MG/DL (0.2-1.0); CALCIUM LEVEL 8.8 MG/DL (8.8-10.2); CREATININE FOR GFR 2.05 MG/DL (0.55-1.30); GLOMERULAR FILTRATION RATE 24.4 (>32); MAGNESIUM LEVEL 1.9 MG/DL (1.8-2.4); POTASSIUM SERUM 4.8 MEQ/L (3.5-5.1); TOTAL PROTEIN 4.9 GM/DL (6.4-8.2)
[2022-01-10] MEDS: ACETAMINOPHEN 500 MG TAB PO SCH ×3 (05:03→21:06)
[2022-01-10] MEDS: SPIRONOLACTONE 50 MG TAB PO SCH (05:03)
[2022-01-10] MEDS: SODIUM CHLORIDE 0.9% INJ 10 ML SYR IV SCH ×2 (05:04→19:15)
[2022-01-10] MEDS: BUDESONIDE 0.5 MG/2 ML INHALATION SUSPENSION INH SCH ×2 (08:00→20:51)
[2022-01-10] MEDS: MIRALAX *UNIT DOSE* 17GM PACKET PO SCH ×2 (09:00→20:44)
[2022-01-10] MEDS: DOCUSATE SODIUM 100MG CAPSULE PO SCH ×2 (09:00→20:45)
[2022-01-10] MEDS: SENNA 8.6 MG TAB (SENOKOT) PO SCH (09:00)
[2022-01-10] MEDS: METAMUCIL (PSYLLIUM) PACKET PO SCH ×2 (09:00→20:45)
[2022-01-10] MEDS: SODIUM CHLORIDE 1 GM TAB PO SCH (10:09)
[2022-01-10] MEDS: PANTOPRAZOLE 40MG TAB (PROTONIX) PO SCH (10:10)
[2022-01-10] MEDS: CETIRIZINE (ZyrTEC) 10 MG TAB PO SCH (10:10)
[2022-01-10] MEDS: POTASSIUM CHLORIDE 10MEQ SR TABLET PO SCH ×2 (10:10→20:44)
[2022-01-10] MEDS: ASPIRIN 81MG ENTERIC TABLET PO SCH (10:10)
[2022-01-10] MEDS: MONTELUKAST 10 MG TAB PO SCH (10:10)
[2022-01-10] MEDS: **hydrALAZINE** 50 MG TAB PO SCH ×3 (10:11→20:43)
[2022-01-10] MEDS: ASCORBIC ACID 500 MG TAB PO SCH ×2 (10:11→20:44)
[2022-01-10] MEDS: CARVedilol 3.125 MG TAB PO SCH (10:12)
[2022-01-10] MEDS: APIXABAN 2.5 MG TAB (ELIQUIS) PO SCH ×2 (10:12→20:43)
[2022-01-10] MEDS: INSULIN LISPRO (NovoLOG) PER UNIT SC SCH ×4 (10:13→20:44)
[2022-01-10] MEDS: ANALGESIC BALM CRM 3OZ TOP SCH ×3 (10:16→20:46)
[2022-01-10] MEDS: CLOTRIMAZOLE 1% TOPICAL CREAM 30GM TOP SCH ×2 (10:17→20:45)
[2022-01-10] MEDS: TOLVAPTAN 15 MG TAB (SAMSCA) PO SCH ×2 (11:07→21:06)
[2022-01-10] MEDS: METOCLOPRAMIDE 10MG TAB PO SCH (11:07)
[2022-01-10] MEDS: allopurinoL 100 MG TAB PO SCH (13:52)
[2022-01-10] MEDS: SIMVASTATIN 20 MG TAB PO SCH (20:44)
[2022-01-11] MEDS: COMBIVENT RESPIMAT 100-20MCG INHALER 4GM INH SCH ×6 (03:38→23:21)
[2022-01-11] MEDS: SODIUM CHLORIDE 0.9% INJ 10 ML SYR IV SCH ×2 (05:05→18:08)
[2022-01-11] MEDS: ACETAMINOPHEN 500 MG TAB PO SCH ×3 (05:16→21:47)
[2022-01-11 05:26] LABS: BASO % 0.1 % (0.0-1.0); EOS % 0.5 % (0.0-3.0); HEMATOCRIT 28.9 % (36.0-47.0); HEMOGLOBIN 9.4 g/dl (12.0-15.5); LYMPH # 0.7 10^3/uL (1.5-5.0); LYMPH % 9.6 % (24.0-44.0); MEAN CORPUSCULAR HEMOGLOBIN 30.7 pg (27.0-33.0); MEAN CORPUSCULAR HGB CONC 32.5 g/dl (32.0-36.5); MEAN CORPUSCULAR VOLUME 94.4 fl (80.0-96.0); MONO # 0.5 10^3/uL (0.0-0.8); MONO % 6.2 % (2.0-8.0); NEUTROPHILS # 6.2 10^3/uL (1.5-8.5); NEUTROPHILS % 83.1 % (36.0-66.0); PLATELET COUNT, AUTOMATED 111 10^3/uL (150-450); RED BLOOD COUNT 3.06 10^6/uL (4.00-5.40); WHITE BLOOD COUNT 7.4 10^3/uL (4.0-10.0)
[2022-01-11 05:36] VITALS: BP 111/83
[2022-01-11 06:01] LABS: ALBUMIN 2.3 GM/DL (3.2-5.2); BILIRUBIN,TOTAL 0.7 MG/DL (0.2-1.0); CALCIUM LEVEL 9.1 MG/DL (8.8-10.2); CREATININE FOR GFR 1.98 MG/DL (0.55-1.30); GLOMERULAR FILTRATION RATE 25.4 (>32); POTASSIUM SERUM 5.1 MEQ/L (3.5-5.1); TOTAL PROTEIN 5.5 GM/DL (6.4-8.2)
[2022-01-11] MEDS: BUDESONIDE 0.5 MG/2 ML INHALATION SUSPENSION INH SCH ×2 (07:26→19:45)
[2022-01-11] MEDS: POTASSIUM CHLORIDE 10MEQ SR TABLET PO SCH (08:12)
[2022-01-11] MEDS: ASPIRIN 81MG ENTERIC TABLET PO SCH (08:12)
[2022-01-11] MEDS: MIRALAX *UNIT DOSE* 17GM PACKET PO SCH ×2 (08:12→21:48)
[2022-01-11] MEDS: INSULIN LISPRO (NovoLOG) PER UNIT SC SCH ×4 (08:12→21:00)
[2022-01-11] MEDS: CETIRIZINE (ZyrTEC) 10 MG TAB PO SCH (08:12)
[2022-01-11] MEDS: PANTOPRAZOLE 40MG TAB (PROTONIX) PO SCH (08:13)
[2022-01-11] MEDS: ASCORBIC ACID 500 MG TAB PO SCH ×2 (08:13→21:46)
[2022-01-11] MEDS: MONTELUKAST 10 MG TAB PO SCH (08:13)
[2022-01-11] MEDS: APIXABAN 2.5 MG TAB (ELIQUIS) PO SCH ×2 (08:13→21:46)
[2022-01-11] MEDS: METOCLOPRAMIDE 10MG TAB PO SCH (08:13)
[2022-01-11] MEDS: DOCUSATE SODIUM 100MG CAPSULE PO SCH ×2 (08:14→21:45)
[2022-01-11] MEDS: METAMUCIL (PSYLLIUM) PACKET PO SCH ×2 (08:14→21:48)
[2022-01-11] MEDS: SENNA 8.6 MG TAB (SENOKOT) PO SCH (08:14)
[2022-01-11] MEDS: CLOTRIMAZOLE 1% TOPICAL CREAM 30GM TOP SCH ×2 (08:16→21:47)
[2022-01-11] MEDS: ANALGESIC BALM CRM 3OZ TOP SCH ×3 (08:16→21:48)
[2022-01-11] MEDS: CARVedilol 3.125 MG TAB PO SCH (08:17)
[2022-01-11] MEDS: **hydrALAZINE** 50 MG TAB PO SCH ×3 (08:17→21:46)
[2022-01-11] MEDS: TOLVAPTAN 15 MG TAB (SAMSCA) PO SCH ×2 (10:47→21:45)
[2022-01-11] MEDS: allopurinoL 100 MG TAB PO SCH (12:51)
[2022-01-11 16:32] VITALS: BP 153/88
[2022-01-11] MEDS: SIMVASTATIN 20 MG TAB PO SCH (21:46)
[2022-01-11 22:00] VITALS: BP 147/51
[2022-01-12] MEDS: COMBIVENT RESPIMAT 100-20MCG INHALER 4GM INH SCH ×5 (03:36→20:00)
[2022-01-12] MEDS: ACETAMINOPHEN 500 MG TAB PO SCH ×3 (05:54→23:15)
[2022-01-12] MEDS: SODIUM CHLORIDE 0.9% INJ 10 ML SYR IV SCH ×2 (05:55→17:58)
[2022-01-12 06:00] VITALS: BP 168/82
[2022-01-12] MEDS: BUDESONIDE 0.5 MG/2 ML INHALATION SUSPENSION INH SCH ×2 (08:00→20:00)
[2022-01-12 08:14] VITALS: BP 167/80
[2022-01-12] MEDS: ASPIRIN 81MG ENTERIC TABLET PO SCH (08:41)
[2022-01-12] MEDS: ASCORBIC ACID 500 MG TAB PO SCH ×2 (08:41→23:15)
[2022-01-12] MEDS: CETIRIZINE (ZyrTEC) 10 MG TAB PO SCH (08:41)
[2022-01-12] MEDS: PANTOPRAZOLE 40MG TAB (PROTONIX) PO SCH (08:41)
[2022-01-12] MEDS: METOCLOPRAMIDE 10MG TAB PO SCH (08:41)
[2022-01-12] MEDS: APIXABAN 2.5 MG TAB (ELIQUIS) PO SCH ×2 (08:41→23:16)
[2022-01-12] MEDS: **hydrALAZINE** 50 MG TAB PO SCH ×3 (08:42→23:16)
[2022-01-12] MEDS: CARVedilol 3.125 MG TAB PO SCH (08:42)
[2022-01-12] MEDS: SENNA 8.6 MG TAB (SENOKOT) PO SCH (08:43)
[2022-01-12] MEDS: METAMUCIL (PSYLLIUM) PACKET PO SCH ×2 (08:43→21:00)
[2022-01-12] MEDS: MIRALAX *UNIT DOSE* 17GM PACKET PO SCH ×2 (08:43→21:00)
[2022-01-12] MEDS: DOCUSATE SODIUM 100MG CAPSULE PO SCH ×2 (08:43→21:00)
[2022-01-12] MEDS: INSULIN LISPRO (NovoLOG) PER UNIT SC SCH ×4 (08:43→21:00)
[2022-01-12] MEDS: MONTELUKAST 10 MG TAB PO SCH (08:43)
[2022-01-12] MEDS: ANALGESIC BALM CRM 3OZ TOP SCH ×3 (08:44→23:16)
[2022-01-12] MEDS: CLOTRIMAZOLE 1% TOPICAL CREAM 30GM TOP SCH ×2 (08:44→23:16)
[2022-01-12 09:00] VITALS: O2SAT 94
[2022-01-12 09:44] LABS: BASO % 0.1 % (0.0-1.0); EOS % 0.5 % (0.0-3.0); HEMATOCRIT 32.3 % (36.0-47.0); HEMOGLOBIN 10.4 g/dl (12.0-15.5); LYMPH # 0.8 10^3/uL (1.5-5.0); LYMPH % 8.7 % (24.0-44.0); MEAN CORPUSCULAR HEMOGLOBIN 30.7 pg (27.0-33.0); MEAN CORPUSCULAR HGB CONC 32.2 g/dl (32.0-36.5); MEAN CORPUSCULAR VOLUME 95.3 fl (80.0-96.0); MONO # 0.4 10^3/uL (0.0-0.8); MONO % 4.6 % (2.0-8.0); NEUTROPHILS # 7.5 10^3/uL (1.5-8.5); NEUTROPHILS % 85.5 % (36.0-66.0); PLATELET COUNT, AUTOMATED 106 10^3/uL (150-450); RED BLOOD COUNT 3.39 10^6/uL (4.00-5.40); WHITE BLOOD COUNT 8.7 10^3/uL (4.0-10.0)
[2022-01-12 10:20] LABS: ALBUMIN 2.4 GM/DL (3.2-5.2); BILIRUBIN,TOTAL 0.7 MG/DL (0.2-1.0); CALCIUM LEVEL 8.8 MG/DL (8.8-10.2); CREATININE FOR GFR 2.01 MG/DL (0.55-1.30); POTASSIUM SERUM 5.8 MEQ/L (3.5-5.1); TOTAL PROTEIN 5.3 GM/DL (6.4-8.2)
[2022-01-12] MEDS: allopurinoL 100 MG TAB PO SCH (13:08)
[2022-01-12] MEDS: TOLVAPTAN 15 MG TAB (SAMSCA) PO SCH ×2 (13:08→23:16)
[2022-01-12] MEDS: FUROSEMIDE injection 250 MG in D5W 225 ML IV SCH (13:09)
[2022-01-12 14:00] VITALS: BP 153/82
[2022-01-12 20:41] VITALS: BP 141/74
[2022-01-12] MEDS: SIMVASTATIN 20 MG TAB PO SCH (23:15)
[2022-01-13 00:32] LABS: APPEARANCE, URINE MANUAL CLOUDY (CLEAR); COLOR, URINE MANUAL YELLOW (YELLOW)
[2022-01-13 00:34] LABS: BILIRUBIN, URINE MANUAL NEGATIVE (NEGATIVE); BLOOD URINE MANUAL POSITIVE (NEGATIVE); GLUCOSE, URINE (UA) MANUAL NEGATIVE (NEGATIVE); KETONE, URINE MANUAL NEGATIVE (NEGATIVE); LEUKOCYTE ESTERASE, URINE MAN POSITIVE (NEGATIVE); NITRITE, URINE MANUAL NEGATIVE (NEGATIVE); PROTEIN, URINE MANUAL TRACE mg/dL (NEGATIVE); UROBILINOGEN, URINE MANUAL NORMAL (NORMAL)
[2022-01-13 00:52] LABS: SQUAMOUS EPITHELIAL CELL URINE SMALL AMOUNT /hpf (SMALL AMT); WBC, URINE 20-30 /hpf (0-3)
[2022-01-13 00:53] LABS: BACTERIA, URINE LARGE AMOUNT
[2022-01-13 00:54] LABS: HYALINE CAST, URINE NONE SEEN /lpf (0-1)
[2022-01-13] MEDS: COMBIVENT RESPIMAT 100-20MCG INHALER 4GM INH SCH ×6 (00:56→21:16)
[2022-01-13 01:17] VITALS: O2SAT 94
[2022-01-13] MEDS: FUROSEMIDE injection 250 MG in D5W 225 ML IV SCH ×2 (01:34→13:44)
[2022-01-13 05:28] VITALS: BP 157/66
[2022-01-13] MEDS: ACETAMINOPHEN 500 MG TAB PO SCH ×3 (05:36→22:00)
[2022-01-13] MEDS: SODIUM CHLORIDE 0.9% INJ 10 ML SYR IV SCH ×2 (05:36→18:00)
[2022-01-13] MEDS: BUDESONIDE 0.5 MG/2 ML INHALATION SUSPENSION INH SCH ×2 (07:56→21:15)
[2022-01-13] MEDS: ASCORBIC ACID 500 MG TAB PO SCH ×2 (08:36→21:00)
[2022-01-13] MEDS: CETIRIZINE (ZyrTEC) 10 MG TAB PO SCH (08:37)
[2022-01-13] MEDS: ASPIRIN 81MG ENTERIC TABLET PO SCH (08:37)
[2022-01-13] MEDS: oxyCODONE 5MG TAB PO PRN (08:37)
[2022-01-13] MEDS: PANTOPRAZOLE 40MG TAB (PROTONIX) PO SCH (08:37)
[2022-01-13] MEDS: MONTELUKAST 10 MG TAB PO SCH (08:37)
[2022-01-13] MEDS: **hydrALAZINE** 50 MG TAB PO SCH ×3 (08:37→21:01)
[2022-01-13] MEDS: APIXABAN 2.5 MG TAB (ELIQUIS) PO SCH (08:37)
[2022-01-13] MEDS: METOCLOPRAMIDE 10MG TAB PO SCH (08:37)
[2022-01-13] MEDS: CARVedilol 3.125 MG TAB PO SCH (08:38)
[2022-01-13] MEDS: INSULIN LISPRO (NovoLOG) PER UNIT SC SCH ×4 (08:38→20:50)
[2022-01-13] MEDS: ANALGESIC BALM CRM 3OZ TOP SCH ×3 (08:40→21:00)
[2022-01-13] MEDS: LEVEMIR (INSULIN DETEMIR) 1 UNITS/0.01ML SC SCH ×2 (08:40→21:00)
[2022-01-13] MEDS: METAMUCIL (PSYLLIUM) PACKET PO SCH ×2 (08:41→20:50)
[2022-01-13] MEDS: CLOTRIMAZOLE 1% TOPICAL CREAM 30GM TOP SCH ×2 (08:41→21:04)
[2022-01-13] MEDS: MIRALAX *UNIT DOSE* 17GM PACKET PO SCH ×2 (08:41→20:51)
[2022-01-13] MEDS: SENNA 8.6 MG TAB (SENOKOT) PO SCH (08:41)
[2022-01-13] MEDS: DOCUSATE SODIUM 100MG CAPSULE PO SCH ×2 (08:41→20:50)
[2022-01-13 09:00] VITALS: O2SAT 96
[2022-01-13 09:27] LABS: BASO % 0.1 % (0.0-1.0); EOS % 0.4 % (0.0-3.0); HEMOGLOBIN 9.6 g/dl (12.0-15.5); LYMPH # 0.5 10^3/uL (1.5-5.0); LYMPH % 6.6 % (24.0-44.0); MEAN CORPUSCULAR HEMOGLOBIN 30.9 pg (27.0-33.0); MEAN CORPUSCULAR VOLUME 96.5 fl (80.0-96.0); MONO # 0.3 10^3/uL (0.0-0.8); NEUTROPHILS # 7.1 10^3/uL (1.5-8.5); NEUTROPHILS % 88.2 % (36.0-66.0); PLATELET COUNT, AUTOMATED 106 10^3/uL (150-450); RED BLOOD COUNT 3.11 10^6/uL (4.00-5.40)
[2022-01-13 10:03] LABS: ALBUMIN 2.4 GM/DL (3.2-5.2); BILIRUBIN,TOTAL 0.8 MG/DL (0.2-1.0); CALCIUM LEVEL 9.5 MG/DL (8.8-10.2); CREATININE FOR GFR 2.2 MG/DL (0.55-1.30); GLOMERULAR FILTRATION RATE 22.5 (>32); MAGNESIUM LEVEL 2.2 MG/DL (1.8-2.4); POTASSIUM SERUM 5.4 MEQ/L (3.5-5.1); TOTAL PROTEIN 5.2 GM/DL (6.4-8.2)
[2022-01-13] MEDS: TOLVAPTAN 15 MG TAB (SAMSCA) PO SCH ×2 (10:10→21:04)
[2022-01-13 10:49] VITALS: BP 126/64
[2022-01-13 11:24] LABS: ABG HCO3 22.1 MEQ/L (22.0-26.0); ABG O2 SATURATION 95.7 % (95.0-99.0); ABG PARTIAL PRESSURE CO2 35.4 mmHg (35.0-45.0); ABG PARTIAL PRESSURE O2 73.6 mmHg (75.0-100.0); ABG STANDARD HCO3 22.7 MEQ/L (22.0-26.0); ABG TOTAL CO2 23.2 MEQ/L (23.0-31.0); ABG pH (ARTERIAL) 7.414 UNITS (7.350-7.450)
[2022-01-13] MEDS: allopurinoL 100 MG TAB PO SCH (13:14)
[2022-01-13] MEDS: cefTRIAXone SOD 1 GM in D5W MINI-BAG PLUS 50 ML IV SCH (13:52)
[2022-01-13] MEDS: SODIUM CHLORIDE 0.9% INJ 10 ML SYR IV PRN (13:53)
[2022-01-13 14:00] VITALS: BP 126/61
[2022-01-13 20:45] VITALS: BP 128/66
[2022-01-13] MEDS: SIMVASTATIN 20 MG TAB PO SCH (21:05)
[2022-01-14] MEDS: COMBIVENT RESPIMAT 100-20MCG INHALER 4GM INH SCH ×7 (00:36→23:43)
[2022-01-14] MEDS: FUROSEMIDE injection 250 MG in D5W 225 ML IV SCH (02:22)
[2022-01-14 03:06] VITALS: O2SAT 97
[2022-01-14] MEDS: ACETAMINOPHEN 500 MG TAB PO SCH ×3 (05:53→22:00)
[2022-01-14] MEDS: SODIUM CHLORIDE 0.9% INJ 10 ML SYR IV SCH ×2 (05:54→18:00)
[2022-01-14 06:00] VITALS: BP 131/67
[2022-01-14 06:39] LABS: MEAN CORPUSCULAR HEMOGLOBIN 30.1 pg (27.0-33.0); MEAN CORPUSCULAR HGB CONC 32.1 g/dl (32.0-36.5); MEAN CORPUSCULAR VOLUME 93.6 fl (80.0-96.0); PLATELET COUNT, AUTOMATED 101 10^3/uL (150-450); RED BLOOD COUNT 2.99 10^6/uL (4.00-5.40); WHITE BLOOD COUNT 7.3 10^3/uL (4.0-10.0)
[2022-01-14 06:51] LABS: INR 1.33; PROTHROMBIN TIME 16.8 SECONDS (12.5-14.5)
[2022-01-14 07:25] LABS: ALBUMIN 2.1 G/DL (3.2-5.2); BILIRUBIN,TOTAL 0.4 MG/DL (0.3-1.2); CALCIUM LEVEL 8.7 MG/DL (8.3-10.6); CREATININE FOR GFR 2.05 MG/DL (0.55-1.30); GLOMERULAR FILTRATION RATE 24.4 (>32); POTASSIUM SERUM 4.3 MMOL/L (3.5-5.1); TOTAL PROTEIN 4.8 G/DL
[2022-01-14] MEDS: INSULIN LISPRO (NovoLOG) PER UNIT SC SCH ×4 (07:30→20:32)
[2022-01-14] MEDS: BUDESONIDE 0.5 MG/2 ML INHALATION SUSPENSION INH SCH ×2 (08:20→20:17)
[2022-01-14] MEDS ORDERED: HEPARIN 1,000UNITS/ML 10ML VIAL (FOR RADIOLOGY & DIALYSIS ONLY) As Ordered ONE (08:25)
[2022-01-14] MEDS ORDERED: LIDOCAINE 1% MDV 20ML VIAL As Ordered ONE (08:33)
[2022-01-14] MEDS ORDERED: diphenhydrAMINE 50MG/ML VIAL As Ordered ONE (08:33)
[2022-01-14] MEDS ORDERED: fentaNYL 100 MCG/2 ML INJECTION As Ordered ONE (08:50)
[2022-01-14] MEDS ORDERED: MIDAZOLAM INJ 2MG/2ML VIAL As Ordered ONE (08:50)
[2022-01-14 10:00] VITALS: BP 134/66; O2SAT 92
[2022-01-14] MEDS ORDERED: ONDANSETRON 4MG 2ML VIAL IV PRN (10:45)
[2022-01-14] MEDS: LEVEMIR (INSULIN DETEMIR) 1 UNITS/0.01ML SC SCH ×2 (11:11→21:00)
[2022-01-14] MEDS: oxyCODONE 5MG TAB PO PRN (11:15)
[2022-01-14] MEDS: ASCORBIC ACID 500 MG TAB PO SCH ×2 (11:15→20:48)
[2022-01-14] MEDS: CETIRIZINE (ZyrTEC) 10 MG TAB PO SCH (11:16)
[2022-01-14] MEDS: **hydrALAZINE** 50 MG TAB PO SCH ×3 (11:16→20:54)
[2022-01-14] MEDS: MONTELUKAST 10 MG TAB PO SCH (11:17)
[2022-01-14] MEDS: TOLVAPTAN 15 MG TAB (SAMSCA) PO SCH (11:17)
[2022-01-14] MEDS: allopurinoL 100 MG TAB PO SCH (11:17)
[2022-01-14] MEDS: SENNA 8.6 MG TAB (SENOKOT) PO SCH (11:17)
[2022-01-14] MEDS: METOCLOPRAMIDE 10MG TAB PO SCH (11:17)
[2022-01-14] MEDS: ANALGESIC BALM CRM 3OZ TOP SCH ×3 (11:18→21:00)
[2022-01-14] MEDS: CLOTRIMAZOLE 1% TOPICAL CREAM 30GM TOP SCH ×2 (11:19→20:49)
[2022-01-14] MEDS: PANTOPRAZOLE 40MG TAB (PROTONIX) PO SCH (11:20)
[2022-01-14] MEDS: METAMUCIL (PSYLLIUM) PACKET PO SCH ×2 (11:20→21:00)
[2022-01-14] MEDS: MIRALAX *UNIT DOSE* 17GM PACKET PO SCH ×2 (11:20→21:00)
[2022-01-14] MEDS: ASPIRIN 81MG ENTERIC TABLET PO SCH (11:20)
[2022-01-14] MEDS: DOCUSATE SODIUM 100MG CAPSULE PO SCH ×2 (11:20→20:49)
[2022-01-14] MEDS: CARVedilol 3.125 MG TAB PO SCH (11:21)
[2022-01-14] MEDS ORDERED: HEPARIN 1,000UNITS/ML 10ML VIAL (FOR RADIOLOGY & DIALYSIS ONLY) XX SCH (11:25)
[2022-01-14] MEDS ORDERED: SODIUM CHLORIDE 0.9% 1000ML IV PRN (11:25)
[2022-01-14] MEDS ORDERED: HEPARIN 1,000UNITS/ML 10ML VIAL (FOR RADIOLOGY & DIALYSIS ONLY) IV PRN (11:25)
[2022-01-14] MEDS: cefTRIAXone SOD 1 GM in D5W MINI-BAG PLUS 50 ML IV SCH (13:15)
[2022-01-14 13:28] LABS: HEPATITIS B CORE ANTIBODY IGM NEGATIVE (NEGATIVE); HEPATITIS B SURFACE ANTIBODY NEGATIVE (POSITIVE); HEPATITIS B SURFACE ANTIGEN NEGATIVE (NEGATIVE)
[2022-01-14 14:04] LABS: HEPATITIS C VIRUS ABY INDEX 0.1 INDEX (<0.8)
[2022-01-14 20:03] VITALS: BP 119/54
[2022-01-14] MEDS: SIMVASTATIN 20 MG TAB PO SCH (20:49)
[2022-01-15 01:23] VITALS: O2SAT 92
[2022-01-15] MEDS: COMBIVENT RESPIMAT 100-20MCG INHALER 4GM INH SCH ×6 (03:41→23:49)
[2022-01-15 04:57] VITALS: BP 127/49
[2022-01-15] MEDS: SODIUM CHLORIDE 0.9% INJ 10 ML SYR IV SCH ×2 (05:33→17:07)
[2022-01-15 05:59] LABS: HEMOGLOBIN 8.5 g/dl (12.0-15.5); MEAN CORPUSCULAR HEMOGLOBIN 29.9 pg (27.0-33.0); MEAN CORPUSCULAR HGB CONC 31.5 g/dl (32.0-36.5); MEAN CORPUSCULAR VOLUME 95.1 fl (80.0-96.0); RED BLOOD COUNT 2.84 10^6/uL (4.00-5.40); WHITE BLOOD COUNT 6.5 10^3/uL (4.0-10.0)
[2022-01-15] MEDS ORDERED: HEPARIN 1,000UNITS/ML 10ML VIAL (FOR RADIOLOGY & DIALYSIS ONLY) IV PRN (06:00)
[2022-01-15] MEDS ORDERED: HEPARIN 1,000UNITS/ML 10ML VIAL (FOR RADIOLOGY & DIALYSIS ONLY) XX SCH (06:00)
[2022-01-15] MEDS ORDERED: SODIUM CHLORIDE 0.9% 1000ML IV PRN (06:00)
[2022-01-15 06:46] LABS: PLATELET COUNT, AUTOMATED 92 10^3/uL (150-450)
[2022-01-15 06:50] VITALS: BP 148/65
[2022-01-15] MEDS: ASPIRIN 81MG ENTERIC TABLET PO SCH (06:52)
[2022-01-15] MEDS: DOCUSATE SODIUM 100MG CAPSULE PO SCH ×2 (06:52→21:00)
[2022-01-15] MEDS: SENNA 8.6 MG TAB (SENOKOT) PO SCH (06:52)
[2022-01-15] MEDS: ACETAMINOPHEN 500 MG TAB PO SCH ×3 (06:52→22:10)
[2022-01-15] MEDS: MONTELUKAST 10 MG TAB PO SCH (06:53)
[2022-01-15] MEDS: METOCLOPRAMIDE 10MG TAB PO SCH (06:53)
[2022-01-15] MEDS: ASCORBIC ACID 500 MG TAB PO SCH ×2 (06:53→22:09)
[2022-01-15] MEDS: PANTOPRAZOLE 40MG TAB (PROTONIX) PO SCH (06:53)
[2022-01-15] MEDS: CARVedilol 3.125 MG TAB PO SCH (06:53)
[2022-01-15] MEDS: **hydrALAZINE** 50 MG TAB PO SCH ×3 (06:54→22:08)
[2022-01-15] MEDS: CETIRIZINE (ZyrTEC) 10 MG TAB PO SCH (06:54)
[2022-01-15 07:05] LABS: ALBUMIN 1.9 G/DL (3.2-5.2); BILIRUBIN,TOTAL 0.3 MG/DL (0.3-1.2); CALCIUM LEVEL 8.7 MG/DL (8.3-10.6); CREATININE FOR GFR 1.66 MG/DL (0.55-1.30); GLOMERULAR FILTRATION RATE 31.2 (>32); POTASSIUM SERUM 3.8 MMOL/L (3.5-5.1); TOTAL PROTEIN 4.3 G/DL (5.7-8.2)
[2022-01-15] MEDS: BUDESONIDE 0.5 MG/2 ML INHALATION SUSPENSION INH SCH ×2 (08:07→19:40)
[2022-01-15] MEDS: APIXABAN 2.5 MG TAB (ELIQUIS) PO SCH ×2 (08:46→22:08)
[2022-01-15] MEDS: METAMUCIL (PSYLLIUM) PACKET PO SCH ×2 (08:46→21:00)
[2022-01-15] MEDS: LEVEMIR (INSULIN DETEMIR) 1 UNITS/0.01ML SC SCH ×2 (08:47→22:11)
[2022-01-15] MEDS: INSULIN LISPRO (NovoLOG) PER UNIT SC SCH ×4 (08:47→21:00)
[2022-01-15] MEDS: MIRALAX *UNIT DOSE* 17GM PACKET PO SCH ×2 (08:47→22:09)
[2022-01-15] MEDS: CLOTRIMAZOLE 1% TOPICAL CREAM 30GM TOP SCH ×2 (08:48→22:11)
[2022-01-15] MEDS: ANALGESIC BALM CRM 3OZ TOP SCH ×3 (08:48→22:10)
[2022-01-15] MEDS: allopurinoL 100 MG TAB PO SCH (12:14)
[2022-01-15] MEDS: cefTRIAXone SOD 1 GM in D5W MINI-BAG PLUS 50 ML IV SCH (17:03)
[2022-01-15 21:15] VITALS: BP 136/40
[2022-01-15] MEDS: SIMVASTATIN 20 MG TAB PO SCH (22:10)
[2022-01-16] MEDS: COMBIVENT RESPIMAT 100-20MCG INHALER 4GM INH SCH ×6 (03:02→23:31)
[2022-01-16 04:56] VITALS: BP 130/67
[2022-01-16] MEDS ORDERED: HEPARIN 1,000UNITS/ML 10ML VIAL (FOR RADIOLOGY & DIALYSIS ONLY) IV PRN (06:00)
[2022-01-16] MEDS: SODIUM CHLORIDE 0.9% INJ 10 ML SYR IV SCH ×2 (06:00→16:09)
[2022-01-16] MEDS ORDERED: HEPARIN 1,000UNITS/ML 10ML VIAL (FOR RADIOLOGY & DIALYSIS ONLY) XX SCH (06:00)
[2022-01-16] MEDS ORDERED: SODIUM CHLORIDE 0.9% 1000ML IV PRN (06:00)
[2022-01-16] MEDS: BUDESONIDE 0.5 MG/2 ML INHALATION SUSPENSION INH SCH ×2 (06:13→19:33)
[2022-01-16] MEDS: ACETAMINOPHEN 500 MG TAB PO SCH ×3 (06:53→21:01)
[2022-01-16 08:28] LABS: HEMATOCRIT 26.9 % (36.0-47.0); HEMOGLOBIN 8.3 g/dl (12.0-15.5); MEAN CORPUSCULAR HEMOGLOBIN 29.6 pg (27.0-33.0); MEAN CORPUSCULAR HGB CONC 30.9 g/dl (32.0-36.5); MEAN CORPUSCULAR VOLUME 96.1 fl (80.0-96.0); WHITE BLOOD COUNT 6.4 10^3/uL (4.0-10.0)
[2022-01-16 08:32] LABS: PLATELET COUNT, AUTOMATED 81 10^3/uL (150-450)
[2022-01-16] MEDS: PANTOPRAZOLE 40MG TAB (PROTONIX) PO SCH (08:38)
[2022-01-16] MEDS: SENNA 8.6 MG TAB (SENOKOT) PO SCH (08:38)
[2022-01-16] MEDS: APIXABAN 2.5 MG TAB (ELIQUIS) PO SCH ×2 (08:38→21:02)
[2022-01-16] MEDS: **hydrALAZINE** 50 MG TAB PO SCH ×3 (08:38→20:59)
[2022-01-16] MEDS: DOCUSATE SODIUM 100MG CAPSULE PO SCH ×2 (08:38→20:59)
[2022-01-16] MEDS: MONTELUKAST 10 MG TAB PO SCH (08:39)
[2022-01-16] MEDS: METAMUCIL (PSYLLIUM) PACKET PO SCH ×2 (08:39→20:59)
[2022-01-16] MEDS: ASPIRIN 81MG ENTERIC TABLET PO SCH (08:39)
[2022-01-16] MEDS: METOCLOPRAMIDE 10MG TAB PO SCH (08:39)
[2022-01-16] MEDS: MIRALAX *UNIT DOSE* 17GM PACKET PO SCH ×2 (08:39→20:59)
[2022-01-16] MEDS: CARVedilol 3.125 MG TAB PO SCH (08:39)
[2022-01-16] MEDS: CETIRIZINE (ZyrTEC) 10 MG TAB PO SCH (08:39)
[2022-01-16] MEDS: NYSTATIN 100,000 UNITS/GM TOPICAL PWD 15GM TOP PRN (08:40)
[2022-01-16] MEDS: ANALGESIC BALM CRM 3OZ TOP SCH ×3 (08:40→21:01)
[2022-01-16] MEDS: INSULIN LISPRO (NovoLOG) PER UNIT SC SCH ×4 (08:41→20:52)
[2022-01-16] MEDS: LEVEMIR (INSULIN DETEMIR) 1 UNITS/0.01ML SC SCH ×2 (08:41→20:58)
[2022-01-16] MEDS: CLOTRIMAZOLE 1% TOPICAL CREAM 30GM TOP SCH ×2 (08:42→21:01)
[2022-01-16] MEDS: ASCORBIC ACID 500 MG TAB PO SCH ×2 (08:42→20:59)
[2022-01-16 09:18] LABS: ALBUMIN 1.9 G/DL (3.2-5.2); BILIRUBIN,TOTAL 0.2 MG/DL (0.3-1.2); CALCIUM LEVEL 8.5 MG/DL (8.3-10.6); CREATININE FOR GFR 1.63 MG/DL (0.55-1.30); GLOMERULAR FILTRATION RATE 31.8 (>32); TOTAL PROTEIN 4.4 G/DL (5.7-8.2)
[2022-01-16 15:00] VITALS: BP 135/68
[2022-01-16] MEDS: cefTRIAXone SOD 1 GM in D5W MINI-BAG PLUS 50 ML IV SCH (15:29)
[2022-01-16] MEDS: allopurinoL 100 MG TAB PO SCH (15:29)
[2022-01-16 19:16] VITALS: BP 136/64
[2022-01-16 19:33] VITALS: O2SAT 96
[2022-01-16] MEDS: SIMVASTATIN 20 MG TAB PO SCH (21:00)
[2022-01-17] MEDS: COMBIVENT RESPIMAT 100-20MCG INHALER 4GM INH SCH ×6 (03:21→23:50)
[2022-01-17 06:20] VITALS: BP 136/62
[2022-01-17] MEDS: ACETAMINOPHEN 500 MG TAB PO SCH ×3 (06:26→23:31)
[2022-01-17] MEDS: SODIUM CHLORIDE 0.9% INJ 10 ML SYR IV SCH ×2 (06:26→17:19)
[2022-01-17 06:51] LABS: HEMATOCRIT 26.8 % (36.0-47.0); HEMOGLOBIN 8.4 g/dl (12.0-15.5); MEAN CORPUSCULAR HGB CONC 31.3 g/dl (32.0-36.5); MEAN CORPUSCULAR VOLUME 95.7 fl (80.0-96.0); WHITE BLOOD COUNT 6.3 10^3/uL (4.0-10.0)
[2022-01-17 06:52] LABS: PLATELET COUNT, AUTOMATED 70 10^3/uL (150-450)
[2022-01-17] MEDS: INSULIN LISPRO (NovoLOG) PER UNIT SC SCH ×4 (07:30→20:49)
[2022-01-17] MEDS ORDERED: HEPARIN 1,000UNITS/ML 10ML VIAL (FOR RADIOLOGY & DIALYSIS ONLY) IV PRN (07:45)
[2022-01-17] MEDS ORDERED: HEPARIN 1,000UNITS/ML 10ML VIAL (FOR RADIOLOGY & DIALYSIS ONLY) XX SCH (07:45)
[2022-01-17 08:00] LABS: BILIRUBIN,TOTAL 0.2 MG/DL (0.3-1.2); CALCIUM LEVEL 8.8 MG/DL (8.3-10.6); CREATININE FOR GFR 2.13 MG/DL (0.55-1.30); GLOMERULAR FILTRATION RATE 23.4 (>32); POTASSIUM SERUM 4.7 MMOL/L (3.5-5.1); TOTAL PROTEIN 4.8 G/DL (5.7-8.2)
[2022-01-17] MEDS: **hydrALAZINE** 50 MG TAB PO SCH ×4 (09:00→20:30)
[2022-01-17] MEDS ORDERED: DARBEPOETIN 100MCG/0.5ML *NON-DIALYSIS* SYRINGE SC SCH (09:00)
[2022-01-17] MEDS: BUDESONIDE 0.5 MG/2 ML INHALATION SUSPENSION INH SCH ×2 (12:00→20:35)
[2022-01-17] MEDS: METOCLOPRAMIDE 10MG TAB PO SCH (13:19)
[2022-01-17] MEDS: ASCORBIC ACID 500 MG TAB PO SCH ×2 (13:19→20:29)
[2022-01-17] MEDS: allopurinoL 100 MG TAB PO SCH (13:19)
[2022-01-17] MEDS: ASPIRIN 81MG ENTERIC TABLET PO SCH (13:19)
[2022-01-17] MEDS: PANTOPRAZOLE 40MG TAB (PROTONIX) PO SCH (13:20)
[2022-01-17] MEDS: CARVedilol 3.125 MG TAB PO SCH (13:20)
[2022-01-17] MEDS: DOCUSATE SODIUM 100MG CAPSULE PO SCH ×2 (13:20→20:29)
[2022-01-17] MEDS: cefTRIAXone SOD 1 GM in D5W MINI-BAG PLUS 50 ML IV SCH (13:21)
[2022-01-17] MEDS: SENNA 8.6 MG TAB (SENOKOT) PO SCH (13:22)
[2022-01-17] MEDS: MIRALAX *UNIT DOSE* 17GM PACKET PO SCH ×2 (13:22→20:49)
[2022-01-17] MEDS: APIXABAN 2.5 MG TAB (ELIQUIS) PO SCH ×2 (13:22→20:30)
[2022-01-17] MEDS: MONTELUKAST 10 MG TAB PO SCH (13:22)
[2022-01-17] MEDS: CETIRIZINE (ZyrTEC) 10 MG TAB PO SCH (13:22)
[2022-01-17] MEDS: METAMUCIL (PSYLLIUM) PACKET PO SCH ×2 (13:23→20:49)
[2022-01-17] MEDS: ANALGESIC BALM CRM 3OZ TOP SCH ×3 (13:24→20:49)
[2022-01-17] MEDS: CLOTRIMAZOLE 1% TOPICAL CREAM 30GM TOP SCH ×2 (13:24→20:31)
[2022-01-17] MEDS: LEVEMIR (INSULIN DETEMIR) 1 UNITS/0.01ML SC SCH ×2 (13:24→20:28)
[2022-01-17] MEDS: SODIUM CHLORIDE 0.9% INJ 10 ML SYR IV PRN (13:25)
[2022-01-17 14:00] VITALS: BP 133/62
[2022-01-17] MEDS: FERROUS SULFATE 325MG TAB PO SCH ×2 (14:12→20:29)
[2022-01-17 20:18] VITALS: BP 148/58
[2022-01-17] MEDS: SIMVASTATIN 20 MG TAB PO SCH (20:30)
[2022-01-18] MEDS: COMBIVENT RESPIMAT 100-20MCG INHALER 4GM INH SCH ×6 (03:25→23:20)
[2022-01-18 05:39] LABS: HEMATOCRIT 26.2 % (36.0-47.0); HEMOGLOBIN 8.4 g/dl (12.0-15.5); MEAN CORPUSCULAR HEMOGLOBIN 30.1 pg (27.0-33.0); MEAN CORPUSCULAR HGB CONC 32.1 g/dl (32.0-36.5); MEAN CORPUSCULAR VOLUME 93.9 fl (80.0-96.0); RED BLOOD COUNT 2.79 10^6/uL (4.00-5.40); WHITE BLOOD COUNT 6.5 10^3/uL (4.0-10.0)
[2022-01-18 05:47] LABS: PLATELET COUNT, AUTOMATED 62 10^3/uL (150-450)
[2022-01-18] MEDS: ACETAMINOPHEN 500 MG TAB PO SCH ×3 (05:55→21:38)
[2022-01-18] MEDS: SODIUM CHLORIDE 0.9% INJ 10 ML SYR IV SCH ×2 (05:57→17:16)
[2022-01-18 06:00] VITALS: BP 148/56
[2022-01-18 06:57] LABS: ALBUMIN 2.1 G/DL (3.2-5.2); BILIRUBIN,TOTAL 0.3 MG/DL (0.3-1.2); CALCIUM LEVEL 8.3 MG/DL (8.3-10.6); CREATININE FOR GFR 2.54 MG/DL (0.55-1.30); GLOMERULAR FILTRATION RATE 19.1 (>32); POTASSIUM SERUM 4.8 MMOL/L (3.5-5.1)
[2022-01-18] MEDS: BUDESONIDE 0.5 MG/2 ML INHALATION SUSPENSION INH SCH ×2 (07:52→18:15)
[2022-01-18] MEDS: INSULIN LISPRO (NovoLOG) PER UNIT SC SCH ×4 (08:51→21:00)
[2022-01-18] MEDS: MIRALAX *UNIT DOSE* 17GM PACKET PO SCH ×2 (08:52→21:00)
[2022-01-18] MEDS: DOCUSATE SODIUM 100MG CAPSULE PO SCH ×2 (08:52→21:00)
[2022-01-18] MEDS: FERROUS SULFATE 325MG TAB PO SCH ×2 (08:52→21:37)
[2022-01-18] MEDS: LEVEMIR (INSULIN DETEMIR) 1 UNITS/0.01ML SC SCH ×2 (08:52→21:39)
[2022-01-18] MEDS: METAMUCIL (PSYLLIUM) PACKET PO SCH ×2 (08:52→21:00)
[2022-01-18] MEDS: PANTOPRAZOLE 40MG TAB (PROTONIX) PO SCH (08:55)
[2022-01-18] MEDS: CETIRIZINE (ZyrTEC) 10 MG TAB PO SCH (08:55)
[2022-01-18] MEDS: MONTELUKAST 10 MG TAB PO SCH (08:55)
[2022-01-18] MEDS: CARVedilol 3.125 MG TAB PO SCH (08:56)
[2022-01-18] MEDS: **hydrALAZINE** 50 MG TAB PO SCH ×3 (08:56→21:36)
[2022-01-18] MEDS: METOCLOPRAMIDE 10MG TAB PO SCH (08:57)
[2022-01-18] MEDS: SENNA 8.6 MG TAB (SENOKOT) PO SCH (08:57)
[2022-01-18] MEDS: ANALGESIC BALM CRM 3OZ TOP SCH ×3 (08:58→21:39)
[2022-01-18] MEDS: ASCORBIC ACID 500 MG TAB PO SCH ×2 (08:58→21:36)
[2022-01-18] MEDS: CLOTRIMAZOLE 1% TOPICAL CREAM 30GM TOP SCH ×2 (08:58→21:38)
[2022-01-18] MEDS: APIXABAN 2.5 MG TAB (ELIQUIS) PO SCH ×2 (09:03→21:37)
[2022-01-18] MEDS: ASPIRIN 81MG ENTERIC TABLET PO SCH (09:03)
[2022-01-18 14:00] VITALS: BP 130/60
[2022-01-18] MEDS: allopurinoL 100 MG TAB PO SCH (14:09)
[2022-01-18] MEDS: SIMVASTATIN 20 MG TAB PO SCH (21:36)
[2022-01-18 22:00] VITALS: BP 146/60
[2022-01-19] MEDS: COMBIVENT RESPIMAT 100-20MCG INHALER 4GM INH SCH ×5 (04:04→20:02)
[2022-01-19] MEDS: SODIUM CHLORIDE 0.9% INJ 10 ML SYR IV SCH ×2 (05:49→16:50)
[2022-01-19 06:09] LABS: HEMATOCRIT 27.3 % (36.0-47.0); HEMOGLOBIN 8.7 g/dl (12.0-15.5); MEAN CORPUSCULAR HEMOGLOBIN 29.9 pg (27.0-33.0); MEAN CORPUSCULAR HGB CONC 31.9 g/dl (32.0-36.5); MEAN CORPUSCULAR VOLUME 93.8 fl (80.0-96.0); PLATELET COUNT, AUTOMATED 118 10^3/uL (150-450); RED BLOOD COUNT 2.91 10^6/uL (4.00-5.40); WHITE BLOOD COUNT 6.9 10^3/uL (4.0-10.0)
[2022-01-19 06:29] VITALS: BP 134/64
[2022-01-19] MEDS ORDERED: SODIUM CHLORIDE 0.9% 1000ML IV PRN (06:35)
[2022-01-19] MEDS ORDERED: HEPARIN 1,000UNITS/ML 10ML VIAL (FOR RADIOLOGY & DIALYSIS ONLY) XX SCH (06:35)
[2022-01-19] MEDS ORDERED: HEPARIN 1,000UNITS/ML 10ML VIAL (FOR RADIOLOGY & DIALYSIS ONLY) IV PRN (06:35)
[2022-01-19] MEDS: ASCORBIC ACID 500 MG TAB PO SCH ×3 (06:43→22:39)
[2022-01-19] MEDS: ACETAMINOPHEN 500 MG TAB PO SCH ×4 (06:43→22:18)
[2022-01-19] MEDS: MONTELUKAST 10 MG TAB PO SCH (06:44)
[2022-01-19] MEDS: ASPIRIN 81MG ENTERIC TABLET PO SCH (06:44)
[2022-01-19] MEDS: **hydrALAZINE** 50 MG TAB PO SCH ×4 (06:44→22:39)
[2022-01-19] MEDS: METOCLOPRAMIDE 10MG TAB PO SCH (06:44)
[2022-01-19] MEDS: PANTOPRAZOLE 40MG TAB (PROTONIX) PO SCH (06:45)
[2022-01-19] MEDS: FERROUS SULFATE 325MG TAB PO SCH ×2 (06:45→22:18)
[2022-01-19] MEDS: APIXABAN 2.5 MG TAB (ELIQUIS) PO SCH ×2 (06:46→22:17)
[2022-01-19] MEDS: CARVedilol 3.125 MG TAB PO SCH (06:46)
[2022-01-19] MEDS: BUDESONIDE 0.5 MG/2 ML INHALATION SUSPENSION INH SCH ×2 (07:39→20:02)
[2022-01-19 08:27] LABS: ALBUMIN 2.2 G/DL (3.2-5.2); BILIRUBIN,TOTAL 0.3 MG/DL (0.3-1.2); CALCIUM LEVEL 8.3 MG/DL (8.3-10.6); CREATININE FOR GFR 2.86 MG/DL (0.55-1.30); GLOMERULAR FILTRATION RATE 16.6 (>32)
[2022-01-19] MEDS: SENNA 8.6 MG TAB (SENOKOT) PO SCH (09:00)
[2022-01-19] MEDS: DOCUSATE SODIUM 100MG CAPSULE PO SCH ×2 (09:00→22:19)
[2022-01-19] MEDS: MIRALAX *UNIT DOSE* 17GM PACKET PO SCH ×2 (09:00→22:20)
[2022-01-19] MEDS: METAMUCIL (PSYLLIUM) PACKET PO SCH ×3 (09:24→22:40)
[2022-01-19] MEDS: INSULIN LISPRO (NovoLOG) PER UNIT SC SCH ×4 (09:25→22:02)
[2022-01-19] MEDS: ANALGESIC BALM CRM 3OZ TOP SCH ×4 (09:25→22:28)
[2022-01-19] MEDS: CLOTRIMAZOLE 1% TOPICAL CREAM 30GM TOP SCH ×2 (09:25→22:21)
[2022-01-19] MEDS: LEVEMIR (INSULIN DETEMIR) 1 UNITS/0.01ML SC SCH ×2 (09:25→22:17)
[2022-01-19] MEDS: CETIRIZINE (ZyrTEC) 10 MG TAB PO SCH (09:26)
[2022-01-19 14:00] VITALS: BP 120/64
[2022-01-19] MEDS: allopurinoL 100 MG TAB PO SCH (14:34)
[2022-01-19 22:00] VITALS: BP 132/61
[2022-01-19] MEDS: SIMVASTATIN 20 MG TAB PO SCH ×2 (22:19→22:39)
[2022-01-20] MEDS: COMBIVENT RESPIMAT 100-20MCG INHALER 4GM INH SCH ×6 (00:12→20:47)
[2022-01-20] MEDS: SODIUM CHLORIDE 0.9% INJ 10 ML SYR IV SCH ×2 (05:36→17:32)
[2022-01-20] MEDS: ACETAMINOPHEN 500 MG TAB PO SCH ×3 (05:44→21:07)
[2022-01-20 06:00] VITALS: BP 133/75
[2022-01-20 06:03] LABS: HEMATOCRIT 26.7 % (36.0-47.0); HEMOGLOBIN 8.4 g/dl (12.0-15.5); MEAN CORPUSCULAR HEMOGLOBIN 29.8 pg (27.0-33.0); MEAN CORPUSCULAR HGB CONC 31.5 g/dl (32.0-36.5); MEAN CORPUSCULAR VOLUME 94.7 fl (80.0-96.0); PLATELET COUNT, AUTOMATED 134 10^3/uL (150-450); RED BLOOD COUNT 2.82 10^6/uL (4.00-5.40); WHITE BLOOD COUNT 6.9 10^3/uL (4.0-10.0)
[2022-01-20 06:33] LABS: ALBUMIN 2.1 G/DL (3.2-5.2); BILIRUBIN,TOTAL 0.3 MG/DL (0.3-1.2); CREATININE FOR GFR 2.25 MG/DL (0.55-1.30); TOTAL PROTEIN 4.9 G/DL (5.7-8.2)
[2022-01-20] MEDS: BUDESONIDE 0.5 MG/2 ML INHALATION SUSPENSION INH SCH ×2 (07:49→20:47)
[2022-01-20] MEDS: LEVEMIR (INSULIN DETEMIR) 1 UNITS/0.01ML SC SCH ×2 (09:20→21:06)
[2022-01-20] MEDS: INSULIN LISPRO (NovoLOG) PER UNIT SC SCH ×4 (09:21→21:00)
[2022-01-20] MEDS: CLOTRIMAZOLE 1% TOPICAL CREAM 30GM TOP SCH ×2 (09:21→21:08)
[2022-01-20] MEDS: DOCUSATE SODIUM 100MG CAPSULE PO SCH ×2 (09:22→21:07)
[2022-01-20] MEDS: METOCLOPRAMIDE 10MG TAB PO SCH (09:22)
[2022-01-20] MEDS: MIRALAX *UNIT DOSE* 17GM PACKET PO SCH ×2 (09:22→21:00)
[2022-01-20] MEDS: ASCORBIC ACID 500 MG TAB PO SCH ×2 (09:22→21:06)
[2022-01-20] MEDS: MONTELUKAST 10 MG TAB PO SCH (09:22)
[2022-01-20] MEDS: APIXABAN 2.5 MG TAB (ELIQUIS) PO SCH ×2 (09:22→21:07)
[2022-01-20] MEDS: METAMUCIL (PSYLLIUM) PACKET PO SCH ×2 (09:22→21:00)
[2022-01-20] MEDS: SENNA 8.6 MG TAB (SENOKOT) PO SCH (09:22)
[2022-01-20] MEDS: ASPIRIN 81MG ENTERIC TABLET PO SCH (09:22)
[2022-01-20] MEDS: FERROUS SULFATE 325MG TAB PO SCH ×2 (09:22→21:06)
[2022-01-20] MEDS: ANALGESIC BALM CRM 3OZ TOP SCH ×3 (09:22→21:00)
[2022-01-20] MEDS: PANTOPRAZOLE 40MG TAB (PROTONIX) PO SCH (09:22)
[2022-01-20] MEDS: CETIRIZINE (ZyrTEC) 10 MG TAB PO SCH (09:22)
[2022-01-20] MEDS: **hydrALAZINE** 50 MG TAB PO SCH ×3 (09:23→21:11)
[2022-01-20] MEDS: CARVedilol 3.125 MG TAB PO SCH (09:23)
[2022-01-20] MEDS ORDERED: CEPACOL LOZENGE PO PRN (13:15)
[2022-01-20] MEDS: allopurinoL 100 MG TAB PO SCH (13:32)
[2022-01-20 14:00] VITALS: BP 138/68
[2022-01-20] MEDS: SIMVASTATIN 20 MG TAB PO SCH (21:07)
[2022-01-20 22:00] VITALS: BP 159/68
[2022-01-21] MEDS: COMBIVENT RESPIMAT 100-20MCG INHALER 4GM INH SCH ×6 (02:43→20:00)
[2022-01-21] MEDS: oxyCODONE 5MG TAB PO PRN (02:47)
[2022-01-21] MEDS: ASPIRIN 81MG ENTERIC TABLET PO SCH (05:30)
[2022-01-21] MEDS: SODIUM CHLORIDE 0.9% INJ 10 ML SYR IV SCH ×2 (05:30→18:05)
[2022-01-21] MEDS: PANTOPRAZOLE 40MG TAB (PROTONIX) PO SCH (05:30)
[2022-01-21] MEDS: SENNA 8.6 MG TAB (SENOKOT) PO SCH (05:31)
[2022-01-21] MEDS: CETIRIZINE (ZyrTEC) 10 MG TAB PO SCH (05:31)
[2022-01-21] MEDS: MONTELUKAST 10 MG TAB PO SCH (05:31)
[2022-01-21] MEDS: FERROUS SULFATE 325MG TAB PO SCH ×2 (05:31→22:02)
[2022-01-21] MEDS: METOCLOPRAMIDE 10MG TAB PO SCH (05:31)
[2022-01-21] MEDS: ACETAMINOPHEN 500 MG TAB PO SCH ×3 (05:32→22:01)
[2022-01-21] MEDS: APIXABAN 2.5 MG TAB (ELIQUIS) PO SCH ×2 (05:32→22:02)
[2022-01-21] MEDS: ASCORBIC ACID 500 MG TAB PO SCH ×2 (05:33→22:00)
[2022-01-21] MEDS: DOCUSATE SODIUM 100MG CAPSULE PO SCH ×2 (05:33→22:02)
[2022-01-21] MEDS: **hydrALAZINE** 50 MG TAB PO SCH ×3 (05:36→22:03)
[2022-01-21] MEDS: CARVedilol 3.125 MG TAB PO SCH (05:36)
[2022-01-21 05:49] LABS: BASO % 0.2 % (0.0-1.0); EOS # 0.3 10^3/uL (0.0-0.5); EOS % 5.4 % (0.0-3.0); HEMATOCRIT 26.6 % (36.0-47.0); HEMOGLOBIN 8.4 g/dl (12.0-15.5); LYMPH # 1.2 10^3/uL (1.5-5.0); LYMPH % 22.7 % (24.0-44.0); MEAN CORPUSCULAR HEMOGLOBIN 29.8 pg (27.0-33.0); MEAN CORPUSCULAR HGB CONC 31.6 g/dl (32.0-36.5); MEAN CORPUSCULAR VOLUME 94.3 fl (80.0-96.0); MONO # 0.7 10^3/uL (0.0-0.8); MONO % 12.5 % (2.0-8.0); NEUTROPHILS % 58.2 % (36.0-66.0); PLATELET COUNT, AUTOMATED 168 10^3/uL (150-450); RED BLOOD COUNT 2.82 10^6/uL (4.00-5.40); WHITE BLOOD COUNT 5.2 10^3/uL (4.0-10.0)
[2022-01-21 06:00] VITALS: BP 156/70
[2022-01-21 06:36] LABS: ALBUMIN 2.1 G/DL (3.2-5.2); BILIRUBIN,TOTAL 0.2 MG/DL (0.3-1.2); CALCIUM LEVEL 8.7 MG/DL (8.3-10.6); CREATININE FOR GFR 2.91 MG/DL (0.55-1.30); GLOMERULAR FILTRATION RATE 16.3 (>32); POTASSIUM SERUM 4.4 MMOL/L (3.5-5.1)
[2022-01-21] MEDS ORDERED: HEPARIN 1,000UNITS/ML 10ML VIAL (FOR RADIOLOGY & DIALYSIS ONLY) IV PRN (07:45)
[2022-01-21] MEDS ORDERED: HEPARIN 1,000UNITS/ML 10ML VIAL (FOR RADIOLOGY & DIALYSIS ONLY) XX SCH (07:45)
[2022-01-21] MEDS: BUDESONIDE 0.5 MG/2 ML INHALATION SUSPENSION INH SCH ×2 (08:03→20:00)
[2022-01-21] MEDS: INSULIN LISPRO (NovoLOG) PER UNIT SC SCH ×4 (08:36→21:00)
[2022-01-21] MEDS: METAMUCIL (PSYLLIUM) PACKET PO SCH ×2 (08:37→22:02)
[2022-01-21] MEDS: MIRALAX *UNIT DOSE* 17GM PACKET PO SCH ×2 (08:37→21:00)
[2022-01-21] MEDS: LEVEMIR (INSULIN DETEMIR) 1 UNITS/0.01ML SC SCH ×2 (08:41→22:01)
[2022-01-21] MEDS: CLOTRIMAZOLE 1% TOPICAL CREAM 30GM TOP SCH ×2 (08:43→22:04)
[2022-01-21] MEDS: ANALGESIC BALM CRM 3OZ TOP SCH ×3 (08:43→22:05)
[2022-01-21] MEDS: allopurinoL 100 MG TAB PO SCH (15:54)
[2022-01-21 16:00] VITALS: BP 127/46
[2022-01-21 20:00] VITALS: BP 135/52
[2022-01-21] MEDS: SIMVASTATIN 20 MG TAB PO SCH (22:02)
[2022-01-22] MEDS: COMBIVENT RESPIMAT 100-20MCG INHALER 4GM INH SCH ×7 (04:00→23:27)
[2022-01-22 05:10] VITALS: BP 140/56
[2022-01-22] MEDS: SODIUM CHLORIDE 0.9% INJ 10 ML SYR IV SCH ×2 (05:22→17:27)
[2022-01-22] MEDS: ACETAMINOPHEN 500 MG TAB PO SCH ×3 (05:22→22:00)
[2022-01-22 05:42] LABS: BASO % 0.4 % (0.0-1.0); EOS # 0.2 10^3/uL (0.0-0.5); EOS % 3.6 % (0.0-3.0); HEMATOCRIT 26.8 % (36.0-47.0); HEMOGLOBIN 8.3 g/dl (12.0-15.5); LYMPH # 1.3 10^3/uL (1.5-5.0); LYMPH % 22.6 % (24.0-44.0); MEAN CORPUSCULAR HEMOGLOBIN 29.7 pg (27.0-33.0); MEAN CORPUSCULAR VOLUME 96.1 fl (80.0-96.0); MONO # 0.7 10^3/uL (0.0-0.8); MONO % 11.9 % (2.0-8.0); NEUTROPHILS # 3.4 10^3/uL (1.5-8.5); NEUTROPHILS % 60.6 % (36.0-66.0); PLATELET COUNT, AUTOMATED 177 10^3/uL (150-450); RED BLOOD COUNT 2.79 10^6/uL (4.00-5.40); WHITE BLOOD COUNT 5.5 10^3/uL (4.0-10.0)
[2022-01-22 06:37] LABS: ALBUMIN 2.2 G/DL (3.2-5.2); ALKALINE PHOSPHATASE 58 U/L (46-116); ALT/SGPT < 9 U/L (7.0-40); AST/SGOT 13 U/L (<34); BILIRUBIN,TOTAL 0.2 MG/DL (0.3-1.2); BLOOD UREA NITROGEN 23 MG/DL (9-23); CALCIUM LEVEL 8.8 MG/DL (8.3-10.6); CARBON DIOXIDE LEVEL 25 MMOL/L (20-31); CHLORIDE LEVEL 96 MMOL/L (98-107); CREATININE FOR GFR 2.21 MG/DL (0.55-1.30); GLOMERULAR FILTRATION RATE 22.4 (>32); GLUCOSE, FASTING 146 MG/DL (74-106); POTASSIUM SERUM 4.6 MMOL/L (3.5-5.1); SODIUM LEVEL 129 MMOL/L (136-145); TOTAL PROTEIN 5.2 G/DL (5.7-8.2)
[2022-01-22] MEDS: BUDESONIDE 0.5 MG/2 ML INHALATION SUSPENSION INH SCH ×2 (07:17→19:53)
[2022-01-22] MEDS: SENNA 8.6 MG TAB (SENOKOT) PO SCH ×2 (09:00→09:41)
[2022-01-22] MEDS: ANALGESIC BALM CRM 3OZ TOP SCH ×3 (09:00→20:35)
[2022-01-22] MEDS: MIRALAX *UNIT DOSE* 17GM PACKET PO SCH ×3 (09:40→20:32)
[2022-01-22] MEDS: DOCUSATE SODIUM 100MG CAPSULE PO SCH ×3 (09:40→20:32)
[2022-01-22] MEDS: ASPIRIN 81MG ENTERIC TABLET PO SCH (09:40)
[2022-01-22] MEDS: INSULIN LISPRO (NovoLOG) PER UNIT SC SCH ×4 (09:40→21:00)
[2022-01-22] MEDS: FERROUS SULFATE 325MG TAB PO SCH ×2 (09:40→20:33)
[2022-01-22] MEDS: LEVEMIR (INSULIN DETEMIR) 1 UNITS/0.01ML SC SCH ×2 (09:40→20:34)
[2022-01-22] MEDS: METAMUCIL (PSYLLIUM) PACKET PO SCH ×3 (09:40→20:32)
[2022-01-22] MEDS: METOCLOPRAMIDE 10MG TAB PO SCH (09:41)
[2022-01-22] MEDS: APIXABAN 2.5 MG TAB (ELIQUIS) PO SCH ×2 (09:41→20:33)
[2022-01-22] MEDS: CARVedilol 3.125 MG TAB PO SCH (09:41)
[2022-01-22] MEDS: MONTELUKAST 10 MG TAB PO SCH (09:41)
[2022-01-22] MEDS: PANTOPRAZOLE 40MG TAB (PROTONIX) PO SCH (09:41)
[2022-01-22] MEDS: **hydrALAZINE** 50 MG TAB PO SCH ×3 (09:41→21:00)
[2022-01-22] MEDS: CETIRIZINE (ZyrTEC) 10 MG TAB PO SCH (09:41)
[2022-01-22] MEDS: ASCORBIC ACID 500 MG TAB PO SCH ×2 (09:41→20:33)
[2022-01-22] MEDS: CLOTRIMAZOLE 1% TOPICAL CREAM 30GM TOP SCH ×2 (09:42→20:33)
[2022-01-22] MEDS: oxyCODONE 5MG TAB PO PRN (10:53)
[2022-01-22] MEDS: allopurinoL 100 MG TAB PO SCH (14:15)
[2022-01-22 15:00] VITALS: BP 133/55
[2022-01-22] MEDS: SIMVASTATIN 20 MG TAB PO SCH (20:33)
[2022-01-22 21:00] VITALS: BP 103/54
[2022-01-23] MEDS: COMBIVENT RESPIMAT 100-20MCG INHALER 4GM INH SCH ×5 (03:57→20:34)
[2022-01-23] MEDS: oxyCODONE 5MG TAB PO PRN (05:08)
[2022-01-23] MEDS: SODIUM CHLORIDE 0.9% INJ 10 ML SYR IV SCH ×2 (05:10→17:11)
[2022-01-23 06:08] LABS: BASO % 0.3 % (0.0-1.0); EOS # 0.2 10^3/uL (0.0-0.5); EOS % 3.2 % (0.0-3.0); HEMATOCRIT 26.7 % (36.0-47.0); HEMOGLOBIN 8.4 g/dl (12.0-15.5); LYMPH # 1.4 10^3/uL (1.5-5.0); LYMPH % 21.8 % (24.0-44.0); MEAN CORPUSCULAR HEMOGLOBIN 30.3 pg (27.0-33.0); MEAN CORPUSCULAR HGB CONC 31.5 g/dl (32.0-36.5); MEAN CORPUSCULAR VOLUME 96.4 fl (80.0-96.0); MONO # 0.8 10^3/uL (0.0-0.8); MONO % 12.2 % (2.0-8.0); NEUTROPHILS % 61.6 % (36.0-66.0); PLATELET COUNT, AUTOMATED 207 10^3/uL (150-450); RED BLOOD COUNT 2.77 10^6/uL (4.00-5.40); WHITE BLOOD COUNT 6.6 10^3/uL (4.0-10.0)
[2022-01-23 06:39] LABS: ALBUMIN 2.4 G/DL (3.2-5.2); BILIRUBIN,TOTAL 0.3 MG/DL (0.3-1.2); CALCIUM LEVEL 9.1 MG/DL (8.3-10.6); CREATININE FOR GFR 3.03 MG/DL (0.55-1.30); GLOMERULAR FILTRATION RATE 15.6 (>32); POTASSIUM SERUM 4.6 MMOL/L (3.5-5.1); TOTAL PROTEIN 5.4 G/DL (5.7-8.2)
[2022-01-23 06:42] VITALS: BP 158/73
[2022-01-23] MEDS ORDERED: HEPARIN 1,000UNITS/ML 10ML VIAL (FOR RADIOLOGY & DIALYSIS ONLY) XX SCH (06:45)
[2022-01-23] MEDS ORDERED: HEPARIN 1,000UNITS/ML 10ML VIAL (FOR RADIOLOGY & DIALYSIS ONLY) IV PRN (06:45)
[2022-01-23] MEDS: FERROUS SULFATE 325MG TAB PO SCH ×2 (06:47→20:13)
[2022-01-23] MEDS: ASPIRIN 81MG ENTERIC TABLET PO SCH (06:47)
[2022-01-23] MEDS: METOCLOPRAMIDE 10MG TAB PO SCH (06:47)
[2022-01-23] MEDS: MONTELUKAST 10 MG TAB PO SCH (06:47)
[2022-01-23] MEDS: DOCUSATE SODIUM 100MG CAPSULE PO SCH ×2 (06:47→20:13)
[2022-01-23] MEDS: CETIRIZINE (ZyrTEC) 10 MG TAB PO SCH (06:47)
[2022-01-23] MEDS: ACETAMINOPHEN 500 MG TAB PO SCH ×3 (06:48→20:13)
[2022-01-23] MEDS: APIXABAN 2.5 MG TAB (ELIQUIS) PO SCH ×2 (06:48→20:14)
[2022-01-23] MEDS: ASCORBIC ACID 500 MG TAB PO SCH ×2 (06:48→20:13)
[2022-01-23] MEDS: INSULIN LISPRO (NovoLOG) PER UNIT SC SCH ×4 (06:49→20:05)
[2022-01-23] MEDS: CLOTRIMAZOLE 1% TOPICAL CREAM 30GM TOP SCH ×2 (06:50→20:15)
[2022-01-23] MEDS: ANALGESIC BALM CRM 3OZ TOP SCH ×3 (06:50→20:15)
[2022-01-23] MEDS: SENNA 8.6 MG TAB (SENOKOT) PO SCH (07:00)
[2022-01-23] MEDS: PANTOPRAZOLE 40MG TAB (PROTONIX) PO SCH (07:00)
[2022-01-23] MEDS: **hydrALAZINE** 50 MG TAB PO SCH ×3 (07:33→20:14)
[2022-01-23] MEDS: CARVedilol 3.125 MG TAB PO SCH (07:34)
[2022-01-23] MEDS: METAMUCIL (PSYLLIUM) PACKET PO SCH ×2 (07:35→20:16)
[2022-01-23] MEDS: MIRALAX *UNIT DOSE* 17GM PACKET PO SCH ×2 (07:35→20:16)
[2022-01-23] MEDS: LEVEMIR (INSULIN DETEMIR) 1 UNITS/0.01ML SC SCH ×2 (07:35→20:15)
[2022-01-23] MEDS: DARBEPOETIN 200MCG/0.4ML *DIALYSIS* SYRINGE IV SCH (09:12)
[2022-01-23] MEDS: BUDESONIDE 0.5 MG/2 ML INHALATION SUSPENSION INH SCH ×2 (09:35→20:34)
[2022-01-23] MEDS: IRON SUCROSE 100MG 5ML VIAL IV SCH (10:17)
[2022-01-23 14:00] VITALS: BP 150/64
[2022-01-23] MEDS: allopurinoL 100 MG TAB PO SCH (14:38)
[2022-01-23 20:00] VITALS: BP 150/61
[2022-01-23] MEDS: SIMVASTATIN 20 MG TAB PO SCH (20:14)
[2022-01-24] MEDS: COMBIVENT RESPIMAT 100-20MCG INHALER 4GM INH SCH ×6 (00:20→21:21)
[2022-01-24] MEDS: MONTELUKAST 10 MG TAB PO SCH (05:14)
[2022-01-24] MEDS: METOCLOPRAMIDE 10MG TAB PO SCH (05:15)
[2022-01-24] MEDS: CARVedilol 3.125 MG TAB PO SCH (05:15)
[2022-01-24] MEDS: ASPIRIN 81MG ENTERIC TABLET PO SCH (05:15)
[2022-01-24] MEDS: SENNA 8.6 MG TAB (SENOKOT) PO SCH (05:15)
[2022-01-24] MEDS: ASCORBIC ACID 500 MG TAB PO SCH ×2 (05:15→20:52)
[2022-01-24] MEDS: DOCUSATE SODIUM 100MG CAPSULE PO SCH ×2 (05:16→20:52)
[2022-01-24] MEDS: FERROUS SULFATE 325MG TAB PO SCH ×2 (05:16→20:52)
[2022-01-24] MEDS: CETIRIZINE (ZyrTEC) 10 MG TAB PO SCH (05:16)
[2022-01-24] MEDS: **hydrALAZINE** 50 MG TAB PO SCH ×3 (05:16→20:51)
[2022-01-24] MEDS: SODIUM CHLORIDE 0.9% INJ 10 ML SYR IV SCH ×2 (05:17→17:45)
[2022-01-24] MEDS: PANTOPRAZOLE 40MG TAB (PROTONIX) PO SCH (05:17)
[2022-01-24] MEDS: APIXABAN 2.5 MG TAB (ELIQUIS) PO SCH ×2 (05:17→20:52)
[2022-01-24] MEDS: ACETAMINOPHEN 500 MG TAB PO SCH ×3 (05:17→20:52)
[2022-01-24 05:35] LABS: BASO % 0.5 % (0.0-1.0); EOS # 0.2 10^3/uL (0.0-0.5); EOS % 3.5 % (0.0-3.0); HEMATOCRIT 27.4 % (36.0-47.0); HEMOGLOBIN 8.5 g/dl (12.0-15.5); LYMPH # 1.3 10^3/uL (1.5-5.0); LYMPH % 20.3 % (24.0-44.0); MEAN CORPUSCULAR HEMOGLOBIN 29.9 pg (27.0-33.0); MEAN CORPUSCULAR VOLUME 96.5 fl (80.0-96.0); MONO # 0.9 10^3/uL (0.0-0.8); NEUTROPHILS # 3.9 10^3/uL (1.5-8.5); NEUTROPHILS % 60.3 % (36.0-66.0); PLATELET COUNT, AUTOMATED 209 10^3/uL (150-450); RED BLOOD COUNT 2.84 10^6/uL (4.00-5.40); WHITE BLOOD COUNT 6.4 10^3/uL (4.0-10.0)
[2022-01-24 06:00] VITALS: BP 144/61
[2022-01-24 06:21] LABS: ALBUMIN 2.3 G/DL (3.2-5.2); BILIRUBIN,TOTAL 0.2 MG/DL (0.3-1.2); CREATININE FOR GFR 2.38 MG/DL (0.55-1.30); GLOMERULAR FILTRATION RATE 20.6 (>32); MAGNESIUM LEVEL 1.9 MG/DL (1.8-2.4); POTASSIUM SERUM 4.6 MMOL/L (3.5-5.1); TOTAL PROTEIN 5.2 G/DL (5.7-8.2)
[2022-01-24] MEDS: METAMUCIL (PSYLLIUM) PACKET PO SCH ×2 (07:34→20:53)
[2022-01-24] MEDS: MIRALAX *UNIT DOSE* 17GM PACKET PO SCH ×2 (07:34→20:53)
[2022-01-24] MEDS: NYSTATIN 100,000 UNITS/GM TOPICAL PWD 15GM TOP PRN (07:34)
[2022-01-24] MEDS: ANALGESIC BALM CRM 3OZ TOP SCH ×3 (07:35→20:53)
[2022-01-24] MEDS: CLOTRIMAZOLE 1% TOPICAL CREAM 30GM TOP SCH ×2 (07:35→20:53)
[2022-01-24] MEDS: LEVEMIR (INSULIN DETEMIR) 1 UNITS/0.01ML SC SCH ×2 (07:39→20:51)
[2022-01-24] MEDS: INSULIN LISPRO (NovoLOG) PER UNIT SC SCH ×4 (07:39→20:44)
[2022-01-24] MEDS: BUDESONIDE 0.5 MG/2 ML INHALATION SUSPENSION INH SCH ×2 (08:00→21:21)
[2022-01-24] MEDS ORDERED: HEPARIN 1,000UNITS/ML 10ML VIAL (FOR RADIOLOGY & DIALYSIS ONLY) XX SCH (08:15)
[2022-01-24] MEDS ORDERED: HEPARIN 1,000UNITS/ML 10ML VIAL (FOR RADIOLOGY & DIALYSIS ONLY) IV PRN (08:15)
[2022-01-24] MEDS ORDERED: SODIUM CHLORIDE 0.9% 1000ML IV PRN (08:15)
[2022-01-24] MEDS: IRON SUCROSE 100MG 5ML VIAL IV SCH (09:22)
[2022-01-24] MEDS: allopurinoL 100 MG TAB PO SCH (13:04)
[2022-01-24 14:00] VITALS: BP 118/60
[2022-01-24 20:00] VITALS: BP 125/55
[2022-01-24] MEDS: SIMVASTATIN 20 MG TAB PO SCH (20:52)
[2022-01-25] MEDS: COMBIVENT RESPIMAT 100-20MCG INHALER 4GM INH SCH ×7 (00:03→23:21)
[2022-01-25] MEDS: oxyCODONE 5MG TAB PO PRN ×2 (00:24→09:18)
[2022-01-25] MEDS: SODIUM CHLORIDE 0.9% INJ 10 ML SYR IV SCH ×2 (05:18→18:34)
[2022-01-25] MEDS: ACETAMINOPHEN 500 MG TAB PO SCH ×3 (05:19→20:57)
[2022-01-25 05:37] LABS: BASO % 0.5 % (0.0-1.0); EOS # 0.2 10^3/uL (0.0-0.5); EOS % 2.9 % (0.0-3.0); HEMATOCRIT 28.1 % (36.0-47.0); HEMOGLOBIN 8.5 g/dl (12.0-15.5); LYMPH # 1.6 10^3/uL (1.5-5.0); LYMPH % 21.4 % (24.0-44.0); MEAN CORPUSCULAR HEMOGLOBIN 29.3 pg (27.0-33.0); MEAN CORPUSCULAR HGB CONC 30.2 g/dl (32.0-36.5); MEAN CORPUSCULAR VOLUME 96.9 fl (80.0-96.0); MONO % 13.2 % (2.0-8.0); NEUTROPHILS # 4.5 10^3/uL (1.5-8.5); NEUTROPHILS % 60.5 % (36.0-66.0); PLATELET COUNT, AUTOMATED 208 10^3/uL (150-450); WHITE BLOOD COUNT 7.4 10^3/uL (4.0-10.0)
[2022-01-25 05:47] VITALS: BP 136/62
[2022-01-25 07:09] LABS: ALBUMIN 2.3 G/DL (3.2-5.2); BILIRUBIN,TOTAL 0.3 MG/DL (0.3-1.2); CALCIUM LEVEL 8.9 MG/DL (8.3-10.6); CREATININE FOR GFR 2.22 MG/DL (0.55-1.30); GLOMERULAR FILTRATION RATE 22.3 (>32); MAGNESIUM LEVEL 1.9 MG/DL (1.8-2.4); POTASSIUM SERUM 4.1 MMOL/L (3.5-5.1); TOTAL PROTEIN 5.3 G/DL (5.7-8.2)
[2022-01-25] MEDS: BUDESONIDE 0.5 MG/2 ML INHALATION SUSPENSION INH SCH ×2 (08:09→19:29)
[2022-01-25] MEDS: **hydrALAZINE** 50 MG TAB PO SCH ×3 (08:17→20:59)
[2022-01-25] MEDS: ASCORBIC ACID 500 MG TAB PO SCH ×2 (08:17→20:56)
[2022-01-25] MEDS: METOCLOPRAMIDE 10MG TAB PO SCH (08:17)
[2022-01-25] MEDS: MONTELUKAST 10 MG TAB PO SCH (08:18)
[2022-01-25] MEDS: SENNA 8.6 MG TAB (SENOKOT) PO SCH (08:18)
[2022-01-25] MEDS: DOCUSATE SODIUM 100MG CAPSULE PO SCH ×2 (08:18→20:58)
[2022-01-25] MEDS: CETIRIZINE (ZyrTEC) 10 MG TAB PO SCH (08:18)
[2022-01-25] MEDS: ASPIRIN 81MG ENTERIC TABLET PO SCH (08:18)
[2022-01-25] MEDS: APIXABAN 2.5 MG TAB (ELIQUIS) PO SCH ×2 (08:18→20:56)
[2022-01-25] MEDS: FERROUS SULFATE 325MG TAB PO SCH ×2 (08:18→20:57)
[2022-01-25] MEDS: PANTOPRAZOLE 40MG TAB (PROTONIX) PO SCH (08:18)
[2022-01-25] MEDS: CARVedilol 3.125 MG TAB PO SCH (08:19)
[2022-01-25] MEDS: LEVEMIR (INSULIN DETEMIR) 1 UNITS/0.01ML SC SCH ×2 (08:20→20:58)
[2022-01-25] MEDS: INSULIN LISPRO (NovoLOG) PER UNIT SC SCH ×4 (08:20→20:49)
[2022-01-25] MEDS: CLOTRIMAZOLE 1% TOPICAL CREAM 30GM TOP SCH ×2 (08:21→20:58)
[2022-01-25] MEDS: MIRALAX *UNIT DOSE* 17GM PACKET PO SCH ×2 (08:24→20:52)
[2022-01-25] MEDS: METAMUCIL (PSYLLIUM) PACKET PO SCH ×2 (08:24→20:52)
[2022-01-25] MEDS: ANALGESIC BALM CRM 3OZ TOP SCH ×3 (08:25→20:58)
[2022-01-25] MEDS: allopurinoL 100 MG TAB PO SCH (13:06)
[2022-01-25 14:00] VITALS: BP 132/70
[2022-01-25] MEDS: SIMVASTATIN 20 MG TAB PO SCH (20:56)
[2022-01-25] MEDS: RAMELTEON 8 MG TAB (ROZEREM) PO PRN (20:58)
[2022-01-25 21:00] VITALS: BP 132/62
[2022-01-26] MEDS: COMBIVENT RESPIMAT 100-20MCG INHALER 4GM INH SCH ×5 (03:10→20:49)
[2022-01-26 06:00] VITALS: BP 150/83
[2022-01-26] MEDS ORDERED: HEPARIN 1,000UNITS/ML 10ML VIAL (FOR RADIOLOGY & DIALYSIS ONLY) IV PRN (06:00)
[2022-01-26] MEDS ORDERED: HEPARIN 1,000UNITS/ML 10ML VIAL (FOR RADIOLOGY & DIALYSIS ONLY) XX SCH (06:00)
[2022-01-26] MEDS ORDERED: SODIUM CHLORIDE 0.9% 1000ML IV PRN (06:00)
[2022-01-26] MEDS: SODIUM CHLORIDE 0.9% INJ 10 ML SYR IV SCH ×2 (06:17→17:07)
[2022-01-26] MEDS: ACETAMINOPHEN 500 MG TAB PO SCH ×3 (06:18→21:52)
[2022-01-26] MEDS: ASCORBIC ACID 500 MG TAB PO SCH ×2 (06:19→21:51)
[2022-01-26] MEDS: DOCUSATE SODIUM 100MG CAPSULE PO SCH ×2 (06:19→21:51)
[2022-01-26] MEDS: MONTELUKAST 10 MG TAB PO SCH (06:19)
[2022-01-26] MEDS: METOCLOPRAMIDE 10MG TAB PO SCH (06:19)
[2022-01-26] MEDS: ASPIRIN 81MG ENTERIC TABLET PO SCH (06:19)
[2022-01-26] MEDS: FERROUS SULFATE 325MG TAB PO SCH ×2 (06:21→21:51)
[2022-01-26] MEDS: PANTOPRAZOLE 40MG TAB (PROTONIX) PO SCH (06:21)
[2022-01-26] MEDS: APIXABAN 2.5 MG TAB (ELIQUIS) PO SCH ×2 (06:21→21:50)
[2022-01-26] MEDS: SENNA 8.6 MG TAB (SENOKOT) PO SCH (06:21)
[2022-01-26] MEDS: **hydrALAZINE** 50 MG TAB PO SCH ×3 (06:22→21:51)
[2022-01-26] MEDS: CETIRIZINE (ZyrTEC) 10 MG TAB PO SCH (06:22)
[2022-01-26] MEDS: METAMUCIL (PSYLLIUM) PACKET PO SCH ×2 (06:23→21:00)
[2022-01-26] MEDS: CARVedilol 3.125 MG TAB PO SCH (06:23)
[2022-01-26] MEDS: MIRALAX *UNIT DOSE* 17GM PACKET PO SCH ×2 (06:24→21:00)
[2022-01-26 06:59] LABS: BASO % 0.5 % (0.0-1.0); EOS # 0.2 10^3/uL (0.0-0.5); EOS % 2.9 % (0.0-3.0); HEMATOCRIT 28.2 % (36.0-47.0); HEMOGLOBIN 8.9 g/dl (12.0-15.5); LYMPH # 1.4 10^3/uL (1.5-5.0); MEAN CORPUSCULAR HEMOGLOBIN 30.4 pg (27.0-33.0); MEAN CORPUSCULAR HGB CONC 31.6 g/dl (32.0-36.5); MEAN CORPUSCULAR VOLUME 96.2 fl (80.0-96.0); MONO # 0.9 10^3/uL (0.0-0.8); NEUTROPHILS # 4.7 10^3/uL (1.5-8.5); PLATELET COUNT, AUTOMATED 234 10^3/uL (150-450); RED BLOOD COUNT 2.93 10^6/uL (4.00-5.40); WHITE BLOOD COUNT 7.3 10^3/uL (4.0-10.0)
[2022-01-26] MEDS: INSULIN LISPRO (NovoLOG) PER UNIT SC SCH ×4 (07:30→21:00)
[2022-01-26] MEDS: BUDESONIDE 0.5 MG/2 ML INHALATION SUSPENSION INH SCH ×2 (08:00→20:49)
[2022-01-26 08:57] LABS: ALBUMIN 2.3 G/DL (3.2-5.2); BILIRUBIN,TOTAL 0.2 MG/DL (0.3-1.2); CALCIUM LEVEL 9.1 MG/DL (8.3-10.6); CREATININE FOR GFR 2.85 MG/DL (0.55-1.30); GLOMERULAR FILTRATION RATE 16.7 (>32); POTASSIUM SERUM 4.2 MMOL/L (3.5-5.1); TOTAL PROTEIN 5.3 G/DL (5.7-8.2)
[2022-01-26] MEDS: LEVEMIR (INSULIN DETEMIR) 1 UNITS/0.01ML SC SCH ×2 (09:00→21:52)
[2022-01-26] MEDS: ANALGESIC BALM CRM 3OZ TOP SCH ×3 (09:00→21:00)
[2022-01-26] MEDS: IRON SUCROSE 100MG 5ML VIAL IV SCH (09:09)
[2022-01-26] MEDS: allopurinoL 100 MG TAB PO SCH (13:23)
[2022-01-26] MEDS: CLOTRIMAZOLE 1% TOPICAL CREAM 30GM TOP SCH ×2 (13:24→21:52)
[2022-01-26 14:00] VITALS: BP 101/45
[2022-01-26 15:26] VITALS: BP 129/62
[2022-01-26 21:35] VITALS: BP 102/52
[2022-01-26] MEDS: SIMVASTATIN 20 MG TAB PO SCH (21:51)
[2022-01-26] MEDS: RAMELTEON 8 MG TAB (ROZEREM) PO PRN (21:51)
[2022-01-27] MEDS: COMBIVENT RESPIMAT 100-20MCG INHALER 4GM INH SCH ×7 (00:15→23:32)
[2022-01-27] MEDS: oxyCODONE 5MG TAB PO PRN (00:35)
[2022-01-27] MEDS: SODIUM CHLORIDE 0.9% INJ 10 ML SYR IV SCH ×2 (05:47→17:37)
[2022-01-27] MEDS: ACETAMINOPHEN 500 MG TAB PO SCH ×3 (05:47→21:50)
[2022-01-27 06:00] VITALS: BP 140/59
[2022-01-27 06:13] LABS: BASO % 0.5 % (0.0-1.0); EOS # 0.2 10^3/uL (0.0-0.5); EOS % 2.7 % (0.0-3.0); HEMATOCRIT 28.3 % (36.0-47.0); HEMOGLOBIN 8.8 g/dl (12.0-15.5); LYMPH # 1.5 10^3/uL (1.5-5.0); LYMPH % 26.7 % (24.0-44.0); MEAN CORPUSCULAR HEMOGLOBIN 30.2 pg (27.0-33.0); MEAN CORPUSCULAR HGB CONC 31.1 g/dl (32.0-36.5); MEAN CORPUSCULAR VOLUME 97.3 fl (80.0-96.0); MONO # 0.8 10^3/uL (0.0-0.8); MONO % 13.6 % (2.0-8.0); NEUTROPHILS # 3.1 10^3/uL (1.5-8.5); NEUTROPHILS % 55.1 % (36.0-66.0); PLATELET COUNT, AUTOMATED 220 10^3/uL (150-450); RED BLOOD COUNT 2.91 10^6/uL (4.00-5.40); WHITE BLOOD COUNT 5.7 10^3/uL (4.0-10.0)
[2022-01-27 06:33] LABS: ALBUMIN 2.3 G/DL (3.2-5.2); POTASSIUM SERUM 3.6 MMOL/L (3.5-5.1)
[2022-01-27 06:38] LABS: CALCIUM LEVEL 8.8 MG/DL (8.3-10.6)
[2022-01-27 06:39] LABS: MAGNESIUM LEVEL 1.9 MG/DL (1.8-2.4)
[2022-01-27 06:41] LABS: BILIRUBIN,TOTAL 0.3 MG/DL (0.3-1.2); CREATININE FOR GFR 2.31 MG/DL (0.55-1.30); GLOMERULAR FILTRATION RATE 21.3 (>32); TOTAL PROTEIN 5.1 G/DL (5.7-8.2)
[2022-01-27] MEDS: BUDESONIDE 0.5 MG/2 ML INHALATION SUSPENSION INH SCH ×2 (07:46→20:18)
[2022-01-27] MEDS ORDERED: E-Z-GAS II EFFERVESCENT PACKET (SODIUM BICARB./CITRIC ACID/SIMETHICONE) As Ordered ONE (09:21)
[2022-01-27] MEDS ORDERED: E-Z-PAQUE 96% w/w SUSP 176GM BTL As Ordered ONE (09:21)
[2022-01-27] MEDS ORDERED: E-Z-HD 98% w/w 340GM SUSP BTL As Ordered ONE (09:21)
[2022-01-27] MEDS: INSULIN LISPRO (NovoLOG) PER UNIT SC SCH ×4 (10:38→21:00)
[2022-01-27] MEDS: METAMUCIL (PSYLLIUM) PACKET PO SCH ×2 (10:38→21:00)
[2022-01-27] MEDS: LEVEMIR (INSULIN DETEMIR) 1 UNITS/0.01ML SC SCH ×2 (10:39→21:49)
[2022-01-27] MEDS: SENNA 8.6 MG TAB (SENOKOT) PO SCH (10:39)
[2022-01-27] MEDS: ANALGESIC BALM CRM 3OZ TOP SCH ×3 (10:39→21:00)
[2022-01-27] MEDS: MIRALAX *UNIT DOSE* 17GM PACKET PO SCH ×2 (10:39→21:00)
[2022-01-27] MEDS: DOCUSATE SODIUM 100MG CAPSULE PO SCH ×2 (10:49→21:49)
[2022-01-27] MEDS: CETIRIZINE (ZyrTEC) 10 MG TAB PO SCH (10:50)
[2022-01-27] MEDS: CARVedilol 3.125 MG TAB PO SCH (10:50)
[2022-01-27] MEDS: PANTOPRAZOLE 40MG TAB (PROTONIX) PO SCH (10:50)
[2022-01-27] MEDS: APIXABAN 2.5 MG TAB (ELIQUIS) PO SCH ×2 (10:50→21:50)
[2022-01-27] MEDS: ASPIRIN 81MG ENTERIC TABLET PO SCH (10:50)
[2022-01-27] MEDS: CLOTRIMAZOLE 1% TOPICAL CREAM 30GM TOP SCH ×2 (10:51→21:49)
[2022-01-27] MEDS: **hydrALAZINE** 50 MG TAB PO SCH ×3 (10:51→21:53)
[2022-01-27] MEDS: METOCLOPRAMIDE 10MG TAB PO SCH (10:51)
[2022-01-27] MEDS: MONTELUKAST 10 MG TAB PO SCH (10:51)
[2022-01-27] MEDS: allopurinoL 100 MG TAB PO SCH (13:07)
[2022-01-27 14:00] VITALS: BP 115/59
[2022-01-27 20:50] VITALS: BP 127/64
[2022-01-27] MEDS: SIMVASTATIN 20 MG TAB PO SCH (21:49)
[2022-01-28] MEDS: oxyCODONE 5MG TAB PO PRN ×2 (02:18→15:07)
[2022-01-28] MEDS: COMBIVENT RESPIMAT 100-20MCG INHALER 4GM INH SCH ×6 (04:00→23:30)
[2022-01-28] MEDS: SODIUM CHLORIDE 0.9% INJ 10 ML SYR IV SCH ×2 (05:32→17:44)
[2022-01-28 05:40] VITALS: BP 149/68
[2022-01-28 05:47] LABS: HEMATOCRIT 28.5 % (36.0-47.0); HEMOGLOBIN 8.8 g/dl (12.0-15.5); MEAN CORPUSCULAR HGB CONC 30.9 g/dl (32.0-36.5); MEAN CORPUSCULAR VOLUME 97.3 fl (80.0-96.0); PLATELET COUNT, AUTOMATED 216 10^3/uL (150-450); RED BLOOD COUNT 2.93 10^6/uL (4.00-5.40); WHITE BLOOD COUNT 6.4 10^3/uL (4.0-10.0)
[2022-01-28] MEDS ORDERED: SODIUM CHLORIDE 0.9% 1000ML IV PRN ×2 (06:00)
[2022-01-28] MEDS ORDERED: HEPARIN 1,000UNITS/ML 10ML VIAL (FOR RADIOLOGY & DIALYSIS ONLY) IV PRN ×2 (06:00)
[2022-01-28] MEDS ORDERED: HEPARIN 1,000UNITS/ML 10ML VIAL (FOR RADIOLOGY & DIALYSIS ONLY) XX SCH ×2 (06:00)
[2022-01-28 06:12] LABS: POTASSIUM SERUM 3.8 MMOL/L (3.5-5.1)
[2022-01-28 06:18] LABS: CALCIUM LEVEL 8.6 MG/DL (8.3-10.6)
[2022-01-28 06:20] LABS: CREATININE FOR GFR 2.99 MG/DL (0.55-1.30); GLOMERULAR FILTRATION RATE 15.8 (>32)
[2022-01-28] MEDS: SENNA 8.6 MG TAB (SENOKOT) PO SCH (06:32)
[2022-01-28] MEDS: METAMUCIL (PSYLLIUM) PACKET PO SCH ×2 (06:32→20:35)
[2022-01-28] MEDS: MIRALAX *UNIT DOSE* 17GM PACKET PO SCH ×2 (06:32→20:34)
[2022-01-28] MEDS: ANALGESIC BALM CRM 3OZ TOP SCH ×3 (06:33→22:30)
[2022-01-28] MEDS: MONTELUKAST 10 MG TAB PO SCH (06:39)
[2022-01-28] MEDS: APIXABAN 2.5 MG TAB (ELIQUIS) PO SCH ×2 (06:39→22:30)
[2022-01-28] MEDS: PANTOPRAZOLE 40MG TAB (PROTONIX) PO SCH (06:39)
[2022-01-28] MEDS: ASPIRIN 81MG ENTERIC TABLET PO SCH (06:39)
[2022-01-28] MEDS: CETIRIZINE (ZyrTEC) 10 MG TAB PO SCH (06:39)
[2022-01-28] MEDS: DOCUSATE SODIUM 100MG CAPSULE PO SCH ×2 (06:39→22:30)
[2022-01-28] MEDS: ACETAMINOPHEN 500 MG TAB PO SCH ×3 (06:43→22:32)
[2022-01-28] MEDS: CARVedilol 3.125 MG TAB PO SCH (06:44)
[2022-01-28] MEDS: **hydrALAZINE** 50 MG TAB PO SCH ×3 (06:45→22:32)
[2022-01-28] MEDS: METOCLOPRAMIDE 10MG TAB PO SCH (06:45)
[2022-01-28] MEDS: CLOTRIMAZOLE 1% TOPICAL CREAM 30GM TOP SCH ×2 (06:46→22:31)
[2022-01-28] MEDS: INSULIN LISPRO (NovoLOG) PER UNIT SC SCH ×4 (07:30→20:31)
[2022-01-28] MEDS: BUDESONIDE 0.5 MG/2 ML INHALATION SUSPENSION INH SCH ×2 (08:00→19:26)
[2022-01-28] MEDS: IRON SUCROSE 100MG 5ML VIAL IV SCH (08:18)
[2022-01-28] MEDS: LEVEMIR (INSULIN DETEMIR) 1 UNITS/0.01ML SC SCH ×2 (12:09→22:29)
[2022-01-28] MEDS: allopurinoL 100 MG TAB PO SCH (12:45)
[2022-01-28 14:00] VITALS: BP 110/56
[2022-01-28 15:04] VITALS: BP 117/48
[2022-01-28 15:33] VITALS: BP 133/58
[2022-01-28 20:00] VITALS: BP 131/58
[2022-01-28 22:28] VITALS: BP 134/57
[2022-01-28] MEDS: SIMVASTATIN 20 MG TAB PO SCH (22:30)
[2022-01-29] MEDS: COMBIVENT RESPIMAT 100-20MCG INHALER 4GM INH SCH ×5 (03:27→19:23)
[2022-01-29 06:00] VITALS: BP 135/55
[2022-01-29] MEDS: ACETAMINOPHEN 500 MG TAB PO SCH ×3 (06:00→20:42)
[2022-01-29] MEDS: SODIUM CHLORIDE 0.9% INJ 10 ML SYR IV SCH (06:09)
[2022-01-29] MEDS: BUDESONIDE 0.5 MG/2 ML INHALATION SUSPENSION INH SCH ×2 (07:14→19:23)
[2022-01-29] MEDS: ASPIRIN 81MG ENTERIC TABLET PO SCH (08:50)
[2022-01-29] MEDS: SENNA 8.6 MG TAB (SENOKOT) PO SCH (08:50)
[2022-01-29] MEDS: APIXABAN 2.5 MG TAB (ELIQUIS) PO SCH ×2 (08:50→20:42)
[2022-01-29] MEDS: DOCUSATE SODIUM 100MG CAPSULE PO SCH ×2 (08:50→20:41)
[2022-01-29] MEDS: CETIRIZINE (ZyrTEC) 10 MG TAB PO SCH (08:50)
[2022-01-29] MEDS: METOCLOPRAMIDE 10MG TAB PO SCH (08:50)
[2022-01-29] MEDS: PANTOPRAZOLE 40MG TAB (PROTONIX) PO SCH (08:50)
[2022-01-29] MEDS: LEVEMIR (INSULIN DETEMIR) 1 UNITS/0.01ML SC SCH ×2 (08:51→20:43)
[2022-01-29] MEDS: MONTELUKAST 10 MG TAB PO SCH (08:51)
[2022-01-29] MEDS: INSULIN LISPRO (NovoLOG) PER UNIT SC SCH ×4 (08:51→20:32)
[2022-01-29] MEDS: CARVedilol 3.125 MG TAB PO SCH (08:53)
[2022-01-29] MEDS: **hydrALAZINE** 50 MG TAB PO SCH ×3 (08:53→20:41)
[2022-01-29] MEDS: oxyCODONE 5MG TAB PO PRN ×2 (08:57→23:11)
[2022-01-29] MEDS: CLOTRIMAZOLE 1% TOPICAL CREAM 30GM TOP SCH ×2 (08:59→20:42)
[2022-01-29] MEDS: MIRALAX *UNIT DOSE* 17GM PACKET PO SCH ×2 (09:00→20:43)
[2022-01-29] MEDS: ANALGESIC BALM CRM 3OZ TOP SCH ×4 (09:00→21:00)
[2022-01-29] MEDS: METAMUCIL (PSYLLIUM) PACKET PO SCH ×2 (09:00→20:43)
[2022-01-29] MEDS: allopurinoL 100 MG TAB PO SCH (12:32)
[2022-01-29 14:00] VITALS: BP 136/55
[2022-01-29 20:28] VITALS: BP 136/57
[2022-01-29] MEDS: SIMVASTATIN 20 MG TAB PO SCH (20:43)
[2022-01-29] MEDS: RAMELTEON 8 MG TAB (ROZEREM) PO PRN (23:10)
[2022-01-30] MEDS: COMBIVENT RESPIMAT 100-20MCG INHALER 4GM INH SCH ×7 (04:00→23:13)
[2022-01-30] MEDS: MIRALAX *UNIT DOSE* 17GM PACKET PO SCH ×2 (05:32→21:00)
[2022-01-30] MEDS: METAMUCIL (PSYLLIUM) PACKET PO SCH ×2 (05:32→21:00)
[2022-01-30] MEDS: SENNA 8.6 MG TAB (SENOKOT) PO SCH (05:45)
[2022-01-30] MEDS: **hydrALAZINE** 50 MG TAB PO SCH (05:45)
[2022-01-30] MEDS: ASPIRIN 81MG ENTERIC TABLET PO SCH (05:46)
[2022-01-30] MEDS: DOCUSATE SODIUM 100MG CAPSULE PO SCH ×2 (05:46→22:13)
[2022-01-30] MEDS: CARVedilol 3.125 MG TAB PO SCH (05:46)
[2022-01-30] MEDS: METOCLOPRAMIDE 10MG TAB PO SCH (05:47)
[2022-01-30] MEDS: CETIRIZINE (ZyrTEC) 10 MG TAB PO SCH (05:47)
[2022-01-30] MEDS: ACETAMINOPHEN 500 MG TAB PO SCH ×3 (05:48→21:59)
[2022-01-30] MEDS: PANTOPRAZOLE 40MG TAB (PROTONIX) PO SCH (05:48)
[2022-01-30] MEDS: MONTELUKAST 10 MG TAB PO SCH (05:54)
[2022-01-30] MEDS: APIXABAN 2.5 MG TAB (ELIQUIS) PO SCH ×2 (05:55→22:13)
[2022-01-30 06:00] VITALS: BP 137/59
[2022-01-30] MEDS ORDERED: HEPARIN 1,000UNITS/ML 10ML VIAL (FOR RADIOLOGY & DIALYSIS ONLY) XX SCH (06:00)
[2022-01-30] MEDS ORDERED: SODIUM CHLORIDE 0.9% 1000ML IV PRN (06:00)
[2022-01-30] MEDS ORDERED: HEPARIN 1,000UNITS/ML 10ML VIAL (FOR RADIOLOGY & DIALYSIS ONLY) IV PRN (06:00)
[2022-01-30] MEDS: BUDESONIDE 0.5 MG/2 ML INHALATION SUSPENSION INH SCH ×2 (07:16→19:17)
[2022-01-30 08:00] VITALS: BP_SYST 118; BP_SYST 97; BP_DIAS 41; BP_DIAS 46
[2022-01-30] MEDS: LEVEMIR (INSULIN DETEMIR) 1 UNITS/0.01ML SC SCH ×2 (08:10→22:12)
[2022-01-30] MEDS: INSULIN LISPRO (NovoLOG) PER UNIT SC SCH ×4 (08:10→21:00)
[2022-01-30] MEDS: CLOTRIMAZOLE 1% TOPICAL CREAM 30GM TOP SCH ×2 (08:11→22:14)
[2022-01-30] MEDS: ANALGESIC BALM CRM 3OZ TOP SCH ×3 (08:11→21:00)
[2022-01-30 08:25] VITALS: BP 98/44
[2022-01-30 09:00] VITALS: BP 118/46
[2022-01-30] MEDS: allopurinoL 100 MG TAB PO SCH (12:02)
[2022-01-30] MEDS: IRON SUCROSE 100MG 5ML VIAL IV SCH (12:33)
[2022-01-30] MEDS: DARBEPOETIN 200MCG/0.4ML *DIALYSIS* SYRINGE IV SCH (14:12)
[2022-01-30 14:37] VITALS: BP 111/74
[2022-01-30] MEDS: SIMVASTATIN 20 MG TAB PO SCH (22:13)
[2022-01-31] MEDS: COMBIVENT RESPIMAT 100-20MCG INHALER 4GM INH SCH ×6 (03:12→23:16)
[2022-01-31 05:54] VITALS: BP 131/73
[2022-01-31] MEDS: ACETAMINOPHEN 500 MG TAB PO SCH ×3 (05:54→21:36)
[2022-01-31] MEDS ORDERED: HEPARIN 1,000UNITS/ML 10ML VIAL (FOR RADIOLOGY & DIALYSIS ONLY) XX SCH (07:00)
[2022-01-31] MEDS ORDERED: HEPARIN 1,000UNITS/ML 10ML VIAL (FOR RADIOLOGY & DIALYSIS ONLY) IV PRN (07:00)
[2022-01-31] MEDS: INSULIN LISPRO (NovoLOG) PER UNIT SC SCH ×4 (07:30→20:39)
[2022-01-31] MEDS: METAMUCIL (PSYLLIUM) PACKET PO SCH ×2 (07:34→20:40)
[2022-01-31] MEDS: MIRALAX *UNIT DOSE* 17GM PACKET PO SCH ×2 (07:35→20:40)
[2022-01-31] MEDS: PANTOPRAZOLE 40MG TAB (PROTONIX) PO SCH (07:48)
[2022-01-31] MEDS: ASPIRIN 81MG ENTERIC TABLET PO SCH (07:48)
[2022-01-31] MEDS: CETIRIZINE (ZyrTEC) 10 MG TAB PO SCH (07:48)
[2022-01-31] MEDS: MONTELUKAST 10 MG TAB PO SCH (07:48)
[2022-01-31] MEDS: METOCLOPRAMIDE 10MG TAB PO SCH (07:48)
[2022-01-31] MEDS: DOCUSATE SODIUM 100MG CAPSULE PO SCH ×2 (07:48→20:38)
[2022-01-31] MEDS: SENNA 8.6 MG TAB (SENOKOT) PO SCH (07:49)
[2022-01-31] MEDS: lisinopriL 5 MG TAB PO SCH (07:51)
[2022-01-31] MEDS: CARVedilol 3.125 MG TAB PO SCH (07:52)
[2022-01-31] MEDS: APIXABAN 2.5 MG TAB (ELIQUIS) PO SCH ×2 (07:52→20:39)
[2022-01-31] MEDS: BUDESONIDE 0.5 MG/2 ML INHALATION SUSPENSION INH SCH ×2 (08:00→18:05)
[2022-01-31] MEDS: LEVEMIR (INSULIN DETEMIR) 1 UNITS/0.01ML SC SCH ×2 (09:00→20:39)
[2022-01-31] MEDS: ANALGESIC BALM CRM 3OZ TOP SCH ×3 (09:00→20:39)
[2022-01-31] MEDS: IRON SUCROSE 100MG 5ML VIAL IV SCH (09:10)
[2022-01-31] MEDS: allopurinoL 100 MG TAB PO SCH (13:22)
[2022-01-31] MEDS: CLOTRIMAZOLE 1% TOPICAL CREAM 30GM TOP SCH ×2 (13:23→20:40)
[2022-01-31] MEDS: SIMVASTATIN 20 MG TAB PO SCH (20:39)
[2022-02-01] MEDS: COMBIVENT RESPIMAT 100-20MCG INHALER 4GM INH SCH ×5 (03:07→19:54)
[2022-02-01] MEDS: ACETAMINOPHEN 500 MG TAB PO SCH ×3 (05:09→22:35)
[2022-02-01 06:00] VITALS: BP 123/47
[2022-02-01] MEDS: INSULIN LISPRO (NovoLOG) PER UNIT SC SCH ×4 (07:24→22:26)
[2022-02-01] MEDS: BUDESONIDE 0.5 MG/2 ML INHALATION SUSPENSION INH SCH ×2 (07:50→19:55)
[2022-02-01] MEDS: METOCLOPRAMIDE 10MG TAB PO SCH (08:43)
[2022-02-01] MEDS: PANTOPRAZOLE 40MG TAB (PROTONIX) PO SCH (08:43)
[2022-02-01] MEDS: ASPIRIN 81MG ENTERIC TABLET PO SCH (08:43)
[2022-02-01] MEDS: MONTELUKAST 10 MG TAB PO SCH (08:43)
[2022-02-01] MEDS: CLOTRIMAZOLE 1% TOPICAL CREAM 30GM TOP SCH ×2 (08:43→22:35)
[2022-02-01] MEDS: DOCUSATE SODIUM 100MG CAPSULE PO SCH ×2 (08:43→22:34)
[2022-02-01] MEDS: SENNA 8.6 MG TAB (SENOKOT) PO SCH (08:43)
[2022-02-01] MEDS: APIXABAN 2.5 MG TAB (ELIQUIS) PO SCH ×2 (08:43→22:36)
[2022-02-01] MEDS: CETIRIZINE (ZyrTEC) 10 MG TAB PO SCH (08:43)
[2022-02-01] MEDS: CARVedilol 3.125 MG TAB PO SCH (08:49)
[2022-02-01] MEDS: METAMUCIL (PSYLLIUM) PACKET PO SCH ×2 (08:50→22:23)
[2022-02-01] MEDS: ANALGESIC BALM CRM 3OZ TOP SCH ×3 (08:50→22:33)
[2022-02-01] MEDS: MIRALAX *UNIT DOSE* 17GM PACKET PO SCH ×2 (08:50→22:23)
[2022-02-01] MEDS: LEVEMIR (INSULIN DETEMIR) 1 UNITS/0.01ML SC SCH ×2 (10:17→22:34)
[2022-02-01] MEDS: lisinopriL 5 MG TAB PO SCH (10:18)
[2022-02-01] MEDS: allopurinoL 100 MG TAB PO SCH (12:32)
[2022-02-01] MEDS: SIMVASTATIN 20 MG TAB PO SCH (22:36)
[2022-02-02] MEDS: COMBIVENT RESPIMAT 100-20MCG INHALER 4GM INH SCH ×6 (00:03→20:30)
[2022-02-02] MEDS: ACETAMINOPHEN 500 MG TAB PO SCH ×3 (06:00→21:20)
[2022-02-02 06:09] LABS: HEMATOCRIT 30.6 % (36.0-47.0); HEMOGLOBIN 9.4 g/dl (12.0-15.5); MEAN CORPUSCULAR HGB CONC 30.7 g/dl (32.0-36.5); MEAN CORPUSCULAR VOLUME 97.8 fl (80.0-96.0); PLATELET COUNT, AUTOMATED 175 10^3/uL (150-450); RED BLOOD COUNT 3.13 10^6/uL (4.00-5.40); WHITE BLOOD COUNT 7.3 10^3/uL (4.0-10.0)
[2022-02-02 06:19] VITALS: BP 115/49
[2022-02-02] MEDS: ASPIRIN 81MG ENTERIC TABLET PO SCH (06:23)
[2022-02-02] MEDS: CARVedilol 3.125 MG TAB PO SCH (06:24)
[2022-02-02] MEDS: DOCUSATE SODIUM 100MG CAPSULE PO SCH ×2 (06:24→21:20)
[2022-02-02] MEDS: MONTELUKAST 10 MG TAB PO SCH (06:25)
[2022-02-02] MEDS: SENNA 8.6 MG TAB (SENOKOT) PO SCH (06:25)
[2022-02-02] MEDS: lisinopriL 5 MG TAB PO SCH (06:25)
[2022-02-02] MEDS: CETIRIZINE (ZyrTEC) 10 MG TAB PO SCH (06:26)
[2022-02-02] MEDS: PANTOPRAZOLE 40MG TAB (PROTONIX) PO SCH (06:27)
[2022-02-02] MEDS: METOCLOPRAMIDE 10MG TAB PO SCH (06:27)
[2022-02-02] MEDS: APIXABAN 2.5 MG TAB (ELIQUIS) PO SCH ×2 (06:27→21:20)
[2022-02-02 06:30] LABS: ALBUMIN 2.3 G/DL (3.2-5.2); CALCIUM LEVEL 8.9 MG/DL (8.3-10.6); CREATININE FOR GFR 3.47 MG/DL (0.55-1.30); GLOMERULAR FILTRATION RATE 13.3 (>32); PHOSPHORUS LEVEL 5.2 MG/DL (2.4-5.1); POTASSIUM SERUM 4.2 MMOL/L (3.5-5.1)
[2022-02-02] MEDS ORDERED: HEPARIN 1,000UNITS/ML 10ML VIAL (FOR RADIOLOGY & DIALYSIS ONLY) IV PRN (06:55)
[2022-02-02] MEDS ORDERED: HEPARIN 1,000UNITS/ML 10ML VIAL (FOR RADIOLOGY & DIALYSIS ONLY) XX SCH (06:55)
[2022-02-02] MEDS ORDERED: SODIUM CHLORIDE 0.9% 1000ML IV PRN (06:55)
[2022-02-02] MEDS: BUDESONIDE 0.5 MG/2 ML INHALATION SUSPENSION INH SCH ×2 (07:49→20:00)
[2022-02-02] MEDS: LEVEMIR (INSULIN DETEMIR) 1 UNITS/0.01ML SC SCH ×2 (08:04→21:20)
[2022-02-02] MEDS: CLOTRIMAZOLE 1% TOPICAL CREAM 30GM TOP SCH ×2 (08:05→21:21)
[2022-02-02] MEDS: INSULIN LISPRO (NovoLOG) PER UNIT SC SCH ×4 (08:05→21:00)
[2022-02-02] MEDS: ANALGESIC BALM CRM 3OZ TOP SCH ×3 (08:06→21:00)
[2022-02-02] MEDS: METAMUCIL (PSYLLIUM) PACKET PO SCH ×2 (08:07→21:00)
[2022-02-02] MEDS: MIRALAX *UNIT DOSE* 17GM PACKET PO SCH ×2 (08:08→21:00)
[2022-02-02] MEDS: oxyCODONE 5MG TAB PO PRN (09:51)
[2022-02-02] MEDS: IRON SUCROSE 100MG 5ML VIAL IV SCH (12:46)
[2022-02-02 15:52] VITALS: BP 139/60
[2022-02-02] MEDS: allopurinoL 100 MG TAB PO SCH (15:56)
[2022-02-02] MEDS: SIMVASTATIN 20 MG TAB PO SCH (21:20)
[2022-02-03] MEDS: COMBIVENT RESPIMAT 100-20MCG INHALER 4GM INH SCH ×6 (02:33→20:00)
[2022-02-03 06:00] VITALS: BP 129/60
[2022-02-03] MEDS: ACETAMINOPHEN 500 MG TAB PO SCH ×3 (06:00→22:35)
[2022-02-03] MEDS: INSULIN LISPRO (NovoLOG) PER UNIT SC SCH ×4 (07:30→22:46)
[2022-02-03] MEDS: BUDESONIDE 0.5 MG/2 ML INHALATION SUSPENSION INH SCH ×2 (07:34→21:11)
[2022-02-03] MEDS: LEVEMIR (INSULIN DETEMIR) 1 UNITS/0.01ML SC SCH ×2 (08:45→22:40)
[2022-02-03] MEDS: MIRALAX *UNIT DOSE* 17GM PACKET PO SCH ×2 (08:55→22:35)
[2022-02-03] MEDS: METAMUCIL (PSYLLIUM) PACKET PO SCH ×2 (08:55→22:35)
[2022-02-03] MEDS: DOCUSATE SODIUM 100MG CAPSULE PO SCH ×2 (09:00→22:34)
[2022-02-03] MEDS: CARVedilol 3.125 MG TAB PO SCH (09:01)
[2022-02-03] MEDS: APIXABAN 2.5 MG TAB (ELIQUIS) PO SCH ×2 (09:01→22:34)
[2022-02-03] MEDS: METOCLOPRAMIDE 10MG TAB PO SCH (09:01)
[2022-02-03] MEDS: ANALGESIC BALM CRM 3OZ TOP SCH ×3 (09:01→21:00)
[2022-02-03] MEDS: ASPIRIN 81MG ENTERIC TABLET PO SCH (09:01)
[2022-02-03] MEDS: lisinopriL 5 MG TAB PO SCH (09:01)
[2022-02-03] MEDS: PANTOPRAZOLE 40MG TAB (PROTONIX) PO SCH (09:01)
[2022-02-03] MEDS: SENNA 8.6 MG TAB (SENOKOT) PO SCH (09:01)
[2022-02-03] MEDS: MONTELUKAST 10 MG TAB PO SCH (09:01)
[2022-02-03] MEDS: CETIRIZINE (ZyrTEC) 10 MG TAB PO SCH (09:01)
[2022-02-03] MEDS: CLOTRIMAZOLE 1% TOPICAL CREAM 30GM TOP SCH ×2 (09:02→22:40)
[2022-02-03] MEDS: oxyCODONE 5MG TAB PO PRN (09:10)
[2022-02-03] MEDS: allopurinoL 100 MG TAB PO SCH (13:00)
[2022-02-03 14:00] VITALS: BP 113/82
[2022-02-03] MEDS: SIMVASTATIN 20 MG TAB PO SCH (22:34)
[2022-02-04] MEDS: COMBIVENT RESPIMAT 100-20MCG INHALER 4GM INH SCH ×7 (04:07→23:56)
[2022-02-04 05:07] VITALS: BP 116/58
[2022-02-04] MEDS: PANTOPRAZOLE 40MG TAB (PROTONIX) PO SCH (05:30)
[2022-02-04] MEDS: ACETAMINOPHEN 500 MG TAB PO SCH ×4 (05:30→22:23)
[2022-02-04] MEDS: SENNA 8.6 MG TAB (SENOKOT) PO SCH (05:30)
[2022-02-04] MEDS: MONTELUKAST 10 MG TAB PO SCH (05:30)
[2022-02-04] MEDS: METOCLOPRAMIDE 10MG TAB PO SCH (05:30)
[2022-02-04] MEDS: ASPIRIN 81MG ENTERIC TABLET PO SCH (05:30)
[2022-02-04] MEDS: CETIRIZINE (ZyrTEC) 10 MG TAB PO SCH (05:31)
[2022-02-04] MEDS: APIXABAN 2.5 MG TAB (ELIQUIS) PO SCH ×3 (05:31→22:22)
[2022-02-04] MEDS: lisinopriL 5 MG TAB PO SCH (05:31)
[2022-02-04] MEDS: DOCUSATE SODIUM 100MG CAPSULE PO SCH ×2 (05:31→21:00)
[2022-02-04] MEDS: CARVedilol 3.125 MG TAB PO SCH (05:32)
[2022-02-04] MEDS ORDERED: HEPARIN 1,000UNITS/ML 10ML VIAL (FOR RADIOLOGY & DIALYSIS ONLY) XX SCH (06:35)
[2022-02-04] MEDS ORDERED: HEPARIN 1,000UNITS/ML 10ML VIAL (FOR RADIOLOGY & DIALYSIS ONLY) IV PRN (06:35)
[2022-02-04] MEDS ORDERED: SODIUM CHLORIDE 0.9% 1000ML IV PRN (06:35)
[2022-02-04] MEDS: BUDESONIDE 0.5 MG/2 ML INHALATION SUSPENSION INH SCH ×2 (08:00→20:41)
[2022-02-04] MEDS: INSULIN LISPRO (NovoLOG) PER UNIT SC SCH ×4 (08:05→21:00)
[2022-02-04] MEDS: LEVEMIR (INSULIN DETEMIR) 1 UNITS/0.01ML SC SCH ×2 (08:05→21:00)
[2022-02-04] MEDS: METAMUCIL (PSYLLIUM) PACKET PO SCH ×2 (08:06→21:00)
[2022-02-04] MEDS: ANALGESIC BALM CRM 3OZ TOP SCH ×3 (09:00→21:00)
[2022-02-04] MEDS: MIRALAX *UNIT DOSE* 17GM PACKET PO SCH ×2 (09:00→21:00)
[2022-02-04] MEDS: IRON SUCROSE 100MG 5ML VIAL IV SCH (09:16)
[2022-02-04] MEDS: CLOTRIMAZOLE 1% TOPICAL CREAM 30GM TOP SCH ×2 (13:33→21:00)
[2022-02-04] MEDS: allopurinoL 100 MG TAB PO SCH (13:33)
[2022-02-04] MEDS: SIMVASTATIN 20 MG TAB PO SCH ×2 (21:00→22:22)
[2022-02-05] MEDS: COMBIVENT RESPIMAT 100-20MCG INHALER 4GM INH SCH ×5 (04:00→19:35)
[2022-02-05] MEDS: ACETAMINOPHEN 500 MG TAB PO SCH ×3 (05:58→23:49)
[2022-02-05 06:34] VITALS: BP 132/65
[2022-02-05] MEDS: INSULIN LISPRO (NovoLOG) PER UNIT SC SCH ×4 (07:30→21:00)
[2022-02-05] MEDS: BUDESONIDE 0.5 MG/2 ML INHALATION SUSPENSION INH SCH ×2 (08:06→19:35)
[2022-02-05] MEDS: MIRALAX *UNIT DOSE* 17GM PACKET PO SCH ×2 (09:00→21:00)
[2022-02-05] MEDS: METAMUCIL (PSYLLIUM) PACKET PO SCH ×2 (09:00→21:00)
[2022-02-05] MEDS: METOCLOPRAMIDE 10MG TAB PO SCH (09:02)
[2022-02-05] MEDS: DOCUSATE SODIUM 100MG CAPSULE PO SCH ×2 (09:02→23:48)
[2022-02-05] MEDS: MONTELUKAST 10 MG TAB PO SCH (09:02)
[2022-02-05] MEDS: ASPIRIN 81MG ENTERIC TABLET PO SCH (09:02)
[2022-02-05] MEDS: ANALGESIC BALM CRM 3OZ TOP SCH ×3 (09:03→23:49)
[2022-02-05] MEDS: LEVEMIR (INSULIN DETEMIR) 1 UNITS/0.01ML SC SCH ×2 (09:03→23:49)
[2022-02-05] MEDS: CLOTRIMAZOLE 1% TOPICAL CREAM 30GM TOP SCH (09:03)
[2022-02-05] MEDS: PANTOPRAZOLE 40MG TAB (PROTONIX) PO SCH (09:03)
[2022-02-05] MEDS: CETIRIZINE (ZyrTEC) 10 MG TAB PO SCH (09:03)
[2022-02-05] MEDS: SENNA 8.6 MG TAB (SENOKOT) PO SCH (09:03)
[2022-02-05] MEDS: lisinopriL 5 MG TAB PO SCH (09:04)
[2022-02-05] MEDS: APIXABAN 2.5 MG TAB (ELIQUIS) PO SCH ×2 (09:05→23:49)
[2022-02-05] MEDS: CARVedilol 3.125 MG TAB PO SCH (09:05)
[2022-02-05] MEDS ORDERED: HEPARIN 1,000UNITS/ML 10ML VIAL (FOR RADIOLOGY & DIALYSIS ONLY) IV PRN (10:45)
[2022-02-05] MEDS ORDERED: HEPARIN 1,000UNITS/ML 10ML VIAL (FOR RADIOLOGY & DIALYSIS ONLY) XX SCH (10:45)
[2022-02-05] MEDS ORDERED: SODIUM CHLORIDE 0.9% 1000ML IV PRN (10:45)
[2022-02-05] MEDS: allopurinoL 100 MG TAB PO SCH (11:56)
[2022-02-05] MEDS: IRON SUCROSE 100MG 5ML VIAL IV SCH (13:30)
[2022-02-05] MEDS: SIMVASTATIN 20 MG TAB PO SCH (23:49)
[2022-02-06] MEDS: COMBIVENT RESPIMAT 100-20MCG INHALER 4GM INH SCH ×7 (00:04→23:19)
[2022-02-06] MEDS: CLOTRIMAZOLE 1% TOPICAL CREAM 30GM TOP SCH ×3 (00:42→20:58)
[2022-02-06] MEDS: ACETAMINOPHEN 500 MG TAB PO SCH (05:33)
[2022-02-06 06:00] VITALS: BP 129/61
[2022-02-06 06:36] LABS: HEMATOCRIT 31.1 % (36.0-47.0); HEMOGLOBIN 9.2 g/dl (12.0-15.5); MEAN CORPUSCULAR HEMOGLOBIN 29.8 pg (27.0-33.0); MEAN CORPUSCULAR HGB CONC 29.6 g/dl (32.0-36.5); MEAN CORPUSCULAR VOLUME 100.6 fl (80.0-96.0); PLATELET COUNT, AUTOMATED 163 10^3/uL (150-450); RED BLOOD COUNT 3.09 10^6/uL (4.00-5.40); WHITE BLOOD COUNT 6.5 10^3/uL (4.0-10.0)
[2022-02-06] MEDS ORDERED: HEPARIN 1,000UNITS/ML 10ML VIAL (FOR RADIOLOGY & DIALYSIS ONLY) IV PRN (06:50)
[2022-02-06] MEDS ORDERED: HEPARIN 1,000UNITS/ML 10ML VIAL (FOR RADIOLOGY & DIALYSIS ONLY) XX SCH (06:50)
[2022-02-06] MEDS ORDERED: SODIUM CHLORIDE 0.9% 1000ML IV PRN (06:50)
[2022-02-06] MEDS: ASPIRIN 81MG ENTERIC TABLET PO SCH (06:58)
[2022-02-06] MEDS: DOCUSATE SODIUM 100MG CAPSULE PO SCH ×2 (06:58→20:57)
[2022-02-06] MEDS: MONTELUKAST 10 MG TAB PO SCH (06:58)
[2022-02-06] MEDS: APIXABAN 2.5 MG TAB (ELIQUIS) PO SCH ×2 (06:58→20:58)
[2022-02-06] MEDS: CETIRIZINE (ZyrTEC) 10 MG TAB PO SCH (06:59)
[2022-02-06] MEDS: SENNA 8.6 MG TAB (SENOKOT) PO SCH (07:00)
[2022-02-06] MEDS: METOCLOPRAMIDE 10MG TAB PO SCH (07:00)
[2022-02-06] MEDS: CARVedilol 3.125 MG TAB PO SCH (07:01)
[2022-02-06] MEDS: lisinopriL 5 MG TAB PO SCH (07:02)
[2022-02-06] MEDS: PANTOPRAZOLE 40MG TAB (PROTONIX) PO SCH (07:03)
[2022-02-06 07:05] LABS: ALBUMIN 2.2 G/DL (3.2-5.2); CALCIUM LEVEL 8.9 MG/DL (8.3-10.6); CREATININE FOR GFR 2.96 MG/DL (0.55-1.30); PHOSPHORUS LEVEL 4.5 MG/DL (2.4-5.1); POTASSIUM SERUM 5.3 MMOL/L (3.5-5.1)
[2022-02-06] MEDS: BUDESONIDE 0.5 MG/2 ML INHALATION SUSPENSION INH SCH ×2 (07:12→19:36)
[2022-02-06] MEDS: INSULIN LISPRO (NovoLOG) PER UNIT SC SCH ×4 (07:30→20:53)
[2022-02-06] MEDS: METAMUCIL (PSYLLIUM) PACKET PO SCH ×2 (08:07→20:58)
[2022-02-06] MEDS: DARBEPOETIN 200MCG/0.4ML *DIALYSIS* SYRINGE IV SCH (08:30)
[2022-02-06] MEDS: IRON SUCROSE 100MG 5ML VIAL IV SCH (09:00)
[2022-02-06] MEDS: ACETAMINOPHEN 500 MG TAB PO PRN (12:22)
[2022-02-06] MEDS: allopurinoL 100 MG TAB PO SCH (12:22)
[2022-02-06] MEDS: LEVEMIR (INSULIN DETEMIR) 1 UNITS/0.01ML SC SCH ×2 (12:23→20:57)
[2022-02-06] MEDS: ANALGESIC BALM CRM 3OZ TOP SCH ×3 (12:24→20:59)
[2022-02-06] MEDS: MIRALAX *UNIT DOSE* 17GM PACKET PO SCH ×2 (12:25→20:58)
[2022-02-06 12:26] VITALS: BP 115/95
[2022-02-06] MEDS: SIMVASTATIN 20 MG TAB PO SCH (20:58)
[2022-02-07] MEDS: COMBIVENT RESPIMAT 100-20MCG INHALER 4GM INH SCH ×6 (04:00→23:20)
[2022-02-07 05:05] VITALS: BP 138/50
[2022-02-07] MEDS: INSULIN LISPRO (NovoLOG) PER UNIT SC SCH ×4 (07:30→22:00)
[2022-02-07] MEDS: BUDESONIDE 0.5 MG/2 ML INHALATION SUSPENSION INH SCH ×2 (07:31→20:07)
[2022-02-07] MEDS: MIRALAX *UNIT DOSE* 17GM PACKET PO SCH ×3 (09:00→22:00)
[2022-02-07] MEDS: METAMUCIL (PSYLLIUM) PACKET PO SCH ×3 (09:00→22:00)
[2022-02-07] MEDS: LEVEMIR (INSULIN DETEMIR) 1 UNITS/0.01ML SC SCH ×2 (09:31→22:07)
[2022-02-07] MEDS: CLOTRIMAZOLE 1% TOPICAL CREAM 30GM TOP SCH ×2 (09:31→22:10)
[2022-02-07] MEDS: CETIRIZINE (ZyrTEC) 10 MG TAB PO SCH (09:32)
[2022-02-07] MEDS: DOCUSATE SODIUM 100MG CAPSULE PO SCH ×2 (09:32→22:07)
[2022-02-07] MEDS: ASPIRIN 81MG ENTERIC TABLET PO SCH (09:32)
[2022-02-07] MEDS: SENNA 8.6 MG TAB (SENOKOT) PO SCH (09:32)
[2022-02-07] MEDS: ANALGESIC BALM CRM 3OZ TOP SCH ×3 (09:32→22:10)
[2022-02-07] MEDS: CARVedilol 3.125 MG TAB PO SCH (09:32)
[2022-02-07] MEDS: PANTOPRAZOLE 40MG TAB (PROTONIX) PO SCH (09:32)
[2022-02-07] MEDS: APIXABAN 2.5 MG TAB (ELIQUIS) PO SCH ×2 (09:32→22:07)
[2022-02-07] MEDS: lisinopriL 5 MG TAB PO SCH (09:33)
[2022-02-07] MEDS: METOCLOPRAMIDE 10MG TAB PO SCH (09:33)
[2022-02-07] MEDS: MONTELUKAST 10 MG TAB PO SCH (09:33)
[2022-02-07] MEDS: allopurinoL 100 MG TAB PO SCH (13:05)
[2022-02-07] MEDS: SIMVASTATIN 20 MG TAB PO SCH (22:07)
[2022-02-07] MEDS: ACETAMINOPHEN 500 MG TAB PO PRN (22:07)
[2022-02-07] MEDS: FLUTICASONE PROP 0.05% NASAL SPRAY 16 GM (FLONASE) NARES PRN (23:16)
[2022-02-08] MEDS: COMBIVENT RESPIMAT 100-20MCG INHALER 4GM INH SCH ×5 (04:00→20:29)
[2022-02-08] MEDS: oxyCODONE 5MG TAB PO PRN (04:14)
[2022-02-08 06:00] VITALS: BP 133/56
[2022-02-08] MEDS: INSULIN LISPRO (NovoLOG) PER UNIT SC SCH ×4 (07:01→21:00)
[2022-02-08] MEDS: BUDESONIDE 0.5 MG/2 ML INHALATION SUSPENSION INH SCH ×2 (08:02→20:29)
[2022-02-08] MEDS: MIRALAX *UNIT DOSE* 17GM PACKET PO SCH ×2 (09:00→21:00)
[2022-02-08] MEDS: METAMUCIL (PSYLLIUM) PACKET PO SCH ×2 (09:00→21:00)
[2022-02-08] MEDS: ANALGESIC BALM CRM 3OZ TOP SCH ×3 (09:00→21:00)
[2022-02-08] MEDS: SENNA 8.6 MG TAB (SENOKOT) PO SCH (09:54)
[2022-02-08] MEDS: DOCUSATE SODIUM 100MG CAPSULE PO SCH ×2 (09:54→21:49)
[2022-02-08] MEDS: CETIRIZINE (ZyrTEC) 10 MG TAB PO SCH (09:54)
[2022-02-08] MEDS: ASPIRIN 81MG ENTERIC TABLET PO SCH (09:54)
[2022-02-08] MEDS: LEVEMIR (INSULIN DETEMIR) 1 UNITS/0.01ML SC SCH ×2 (09:54→21:49)
[2022-02-08] MEDS: METOCLOPRAMIDE 10MG TAB PO SCH (09:55)
[2022-02-08] MEDS: CARVedilol 3.125 MG TAB PO SCH (09:55)
[2022-02-08] MEDS: MONTELUKAST 10 MG TAB PO SCH (09:55)
[2022-02-08] MEDS: lisinopriL 5 MG TAB PO SCH (09:55)
[2022-02-08] MEDS: APIXABAN 2.5 MG TAB (ELIQUIS) PO SCH ×2 (09:55→21:49)
[2022-02-08] MEDS: PANTOPRAZOLE 40MG TAB (PROTONIX) PO SCH (09:55)
[2022-02-08] MEDS: CLOTRIMAZOLE 1% TOPICAL CREAM 30GM TOP SCH ×2 (09:56→21:52)
[2022-02-08] MEDS: allopurinoL 100 MG TAB PO SCH (14:23)
[2022-02-08] MEDS: SIMVASTATIN 20 MG TAB PO SCH (21:49)
[2022-02-08] MEDS: ACETAMINOPHEN 500 MG TAB PO PRN (21:50)
[2022-02-09] MEDS: COMBIVENT RESPIMAT 100-20MCG INHALER 4GM INH SCH ×7 (00:33→23:33)
[2022-02-09] MEDS: DOCUSATE SODIUM 100MG CAPSULE PO SCH ×2 (05:25→21:56)
[2022-02-09] MEDS: APIXABAN 2.5 MG TAB (ELIQUIS) PO SCH ×2 (05:25→21:56)
[2022-02-09] MEDS: PANTOPRAZOLE 40MG TAB (PROTONIX) PO SCH (05:26)
[2022-02-09] MEDS: ASPIRIN 81MG ENTERIC TABLET PO SCH (05:26)
[2022-02-09] MEDS: METOCLOPRAMIDE 10MG TAB PO SCH (05:26)
[2022-02-09] MEDS: CETIRIZINE (ZyrTEC) 10 MG TAB PO SCH (05:26)
[2022-02-09] MEDS: MONTELUKAST 10 MG TAB PO SCH (05:26)
[2022-02-09] MEDS: SENNA 8.6 MG TAB (SENOKOT) PO SCH (05:26)
[2022-02-09] MEDS: CARVedilol 3.125 MG TAB PO SCH (05:27)
[2022-02-09] MEDS: MIRALAX *UNIT DOSE* 17GM PACKET PO SCH ×2 (05:28→21:00)
[2022-02-09] MEDS: lisinopriL 5 MG TAB PO SCH (05:28)
[2022-02-09] MEDS: METAMUCIL (PSYLLIUM) PACKET PO SCH ×2 (05:28→21:00)
[2022-02-09 05:30] VITALS: BP 133/58
[2022-02-09] MEDS ORDERED: HEPARIN 1,000UNITS/ML 10ML VIAL (FOR RADIOLOGY & DIALYSIS ONLY) IV PRN (06:00)
[2022-02-09] MEDS ORDERED: SODIUM CHLORIDE 0.9% 1000ML IV PRN (06:00)
[2022-02-09] MEDS: BUDESONIDE 0.5 MG/2 ML INHALATION SUSPENSION INH SCH ×2 (06:00→21:09)
[2022-02-09] MEDS ORDERED: HEPARIN 1,000UNITS/ML 10ML VIAL (FOR RADIOLOGY & DIALYSIS ONLY) XX SCH (06:00)
[2022-02-09] MEDS: INSULIN LISPRO (NovoLOG) PER UNIT SC SCH ×4 (07:30→20:31)
[2022-02-09] MEDS: LEVEMIR (INSULIN DETEMIR) 1 UNITS/0.01ML SC SCH ×2 (07:34→21:58)
[2022-02-09] MEDS: ANALGESIC BALM CRM 3OZ TOP SCH ×3 (09:00→22:38)
[2022-02-09] MEDS: allopurinoL 100 MG TAB PO SCH (13:25)
[2022-02-09] MEDS: ACETAMINOPHEN 500 MG TAB PO PRN (13:25)
[2022-02-09] MEDS: CLOTRIMAZOLE 1% TOPICAL CREAM 30GM TOP SCH ×2 (13:29→21:57)
[2022-02-09] MEDS: SIMVASTATIN 20 MG TAB PO SCH (21:56)
[2022-02-10] MEDS: COMBIVENT RESPIMAT 100-20MCG INHALER 4GM INH SCH ×6 (03:29→23:36)
[2022-02-10] MEDS: FLUTICASONE PROP 0.05% NASAL SPRAY 16 GM (FLONASE) NARES PRN (05:14)
[2022-02-10 05:57] VITALS: BP 108/47
[2022-02-10] MEDS: INSULIN LISPRO (NovoLOG) PER UNIT SC SCH ×4 (07:30→20:43)
[2022-02-10] MEDS: BUDESONIDE 0.5 MG/2 ML INHALATION SUSPENSION INH SCH ×2 (08:10→19:56)
[2022-02-10] MEDS: ANALGESIC BALM CRM 3OZ TOP SCH (09:00)
[2022-02-10] MEDS: MIRALAX *UNIT DOSE* 17GM PACKET PO SCH ×2 (09:00→20:42)
[2022-02-10] MEDS: METAMUCIL (PSYLLIUM) PACKET PO SCH ×2 (09:00→20:42)
[2022-02-10] MEDS: CARVedilol 3.125 MG TAB PO SCH (09:00)
[2022-02-10] MEDS: lisinopriL 5 MG TAB PO SCH (09:00)
[2022-02-10] MEDS: DOCUSATE SODIUM 100MG CAPSULE PO SCH ×2 (09:42→21:00)
[2022-02-10] MEDS: ASPIRIN 81MG ENTERIC TABLET PO SCH (09:42)
[2022-02-10] MEDS: MONTELUKAST 10 MG TAB PO SCH (09:42)
[2022-02-10] MEDS: PANTOPRAZOLE 40MG TAB (PROTONIX) PO SCH (09:42)
[2022-02-10] MEDS: METOCLOPRAMIDE 10MG TAB PO SCH (09:42)
[2022-02-10] MEDS: APIXABAN 2.5 MG TAB (ELIQUIS) PO SCH ×2 (09:42→21:50)
[2022-02-10] MEDS: CETIRIZINE (ZyrTEC) 10 MG TAB PO SCH (09:42)
[2022-02-10] MEDS: SENNA 8.6 MG TAB (SENOKOT) PO SCH (09:42)
[2022-02-10] MEDS: LEVEMIR (INSULIN DETEMIR) 1 UNITS/0.01ML SC SCH ×2 (09:43→21:51)
[2022-02-10] MEDS: CLOTRIMAZOLE 1% TOPICAL CREAM 30GM TOP SCH ×2 (09:43→21:51)
[2022-02-10] MEDS: ACETAMINOPHEN 500 MG TAB PO PRN ×2 (10:44→21:50)
[2022-02-10] MEDS: allopurinoL 100 MG TAB PO SCH (12:08)
[2022-02-10] MEDS ORDERED: ANALGESIC BALM CRM 3OZ TOP PRN (16:25)
[2022-02-10] MEDS: SIMVASTATIN 20 MG TAB PO SCH (21:50)
[2022-02-11] MEDS: COMBIVENT RESPIMAT 100-20MCG INHALER 4GM INH SCH ×6 (02:53→23:43)
[2022-02-11 06:00] VITALS: BP 145/59
[2022-02-11] MEDS ORDERED: SODIUM CHLORIDE 0.9% 1000ML IV PRN (06:00)
[2022-02-11] MEDS ORDERED: HEPARIN 1,000UNITS/ML 10ML VIAL (FOR RADIOLOGY & DIALYSIS ONLY) XX SCH (06:00)
[2022-02-11] MEDS ORDERED: HEPARIN 1,000UNITS/ML 10ML VIAL (FOR RADIOLOGY & DIALYSIS ONLY) IV PRN (06:00)
[2022-02-11] MEDS: DOCUSATE SODIUM 100MG CAPSULE PO SCH ×2 (06:21→21:55)
[2022-02-11] MEDS: APIXABAN 2.5 MG TAB (ELIQUIS) PO SCH ×2 (06:25→21:55)
[2022-02-11] MEDS: PANTOPRAZOLE 40MG TAB (PROTONIX) PO SCH (06:26)
[2022-02-11] MEDS: CETIRIZINE (ZyrTEC) 10 MG TAB PO SCH (06:26)
[2022-02-11] MEDS: CARVedilol 3.125 MG TAB PO SCH (06:26)
[2022-02-11] MEDS: lisinopriL 5 MG TAB PO SCH (06:27)
[2022-02-11] MEDS: ASPIRIN 81MG ENTERIC TABLET PO SCH (06:27)
[2022-02-11] MEDS: METOCLOPRAMIDE 10MG TAB PO SCH (06:27)
[2022-02-11] MEDS: MONTELUKAST 10 MG TAB PO SCH (06:27)
[2022-02-11] MEDS: ACETAMINOPHEN 500 MG TAB PO PRN ×2 (06:28→21:56)
[2022-02-11] MEDS: INSULIN LISPRO (NovoLOG) PER UNIT SC SCH ×4 (07:30→21:00)
[2022-02-11] MEDS: METAMUCIL (PSYLLIUM) PACKET PO SCH ×2 (07:41→21:00)
[2022-02-11] MEDS: SENNA 8.6 MG TAB (SENOKOT) PO SCH (07:41)
[2022-02-11] MEDS: MIRALAX *UNIT DOSE* 17GM PACKET PO SCH ×2 (07:41→21:00)
[2022-02-11] MEDS: LEVEMIR (INSULIN DETEMIR) 1 UNITS/0.01ML SC SCH ×2 (07:49→21:56)
[2022-02-11] MEDS: CLOTRIMAZOLE 1% TOPICAL CREAM 30GM TOP SCH ×2 (07:49→21:56)
[2022-02-11] MEDS: BUDESONIDE 0.5 MG/2 ML INHALATION SUSPENSION INH SCH ×2 (07:59→20:43)
[2022-02-11] MEDS: allopurinoL 100 MG TAB PO SCH (13:21)
[2022-02-11] MEDS: SIMVASTATIN 20 MG TAB PO SCH (21:55)
[2022-02-11] MEDS: FLUTICASONE PROP 0.05% NASAL SPRAY 16 GM (FLONASE) NARES PRN (21:56)
[2022-02-12] MEDS: COMBIVENT RESPIMAT 100-20MCG INHALER 4GM INH SCH ×5 (03:39→18:16)
[2022-02-12 06:34] VITALS: BP 155/74
[2022-02-12] MEDS: BUDESONIDE 0.5 MG/2 ML INHALATION SUSPENSION INH SCH ×2 (08:05→18:16)
[2022-02-12] MEDS: LEVEMIR (INSULIN DETEMIR) 1 UNITS/0.01ML SC SCH ×2 (08:50→22:28)
[2022-02-12] MEDS: INSULIN LISPRO (NovoLOG) PER UNIT SC SCH ×4 (08:51→22:13)
[2022-02-12] MEDS: APIXABAN 2.5 MG TAB (ELIQUIS) PO SCH ×2 (08:51→22:27)
[2022-02-12] MEDS: METOCLOPRAMIDE 10MG TAB PO SCH (08:51)
[2022-02-12] MEDS: PANTOPRAZOLE 40MG TAB (PROTONIX) PO SCH (08:51)
[2022-02-12] MEDS: MONTELUKAST 10 MG TAB PO SCH (08:51)
[2022-02-12] MEDS: ASPIRIN 81MG ENTERIC TABLET PO SCH (08:51)
[2022-02-12] MEDS: METAMUCIL (PSYLLIUM) PACKET PO SCH ×2 (08:52→22:13)
[2022-02-12] MEDS: DOCUSATE SODIUM 100MG CAPSULE PO SCH ×2 (08:52→22:28)
[2022-02-12] MEDS: lisinopriL 5 MG TAB PO SCH (08:52)
[2022-02-12] MEDS: CARVedilol 3.125 MG TAB PO SCH (08:52)
[2022-02-12] MEDS: CETIRIZINE (ZyrTEC) 10 MG TAB PO SCH (08:52)
[2022-02-12] MEDS: MIRALAX *UNIT DOSE* 17GM PACKET PO SCH ×2 (08:52→22:14)
[2022-02-12] MEDS: CLOTRIMAZOLE 1% TOPICAL CREAM 30GM TOP SCH ×2 (08:53→22:29)
[2022-02-12] MEDS: SENNA 8.6 MG TAB (SENOKOT) PO SCH (08:53)
[2022-02-12] MEDS: ACETAMINOPHEN 500 MG TAB PO PRN ×2 (08:57→22:27)
[2022-02-12] MEDS: allopurinoL 100 MG TAB PO SCH (12:21)
[2022-02-12] MEDS: SIMVASTATIN 20 MG TAB PO SCH (22:27)
[2022-02-12] MEDS: FLUTICASONE PROP 0.05% NASAL SPRAY 16 GM (FLONASE) NARES PRN (22:28)
[2022-02-13] MEDS: COMBIVENT RESPIMAT 100-20MCG INHALER 4GM INH SCH ×7 (00:43→23:00)
[2022-02-13] MEDS: ASPIRIN 81MG ENTERIC TABLET PO SCH (05:40)
[2022-02-13] MEDS: APIXABAN 2.5 MG TAB (ELIQUIS) PO SCH ×2 (05:41→21:52)
[2022-02-13] MEDS: CETIRIZINE (ZyrTEC) 10 MG TAB PO SCH (05:41)
[2022-02-13] MEDS: MONTELUKAST 10 MG TAB PO SCH (05:41)
[2022-02-13] MEDS: PANTOPRAZOLE 40MG TAB (PROTONIX) PO SCH (05:41)
[2022-02-13] MEDS: METOCLOPRAMIDE 10MG TAB PO SCH (05:41)
[2022-02-13] MEDS: CARVedilol 3.125 MG TAB PO SCH (05:45)
[2022-02-13] MEDS: lisinopriL 5 MG TAB PO SCH (05:46)
[2022-02-13] MEDS ORDERED: HEPARIN 1,000UNITS/ML 10ML VIAL (FOR RADIOLOGY & DIALYSIS ONLY) IV PRN (06:00)
[2022-02-13] MEDS ORDERED: HEPARIN 1,000UNITS/ML 10ML VIAL (FOR RADIOLOGY & DIALYSIS ONLY) XX SCH (06:00)
[2022-02-13] MEDS ORDERED: SODIUM CHLORIDE 0.9% 1000ML IV PRN (06:00)
[2022-02-13] MEDS: DOCUSATE SODIUM 100MG CAPSULE PO SCH ×2 (06:07→21:00)
[2022-02-13] MEDS: MIRALAX *UNIT DOSE* 17GM PACKET PO SCH ×2 (06:08→21:00)
[2022-02-13] MEDS: METAMUCIL (PSYLLIUM) PACKET PO SCH ×2 (06:08→21:00)
[2022-02-13] MEDS: SENNA 8.6 MG TAB (SENOKOT) PO SCH (06:08)
[2022-02-13 06:24] VITALS: BP 149/59
[2022-02-13] MEDS: ACETAMINOPHEN 500 MG TAB PO PRN (06:37)
[2022-02-13] MEDS: LEVEMIR (INSULIN DETEMIR) 1 UNITS/0.01ML SC SCH ×2 (07:26→21:52)
[2022-02-13] MEDS: INSULIN LISPRO (NovoLOG) PER UNIT SC SCH ×4 (07:26→21:00)
[2022-02-13] MEDS: CLOTRIMAZOLE 1% TOPICAL CREAM 30GM TOP SCH ×2 (07:57→21:53)
[2022-02-13] MEDS: BUDESONIDE 0.5 MG/2 ML INHALATION SUSPENSION INH SCH ×2 (08:00→20:29)
[2022-02-13] MEDS: DARBEPOETIN 200MCG/0.4ML *DIALYSIS* SYRINGE IV SCH (09:26)
[2022-02-13] MEDS: allopurinoL 100 MG TAB PO SCH (13:09)
[2022-02-13] MEDS: SIMVASTATIN 20 MG TAB PO SCH (21:52)
[2022-02-14] MEDS: COMBIVENT RESPIMAT 100-20MCG INHALER 4GM INH SCH ×6 (03:34→23:26)
[2022-02-14 06:00] VITALS: BP 146/67
[2022-02-14] MEDS: BUDESONIDE 0.5 MG/2 ML INHALATION SUSPENSION INH SCH ×2 (07:53→20:09)
[2022-02-14] MEDS: DOCUSATE SODIUM 100MG CAPSULE PO SCH ×2 (07:55→21:12)
[2022-02-14] MEDS: ASPIRIN 81MG ENTERIC TABLET PO SCH (07:55)
[2022-02-14] MEDS: INSULIN LISPRO (NovoLOG) PER UNIT SC SCH ×4 (07:55→20:50)
[2022-02-14] MEDS: LEVEMIR (INSULIN DETEMIR) 1 UNITS/0.01ML SC SCH ×2 (07:55→21:11)
[2022-02-14] MEDS: PANTOPRAZOLE 40MG TAB (PROTONIX) PO SCH (07:56)
[2022-02-14] MEDS: SENNA 8.6 MG TAB (SENOKOT) PO SCH (07:56)
[2022-02-14] MEDS: CETIRIZINE (ZyrTEC) 10 MG TAB PO SCH (07:57)
[2022-02-14] MEDS: MONTELUKAST 10 MG TAB PO SCH (07:58)
[2022-02-14] MEDS: APIXABAN 2.5 MG TAB (ELIQUIS) PO SCH ×2 (07:58→21:12)
[2022-02-14] MEDS: CARVedilol 3.125 MG TAB PO SCH (07:59)
[2022-02-14] MEDS: MIRALAX *UNIT DOSE* 17GM PACKET PO SCH ×2 (07:59→21:00)
[2022-02-14] MEDS: METOCLOPRAMIDE 10MG TAB PO SCH (07:59)
[2022-02-14] MEDS: lisinopriL 5 MG TAB PO SCH (07:59)
[2022-02-14] MEDS: METAMUCIL (PSYLLIUM) PACKET PO SCH ×2 (08:00→21:00)
[2022-02-14] MEDS: CLOTRIMAZOLE 1% TOPICAL CREAM 30GM TOP SCH ×2 (08:00→21:12)
[2022-02-14] MEDS: allopurinoL 100 MG TAB PO SCH (11:42)
[2022-02-14] MEDS: SIMVASTATIN 20 MG TAB PO SCH (21:12)
[2022-02-15] MEDS: ACETAMINOPHEN 500 MG TAB PO PRN ×2 (02:32→21:46)
[2022-02-15] MEDS: FLUTICASONE PROP 0.05% NASAL SPRAY 16 GM (FLONASE) NARES PRN (02:41)
[2022-02-15] MEDS: COMBIVENT RESPIMAT 100-20MCG INHALER 4GM INH SCH ×5 (03:16→18:36)
[2022-02-15 06:00] VITALS: BP 137/58
[2022-02-15] MEDS: INSULIN LISPRO (NovoLOG) PER UNIT SC SCH ×4 (07:30→22:45)
[2022-02-15] MEDS: BUDESONIDE 0.5 MG/2 ML INHALATION SUSPENSION INH SCH ×2 (07:37→18:36)
[2022-02-15] MEDS: METAMUCIL (PSYLLIUM) PACKET PO SCH ×2 (09:00→21:00)
[2022-02-15] MEDS: MIRALAX *UNIT DOSE* 17GM PACKET PO SCH ×2 (09:00→21:00)
[2022-02-15] MEDS: LEVEMIR (INSULIN DETEMIR) 1 UNITS/0.01ML SC SCH ×2 (09:00→21:46)
[2022-02-15] MEDS: ASPIRIN 81MG ENTERIC TABLET PO SCH (09:47)
[2022-02-15] MEDS: DOCUSATE SODIUM 100MG CAPSULE PO SCH ×2 (09:47→21:00)
[2022-02-15] MEDS: METOCLOPRAMIDE 10MG TAB PO SCH (09:48)
[2022-02-15] MEDS: CETIRIZINE (ZyrTEC) 10 MG TAB PO SCH (09:48)
[2022-02-15] MEDS: PANTOPRAZOLE 40MG TAB (PROTONIX) PO SCH (09:48)
[2022-02-15] MEDS: CARVedilol 3.125 MG TAB PO SCH (09:48)
[2022-02-15] MEDS: lisinopriL 5 MG TAB PO SCH (09:49)
[2022-02-15] MEDS: APIXABAN 2.5 MG TAB (ELIQUIS) PO SCH ×2 (09:49→21:46)
[2022-02-15] MEDS: MONTELUKAST 10 MG TAB PO SCH (09:49)
[2022-02-15] MEDS: SENNA 8.6 MG TAB (SENOKOT) PO SCH (09:49)
[2022-02-15] MEDS: CLOTRIMAZOLE 1% TOPICAL CREAM 30GM TOP SCH ×2 (09:50→21:46)
[2022-02-15] MEDS: allopurinoL 100 MG TAB PO SCH (12:22)
[2022-02-15] MEDS: SIMVASTATIN 20 MG TAB PO SCH (21:46)
[2022-02-15] MEDS ORDERED: VANICREAM MOISTURIZING SKIN CREAM 113GM TUBE TOP PRN (23:15)
[2022-02-16] MEDS ORDERED: diphenhydrAMINE 25MG CAP PO ONE
[2022-02-16] MEDS: COMBIVENT RESPIMAT 100-20MCG INHALER 4GM INH SCH ×6 (01:01→19:57)
[2022-02-16 06:00] VITALS: BP 137/57
[2022-02-16] MEDS: METOCLOPRAMIDE 10MG TAB PO SCH (06:09)
[2022-02-16] MEDS: ASPIRIN 81MG ENTERIC TABLET PO SCH (06:09)
[2022-02-16] MEDS: MONTELUKAST 10 MG TAB PO SCH (06:10)
[2022-02-16] MEDS: lisinopriL 5 MG TAB PO SCH (06:10)
[2022-02-16] MEDS: APIXABAN 2.5 MG TAB (ELIQUIS) PO SCH ×2 (06:11→20:49)
[2022-02-16] MEDS: CETIRIZINE (ZyrTEC) 10 MG TAB PO SCH (06:11)
[2022-02-16] MEDS: PANTOPRAZOLE 40MG TAB (PROTONIX) PO SCH (06:11)
[2022-02-16] MEDS: ACETAMINOPHEN 500 MG TAB PO PRN ×2 (06:12→18:18)
[2022-02-16] MEDS: CARVedilol 3.125 MG TAB PO SCH (06:12)
[2022-02-16] MEDS ORDERED: HEPARIN 1,000UNITS/ML 10ML VIAL (FOR RADIOLOGY & DIALYSIS ONLY) IV PRN (06:50)
[2022-02-16] MEDS ORDERED: HEPARIN 1,000UNITS/ML 10ML VIAL (FOR RADIOLOGY & DIALYSIS ONLY) XX SCH (06:50)
[2022-02-16] MEDS ORDERED: SODIUM CHLORIDE 0.9% 1000ML IV PRN (06:50)
[2022-02-16] MEDS ORDERED: LIDOCAINE 1% SDV 5ML VIAL SC PRN (06:50)
[2022-02-16] MEDS: INSULIN LISPRO (NovoLOG) PER UNIT SC SCH ×4 (07:30→20:37)
[2022-02-16] MEDS: DOCUSATE SODIUM 100MG CAPSULE PO SCH ×2 (07:52→20:49)
[2022-02-16] MEDS: SENNA 8.6 MG TAB (SENOKOT) PO SCH (07:52)
[2022-02-16] MEDS: METAMUCIL (PSYLLIUM) PACKET PO SCH ×3 (07:52→21:00)
[2022-02-16] MEDS: MIRALAX *UNIT DOSE* 17GM PACKET PO SCH ×3 (07:52→21:00)
[2022-02-16] MEDS: CLOTRIMAZOLE 1% TOPICAL CREAM 30GM TOP SCH ×2 (07:55→20:50)
[2022-02-16] MEDS: LEVEMIR (INSULIN DETEMIR) 1 UNITS/0.01ML SC SCH ×2 (07:55→20:49)
[2022-02-16] MEDS: BUDESONIDE 0.5 MG/2 ML INHALATION SUSPENSION INH SCH ×2 (08:00→19:57)
[2022-02-16 13:20] LABS: HEMATOCRIT 32.8 % (36.0-47.0); HEMOGLOBIN 9.8 g/dl (12.0-15.5); MEAN CORPUSCULAR HGB CONC 29.9 g/dl (32.0-36.5); MEAN CORPUSCULAR VOLUME 100.3 fl (80.0-96.0); PLATELET COUNT, AUTOMATED 165 10^3/uL (150-450); RED BLOOD COUNT 3.27 10^6/uL (4.00-5.40)
[2022-02-16] MEDS: allopurinoL 100 MG TAB PO SCH (13:34)
[2022-02-16 13:57] LABS: ALBUMIN 2.5 G/DL (3.2-5.2); CALCIUM LEVEL 8.7 MG/DL (8.3-10.6); CREATININE FOR GFR 3.58 MG/DL (0.55-1.30); GLOMERULAR FILTRATION RATE 12.8 (>32); PHOSPHORUS LEVEL 5.4 MG/DL (2.4-5.1); POTASSIUM SERUM 4.2 MMOL/L (3.5-5.1)
[2022-02-16] MEDS: SIMVASTATIN 20 MG TAB PO SCH (20:49)
[2022-02-16] MEDS: oxyCODONE 5MG TAB PO PRN (22:18)
[2022-02-17] MEDS: COMBIVENT RESPIMAT 100-20MCG INHALER 4GM INH SCH ×7 (00:17→23:15)
[2022-02-17 05:28] VITALS: BP 136/64
[2022-02-17] MEDS: BUDESONIDE 0.5 MG/2 ML INHALATION SUSPENSION INH SCH ×2 (07:17→19:18)
[2022-02-17] MEDS: METAMUCIL (PSYLLIUM) PACKET PO SCH ×2 (09:00→20:15)
[2022-02-17] MEDS: MIRALAX *UNIT DOSE* 17GM PACKET PO SCH ×2 (09:00→20:16)
[2022-02-17] MEDS: PANTOPRAZOLE 40MG TAB (PROTONIX) PO SCH (09:02)
[2022-02-17] MEDS: lisinopriL 5 MG TAB PO SCH (09:02)
[2022-02-17] MEDS: CETIRIZINE (ZyrTEC) 10 MG TAB PO SCH (09:03)
[2022-02-17] MEDS: CARVedilol 3.125 MG TAB PO SCH (09:03)
[2022-02-17] MEDS: DOCUSATE SODIUM 100MG CAPSULE PO SCH ×2 (09:04→20:51)
[2022-02-17] MEDS: SENNA 8.6 MG TAB (SENOKOT) PO SCH (09:04)
[2022-02-17] MEDS: METOCLOPRAMIDE 10MG TAB PO SCH (09:04)
[2022-02-17] MEDS: APIXABAN 2.5 MG TAB (ELIQUIS) PO SCH ×2 (09:04→20:51)
[2022-02-17] MEDS: MONTELUKAST 10 MG TAB PO SCH (09:04)
[2022-02-17] MEDS: ASPIRIN 81MG ENTERIC TABLET PO SCH (09:04)
[2022-02-17] MEDS: LEVEMIR (INSULIN DETEMIR) 1 UNITS/0.01ML SC SCH ×2 (09:05→20:51)
[2022-02-17] MEDS: CLOTRIMAZOLE 1% TOPICAL CREAM 30GM TOP SCH ×2 (09:05→20:52)
[2022-02-17] MEDS: INSULIN LISPRO (NovoLOG) PER UNIT SC SCH ×4 (09:06→20:16)
[2022-02-17] MEDS: allopurinoL 100 MG TAB PO SCH (12:17)
[2022-02-17] MEDS: SIMVASTATIN 20 MG TAB PO SCH (20:51)
[2022-02-17] MEDS: ACETAMINOPHEN 500 MG TAB PO PRN (21:27)
[2022-02-17] MEDS: RAMELTEON 8 MG TAB (ROZEREM) PO PRN (21:27)
[2022-02-18] MEDS: COMBIVENT RESPIMAT 100-20MCG INHALER 4GM INH SCH ×6 (03:10→23:53)
[2022-02-18 05:22] VITALS: BP 139/63
[2022-02-18] MEDS: MIRALAX *UNIT DOSE* 17GM PACKET PO SCH ×2 (05:52→20:06)
[2022-02-18] MEDS: METAMUCIL (PSYLLIUM) PACKET PO SCH ×2 (05:52→20:06)
[2022-02-18] MEDS: SENNA 8.6 MG TAB (SENOKOT) PO SCH (05:59)
[2022-02-18] MEDS: PANTOPRAZOLE 40MG TAB (PROTONIX) PO SCH (05:59)
[2022-02-18] MEDS: CETIRIZINE (ZyrTEC) 10 MG TAB PO SCH (06:00)
[2022-02-18] MEDS: lisinopriL 5 MG TAB PO SCH (06:00)
[2022-02-18] MEDS: MONTELUKAST 10 MG TAB PO SCH (06:00)
[2022-02-18] MEDS: METOCLOPRAMIDE 10MG TAB PO SCH (06:00)
[2022-02-18] MEDS: CARVedilol 3.125 MG TAB PO SCH (06:01)
[2022-02-18] MEDS: DOCUSATE SODIUM 100MG CAPSULE PO SCH ×2 (06:01→20:04)
[2022-02-18] MEDS: APIXABAN 2.5 MG TAB (ELIQUIS) PO SCH ×2 (06:01→20:05)
[2022-02-18] MEDS: ASPIRIN 81MG ENTERIC TABLET PO SCH (06:01)
[2022-02-18] MEDS ORDERED: HEPARIN 1,000UNITS/ML 10ML VIAL (FOR RADIOLOGY & DIALYSIS ONLY) IV PRN (06:55)
[2022-02-18] MEDS ORDERED: SODIUM CHLORIDE 0.9% 1000ML IV PRN (06:55)
[2022-02-18] MEDS ORDERED: HEPARIN 1,000UNITS/ML 10ML VIAL (FOR RADIOLOGY & DIALYSIS ONLY) XX SCH (06:55)
[2022-02-18] MEDS: INSULIN LISPRO (NovoLOG) PER UNIT SC SCH ×4 (07:36→19:58)
[2022-02-18] MEDS: BUDESONIDE 0.5 MG/2 ML INHALATION SUSPENSION INH SCH ×2 (07:57→19:34)
[2022-02-18] MEDS: LEVEMIR (INSULIN DETEMIR) 1 UNITS/0.01ML SC SCH ×2 (09:54→20:06)
[2022-02-18] MEDS: CLOTRIMAZOLE 1% TOPICAL CREAM 30GM TOP SCH ×2 (09:55→20:07)
[2022-02-18] MEDS: allopurinoL 100 MG TAB PO SCH (12:00)
[2022-02-18] MEDS: ACETAMINOPHEN 500 MG TAB PO PRN (18:06)
[2022-02-18] MEDS: RAMELTEON 8 MG TAB (ROZEREM) PO PRN (20:05)
[2022-02-18] MEDS: oxyCODONE 5MG TAB PO PRN (20:05)
[2022-02-18] MEDS: SIMVASTATIN 20 MG TAB PO SCH (20:06)
[2022-02-19] MEDS: COMBIVENT RESPIMAT 100-20MCG INHALER 4GM INH SCH ×5 (03:18→21:17)
[2022-02-19 05:59] VITALS: BP 135/65
[2022-02-19] MEDS: BUDESONIDE 0.5 MG/2 ML INHALATION SUSPENSION INH SCH ×2 (08:26→21:17)
[2022-02-19] MEDS: LEVEMIR (INSULIN DETEMIR) 1 UNITS/0.01ML SC SCH ×2 (08:54→20:29)
[2022-02-19] MEDS: INSULIN LISPRO (NovoLOG) PER UNIT SC SCH ×4 (08:54→20:29)
[2022-02-19] MEDS: DOCUSATE SODIUM 100MG CAPSULE PO SCH ×2 (08:55→21:00)
[2022-02-19] MEDS: MONTELUKAST 10 MG TAB PO SCH (08:55)
[2022-02-19] MEDS: ASPIRIN 81MG ENTERIC TABLET PO SCH (08:55)
[2022-02-19] MEDS: APIXABAN 2.5 MG TAB (ELIQUIS) PO SCH ×2 (08:55→21:57)
[2022-02-19] MEDS: CARVedilol 3.125 MG TAB PO SCH (08:55)
[2022-02-19] MEDS: lisinopriL 5 MG TAB PO SCH (08:55)
[2022-02-19] MEDS: METOCLOPRAMIDE 10MG TAB PO SCH (08:55)
[2022-02-19] MEDS: CETIRIZINE (ZyrTEC) 10 MG TAB PO SCH (08:55)
[2022-02-19] MEDS: PANTOPRAZOLE 40MG TAB (PROTONIX) PO SCH (08:55)
[2022-02-19] MEDS: METAMUCIL (PSYLLIUM) PACKET PO SCH ×2 (08:56→21:00)
[2022-02-19] MEDS: MIRALAX *UNIT DOSE* 17GM PACKET PO SCH ×2 (08:56→21:00)
[2022-02-19] MEDS: CLOTRIMAZOLE 1% TOPICAL CREAM 30GM TOP SCH ×2 (08:56→21:58)
[2022-02-19] MEDS: SENNA 8.6 MG TAB (SENOKOT) PO SCH (08:56)
[2022-02-19] MEDS: allopurinoL 100 MG TAB PO SCH (12:53)
[2022-02-19] MEDS: SIMVASTATIN 20 MG TAB PO SCH (21:57)
[2022-02-20] MEDS: COMBIVENT RESPIMAT 100-20MCG INHALER 4GM INH SCH ×6 (01:24→20:31)
[2022-02-20] MEDS: ACETAMINOPHEN 500 MG TAB PO PRN (03:47)
[2022-02-20 05:04] VITALS: BP 117/72
[2022-02-20] MEDS: CETIRIZINE (ZyrTEC) 10 MG TAB PO SCH (05:27)
[2022-02-20] MEDS: PANTOPRAZOLE 40MG TAB (PROTONIX) PO SCH (05:27)
[2022-02-20] MEDS: ASPIRIN 81MG ENTERIC TABLET PO SCH (05:27)
[2022-02-20] MEDS: DOCUSATE SODIUM 100MG CAPSULE PO SCH ×2 (05:27→20:35)
[2022-02-20] MEDS: METOCLOPRAMIDE 10MG TAB PO SCH (05:28)
[2022-02-20] MEDS: MONTELUKAST 10 MG TAB PO SCH (05:28)
[2022-02-20] MEDS: APIXABAN 2.5 MG TAB (ELIQUIS) PO SCH ×2 (05:28→20:36)
[2022-02-20] MEDS: SENNA 8.6 MG TAB (SENOKOT) PO SCH (05:28)
[2022-02-20] MEDS: lisinopriL 5 MG TAB PO SCH (05:29)
[2022-02-20] MEDS: CARVedilol 3.125 MG TAB PO SCH (05:29)
[2022-02-20] MEDS: oxyCODONE 5MG TAB PO PRN ×2 (06:44→20:36)
[2022-02-20] MEDS ORDERED: HEPARIN 1,000UNITS/ML 10ML VIAL (FOR RADIOLOGY & DIALYSIS ONLY) XX SCH (07:00)
[2022-02-20] MEDS ORDERED: SODIUM CHLORIDE 0.9% 1000ML IV PRN (07:00)
[2022-02-20] MEDS ORDERED: HEPARIN 1,000UNITS/ML 10ML VIAL (FOR RADIOLOGY & DIALYSIS ONLY) IV PRN (07:00)
[2022-02-20] MEDS: BUDESONIDE 0.5 MG/2 ML INHALATION SUSPENSION INH SCH ×2 (07:32→20:31)
[2022-02-20] MEDS: METAMUCIL (PSYLLIUM) PACKET PO SCH ×2 (09:00→18:44)
[2022-02-20] MEDS: MIRALAX *UNIT DOSE* 17GM PACKET PO SCH ×2 (09:00→18:45)
[2022-02-20] MEDS: DARBEPOETIN 200MCG/0.4ML *DIALYSIS* SYRINGE IV SCH (09:41)
[2022-02-20] MEDS: allopurinoL 100 MG TAB PO SCH (12:00)
[2022-02-20] MEDS: INSULIN LISPRO (NovoLOG) PER UNIT SC SCH ×4 (12:26→19:43)
[2022-02-20] MEDS: CLOTRIMAZOLE 1% TOPICAL CREAM 30GM TOP SCH ×2 (13:31→20:38)
[2022-02-20] MEDS: LEVEMIR (INSULIN DETEMIR) 1 UNITS/0.01ML SC SCH ×2 (13:31→20:37)
[2022-02-20] MEDS: RAMELTEON 8 MG TAB (ROZEREM) PO PRN (20:34)
[2022-02-20] MEDS: SIMVASTATIN 20 MG TAB PO SCH (20:38)
[2022-02-21] MEDS: COMBIVENT RESPIMAT 100-20MCG INHALER 4GM INH SCH ×6 (04:00→19:42)
[2022-02-21 06:00] VITALS: BP 126/51
[2022-02-21] MEDS: MIRALAX *UNIT DOSE* 17GM PACKET PO SCH ×2 (07:18→20:58)
[2022-02-21] MEDS: INSULIN LISPRO (NovoLOG) PER UNIT SC SCH ×4 (07:18→20:58)
[2022-02-21] MEDS: METAMUCIL (PSYLLIUM) PACKET PO SCH ×2 (07:18→20:58)
[2022-02-21] MEDS: PANTOPRAZOLE 40MG TAB (PROTONIX) PO SCH (09:02)
[2022-02-21] MEDS: SENNA 8.6 MG TAB (SENOKOT) PO SCH (09:02)
[2022-02-21] MEDS: DOCUSATE SODIUM 100MG CAPSULE PO SCH ×2 (09:02→20:58)
[2022-02-21] MEDS: APIXABAN 2.5 MG TAB (ELIQUIS) PO SCH ×2 (09:02→21:29)
[2022-02-21] MEDS: METOCLOPRAMIDE 10MG TAB PO SCH (09:02)
[2022-02-21] MEDS: lisinopriL 5 MG TAB PO SCH (09:03)
[2022-02-21] MEDS: MONTELUKAST 10 MG TAB PO SCH (09:03)
[2022-02-21] MEDS: CETIRIZINE (ZyrTEC) 10 MG TAB PO SCH (09:03)
[2022-02-21] MEDS: ASPIRIN 81MG ENTERIC TABLET PO SCH (09:03)
[2022-02-21] MEDS: CARVedilol 3.125 MG TAB PO SCH (09:04)
[2022-02-21] MEDS: CLOTRIMAZOLE 1% TOPICAL CREAM 30GM TOP SCH ×2 (09:05→21:30)
[2022-02-21] MEDS: LEVEMIR (INSULIN DETEMIR) 1 UNITS/0.01ML SC SCH ×2 (09:09→21:29)
[2022-02-21] MEDS: BUDESONIDE 0.5 MG/2 ML INHALATION SUSPENSION INH SCH ×2 (09:52→19:42)
[2022-02-21] MEDS: allopurinoL 100 MG TAB PO SCH (13:06)
[2022-02-21] MEDS: SIMVASTATIN 20 MG TAB PO SCH (21:29)
[2022-02-21] MEDS: ACETAMINOPHEN 500 MG TAB PO PRN (21:30)
[2022-02-21] MEDS: ONDANSETRON 4MG TAB PO PRN (21:36)
[2022-02-22] MEDS: COMBIVENT RESPIMAT 100-20MCG INHALER 4GM INH SCH ×3 (00:24→07:56)
[2022-02-22 06:00] VITALS: BP 115/53
[2022-02-22] MEDS: INSULIN LISPRO (NovoLOG) PER UNIT SC SCH ×4 (06:22→20:49)
[2022-02-22] MEDS: METAMUCIL (PSYLLIUM) PACKET PO SCH ×2 (06:24→20:43)
[2022-02-22] MEDS: MIRALAX *UNIT DOSE* 17GM PACKET PO SCH ×2 (06:24→20:42)
[2022-02-22] MEDS: LEVEMIR (INSULIN DETEMIR) 1 UNITS/0.01ML SC SCH ×2 (07:23→20:48)
[2022-02-22] MEDS: BUDESONIDE 0.5 MG/2 ML INHALATION SUSPENSION INH SCH ×2 (07:56→20:25)
[2022-02-22] MEDS: ASPIRIN 81MG ENTERIC TABLET PO SCH (08:05)
[2022-02-22] MEDS: MONTELUKAST 10 MG TAB PO SCH (08:05)
[2022-02-22] MEDS: DOCUSATE SODIUM 100MG CAPSULE PO SCH ×2 (08:05→20:48)
[2022-02-22] MEDS: lisinopriL 5 MG TAB PO SCH (08:05)
[2022-02-22] MEDS: CETIRIZINE (ZyrTEC) 10 MG TAB PO SCH (08:05)
[2022-02-22] MEDS: SENNA 8.6 MG TAB (SENOKOT) PO SCH (08:06)
[2022-02-22] MEDS: APIXABAN 2.5 MG TAB (ELIQUIS) PO SCH ×2 (08:06→20:48)
[2022-02-22] MEDS: CARVedilol 3.125 MG TAB PO SCH (08:06)
[2022-02-22] MEDS: METOCLOPRAMIDE 10MG TAB PO SCH (08:06)
[2022-02-22] MEDS: PANTOPRAZOLE 40MG TAB (PROTONIX) PO SCH (08:06)
[2022-02-22] MEDS: CLOTRIMAZOLE 1% TOPICAL CREAM 30GM TOP SCH ×2 (08:07→20:49)
[2022-02-22] MEDS: allopurinoL 100 MG TAB PO SCH (12:04)
[2022-02-22] MEDS: SIMVASTATIN 20 MG TAB PO SCH (20:48)
[2022-02-22] MEDS: oxyCODONE 5MG TAB PO PRN (23:42)
[2022-02-23 04:50] VITALS: BP 133/50
[2022-02-23] MEDS: ASPIRIN 81MG ENTERIC TABLET PO SCH (05:58)
[2022-02-23] MEDS: SENNA 8.6 MG TAB (SENOKOT) PO SCH (05:58)
[2022-02-23] MEDS: DOCUSATE SODIUM 100MG CAPSULE PO SCH ×2 (05:58→22:13)
[2022-02-23] MEDS: MIRALAX *UNIT DOSE* 17GM PACKET PO SCH ×2 (05:58→22:08)
[2022-02-23] MEDS: METAMUCIL (PSYLLIUM) PACKET PO SCH ×2 (05:58→22:08)
[2022-02-23] MEDS: APIXABAN 2.5 MG TAB (ELIQUIS) PO SCH ×2 (05:58→22:13)
[2022-02-23] MEDS: oxyCODONE 5MG TAB PO PRN ×2 (05:59→13:41)
[2022-02-23] MEDS: MONTELUKAST 10 MG TAB PO SCH (05:59)
[2022-02-23] MEDS: CETIRIZINE (ZyrTEC) 10 MG TAB PO SCH (06:00)
[2022-02-23] MEDS ORDERED: SODIUM CHLORIDE 0.9% 1000ML IV PRN (06:00)
[2022-02-23] MEDS ORDERED: HEPARIN 1,000UNITS/ML 10ML VIAL (FOR RADIOLOGY & DIALYSIS ONLY) XX SCH (06:00)
[2022-02-23] MEDS ORDERED: HEPARIN 1,000UNITS/ML 10ML VIAL (FOR RADIOLOGY & DIALYSIS ONLY) IV PRN (06:00)
[2022-02-23] MEDS: PANTOPRAZOLE 40MG TAB (PROTONIX) PO SCH (06:03)
[2022-02-23] MEDS: CARVedilol 3.125 MG TAB PO SCH (06:03)
[2022-02-23] MEDS: METOCLOPRAMIDE 10MG TAB PO SCH (06:04)
[2022-02-23] MEDS: lisinopriL 5 MG TAB PO SCH (06:13)
[2022-02-23] MEDS: BUDESONIDE 0.5 MG/2 ML INHALATION SUSPENSION INH SCH ×2 (07:20→19:59)
[2022-02-23] MEDS: LEVEMIR (INSULIN DETEMIR) 1 UNITS/0.01ML SC SCH ×2 (07:54→22:08)
[2022-02-23] MEDS: INSULIN LISPRO (NovoLOG) PER UNIT SC SCH ×4 (07:54→22:07)
[2022-02-23] MEDS ORDERED: MORPHINE 2 MG/ML 1ML VIAL IV ONE (09:45)
[2022-02-23] MEDS: allopurinoL 100 MG TAB PO SCH (12:47)
[2022-02-23] MEDS: CLOTRIMAZOLE 1% TOPICAL CREAM 30GM TOP SCH ×2 (12:48→22:14)
[2022-02-23] MEDS ORDERED: ALPRAZolam 0.25 MG TAB PO ONE (14:45)
[2022-02-23] MEDS: ONDANSETRON 4MG TAB PO PRN (15:13)
[2022-02-23] MEDS: SIMVASTATIN 20 MG TAB PO SCH (22:14)
[2022-02-24] MEDS ORDERED: PILL CUTTER 1 EACH XX PRN (01:50)
[2022-02-24] MEDS ORDERED: CYCLOBENZAPRINE 5MG TABLET PO ONE (02:00)
[2022-02-24 05:30] VITALS: BP 143/64
[2022-02-24] MEDS: BUDESONIDE 0.5 MG/2 ML INHALATION SUSPENSION INH SCH (08:00)
[2022-02-24] MEDS: INSULIN LISPRO (NovoLOG) PER UNIT SC SCH ×4 (08:41→21:00)
[2022-02-24] MEDS: LEVEMIR (INSULIN DETEMIR) 1 UNITS/0.01ML SC SCH ×2 (08:41→21:03)
[2022-02-24] MEDS: PANTOPRAZOLE 40MG TAB (PROTONIX) PO SCH (08:42)
[2022-02-24] MEDS: CETIRIZINE (ZyrTEC) 10 MG TAB PO SCH (08:42)
[2022-02-24] MEDS: ASPIRIN 81MG ENTERIC TABLET PO SCH (08:42)
[2022-02-24] MEDS: MONTELUKAST 10 MG TAB PO SCH (08:42)
[2022-02-24] MEDS: lisinopriL 5 MG TAB PO SCH (08:42)
[2022-02-24] MEDS: METOCLOPRAMIDE 10MG TAB PO SCH (08:42)
[2022-02-24] MEDS: DOCUSATE SODIUM 100MG CAPSULE PO SCH ×2 (08:42→21:04)
[2022-02-24] MEDS: APIXABAN 2.5 MG TAB (ELIQUIS) PO SCH ×2 (08:42→21:04)
[2022-02-24] MEDS: SENNA 8.6 MG TAB (SENOKOT) PO SCH (08:43)
[2022-02-24] MEDS: MIRALAX *UNIT DOSE* 17GM PACKET PO SCH ×2 (08:43→21:00)
[2022-02-24] MEDS: CARVedilol 3.125 MG TAB PO SCH (08:43)
[2022-02-24] MEDS: CLOTRIMAZOLE 1% TOPICAL CREAM 30GM TOP SCH ×2 (08:43→21:04)
[2022-02-24] MEDS: METAMUCIL (PSYLLIUM) PACKET PO SCH ×2 (08:43→21:00)
[2022-02-24 13:01] LABS: BASO % 0.4 % (0.0-1.0); EOS % 0.1 % (0.0-3.0); HEMATOCRIT 33.3 % (36.0-47.0); HEMOGLOBIN 10.2 g/dl (12.0-15.5); LYMPH # 1.5 10^3/uL (1.5-5.0); MEAN CORPUSCULAR HEMOGLOBIN 30.1 pg (27.0-33.0); MEAN CORPUSCULAR HGB CONC 30.6 g/dl (32.0-36.5); MEAN CORPUSCULAR VOLUME 98.2 fl (80.0-96.0); MONO # 1.2 10^3/uL (0.0-0.8); MONO % 14.1 % (2.0-8.0); NEUTROPHILS # 5.7 10^3/uL (1.5-8.5); NEUTROPHILS % 66.8 % (36.0-66.0); PLATELET COUNT, AUTOMATED 169 10^3/uL (150-450); RED BLOOD COUNT 3.39 10^6/uL (4.00-5.40); WHITE BLOOD COUNT 8.5 10^3/uL (4.0-10.0)
[2022-02-24] MEDS: allopurinoL 100 MG TAB PO SCH (13:16)
[2022-02-24 13:26] LABS: MAGNESIUM LEVEL 1.7 MG/DL (1.8-2.4)
[2022-02-24 13:27] LABS: C REACTIVE PROTEIN QUANTITATIV 19.1 MG/DL (<1.0)
[2022-02-24 13:28] LABS: CALCIUM LEVEL 8.5 MG/DL (8.3-10.6); CREATININE FOR GFR 2.89 MG/DL (0.55-1.30); GLOMERULAR FILTRATION RATE 16.4 (>32); POTASSIUM SERUM 4.7 MMOL/L (3.5-5.1)
[2022-02-24] MEDS ORDERED: MAGNESIUM OXIDE 400MG TAB (MAG-OX) PO ONE (13:35)
[2022-02-24 14:11] LABS: URIC ACID 3.7 MG/DL (3.1-7.8)
[2022-02-24] MEDS: FLUTICASONE PROP 0.05% NASAL SPRAY 16 GM (FLONASE) NARES PRN (21:03)
[2022-02-24] MEDS: SIMVASTATIN 20 MG TAB PO SCH (21:04)
[2022-02-24] MEDS: oxyCODONE 5MG TAB PO PRN (21:12)
[2022-02-25 05:20] VITALS: BP 117/60
[2022-02-25] MEDS: CARVedilol 3.125 MG TAB PO SCH (05:59)
[2022-02-25] MEDS ORDERED: SODIUM CHLORIDE 0.9% 1000ML IV PRN (06:00)
[2022-02-25] MEDS ORDERED: HEPARIN 1,000UNITS/ML 10ML VIAL (FOR RADIOLOGY & DIALYSIS ONLY) IV PRN (06:00)
[2022-02-25] MEDS ORDERED: HEPARIN 1,000UNITS/ML 10ML VIAL (FOR RADIOLOGY & DIALYSIS ONLY) XX SCH (06:00)
[2022-02-25] MEDS: SENNA 8.6 MG TAB (SENOKOT) PO SCH (06:09)
[2022-02-25] MEDS: MIRALAX *UNIT DOSE* 17GM PACKET PO SCH ×3 (06:09→22:04)
[2022-02-25] MEDS: METAMUCIL (PSYLLIUM) PACKET PO SCH ×3 (06:09→22:04)
[2022-02-25] MEDS: INSULIN LISPRO (NovoLOG) PER UNIT SC SCH ×4 (06:51→21:00)
[2022-02-25] MEDS: LEVEMIR (INSULIN DETEMIR) 1 UNITS/0.01ML SC SCH ×2 (06:52→22:04)
[2022-02-25] MEDS: PANTOPRAZOLE 40MG TAB (PROTONIX) PO SCH (06:54)
[2022-02-25] MEDS: METOCLOPRAMIDE 10MG TAB PO SCH (06:54)
[2022-02-25] MEDS: lisinopriL 5 MG TAB PO SCH (06:54)
[2022-02-25] MEDS: ASPIRIN 81MG ENTERIC TABLET PO SCH (06:55)
[2022-02-25] MEDS: APIXABAN 2.5 MG TAB (ELIQUIS) PO SCH ×2 (06:55→22:03)
[2022-02-25] MEDS: CETIRIZINE (ZyrTEC) 10 MG TAB PO SCH (06:55)
[2022-02-25] MEDS: MONTELUKAST 10 MG TAB PO SCH (06:55)
[2022-02-25] MEDS: DOCUSATE SODIUM 100MG CAPSULE PO SCH ×2 (06:55→22:04)
[2022-02-25] MEDS: ACETAMINOPHEN 500 MG TAB PO PRN (06:56)
[2022-02-25] MEDS: oxyCODONE 5MG TAB PO PRN ×3 (07:38→22:03)
[2022-02-25] MEDS: CLOTRIMAZOLE 1% TOPICAL CREAM 30GM TOP SCH ×2 (10:03→22:07)
[2022-02-25] MEDS: allopurinoL 100 MG TAB PO SCH (12:35)
[2022-02-25 14:56] LABS: SOURCE, BODY FLUID GLUCOSE RT KNEE
[2022-02-25 15:13] LABS: CRYSTALS, BODY FLUID NONE SEEN (NONE SEEN); SOURCE, BODY FLUID CRYSTALS RT KNEE
[2022-02-25 15:31] LABS: SOURCE, BODY FLUID URIC ACID RT KNEE; URIC ACID, BODY FLUID 2.1 MG/DL (NOT ESTABLISHED)
[2022-02-25 15:52] LABS: SOURCE, BODY FLUID RT KNEE; SYNOVIAL FLUID COLOR YELLOW (COLORLESS)
[2022-02-25 17:21] LABS: BASO % 0.3 % (0.0-1.0); EOS % 0.3 % (0.0-3.0); HEMATOCRIT 36.9 % (36.0-47.0); HEMOGLOBIN 11.4 g/dl (12.0-15.5); LYMPH # 1.5 10^3/uL (1.5-5.0); LYMPH % 15.7 % (24.0-44.0); MEAN CORPUSCULAR HEMOGLOBIN 29.9 pg (27.0-33.0); MEAN CORPUSCULAR HGB CONC 30.9 g/dl (32.0-36.5); MEAN CORPUSCULAR VOLUME 96.9 fl (80.0-96.0); MONO # 1.2 10^3/uL (0.0-0.8); MONO % 12.7 % (2.0-8.0); NEUTROPHILS # 6.9 10^3/uL (1.5-8.5); NEUTROPHILS % 70.5 % (36.0-66.0); PLATELET COUNT, AUTOMATED 165 10^3/uL (150-450); RED BLOOD COUNT 3.81 10^6/uL (4.00-5.40); WHITE BLOOD COUNT 9.7 10^3/uL (4.0-10.0)
[2022-02-25 17:40] LABS: MAGNESIUM LEVEL 1.8 MG/DL (1.8-2.4)
[2022-02-25 17:41] LABS: C REACTIVE PROTEIN QUANTITATIV 23.8 MG/DL (<1.0)
[2022-02-25 17:42] LABS: CALCIUM LEVEL 8.5 MG/DL (8.3-10.6); CREATININE FOR GFR 1.99 MG/DL (0.55-1.30); GLOMERULAR FILTRATION RATE 25.3 (>32); POTASSIUM SERUM 4.2 MMOL/L (3.5-5.1)
[2022-02-25] MEDS: LACTOBACILLUS ACIDOPHILUS CAP (BACID) PO SCH ×2 (18:05→22:03)
[2022-02-25] MEDS: cefTRIAXone SOD 1 GM in D5W MINI-BAG PLUS 50 ML IV SCH (18:05)
[2022-02-25 20:00] VITALS: BP 119/60
[2022-02-25] MEDS ORDERED: VANCOMYCIN HCL 750 MG, VIAL MATE ADAPTER 1 EACH in D5W 250 ML IV ONE ×2 (20:00→21:00)
[2022-02-25] MEDS: RAMELTEON 8 MG TAB (ROZEREM) PO PRN (22:03)
[2022-02-25] MEDS: SIMVASTATIN 20 MG TAB PO SCH (22:04)
[2022-02-26 06:00] VITALS: BP 97/57
[2022-02-26 06:15] VITALS: BP 118/52
[2022-02-26] MEDS: METOCLOPRAMIDE 10MG TAB PO SCH (08:45)
[2022-02-26] MEDS: LACTOBACILLUS ACIDOPHILUS CAP (BACID) PO SCH ×5 (08:45→21:00)
[2022-02-26] MEDS: PANTOPRAZOLE 40MG TAB (PROTONIX) PO SCH (08:45)
[2022-02-26] MEDS: MONTELUKAST 10 MG TAB PO SCH (08:45)
[2022-02-26] MEDS: INSULIN LISPRO (NovoLOG) PER UNIT SC SCH ×4 (08:45→20:51)
[2022-02-26] MEDS: LEVEMIR (INSULIN DETEMIR) 1 UNITS/0.01ML SC SCH ×2 (08:45→21:00)
[2022-02-26] MEDS: ASPIRIN 81MG ENTERIC TABLET PO SCH (08:45)
[2022-02-26] MEDS: DOCUSATE SODIUM 100MG CAPSULE PO SCH ×3 (08:45→21:01)
[2022-02-26] MEDS: SENNA 8.6 MG TAB (SENOKOT) PO SCH (08:46)
[2022-02-26] MEDS: METAMUCIL (PSYLLIUM) PACKET PO SCH ×2 (08:46→20:52)
[2022-02-26] MEDS: MIRALAX *UNIT DOSE* 17GM PACKET PO SCH ×2 (08:46→20:52)
[2022-02-26] MEDS: lisinopriL 5 MG TAB PO SCH (08:46)
[2022-02-26] MEDS: CETIRIZINE (ZyrTEC) 10 MG TAB PO SCH (08:46)
[2022-02-26] MEDS: APIXABAN 2.5 MG TAB (ELIQUIS) PO SCH ×2 (08:47→21:00)
[2022-02-26] MEDS: CARVedilol 3.125 MG TAB PO SCH (08:47)
[2022-02-26] MEDS: CLOTRIMAZOLE 1% TOPICAL CREAM 30GM TOP SCH ×2 (08:48→21:01)
[2022-02-26] MEDS: oxyCODONE 5MG TAB PO PRN ×2 (08:53→16:39)
[2022-02-26] MEDS ORDERED: VANCOMYCIN HCL 1,000 MG, VIAL MATE ADAPTER 1 EACH in NS 250 ML IV SCH (09:00)
[2022-02-26 09:34] LABS: BASO % 0.2 % (0.0-1.0); EOS % 0.1 % (0.0-3.0); HEMATOCRIT 34.1 % (36.0-47.0); HEMOGLOBIN 10.5 g/dl (12.0-15.5); LYMPH # 1.4 10^3/uL (1.5-5.0); LYMPH % 11.4 % (24.0-44.0); MEAN CORPUSCULAR HEMOGLOBIN 29.9 pg (27.0-33.0); MEAN CORPUSCULAR HGB CONC 30.8 g/dl (32.0-36.5); MEAN CORPUSCULAR VOLUME 97.2 fl (80.0-96.0); MONO # 1.3 10^3/uL (0.0-0.8); MONO % 10.9 % (2.0-8.0); NEUTROPHILS # 9.4 10^3/uL (1.5-8.5); NEUTROPHILS % 76.7 % (36.0-66.0); PLATELET COUNT, AUTOMATED 224 10^3/uL (150-450); RED BLOOD COUNT 3.51 10^6/uL (4.00-5.40); WHITE BLOOD COUNT 12.2 10^3/uL (4.0-10.0)
[2022-02-26 09:57] LABS: MAGNESIUM LEVEL 1.6 MG/DL (1.8-2.4)
[2022-02-26 09:59] LABS: C REACTIVE PROTEIN QUANTITATIV 25.4 MG/DL (<1.0); CALCIUM LEVEL 8.4 MG/DL (8.3-10.6); CREATININE FOR GFR 2.71 MG/DL (0.55-1.30); GLOMERULAR FILTRATION RATE 17.7 (>32); POTASSIUM SERUM 4.3 MMOL/L (3.5-5.1)
[2022-02-26] MEDS ORDERED: diphenhydrAMINE 50MG/ML VIAL As Ordered ONE (10:55)
[2022-02-26] MEDS: allopurinoL 100 MG TAB PO SCH (13:41)
[2022-02-26 14:00] VITALS: BP 122/61
[2022-02-26] MEDS: MAG SULF 1GM/100ML (MAG RUN) 1 GM in IV 1 EA IV SCH ×2 (15:39→16:41)
[2022-02-26] MEDS: cefTRIAXone SOD 1 GM in D5W MINI-BAG PLUS 50 ML IV SCH (18:05)
[2022-02-26] MEDS: SODIUM CHLORIDE 0.9% INJ 10 ML SYR IV SCH (18:57)
[2022-02-26 20:00] VITALS: BP 120/59
[2022-02-26] MEDS: SIMVASTATIN 20 MG TAB PO SCH ×2 (20:59→21:00)
[2022-02-27 05:30] VITALS: BP 120/63
[2022-02-27] MEDS ORDERED: HEPARIN 1,000UNITS/ML 10ML VIAL (FOR RADIOLOGY & DIALYSIS ONLY) IV PRN (06:00)
[2022-02-27] MEDS ORDERED: SODIUM CHLORIDE 0.9% 1000ML IV PRN (06:00)
[2022-02-27] MEDS ORDERED: HEPARIN 1,000UNITS/ML 10ML VIAL (FOR RADIOLOGY & DIALYSIS ONLY) XX SCH (06:00)
[2022-02-27] MEDS: SODIUM CHLORIDE 0.9% INJ 10 ML SYR IV SCH ×2 (06:20→17:08)
[2022-02-27] MEDS: LACTOBACILLUS ACIDOPHILUS CAP (BACID) PO SCH ×4 (06:21→21:48)
[2022-02-27] MEDS: APIXABAN 2.5 MG TAB (ELIQUIS) PO SCH ×2 (06:21→21:48)
[2022-02-27] MEDS: lisinopriL 5 MG TAB PO SCH (06:22)
[2022-02-27] MEDS: ASPIRIN 81MG ENTERIC TABLET PO SCH (06:22)
[2022-02-27] MEDS: MONTELUKAST 10 MG TAB PO SCH (06:23)
[2022-02-27] MEDS: ACETAMINOPHEN 500 MG TAB PO PRN ×2 (06:23→14:35)
[2022-02-27] MEDS: PANTOPRAZOLE 40MG TAB (PROTONIX) PO SCH (06:23)
[2022-02-27] MEDS: CETIRIZINE (ZyrTEC) 10 MG TAB PO SCH (06:24)
[2022-02-27] MEDS: METOCLOPRAMIDE 10MG TAB PO SCH (06:24)
[2022-02-27] MEDS: DOCUSATE SODIUM 100MG CAPSULE PO SCH ×2 (06:24→21:48)
[2022-02-27] MEDS: LEVEMIR (INSULIN DETEMIR) 1 UNITS/0.01ML SC SCH ×2 (07:48→21:49)
[2022-02-27] MEDS: INSULIN LISPRO (NovoLOG) PER UNIT SC SCH ×4 (07:49→21:00)
[2022-02-27] MEDS: METAMUCIL (PSYLLIUM) PACKET PO SCH ×2 (07:52→21:00)
[2022-02-27] MEDS: MIRALAX *UNIT DOSE* 17GM PACKET PO SCH ×2 (07:52→21:00)
[2022-02-27] MEDS: SENNA 8.6 MG TAB (SENOKOT) PO SCH (07:52)
[2022-02-27] MEDS: CLOTRIMAZOLE 1% TOPICAL CREAM 30GM TOP SCH ×2 (07:52→21:50)
[2022-02-27] MEDS: CARVedilol 3.125 MG TAB PO SCH (07:56)
[2022-02-27 08:00] LABS: BASO % 0.3 % (0.0-1.0); EOS % 0.2 % (0.0-3.0); HEMATOCRIT 31.4 % (36.0-47.0); HEMOGLOBIN 9.8 g/dl (12.0-15.5); LYMPH # 1.9 10^3/uL (1.5-5.0); LYMPH % 15.9 % (24.0-44.0); MEAN CORPUSCULAR HEMOGLOBIN 29.8 pg (27.0-33.0); MEAN CORPUSCULAR HGB CONC 31.2 g/dl (32.0-36.5); MEAN CORPUSCULAR VOLUME 95.4 fl (80.0-96.0); MONO # 1.3 10^3/uL (0.0-0.8); NEUTROPHILS # 8.4 10^3/uL (1.5-8.5); NEUTROPHILS % 71.9 % (36.0-66.0); PLATELET COUNT, AUTOMATED 241 10^3/uL (150-450); RED BLOOD COUNT 3.29 10^6/uL (4.00-5.40); WHITE BLOOD COUNT 11.7 10^3/uL (4.0-10.0)
[2022-02-27 08:26] LABS: C REACTIVE PROTEIN QUANTITATIV 25.8 MG/DL (<1.0); VANCOMYCIN LEVEL TROUGH 18.9 UG/ML (10.0-20.0)
[2022-02-27 08:28] LABS: CALCIUM LEVEL 8.6 MG/DL (8.3-10.6); CREATININE FOR GFR 3.43 MG/DL (0.55-1.30); GLOMERULAR FILTRATION RATE 13.5 (>32); POTASSIUM SERUM 4.5 MMOL/L (3.5-5.1)
[2022-02-27] MEDS: allopurinoL 100 MG TAB PO SCH (13:37)
[2022-02-27] MEDS ORDERED: VANCOMYCIN HCL 1,000 MG, VIAL MATE ADAPTER 1 EACH in D5W 250 ML IV SCH (16:00)
[2022-02-27 21:12] VITALS: BP 105/67
[2022-02-27] MEDS: SIMVASTATIN 20 MG TAB PO SCH (21:49)
[2022-02-28] VITALS (8 sets, daily range): BP systolic 101–124; BP diastolic 43–84
[2022-02-28] MEDS: SODIUM CHLORIDE 0.9% INJ 10 ML SYR IV SCH ×2 (05:44→18:00)
[2022-02-28 06:32] LABS: BASO % 0.3 % (0.0-1.0); EOS % 0.3 % (0.0-3.0); HEMATOCRIT 29.8 % (36.0-47.0); HEMOGLOBIN 9.4 g/dl (12.0-15.5); LYMPH # 1.6 10^3/uL (1.5-5.0); LYMPH % 15.7 % (24.0-44.0); MEAN CORPUSCULAR HEMOGLOBIN 29.7 pg (27.0-33.0); MEAN CORPUSCULAR HGB CONC 31.5 g/dl (32.0-36.5); MEAN CORPUSCULAR VOLUME 94.3 fl (80.0-96.0); MONO % 9.7 % (2.0-8.0); NEUTROPHILS # 7.7 10^3/uL (1.5-8.5); NEUTROPHILS % 73.4 % (36.0-66.0); PLATELET COUNT, AUTOMATED 237 10^3/uL (150-450); RED BLOOD COUNT 3.16 10^6/uL (4.00-5.40); WHITE BLOOD COUNT 10.5 10^3/uL (4.0-10.0)
[2022-02-28 06:37] LABS: MAGNESIUM LEVEL 1.8 MG/DL (1.8-2.4)
[2022-02-28 06:38] LABS: CALCIUM LEVEL 8.6 MG/DL (8.3-10.6); CREATININE FOR GFR 2.54 MG/DL (0.55-1.30); GLOMERULAR FILTRATION RATE 19.1 (>32)
[2022-02-28 06:39] LABS: C REACTIVE PROTEIN QUANTITATIV 24.8 MG/DL (<1.0)
[2022-02-28] MEDS: LEVEMIR (INSULIN DETEMIR) 1 UNITS/0.01ML SC SCH ×2 (08:12→20:29)
[2022-02-28] MEDS: INSULIN LISPRO (NovoLOG) PER UNIT SC SCH ×4 (08:13→20:24)
[2022-02-28] MEDS: METAMUCIL (PSYLLIUM) PACKET PO SCH ×2 (08:14→20:29)
[2022-02-28] MEDS: PANTOPRAZOLE 40MG TAB (PROTONIX) PO SCH (08:15)
[2022-02-28 08:16] LABS: VANCOMYCIN RANDOM 26.8 UG/ML
[2022-02-28] MEDS: DOCUSATE SODIUM 100MG CAPSULE PO SCH ×2 (08:16→20:28)
[2022-02-28] MEDS: LACTOBACILLUS ACIDOPHILUS CAP (BACID) PO SCH ×4 (08:16→20:28)
[2022-02-28] MEDS: ASPIRIN 81MG ENTERIC TABLET PO SCH (08:16)
[2022-02-28] MEDS: MONTELUKAST 10 MG TAB PO SCH (08:19)
[2022-02-28] MEDS: CARVedilol 3.125 MG TAB PO SCH (08:19)
[2022-02-28] MEDS: CETIRIZINE (ZyrTEC) 10 MG TAB PO SCH (08:20)
[2022-02-28] MEDS: METOCLOPRAMIDE 10MG TAB PO SCH (08:20)
[2022-02-28] MEDS: APIXABAN 2.5 MG TAB (ELIQUIS) PO SCH ×2 (08:20→20:28)
[2022-02-28] MEDS: SENNA 8.6 MG TAB (SENOKOT) PO SCH (08:21)
[2022-02-28] MEDS: lisinopriL 5 MG TAB PO SCH (08:21)
[2022-02-28] MEDS: ACETAMINOPHEN 500 MG TAB PO PRN ×2 (08:21→22:15)
[2022-02-28] MEDS: MIRALAX *UNIT DOSE* 17GM PACKET PO SCH ×2 (08:24→20:29)
[2022-02-28] MEDS: CLOTRIMAZOLE 1% TOPICAL CREAM 30GM TOP SCH ×2 (08:25→20:31)
[2022-02-28 12:19] LABS: SOURCE, BODY FLUID RT KNEE
[2022-02-28 12:23] LABS: SOURCE, BODY FLUID CRYSTALS RT KNEE
[2022-02-28 12:30] LABS: SOURCE, BODY FLUID GLUCOSE RT KNEE
[2022-02-28 12:32] LABS: CRYSTALS, BODY FLUID URIC ACID AND CCP (NONE SEEN)
[2022-02-28 13:00] LABS: SOURCE, BODY FLUID URIC ACID RT KNEE; URIC ACID, BODY FLUID 2.2 MG/DL (NOT ESTABLISHED)
[2022-02-28] MEDS: allopurinoL 100 MG TAB PO SCH (13:05)
[2022-02-28] MEDS ORDERED: EPINEPHrine 1MG/ML INJ 30ML MD-VIAL As Ordered ONE (14:45)
[2022-02-28] MEDS ORDERED: LIDOCAINE 2% 100MG/5ML SDV (FOR ANES.) As Ordered ONE (16:36)
[2022-02-28] MEDS ORDERED: ACETAMINOPHEN 1000MG 100ML IV BAG As Ordered ONE (16:36)
[2022-02-28] MEDS ORDERED: propofoL 200 MG/20 ML VIAL As Ordered ONE (16:36)
[2022-02-28] MEDS ORDERED: PHENYLephrine 500MCG 5ML (100MCG/ML) SYRINGE As Ordered ONE (16:36)
[2022-02-28] MEDS ORDERED: fentaNYL 100 MCG/2 ML INJECTION As Ordered ONE (16:36)
[2022-02-28] MEDS ORDERED: METOCLOPRAMIDE INJ 10MG/2ML VIAL As Ordered ONE (16:36)
[2022-02-28] MEDS ORDERED: ETOMIDATE INJ 20MG/10ML VIAL As Ordered ONE (16:36)
[2022-02-28] MEDS ORDERED: ONDANSETRON 4MG 2ML VIAL As Ordered ONE (16:36)
[2022-02-28] MEDS ORDERED: ROCURONIUM BROMIDE 50MG/5ML VIAL As Ordered ONE (16:36)
[2022-02-28] MEDS ORDERED: SUGAMMADEX SODIUM 500 MG/5 ML VIAL (BRIDION) As Ordered ONE (16:36)
[2022-02-28] MEDS ORDERED: BUPIVACAINE/EPIN 0.5% 30ML VIAL As Ordered ONE (16:37)
[2022-02-28] MEDS ORDERED: ONDANSETRON 4MG 2ML VIAL IV PRN ×2 (17:55→18:15)
[2022-02-28] MEDS ORDERED: NS 1,000 ML IV SCH (17:55)
[2022-02-28] MEDS: fentaNYL 100 MCG/2 ML INJECTION IV PRN ×4 (18:08→18:28)
[2022-02-28] MEDS ORDERED: oxyCODONE 5MG TAB PO PRN (18:15)
[2022-02-28] MEDS ORDERED: LR 1,000 ML IV SCH (18:15)
[2022-02-28] MEDS ORDERED: fentaNYL 100 MCG/2 ML INJECTION IV PRN (18:15)
[2022-02-28] MEDS ORDERED: MORPHINE 4 MG/ML 1ML VIAL IV STA (18:30)
[2022-02-28] MEDS ORDERED: MORPHINE 4 MG/ML 1ML VIAL As Ordered ONE (18:33)
[2022-02-28] MEDS ORDERED: diphenhydrAMINE 50MG/ML VIAL IV PRN (18:45)
[2022-02-28] MEDS ORDERED: HALOPERIDOL 5MG/ML 1ML VIAL IV PRN (19:10)
[2022-02-28] MEDS: SIMVASTATIN 20 MG TAB PO SCH (20:29)
[2022-03-01] VITALS (12 sets, daily range): BP systolic 76–121; BP diastolic 48–56; O2SAT 98
[2022-03-01] MEDS ORDERED: carisoprodoL 350 MG TAB PO ONE
[2022-03-01] MEDS ORDERED: SODIUM CHLORIDE 0.9% 1000ML IV ONE
[2022-03-01] MEDS: MORPHINE 2 MG/ML 1ML VIAL IV PRN ×2 (00:49→05:58)
[2022-03-01] MEDS ORDERED: MORPHINE 2 MG/ML 1ML VIAL IV ONE (02:00)
[2022-03-01] MEDS: SODIUM CHLORIDE 0.9% INJ 10 ML SYR IV PRN (02:18)
[2022-03-01] MEDS: SODIUM CHLORIDE 0.9% INJ 10 ML SYR IV SCH ×2 (05:49→17:39)
[2022-03-01 06:27] LABS: BASO % 0.3 % (0.0-1.0); EOS # 0.1 10^3/uL (0.0-0.5); EOS % 0.7 % (0.0-3.0); HEMATOCRIT 28.9 % (36.0-47.0); HEMOGLOBIN 8.9 g/dl (12.0-15.5); LYMPH # 1.5 10^3/uL (1.5-5.0); LYMPH % 15.2 % (24.0-44.0); MEAN CORPUSCULAR HEMOGLOBIN 29.1 pg (27.0-33.0); MEAN CORPUSCULAR HGB CONC 30.8 g/dl (32.0-36.5); MEAN CORPUSCULAR VOLUME 94.4 fl (80.0-96.0); NEUTROPHILS # 7.2 10^3/uL (1.5-8.5); NEUTROPHILS % 73.4 % (36.0-66.0); PLATELET COUNT, AUTOMATED 254 10^3/uL (150-450); RED BLOOD COUNT 3.06 10^6/uL (4.00-5.40); WHITE BLOOD COUNT 9.8 10^3/uL (4.0-10.0)
[2022-03-01 06:46] LABS: C REACTIVE PROTEIN QUANTITATIV 21.5 MG/DL (<1.0); MAGNESIUM LEVEL 1.8 MG/DL (1.8-2.4)
[2022-03-01 06:47] LABS: CALCIUM LEVEL 8.5 MG/DL (8.3-10.6); CREATININE FOR GFR 3.17 MG/DL (0.55-1.30); GLOMERULAR FILTRATION RATE 14.8 (>32); POTASSIUM SERUM 4.4 MMOL/L (3.5-5.1)
[2022-03-01] MEDS: INSULIN LISPRO (NovoLOG) PER UNIT SC SCH ×4 (07:30→21:00)
[2022-03-01] MEDS: LACTOBACILLUS ACIDOPHILUS CAP (BACID) PO SCH ×5 (08:00→23:09)
[2022-03-01] MEDS: ASPIRIN 81MG ENTERIC TABLET PO SCH ×2 (08:23→09:00)
[2022-03-01] MEDS: DOCUSATE SODIUM 100MG CAPSULE PO SCH ×3 (08:23→23:09)
[2022-03-01] MEDS: PANTOPRAZOLE 40MG TAB (PROTONIX) PO SCH ×2 (08:23→09:00)
[2022-03-01] MEDS: ACETAMINOPHEN 500 MG TAB PO PRN ×2 (08:23→16:30)
[2022-03-01] MEDS: MONTELUKAST 10 MG TAB PO SCH ×2 (08:24→09:00)
[2022-03-01] MEDS: SENNA 8.6 MG TAB (SENOKOT) PO SCH ×2 (08:24→09:00)
[2022-03-01] MEDS: APIXABAN 2.5 MG TAB (ELIQUIS) PO SCH ×2 (08:24→23:09)
[2022-03-01] MEDS: lisinopriL 5 MG TAB PO SCH (08:25)
[2022-03-01] MEDS: CARVedilol 3.125 MG TAB PO SCH ×2 (08:25→09:00)
[2022-03-01] MEDS: CETIRIZINE (ZyrTEC) 10 MG TAB PO SCH ×2 (08:25→09:00)
[2022-03-01] MEDS: METAMUCIL (PSYLLIUM) PACKET PO SCH ×3 (08:26→23:09)
[2022-03-01] MEDS: METOCLOPRAMIDE 10MG TAB PO SCH (08:26)
[2022-03-01] MEDS: LEVEMIR (INSULIN DETEMIR) 1 UNITS/0.01ML SC SCH ×2 (08:26→23:10)
[2022-03-01] MEDS: CLOTRIMAZOLE 1% TOPICAL CREAM 30GM TOP SCH ×2 (08:26→21:00)
[2022-03-01] MEDS: MIRALAX *UNIT DOSE* 17GM PACKET PO SCH ×2 (08:26→23:09)
[2022-03-01] MEDS: ONDANSETRON 4MG 2ML VIAL IV PRN (09:39)
[2022-03-01] MEDS: allopurinoL 100 MG TAB PO SCH (12:29)
[2022-03-01] MEDS ORDERED: NS 500 ML IV ONE ×2 (14:25→16:45)
[2022-03-01 14:51] LABS: ABG BASE EXCESS -2.4 (-2.0-2.0); ABG HCO3 22.4 MEQ/L (22.0-26.0); ABG O2 SATURATION 95.7 % (95.0-99.0); ABG PARTIAL PRESSURE CO2 38.9 mmHg (35.0-45.0); ABG PARTIAL PRESSURE O2 89.6 mmHg (75.0-100.0); ABG STANDARD HCO3 22.4 MEQ/L (22.0-26.0); ABG TOTAL CO2 23.6 MEQ/L (23.0-31.0); ABG pH (ARTERIAL) 7.379 UNITS (7.350-7.450)
[2022-03-01 15:14] LABS: BASO % 0.3 % (0.0-1.0); EOS % 0.5 % (0.0-3.0); HEMATOCRIT 26.5 % (36.0-47.0); HEMOGLOBIN 8.3 g/dl (12.0-15.5); LYMPH # 1.1 10^3/uL (1.5-5.0); LYMPH % 12.5 % (24.0-44.0); MEAN CORPUSCULAR HEMOGLOBIN 29.9 pg (27.0-33.0); MEAN CORPUSCULAR HGB CONC 31.3 g/dl (32.0-36.5); MEAN CORPUSCULAR VOLUME 95.3 fl (80.0-96.0); MONO # 0.8 10^3/uL (0.0-0.8); MONO % 9.3 % (2.0-8.0); NEUTROPHILS # 6.8 10^3/uL (1.5-8.5); NEUTROPHILS % 76.8 % (36.0-66.0); PLATELET COUNT, AUTOMATED 229 10^3/uL (150-450); RED BLOOD COUNT 2.78 10^6/uL (4.00-5.40); WHITE BLOOD COUNT 8.8 10^3/uL (4.0-10.0)
[2022-03-01 15:37] LABS: MAGNESIUM LEVEL 1.8 MG/DL (1.8-2.4)
[2022-03-01 15:39] LABS: CALCIUM LEVEL 8.2 MG/DL (8.3-10.6); CREATININE FOR GFR 3.26 MG/DL (0.55-1.30); GLOMERULAR FILTRATION RATE 14.3 (>32); POTASSIUM SERUM 4.6 MMOL/L (3.5-5.1)
[2022-03-01] MEDS: SIMVASTATIN 20 MG TAB PO SCH (23:09)
[2022-03-01] MEDS: RAMELTEON 8 MG TAB (ROZEREM) PO PRN (23:09)
[2022-03-02 04:07] VITALS: BP 95/42
[2022-03-02] MEDS: SODIUM CHLORIDE 0.9% INJ 10 ML SYR IV SCH ×2 (06:31→18:21)
[2022-03-02 06:54] LABS: BASO % 0.5 % (0.0-1.0); EOS # 0.1 10^3/uL (0.0-0.5); HEMATOCRIT 26.9 % (36.0-47.0); HEMOGLOBIN 8.5 g/dl (12.0-15.5); LYMPH # 1.2 10^3/uL (1.5-5.0); LYMPH % 14.5 % (24.0-44.0); MEAN CORPUSCULAR HEMOGLOBIN 29.9 pg (27.0-33.0); MEAN CORPUSCULAR HGB CONC 31.6 g/dl (32.0-36.5); MEAN CORPUSCULAR VOLUME 94.7 fl (80.0-96.0); MONO # 0.8 10^3/uL (0.0-0.8); MONO % 9.9 % (2.0-8.0); NEUTROPHILS # 5.8 10^3/uL (1.5-8.5); NEUTROPHILS % 73.5 % (36.0-66.0); PLATELET COUNT, AUTOMATED 246 10^3/uL (150-450); RED BLOOD COUNT 2.84 10^6/uL (4.00-5.40); WHITE BLOOD COUNT 7.9 10^3/uL (4.0-10.0)
[2022-03-02 07:00] VITALS: O2SAT 96
[2022-03-02] MEDS ORDERED: HEPARIN 1,000UNITS/ML 10ML VIAL (FOR RADIOLOGY & DIALYSIS ONLY) XX SCH (07:00)
[2022-03-02] MEDS ORDERED: HEPARIN 1,000UNITS/ML 10ML VIAL (FOR RADIOLOGY & DIALYSIS ONLY) IV PRN (07:00)
[2022-03-02] MEDS ORDERED: SODIUM CHLORIDE 0.9% 1000ML IV PRN (07:00)
[2022-03-02] MEDS: INSULIN LISPRO (NovoLOG) PER UNIT SC SCH ×4 (07:30→20:13)
[2022-03-02 07:31] LABS: VANCOMYCIN RANDOM 17.9 UG/ML
[2022-03-02 07:32] LABS: CALCIUM LEVEL 8.3 MG/DL (8.3-10.6); CREATININE FOR GFR 3.54 MG/DL (0.55-1.30); POTASSIUM SERUM 5.2 MMOL/L (3.5-5.1)
[2022-03-02] MEDS: DOCUSATE SODIUM 100MG CAPSULE PO SCH ×2 (08:00→21:44)
[2022-03-02] MEDS: PANTOPRAZOLE 40MG TAB (PROTONIX) PO SCH (08:00)
[2022-03-02] MEDS: ASPIRIN 81MG ENTERIC TABLET PO SCH (08:00)
[2022-03-02] MEDS: LACTOBACILLUS ACIDOPHILUS CAP (BACID) PO SCH ×4 (08:00→21:44)
[2022-03-02] MEDS: MONTELUKAST 10 MG TAB PO SCH (08:00)
[2022-03-02] MEDS: CETIRIZINE (ZyrTEC) 10 MG TAB PO SCH (08:01)
[2022-03-02] MEDS: METOCLOPRAMIDE 10MG TAB PO SCH (08:01)
[2022-03-02] MEDS: APIXABAN 2.5 MG TAB (ELIQUIS) PO SCH ×2 (08:01→21:44)
[2022-03-02] MEDS: SENNA 8.6 MG TAB (SENOKOT) PO SCH (08:01)
[2022-03-02] MEDS: CARVedilol 3.125 MG TAB PO SCH (08:41)
[2022-03-02] MEDS: CLOTRIMAZOLE 1% TOPICAL CREAM 30GM TOP SCH ×2 (08:42→21:00)
[2022-03-02] MEDS: MIRALAX *UNIT DOSE* 17GM PACKET PO SCH ×2 (08:42→21:00)
[2022-03-02] MEDS: LEVEMIR (INSULIN DETEMIR) 1 UNITS/0.01ML SC SCH ×2 (08:42→21:44)
[2022-03-02] MEDS: METAMUCIL (PSYLLIUM) PACKET PO SCH ×2 (08:42→21:00)
[2022-03-02 13:11] VITALS: BP 121/45
[2022-03-02] MEDS: allopurinoL 100 MG TAB PO SCH (13:18)
[2022-03-02 14:34] LABS: C REACTIVE PROTEIN QUANTITATIV 24.4 MG/DL (<1.0)
[2022-03-02 20:44] VITALS: BP 102/50
[2022-03-02] MEDS: SIMVASTATIN 20 MG TAB PO SCH (21:44)
[2022-03-03 03:52] VITALS: BP 101/73
[2022-03-03] MEDS: SODIUM CHLORIDE 0.9% INJ 10 ML SYR IV SCH ×2 (06:12→18:00)
[2022-03-03] MEDS: INSULIN LISPRO (NovoLOG) PER UNIT SC SCH ×4 (07:30→21:00)
[2022-03-03 07:42] LABS: BASO % 0.4 % (0.0-1.0); EOS # 0.1 10^3/uL (0.0-0.5); EOS % 0.6 % (0.0-3.0); HEMATOCRIT 27.1 % (36.0-47.0); HEMOGLOBIN 8.3 g/dl (12.0-15.5); LYMPH # 1.2 10^3/uL (1.5-5.0); LYMPH % 15.1 % (24.0-44.0); MEAN CORPUSCULAR HEMOGLOBIN 29.4 pg (27.0-33.0); MEAN CORPUSCULAR HGB CONC 30.6 g/dl (32.0-36.5); MEAN CORPUSCULAR VOLUME 96.1 fl (80.0-96.0); MONO # 0.8 10^3/uL (0.0-0.8); NEUTROPHILS # 5.9 10^3/uL (1.5-8.5); NEUTROPHILS % 73.2 % (36.0-66.0); PLATELET COUNT, AUTOMATED 259 10^3/uL (150-450); RED BLOOD COUNT 2.82 10^6/uL (4.00-5.40)
[2022-03-03 07:52] VITALS: BP 110/58
[2022-03-03 08:01] LABS: MAGNESIUM LEVEL 1.9 MG/DL (1.8-2.4)
[2022-03-03 08:02] LABS: C REACTIVE PROTEIN QUANTITATIV 20.9 MG/DL (<1.0); VANCOMYCIN RANDOM 14.3 UG/ML
[2022-03-03 08:03] LABS: CALCIUM LEVEL 8.4 MG/DL (8.3-10.6); CREATININE FOR GFR 2.96 MG/DL (0.55-1.30); POTASSIUM SERUM 4.2 MMOL/L (3.5-5.1)
[2022-03-03] MEDS: SENNA 8.6 MG TAB (SENOKOT) PO SCH (09:00)
[2022-03-03] MEDS: DOCUSATE SODIUM 100MG CAPSULE PO SCH (09:00)
[2022-03-03] MEDS: MIRALAX *UNIT DOSE* 17GM PACKET PO SCH (09:00)
[2022-03-03] MEDS ORDERED: VANCOMYCIN HCL 500 MG in D5W MINI-BAG PLUS 100 ML IV ONE (09:00)
[2022-03-03] MEDS: CARVedilol 3.125 MG TAB PO SCH (09:00)
[2022-03-03] MEDS: METAMUCIL (PSYLLIUM) PACKET PO SCH (09:00)
[2022-03-03] MEDS: ASPIRIN 81MG ENTERIC TABLET PO SCH (09:17)
[2022-03-03] MEDS: LACTOBACILLUS ACIDOPHILUS CAP (BACID) PO SCH ×4 (09:17→21:33)
[2022-03-03] MEDS: APIXABAN 2.5 MG TAB (ELIQUIS) PO SCH ×2 (09:18→21:33)
[2022-03-03] MEDS: CETIRIZINE (ZyrTEC) 10 MG TAB PO SCH (09:18)
[2022-03-03] MEDS: MONTELUKAST 10 MG TAB PO SCH (09:18)
[2022-03-03] MEDS: METOCLOPRAMIDE 10MG TAB PO SCH (09:18)
[2022-03-03] MEDS: PANTOPRAZOLE 40MG TAB (PROTONIX) PO SCH (09:18)
[2022-03-03] MEDS: LEVEMIR (INSULIN DETEMIR) 1 UNITS/0.01ML SC SCH ×2 (09:19→21:35)
[2022-03-03] MEDS: CLOTRIMAZOLE 1% TOPICAL CREAM 30GM TOP SCH ×2 (09:20→21:34)
[2022-03-03] MEDS: allopurinoL 100 MG TAB PO SCH (12:36)
[2022-03-03 16:00] VITALS: BP 110/62
[2022-03-03 20:00] VITALS: BP 96/46
[2022-03-03] MEDS: SIMVASTATIN 20 MG TAB PO SCH (21:33)
[2022-03-04 04:00] VITALS: BP 101/57
[2022-03-04] MEDS: SODIUM CHLORIDE 0.9% INJ 10 ML SYR IV SCH ×2 (05:46→18:21)
[2022-03-04 05:55] LABS: BASO % 0.3 % (0.0-1.0); EOS # 0.1 10^3/uL (0.0-0.5); HEMATOCRIT 26.7 % (36.0-47.0); HEMOGLOBIN 8.2 g/dl (12.0-15.5); LYMPH # 1.3 10^3/uL (1.5-5.0); MEAN CORPUSCULAR HEMOGLOBIN 29.1 pg (27.0-33.0); MEAN CORPUSCULAR HGB CONC 30.7 g/dl (32.0-36.5); MEAN CORPUSCULAR VOLUME 94.7 fl (80.0-96.0); MONO # 0.8 10^3/uL (0.0-0.8); MONO % 9.1 % (2.0-8.0); NEUTROPHILS # 6.6 10^3/uL (1.5-8.5); NEUTROPHILS % 73.5 % (36.0-66.0); PLATELET COUNT, AUTOMATED 280 10^3/uL (150-450); RED BLOOD COUNT 2.82 10^6/uL (4.00-5.40)
[2022-03-04 06:27] LABS: MAGNESIUM LEVEL 2.1 MG/DL (1.8-2.4)
[2022-03-04 06:28] LABS: C REACTIVE PROTEIN QUANTITATIV 20.7 MG/DL (<1.0); CALCIUM LEVEL 8.6 MG/DL (8.3-10.6); CREATININE FOR GFR 3.42 MG/DL (0.55-1.30); GLOMERULAR FILTRATION RATE 13.5 (>32); POTASSIUM SERUM 4.4 MMOL/L (3.5-5.1)
[2022-03-04] MEDS ORDERED: HEPARIN 1,000UNITS/ML 10ML VIAL (FOR RADIOLOGY & DIALYSIS ONLY) IV PRN (06:55)
[2022-03-04] MEDS ORDERED: SODIUM CHLORIDE 0.9% 1000ML IV PRN (06:55)
[2022-03-04] MEDS ORDERED: HEPARIN 1,000UNITS/ML 10ML VIAL (FOR RADIOLOGY & DIALYSIS ONLY) XX SCH (06:55)
[2022-03-04] MEDS: INSULIN LISPRO (NovoLOG) PER UNIT SC SCH ×4 (07:12→21:00)
[2022-03-04] MEDS: LEVEMIR (INSULIN DETEMIR) 1 UNITS/0.01ML SC SCH ×2 (07:40→21:41)
[2022-03-04] MEDS: LACTOBACILLUS ACIDOPHILUS CAP (BACID) PO SCH ×4 (07:40→21:40)
[2022-03-04] MEDS: APIXABAN 2.5 MG TAB (ELIQUIS) PO SCH ×2 (07:41→21:40)
[2022-03-04] MEDS: MONTELUKAST 10 MG TAB PO SCH (07:41)
[2022-03-04] MEDS: CETIRIZINE (ZyrTEC) 10 MG TAB PO SCH (07:41)
[2022-03-04] MEDS: METOCLOPRAMIDE 10MG TAB PO SCH (07:41)
[2022-03-04] MEDS: ASPIRIN 81MG ENTERIC TABLET PO SCH (07:41)
[2022-03-04] MEDS: PANTOPRAZOLE 40MG TAB (PROTONIX) PO SCH (07:41)
[2022-03-04] MEDS: CARVedilol 3.125 MG TAB PO SCH (07:42)
[2022-03-04] MEDS: CLOTRIMAZOLE 1% TOPICAL CREAM 30GM TOP SCH ×2 (07:42→21:41)
[2022-03-04 07:47] VITALS: BP 102/48
[2022-03-04] MEDS: allopurinoL 100 MG TAB PO SCH (14:10)
[2022-03-04] MEDS ORDERED: VANCOMYCIN HCL 500 MG in D5W MINI-BAG PLUS 100 ML IV SCH (16:00)
[2022-03-04 20:01] VITALS: BP 139/63
[2022-03-04] MEDS: SIMVASTATIN 20 MG TAB PO SCH (21:40)
[2022-03-04] MEDS: ACETAMINOPHEN 500 MG TAB PO PRN (21:42)
[2022-03-04] MEDS: ONDANSETRON 4MG 2ML VIAL IV PRN (22:48)
[2022-03-05] MEDS: RAMELTEON 8 MG TAB (ROZEREM) PO PRN (03:21)
[2022-03-05] MEDS: SODIUM CHLORIDE 0.9% INJ 10 ML SYR IV SCH ×2 (05:28→17:32)
[2022-03-05] MEDS: SODIUM CHLORIDE 0.9% INJ 10 ML SYR IV PRN (05:29)
[2022-03-05 05:38] VITALS: BP 115/87
[2022-03-05 06:18] LABS: ALBUMIN 1.9 G/DL (3.2-5.2); BILIRUBIN,TOTAL 0.3 MG/DL (0.3-1.2); CREATININE FOR GFR 2.6 MG/DL (0.55-1.30); GLOMERULAR FILTRATION RATE 18.5 (>32); POTASSIUM SERUM 3.9 MMOL/L (3.5-5.1); TOTAL PROTEIN 5.3 G/DL (5.7-8.2)
[2022-03-05] MEDS: CARVedilol 3.125 MG TAB PO SCH (09:00)
[2022-03-05] MEDS: LEVEMIR (INSULIN DETEMIR) 1 UNITS/0.01ML SC SCH ×2 (09:06→22:19)
[2022-03-05] MEDS: INSULIN LISPRO (NovoLOG) PER UNIT SC SCH ×4 (09:07→21:00)
[2022-03-05] MEDS: METOCLOPRAMIDE 10MG TAB PO SCH (09:48)
[2022-03-05] MEDS: ASPIRIN 81MG ENTERIC TABLET PO SCH (09:48)
[2022-03-05] MEDS: PANTOPRAZOLE 40MG TAB (PROTONIX) PO SCH (09:48)
[2022-03-05] MEDS: CETIRIZINE (ZyrTEC) 10 MG TAB PO SCH (09:48)
[2022-03-05] MEDS: LACTOBACILLUS ACIDOPHILUS CAP (BACID) PO SCH ×4 (09:48→22:19)
[2022-03-05] MEDS: APIXABAN 2.5 MG TAB (ELIQUIS) PO SCH ×2 (09:48→22:19)
[2022-03-05] MEDS: MONTELUKAST 10 MG TAB PO SCH (09:48)
[2022-03-05] MEDS: CLOTRIMAZOLE 1% TOPICAL CREAM 30GM TOP SCH ×2 (09:49→22:20)
[2022-03-05] MEDS: ACETAMINOPHEN 500 MG TAB PO PRN ×2 (09:54→22:31)
[2022-03-05 10:02] VITALS: BP 117/56
[2022-03-05] MEDS: allopurinoL 100 MG TAB PO SCH (12:11)
[2022-03-05] MEDS: SIMVASTATIN 20 MG TAB PO SCH (22:20)
[2022-03-06] MEDS: SODIUM CHLORIDE 0.9% INJ 10 ML SYR IV SCH ×2 (06:03→19:02)
[2022-03-06 06:24] LABS: HEMATOCRIT 24.8 % (36.0-47.0); HEMOGLOBIN 7.6 g/dl (12.0-15.5); MEAN CORPUSCULAR HEMOGLOBIN 29.5 pg (27.0-33.0); MEAN CORPUSCULAR HGB CONC 30.6 g/dl (32.0-36.5); MEAN CORPUSCULAR VOLUME 96.1 fl (80.0-96.0); PLATELET COUNT, AUTOMATED 301 10^3/uL (150-450); RED BLOOD COUNT 2.58 10^6/uL (4.00-5.40); WHITE BLOOD COUNT 7.6 10^3/uL (4.0-10.0)
[2022-03-06] MEDS ORDERED: HEPARIN 1,000UNITS/ML 10ML VIAL (FOR RADIOLOGY & DIALYSIS ONLY) XX SCH (06:50)
[2022-03-06] MEDS ORDERED: HEPARIN 1,000UNITS/ML 10ML VIAL (FOR RADIOLOGY & DIALYSIS ONLY) IV PRN (06:50)
[2022-03-06] MEDS ORDERED: SODIUM CHLORIDE 0.9% 1000ML IV PRN (06:50)
[2022-03-06 07:22] LABS: ALBUMIN 1.6 G/DL (3.2-5.2); CALCIUM LEVEL 8.8 MG/DL (8.3-10.6); CREATININE FOR GFR 3.11 MG/DL (0.55-1.30); GLOMERULAR FILTRATION RATE 15.1 (>32); PHOSPHORUS LEVEL 4.5 MG/DL (2.4-5.1); POTASSIUM SERUM 4.5 MMOL/L (3.5-5.1)
[2022-03-06] MEDS: INSULIN LISPRO (NovoLOG) PER UNIT SC SCH ×4 (07:30→22:18)
[2022-03-06 07:33] LABS: C REACTIVE PROTEIN QUANTITATIV 14.4 MG/DL (<1.0)
[2022-03-06 07:49] VITALS: BP 126/77
[2022-03-06] MEDS: LEVEMIR (INSULIN DETEMIR) 1 UNITS/0.01ML SC SCH ×2 (07:58→22:18)
[2022-03-06] MEDS: LACTOBACILLUS ACIDOPHILUS CAP (BACID) PO SCH ×4 (07:58→22:16)
[2022-03-06] MEDS: ACETAMINOPHEN 500 MG TAB PO PRN ×2 (07:59→22:15)
[2022-03-06] MEDS: ASPIRIN 81MG ENTERIC TABLET PO SCH (07:59)
[2022-03-06] MEDS: CARVedilol 3.125 MG TAB PO SCH (07:59)
[2022-03-06] MEDS: CETIRIZINE (ZyrTEC) 10 MG TAB PO SCH (08:00)
[2022-03-06] MEDS: MONTELUKAST 10 MG TAB PO SCH (08:00)
[2022-03-06] MEDS: PANTOPRAZOLE 40MG TAB (PROTONIX) PO SCH (08:00)
[2022-03-06] MEDS: APIXABAN 2.5 MG TAB (ELIQUIS) PO SCH ×2 (08:00→22:16)
[2022-03-06] MEDS: CLOTRIMAZOLE 1% TOPICAL CREAM 30GM TOP SCH ×2 (08:01→22:15)
[2022-03-06] MEDS: DARBEPOETIN 200MCG/0.4ML *DIALYSIS* SYRINGE IV SCH (09:22)
[2022-03-06] MEDS: allopurinoL 100 MG TAB PO SCH (12:57)
[2022-03-06] MEDS ORDERED: VANCOMYCIN HCL 750 MG, VIAL MATE ADAPTER 1 EACH in D5W 250 ML IV SCH (16:00)
[2022-03-06 20:49] VITALS: BP 116/54
[2022-03-06] MEDS: SIMVASTATIN 20 MG TAB PO SCH (22:16)
[2022-03-07] MEDS: SODIUM CHLORIDE 0.9% INJ 10 ML SYR IV SCH ×2 (05:44→17:12)
[2022-03-07] MEDS: ACETAMINOPHEN 500 MG TAB PO PRN (06:29)
[2022-03-07 07:44] VITALS: BP 109/51
[2022-03-07] MEDS: CARVedilol 3.125 MG TAB PO SCH ×2 (09:00→09:11)
[2022-03-07] MEDS: LACTOBACILLUS ACIDOPHILUS CAP (BACID) PO SCH ×4 (09:10→21:43)
[2022-03-07] MEDS: ASPIRIN 81MG ENTERIC TABLET PO SCH (09:10)
[2022-03-07] MEDS: INSULIN LISPRO (NovoLOG) PER UNIT SC SCH ×4 (09:10→21:00)
[2022-03-07] MEDS: LEVEMIR (INSULIN DETEMIR) 1 UNITS/0.01ML SC SCH ×2 (09:10→21:43)
[2022-03-07] MEDS: APIXABAN 2.5 MG TAB (ELIQUIS) PO SCH ×2 (09:11→21:44)
[2022-03-07] MEDS: PANTOPRAZOLE 40MG TAB (PROTONIX) PO SCH (09:11)
[2022-03-07] MEDS: CETIRIZINE (ZyrTEC) 10 MG TAB PO SCH (09:11)
[2022-03-07] MEDS: MONTELUKAST 10 MG TAB PO SCH (09:11)
[2022-03-07] MEDS: CLOTRIMAZOLE 1% TOPICAL CREAM 30GM TOP SCH ×2 (09:18→21:44)
[2022-03-07] MEDS: allopurinoL 100 MG TAB PO SCH (11:56)
[2022-03-07 20:41] VITALS: BP 112/83
[2022-03-07] MEDS: SIMVASTATIN 20 MG TAB PO SCH (21:44)
[2022-03-08] MEDS: ACETAMINOPHEN 500 MG TAB PO PRN ×2 (00:27→09:04)
[2022-03-08] MEDS: SODIUM CHLORIDE 0.9% INJ 10 ML SYR IV SCH ×2 (05:18→16:50)
[2022-03-08 07:44] VITALS: BP 137/54
[2022-03-08] MEDS: LEVEMIR (INSULIN DETEMIR) 1 UNITS/0.01ML SC SCH ×2 (09:03→20:18)
[2022-03-08] MEDS: INSULIN LISPRO (NovoLOG) PER UNIT SC SCH ×4 (09:04→20:19)
[2022-03-08] MEDS: ASPIRIN 81MG ENTERIC TABLET PO SCH (09:05)
[2022-03-08] MEDS: CETIRIZINE (ZyrTEC) 10 MG TAB PO SCH (09:05)
[2022-03-08] MEDS: LACTOBACILLUS ACIDOPHILUS CAP (BACID) PO SCH ×4 (09:05→20:18)
[2022-03-08] MEDS: CLOTRIMAZOLE 1% TOPICAL CREAM 30GM TOP SCH ×2 (09:05→20:19)
[2022-03-08] MEDS: CARVedilol 3.125 MG TAB PO SCH (09:05)
[2022-03-08] MEDS: APIXABAN 2.5 MG TAB (ELIQUIS) PO SCH ×2 (09:05→20:18)
[2022-03-08] MEDS: PANTOPRAZOLE 40MG TAB (PROTONIX) PO SCH (09:05)
[2022-03-08] MEDS: MONTELUKAST 10 MG TAB PO SCH (09:05)
[2022-03-08 09:13] LABS: CALCIUM LEVEL 8.9 MG/DL (8.3-10.6); CREATININE FOR GFR 2.87 MG/DL (0.55-1.30); GLOMERULAR FILTRATION RATE 16.5 (>32); POTASSIUM SERUM 4.7 MMOL/L (3.5-5.1)
[2022-03-08 09:21] LABS: BASO # 0.1 10^3/uL (0.0-0.2); BASO % 0.6 % (0.0-1.0); EOS # 0.1 10^3/uL (0.0-0.5); EOS % 1.4 % (0.0-3.0); HEMATOCRIT 27.3 % (36.0-47.0); HEMOGLOBIN 8.3 g/dl (12.0-15.5); LYMPH # 1.5 10^3/uL (1.5-5.0); LYMPH % 16.9 % (24.0-44.0); MEAN CORPUSCULAR HEMOGLOBIN 28.9 pg (27.0-33.0); MEAN CORPUSCULAR HGB CONC 30.4 g/dl (32.0-36.5); MEAN CORPUSCULAR VOLUME 95.1 fl (80.0-96.0); MONO # 0.9 10^3/uL (0.0-0.8); MONO % 10.2 % (2.0-8.0); NEUTROPHILS % 70.1 % (36.0-66.0); PLATELET COUNT, AUTOMATED 299 10^3/uL (150-450); RED BLOOD COUNT 2.87 10^6/uL (4.00-5.40); WHITE BLOOD COUNT 8.6 10^3/uL (4.0-10.0)
[2022-03-08] MEDS: HYDROmorphone 2 MG TAB PO PRN (09:58)
[2022-03-08] MEDS ORDERED: IBUPROFEN 400MG TAB PO ONE (11:15)
[2022-03-08] MEDS ORDERED: KETOROLAC 30 MG/ML 1ML VIAL IV ONE (11:30)
[2022-03-08] MEDS: allopurinoL 100 MG TAB PO SCH (12:09)
[2022-03-08] MEDS ORDERED: SIMETHICONE 80MG CHEW TAB PO PRN (15:35)
[2022-03-08 20:00] VITALS: BP 104/61
[2022-03-08] MEDS: SIMVASTATIN 20 MG TAB PO SCH (20:18)
[2022-03-08] MEDS: ACETAMINOPHEN TAB 650MG DOSE (2X325MG) PO PRN (20:22)
[2022-03-09] MEDS: ACETAMINOPHEN TAB 650MG DOSE (2X325MG) PO PRN (03:09)
[2022-03-09] MEDS ORDERED: SODIUM CHLORIDE 0.9% 1000ML IV PRN (06:00)
[2022-03-09] MEDS ORDERED: LIDOCAINE 1% SDV 5ML VIAL SC PRN (06:00)
[2022-03-09] MEDS ORDERED: HEPARIN 1,000UNITS/ML 10ML VIAL (FOR RADIOLOGY & DIALYSIS ONLY) XX SCH (06:00)
[2022-03-09] MEDS ORDERED: HEPARIN 1,000UNITS/ML 10ML VIAL (FOR RADIOLOGY & DIALYSIS ONLY) IV PRN (06:00)
[2022-03-09] MEDS: ASPIRIN 81MG ENTERIC TABLET PO SCH (06:14)
[2022-03-09] MEDS: LACTOBACILLUS ACIDOPHILUS CAP (BACID) PO SCH (06:14)
[2022-03-09] MEDS: CETIRIZINE (ZyrTEC) 10 MG TAB PO SCH (06:14)
[2022-03-09] MEDS: MONTELUKAST 10 MG TAB PO SCH (06:14)
[2022-03-09] MEDS: APIXABAN 2.5 MG TAB (ELIQUIS) PO SCH (06:15)
[2022-03-09] MEDS: PANTOPRAZOLE 40MG TAB (PROTONIX) PO SCH (06:15)
[2022-03-09] MEDS: HYDROmorphone 2 MG TAB PO PRN (06:16)
[2022-03-09] MEDS: SODIUM CHLORIDE 0.9% INJ 10 ML SYR IV SCH (06:17)
[2022-03-09] MEDS: CLOTRIMAZOLE 1% TOPICAL CREAM 30GM TOP SCH (06:23)
[2022-03-09] MEDS: INSULIN LISPRO (NovoLOG) PER UNIT SC SCH (06:49)
[2022-03-09] MEDS: LEVEMIR (INSULIN DETEMIR) 1 UNITS/0.01ML SC SCH (06:50)
[2022-03-09 06:54] VITALS: BP 108/56
[2022-03-09 06:56] VITALS: BP 108/56
[2022-03-09] MEDS: CARVedilol 3.125 MG TAB PO SCH (06:56)
[2022-03-09 08:15] VITALS: BP 126/60
[2022-03-09] MEDS ORDERED: ELIQ2.5T PO (10:07)
[2022-03-09] MEDS ORDERED: NYST10006 TOP (10:07)
[2022-03-09] MEDS ORDERED: RAME8TAB2 PO (10:07)
[2022-03-09] MEDS ORDERED: VANC750P6 IV (10:28)
[2022-03-09] MEDS ORDERED: VANCOMYCIN HCL 1,000 MG, VIAL MATE ADAPTER 1 EACH in D5W 250 ML IV SCH (16:00)
== END 2022-03-09 10:41 | DRG 987 ==
LOC: M ED 11:24 → M ED INP 11:25 → M PCU 12-22 23:42 → EEVIPCON 12-23 10:34 → OBSVTOIN 12-23 10:34 → M MSPAV 01-11 00:31 → M PCU 03-01 17:13
PROVIDERS: ADMIT Family Medicine; ATTEND Internal Medicine
PROC: 02HV33Z Insertion of Infusion Device into Superior Vena Cava, Percutaneous Approach (ICD-10-PCS; 2021-12-31)
PROC: 05HM33Z Insertion of Infusion Device into Right Internal Jugular Vein, Percutaneous Approach (ICD-10-PCS; 2022-01-14)
PROC: 0JH63XZ Insertion of Tunneled Vascular Access Device into Chest Subcutaneous Tissue and Fascia, Percutaneous Approach (ICD-10-PCS; principal; 2022-01-14 09:00)
PROC: 02HV33Z Insertion of Infusion Device into Superior Vena Cava, Percutaneous Approach (ICD-10-PCS; 2022-02-26)
PROC: 0S9C3ZZ Drainage of Right Knee Joint, Percutaneous Approach (ICD-10-PCS; 2022-02-26)
PROC: 0S9C3ZZ Drainage of Right Knee Joint, Percutaneous Approach (ICD-10-PCS; 2022-02-28)
PROC: 0SBC4ZZ Excision of Right Knee Joint, Percutaneous Endoscopic Approach (ICD-10-PCS; 2022-02-28)
DX: I13.2 Hypertensive heart and chronic kidney disease with heart failure and with stage 5 chronic kidney disease, or end stage renal disease (principal); I50.41 Acute combined systolic (congestive) and diastolic (congestive) heart failure; N18.6 End stage renal disease; N39.0 Urinary tract infection, site not specified; J45.21 Mild intermittent asthma with (acute) exacerbation; N17.9 Acute kidney failure, unspecified; E87.1 Hypo-osmolality and hyponatremia; I48.20 Chronic atrial fibrillation, unspecified; M00.861 Arthritis due to other bacteria, right knee; B96.1 Klebsiella pneumoniae [K. pneumoniae] as the cause of diseases classified elsewhere; E66.01 Morbid (severe) obesity due to excess calories; E11.65 Type 2 diabetes mellitus with hyperglycemia; D64.9 Anemia, unspecified; K21.9 Gastro-esophageal reflux disease without esophagitis; Z20.822 Contact with and (suspected) exposure to COVID-19; I25.10 Atherosclerotic heart disease of native coronary artery without angina pectoris; G47.33 Obstructive sleep apnea (adult) (pediatric); M10.9 Gout, unspecified; Z79.899 Other long term (current) drug therapy; Z79.82 Long term (current) use of aspirin; Z88.0 Allergy status to penicillin; Z91.030 Bee allergy status; Z88.8 Allergy status to other drugs, medicaments and biological substances; Z91.018 Allergy to other foods; Z91.011 Allergy to milk products; E78.5 Hyperlipidemia, unspecified; K59.00 Constipation, unspecified; E87.5 Hyperkalemia; E87.6 Hypokalemia

== ENCOUNTER → 2022-03-11 | Outpatient (REF) ==
[~2022-03-11] MED LIST changes: +CVS10CAP PO; +ELIQ2.5T PO; +NYST10006 TOP; +POTA-151 PO; +RAME8TAB2 PO; +SUPE600T4 PO; +VANC750P6 IV
[2022-03-11 11:57] LABS: VANCOMYCIN LEVEL TROUGH 19.4 UG/ML (10.0-20.0)
[2022-03-11 11:59] LABS: C REACTIVE PROTEIN QUANTITATIV 11.6 MG/DL (<1.0)
[2022-03-11 12:00] LABS: CALCIUM LEVEL 8.3 MG/DL (8.3-10.6); CREATININE FOR GFR 2.33 MG/DL (0.55-1.30); POTASSIUM SERUM 3.9 MMOL/L (3.5-5.1)
== END ==
PROVIDERS: ATTEND Internal Medicine
DX: M00.9 Pyogenic arthritis, unspecified (principal)

== ENCOUNTER → 2022-03-25 | Outpatient (REF) | payer MEDICAID, MEDICARE ==
[~2022-03-25] MED LIST changes: +ACET-897 PO; +BIOF4GEL2 TOP; +BISA10SU27 PR; +E-Z-GAS II EFFERVESCENT PACKET (SODIUM BICARB./CITRIC ACID/SIMETHICONE) As Ordered ONE; +E-Z-HD 98% w/w 340GM SUSP BTL As Ordered ONE; +E-Z-PAQUE 96% w/w SUSP 176GM BTL As Ordered ONE; +OXYC-517 PO; +POLY510P14 PO
== END ==
LOC: M RAD 09:00 → EDSTATUS 09:30 → M RAD 09:36
PROVIDERS: ATTEND Physician Assistant
DX: K22.4 Dyskinesia of esophagus (principal)

== ENCOUNTER → 2022-04-01 | Outpatient (REF) ==
[~2022-04-01] MED LIST changes: -E-Z-GAS II EFFERVESCENT PACKET (SODIUM BICARB./CITRIC ACID/SIMETHICONE) As Ordered ONE; -E-Z-HD 98% w/w 340GM SUSP BTL As Ordered ONE; -E-Z-PAQUE 96% w/w SUSP 176GM BTL As Ordered ONE
[2022-04-01 11:38] LABS: BASO # 0.1 10^3/uL (0.0-0.2); BASO % 0.7 % (0.0-1.0); EOS # 0.1 10^3/uL (0.0-0.5); EOS % 0.7 % (0.0-3.0); HEMATOCRIT 30.3 % (36.0-47.0); HEMOGLOBIN 8.8 g/dl (12.0-15.5); LYMPH # 1.1 10^3/uL (1.5-5.0); LYMPH % 14.2 % (24.0-44.0); MEAN CORPUSCULAR HEMOGLOBIN 27.9 pg (27.0-33.0); MEAN CORPUSCULAR VOLUME 96.2 fl (80.0-96.0); MONO # 0.7 10^3/uL (0.0-0.8); MONO % 9.8 % (2.0-8.0); NEUTROPHILS # 5.6 10^3/uL (1.5-8.5); NEUTROPHILS % 74.1 % (36.0-66.0); PLATELET COUNT, AUTOMATED 184 10^3/uL (150-450); RED BLOOD COUNT 3.15 10^6/uL (4.00-5.40); WHITE BLOOD COUNT 7.5 10^3/uL (4.0-10.0)
[2022-04-01 12:36] LABS: ERYTHROCYTE SEDIMENTATION RATE 40 mm/hr (0-30)
== END ==
PROVIDERS: ATTEND Internal Medicine
DX: M00.80 Arthritis due to other bacteria, unspecified joint (principal); B95.62 Methicillin resistant Staphylococcus aureus infection as the cause of diseases classified elsewhere

== ENCOUNTER 2022-04-03 13:30 | Inpatient (IN) | payer MEDICARE, MEDICAID ==
[~2022-04-03 13:30] MED LIST changes: -ACET-897 PO; -BIOF4GEL2 TOP; -BISA10SU27 PR; -OXYC-517 PO; -POLY510P14 PO
[2022-04-03] MEDS ORDERED: IPRATROPIUM 0.5MG/ALBUTEROL 2.5MG INH SOL UD 3ML (DUONEB) NEB ONE (13:50)
[2022-04-03] MEDS ORDERED: ALBUTEROL SULFATE 2.5MG/0.5ML INH NEB SOLN INH ONE (13:50)
[2022-04-03 14:25] LABS: BASO # 0.1 10^3/uL (0.0-0.2); BASO % 1.1 % (0.0-1.0); EOS # 0.1 10^3/uL (0.0-0.5); EOS % 0.9 % (0.0-3.0); HEMATOCRIT 31.5 % (36.0-47.0); HEMOGLOBIN 9.1 g/dl (12.0-15.5); LYMPH # 1.2 10^3/uL (1.5-5.0); LYMPH % 21.4 % (24.0-44.0); MEAN CORPUSCULAR HEMOGLOBIN 27.8 pg (27.0-33.0); MEAN CORPUSCULAR HGB CONC 28.9 g/dl (32.0-36.5); MEAN CORPUSCULAR VOLUME 96.3 fl (80.0-96.0); MONO # 0.6 10^3/uL (0.0-0.8); MONO % 10.4 % (2.0-8.0); NEUTROPHILS # 3.7 10^3/uL (1.5-8.5); NEUTROPHILS % 65.5 % (36.0-66.0); PLATELET COUNT, AUTOMATED 191 10^3/uL (150-450); RED BLOOD COUNT 3.27 10^6/uL (4.00-5.40); WHITE BLOOD COUNT 5.7 10^3/uL (4.0-10.0)
[2022-04-03 14:37] LABS: INR 1.35; PROTHROMBIN TIME 16.9 SECONDS (12.5-14.5)
[2022-04-03 14:38] LABS: PARTIAL THROMBOPLASTIN TIME 37.5 SECONDS (24.8-34.2)
[2022-04-03 14:47] LABS: ABG BASE EXCESS 4.4 (-2.0-2.0); ABG HCO3 28.9 MEQ/L (22.0-26.0); ABG O2 SATURATION 95.6 % (95.0-99.0); ABG PARTIAL PRESSURE CO2 43.1 mmHg (35.0-45.0); ABG PARTIAL PRESSURE O2 83.5 mmHg (75.0-100.0); ABG STANDARD HCO3 28.4 MEQ/L (22.0-26.0); ABG TOTAL CO2 30.3 MEQ/L (23.0-31.0); ABG pH (ARTERIAL) 7.445 UNITS (7.350-7.450)
[2022-04-03 14:58] LABS: CK-MB VALUE MASS < 1.0 NG/ML (<3.6)
[2022-04-03 15:02] LABS: THYROID STIMULATING HORMONE 1.292 uIU/ML (0.55-4.78); THYROXINE (T4) 6.6 UG/DL (4.5-10.9)
[2022-04-03 15:53] LABS: ALBUMIN 2.4 G/DL (3.2-5.2); ALKALINE PHOSPHATASE 136 U/L (46-116); ALT/SGPT 11 U/L (7.0-40); AST/SGOT 32 U/L (<34); BILIRUBIN,DIRECT 0.2 MG/DL (<0.4); BILIRUBIN,TOTAL 0.4 MG/DL (0.3-1.2); BLOOD UREA NITROGEN 29 MG/DL (9-23); CARBON DIOXIDE LEVEL 28 MMOL/L (20-31); CHLORIDE LEVEL 95 MMOL/L (98-107); GLOMERULAR FILTRATION RATE 26.6 (>32); GLUCOSE, FASTING 194 MG/DL (74-106); SODIUM LEVEL 134 MMOL/L (136-145); TOTAL PROTEIN 6.1 G/DL (5.7-8.2)
[2022-04-03 15:54] LABS: CPK CREATINE PHOSPHOKINASE 31 U/L (34-145); MB/CK RELATIVE INDEX 3.22 (< OR =4)
[2022-04-03 16:02] LABS: CK-MB VALUE MASS 1.4 NG/ML (<3.6)
[2022-04-03 16:05] LABS: CPK CREATINE PHOSPHOKINASE < 15 U/L (34-145)
[2022-04-03] MEDS ORDERED: GLIM1TAB4 PO (16:32)
[2022-04-03] MEDS ORDERED: BIOF4GEL2 TOP (16:32)
[2022-04-03] MEDS ORDERED: OXYC-517 PO ×2 (16:32→16:33)
[2022-04-03] MEDS ORDERED: POLY510P14 PO (16:32)
[2022-04-03] MEDS ORDERED: BISA10SU27 PR (16:33)
[2022-04-03] MEDS ORDERED: ACET-897 PO (16:33)
[2022-04-03] MEDS ORDERED: DEXTROSE 50% 50ML SYRINGE IV PRN (16:35)
[2022-04-03] MEDS ORDERED: MIRALAX *UNIT DOSE* 17GM PACKET PO PRN (16:35)
[2022-04-03] MEDS ORDERED: GLUCAGON INJ 1MG VIAL SC PRN (16:35)
[2022-04-03] MEDS ORDERED: GLUCOSE 4GM CHEW TABLET PO PRN (16:35)
[2022-04-03] MEDS ORDERED: SENOKOT S TAB PO PRN (16:35)
[2022-04-03] MEDS ORDERED: HOME MED LIST COMPLETE! XX SCH (16:40)
[2022-04-03] MEDS ORDERED: ELIQ2.5T PO (17:48)
[2022-04-03] MEDS: CALCIUM CARB SUSP 1250MG/5ML UNIT DOSE CUP PO SCH (18:00)
[2022-04-03] MEDS: INSULIN LISPRO (NovoLOG) PER UNIT SC SCH ×2 (18:48→21:00)
[2022-04-03 22:00] VITALS: BP 163/72
[2022-04-03] MEDS: RAMELTEON 8 MG TAB (ROZEREM) PO PRN (22:17)
[2022-04-03] MEDS: METOPROLOL TART 25 MG TABLET PO SCH (22:17)
[2022-04-03] MEDS: SIMVASTATIN 20 MG TAB PO SCH (22:17)
[2022-04-03] MEDS: ASCORBIC ACID 500 MG TAB PO SCH (22:17)
[2022-04-03] MEDS: APIXABAN 2.5 MG TAB (ELIQUIS) PO SCH (22:18)
[2022-04-03] MEDS ORDERED: ALBUTEROL SULFATE 2.5MG/0.5ML INH NEB SOLN INH PRN (23:35)
[2022-04-04] VITALS: BP 154/62
[2022-04-04] MEDS: IPRATROPIUM 0.5MG/ALBUTEROL 2.5MG INH SOL UD 3ML (DUONEB) INH SCH ×4 (01:05→18:13)
[2022-04-04 04:00] VITALS: BP 134/63
[2022-04-04] MEDS ORDERED: NS 250 ML IV ONE (04:05)
[2022-04-04] MEDS: AMITRIPTYLINE 25MG TABLET PO SCH ×2 (04:10→20:28)
[2022-04-04 04:25] LABS: HEMATOCRIT 28.3 % (36.0-47.0); HEMOGLOBIN 8.3 g/dl (12.0-15.5); MEAN CORPUSCULAR HEMOGLOBIN 27.4 pg (27.0-33.0); MEAN CORPUSCULAR HGB CONC 29.3 g/dl (32.0-36.5); MEAN CORPUSCULAR VOLUME 93.4 fl (80.0-96.0); PLATELET COUNT, AUTOMATED 192 10^3/uL (150-450); RED BLOOD COUNT 3.03 10^6/uL (4.00-5.40); WHITE BLOOD COUNT 5.3 10^3/uL (4.0-10.0)
[2022-04-04] MEDS ORDERED: HYDROMORPHONE HCL 0.5 MG/ 0.5 ML SYRINGE IV ONE (04:40)
[2022-04-04 04:45] LABS: CALCIUM LEVEL 9.1 MG/DL (8.3-10.6); CREATININE FOR GFR 2.25 MG/DL (0.55-1.30); GLOMERULAR FILTRATION RATE 21.9 (>32); MAGNESIUM LEVEL 1.9 MG/DL (1.8-2.4); POTASSIUM SERUM 4.5 MMOL/L (3.5-5.1)
[2022-04-04] MEDS: METOPROLOL TART 25 MG TABLET PO SCH ×2 (05:03→17:57)
[2022-04-04] MEDS: INSULIN LISPRO (NovoLOG) PER UNIT SC SCH ×4 (07:30→20:31)
[2022-04-04 08:00] VITALS: BP 135/72
[2022-04-04] MEDS: CALCIUM CARB SUSP 1250MG/5ML UNIT DOSE CUP PO SCH (08:00)
[2022-04-04] MEDS: ASCORBIC ACID 500 MG TAB PO SCH ×2 (09:00→20:29)
[2022-04-04] MEDS ORDERED: allopurinoL 100 MG TAB PO SCH (09:00)
[2022-04-04] MEDS: APIXABAN 2.5 MG TAB (ELIQUIS) PO SCH ×2 (09:00→20:28)
[2022-04-04] MEDS: ASPIRIN 81MG ENTERIC TABLET PO SCH (09:00)
[2022-04-04] MEDS: CETIRIZINE (ZyrTEC) 10 MG TAB PO SCH (09:00)
[2022-04-04] MEDS ORDERED: HEPARIN 1,000UNITS/ML 10ML VIAL (FOR RADIOLOGY & DIALYSIS ONLY) IV PRN (09:55)
[2022-04-04] MEDS ORDERED: HEPARIN 1,000UNITS/ML 10ML VIAL (FOR RADIOLOGY & DIALYSIS ONLY) XX SCH (09:55)
[2022-04-04] MEDS ORDERED: SODIUM CHLORIDE 0.9% 1000ML IV PRN (09:55)
[2022-04-04 12:00] VITALS: BP 139/61
[2022-04-04] MEDS: CALCIUM ACETATE 667MG GELCAP PO SCH ×2 (12:02→17:57)
[2022-04-04] MEDS: DARBEPOETIN 200MCG/0.4ML *DIALYSIS* SYRINGE IV SCH (13:15)
[2022-04-04 17:46] VITALS: BP 164/80
[2022-04-04 20:00] VITALS: BP 152/88
[2022-04-04] MEDS: RAMELTEON 8 MG TAB (ROZEREM) PO PRN (20:28)
[2022-04-04] MEDS: SIMVASTATIN 20 MG TAB PO SCH (20:28)
[2022-04-05] VITALS (7 sets, daily range): BP systolic 125–164; BP diastolic 51–90
[2022-04-05] MEDS: METOPROLOL TART 25 MG TABLET PO SCH ×3 (00:01→12:55)
[2022-04-05] MEDS ORDERED: PILL CUTTER 1 EACH XX PRN (00:15)
[2022-04-05] MEDS: IPRATROPIUM 0.5MG/ALBUTEROL 2.5MG INH SOL UD 3ML (DUONEB) INH SCH ×4 (01:41→20:48)
[2022-04-05 04:34] LABS: HEMATOCRIT 30.9 % (36.0-47.0); MEAN CORPUSCULAR HEMOGLOBIN 27.4 pg (27.0-33.0); MEAN CORPUSCULAR HGB CONC 29.1 g/dl (32.0-36.5); MEAN CORPUSCULAR VOLUME 94.2 fl (80.0-96.0); PLATELET COUNT, AUTOMATED 183 10^3/uL (150-450); RED BLOOD COUNT 3.28 10^6/uL (4.00-5.40); WHITE BLOOD COUNT 6.5 10^3/uL (4.0-10.0)
[2022-04-05 05:07] LABS: CALCIUM LEVEL 9.1 MG/DL (8.3-10.6); CREATININE FOR GFR 1.73 MG/DL (0.55-1.30); GLOMERULAR FILTRATION RATE 29.7 (>32); MAGNESIUM LEVEL 2.1 MG/DL (1.8-2.4); POTASSIUM SERUM 5.1 MMOL/L (3.5-5.1)
[2022-04-05] MEDS ORDERED: SODIUM CHLORIDE 0.9% 1000ML IV PRN (06:00)
[2022-04-05] MEDS ORDERED: HEPARIN 1,000UNITS/ML 10ML VIAL (FOR RADIOLOGY & DIALYSIS ONLY) IV PRN (06:00)
[2022-04-05] MEDS ORDERED: HEPARIN 1,000UNITS/ML 10ML VIAL (FOR RADIOLOGY & DIALYSIS ONLY) XX SCH (06:00)
[2022-04-05] MEDS: CALCIUM ACETATE 667MG GELCAP PO SCH ×3 (06:12→17:11)
[2022-04-05] MEDS: CETIRIZINE (ZyrTEC) 10 MG TAB PO SCH (06:13)
[2022-04-05] MEDS: ASCORBIC ACID 500 MG TAB PO SCH ×2 (06:13→20:24)
[2022-04-05] MEDS: oxyCODONE 5MG TAB PO PRN (06:13)
[2022-04-05] MEDS: ASPIRIN 81MG ENTERIC TABLET PO SCH (06:13)
[2022-04-05] MEDS: APIXABAN 2.5 MG TAB (ELIQUIS) PO SCH ×2 (06:13→20:24)
[2022-04-05] MEDS: INSULIN LISPRO (NovoLOG) PER UNIT SC SCH ×4 (06:14→20:29)
[2022-04-05] MEDS ORDERED: DIGOXIN INJ 0.5 MG/2 ML AMP IV ONE (13:30)
[2022-04-05] MEDS: METOPROLOL TART 12.5 MG PER 1/2 TAB PO SCH (17:12)
[2022-04-05] MEDS: AMITRIPTYLINE 25MG TABLET PO SCH (20:24)
[2022-04-05] MEDS: RAMELTEON 8 MG TAB (ROZEREM) PO PRN (20:24)
[2022-04-05] MEDS: SIMVASTATIN 20 MG TAB PO SCH (20:24)
[2022-04-06] MEDS: METOPROLOL TART 12.5 MG PER 1/2 TAB PO SCH ×5 (00:25→23:03)
[2022-04-06] MEDS: IPRATROPIUM 0.5MG/ALBUTEROL 2.5MG INH SOL UD 3ML (DUONEB) INH SCH ×4 (01:21→20:31)
[2022-04-06 04:57] VITALS: BP 117/63
[2022-04-06 05:26] LABS: HEMATOCRIT 30.3 % (36.0-47.0); MEAN CORPUSCULAR HEMOGLOBIN 27.7 pg (27.0-33.0); MEAN CORPUSCULAR HGB CONC 29.7 g/dl (32.0-36.5); MEAN CORPUSCULAR VOLUME 93.2 fl (80.0-96.0); PLATELET COUNT, AUTOMATED 182 10^3/uL (150-450); RED BLOOD COUNT 3.25 10^6/uL (4.00-5.40); WHITE BLOOD COUNT 6.2 10^3/uL (4.0-10.0)
[2022-04-06 05:53] LABS: CALCIUM LEVEL 9.3 MG/DL (8.3-10.6); CREATININE FOR GFR 2.39 MG/DL (0.55-1.30); GLOMERULAR FILTRATION RATE 20.4 (>32); MAGNESIUM LEVEL 2.1 MG/DL (1.8-2.4); POTASSIUM SERUM 4.2 MMOL/L (3.5-5.1)
[2022-04-06] MEDS ORDERED: HEPARIN 1,000UNITS/ML 10ML VIAL (FOR RADIOLOGY & DIALYSIS ONLY) XX SCH (06:00)
[2022-04-06] MEDS ORDERED: HEPARIN 1,000UNITS/ML 10ML VIAL (FOR RADIOLOGY & DIALYSIS ONLY) IV PRN (06:00)
[2022-04-06] MEDS ORDERED: SODIUM CHLORIDE 0.9% 1000ML IV PRN (06:00)
[2022-04-06 07:30] VITALS: BP 129/59
[2022-04-06] MEDS: INSULIN LISPRO (NovoLOG) PER UNIT SC SCH ×4 (08:21→20:09)
[2022-04-06] MEDS: ASCORBIC ACID 500 MG TAB PO SCH ×2 (08:21→20:09)
[2022-04-06] MEDS: ASPIRIN 81MG ENTERIC TABLET PO SCH (08:21)
[2022-04-06] MEDS: APIXABAN 2.5 MG TAB (ELIQUIS) PO SCH ×2 (08:21→20:09)
[2022-04-06] MEDS: CALCIUM ACETATE 667MG GELCAP PO SCH ×3 (08:23→18:51)
[2022-04-06] MEDS: CETIRIZINE (ZyrTEC) 10 MG TAB PO SCH (08:24)
[2022-04-06] MEDS: SODIUM CHLORIDE NASAL 0.65% SPRAY BTL (OCEAN) PRN ×2 (08:26→22:41)
[2022-04-06 09:15] VITALS: BP 134/60
[2022-04-06 11:32] VITALS: BP 103/52
[2022-04-06] MEDS: oxyCODONE 5MG TAB PO PRN (12:24)
[2022-04-06 17:48] VITALS: BP 111/58
[2022-04-06] MEDS: VANCOMYCIN HCL 1,000 MG, VIAL MATE ADAPTER 1 EACH in D5W 250 ML IV SCH (18:51)
[2022-04-06 20:00] VITALS: BP 107/56
[2022-04-06] MEDS: AMITRIPTYLINE 25MG TABLET PO SCH (20:09)
[2022-04-06] MEDS: SIMVASTATIN 20 MG TAB PO SCH (20:09)
[2022-04-06] MEDS: RAMELTEON 8 MG TAB (ROZEREM) PO PRN (22:42)
[2022-04-06 23:05] LABS: C REACTIVE PROTEIN QUANTITATIV 7.1 MG/DL (<1.0)
[2022-04-07] MEDS: IPRATROPIUM 0.5MG/ALBUTEROL 2.5MG INH SOL UD 3ML (DUONEB) INH SCH ×4 (01:33→20:00)
[2022-04-07 05:00] VITALS: BP 134/62
[2022-04-07] MEDS: METOPROLOL TART 12.5 MG PER 1/2 TAB PO SCH ×3 (05:19→16:41)
[2022-04-07] MEDS ORDERED: HEPARIN 1,000UNITS/ML 10ML VIAL (FOR RADIOLOGY & DIALYSIS ONLY) XX SCH (06:00)
[2022-04-07] MEDS ORDERED: HEPARIN 1,000UNITS/ML 10ML VIAL (FOR RADIOLOGY & DIALYSIS ONLY) IV PRN (06:00)
[2022-04-07] MEDS ORDERED: SODIUM CHLORIDE 0.9% 1000ML IV PRN (06:00)
[2022-04-07] MEDS: oxyCODONE 5MG TAB PO PRN ×2 (06:13→16:36)
[2022-04-07 06:37] LABS: HEMATOCRIT 33.3 % (36.0-47.0); HEMOGLOBIN 10.4 g/dl (12.0-15.5); MEAN CORPUSCULAR HGB CONC 31.2 g/dl (32.0-36.5); MEAN CORPUSCULAR VOLUME 92.8 fl (80.0-96.0); PLATELET COUNT, AUTOMATED 204 10^3/uL (150-450); RED BLOOD COUNT 3.59 10^6/uL (4.00-5.40)
[2022-04-07 07:00] LABS: VANCOMYCIN RANDOM 16.4 UG/ML
[2022-04-07 07:04] LABS: CALCIUM LEVEL 9.1 MG/DL (8.3-10.6); CREATININE FOR GFR 2.56 MG/DL (0.55-1.30); GLOMERULAR FILTRATION RATE 18.9 (>32); MAGNESIUM LEVEL 1.8 MG/DL (1.8-2.4)
[2022-04-07 07:39] VITALS: BP 131/56
[2022-04-07] MEDS: CALCIUM ACETATE 667MG GELCAP PO SCH ×3 (08:03→18:19)
[2022-04-07] MEDS: INSULIN LISPRO (NovoLOG) PER UNIT SC SCH ×4 (08:04→21:00)
[2022-04-07 12:54] VITALS: BP 126/58
[2022-04-07] MEDS: CETIRIZINE (ZyrTEC) 10 MG TAB PO SCH (13:51)
[2022-04-07] MEDS: APIXABAN 2.5 MG TAB (ELIQUIS) PO SCH ×2 (13:52→20:54)
[2022-04-07] MEDS: ASPIRIN 81MG ENTERIC TABLET PO SCH (13:52)
[2022-04-07] MEDS: ASCORBIC ACID 500 MG TAB PO SCH ×2 (13:52→20:54)
[2022-04-07] MEDS: ONDANSETRON 4MG 2ML VIAL IV PRN (14:09)
[2022-04-07] MEDS ORDERED: diphenhydrAMINE 50MG/ML VIAL As Ordered ONE (15:26)
[2022-04-07 16:30] LABS: PH BODY FLUID 7.763 UNITS (NOT ESTABLISHED); SOURCE, BODY FLUID pH PLEURAL
[2022-04-07 16:35] VITALS: BP 110/53
[2022-04-07] MEDS: VANCOMYCIN HCL 1,000 MG, VIAL MATE ADAPTER 1 EACH in D5W 250 ML IV SCH (16:36)
[2022-04-07 17:28] LABS: SOURCE, BODY FLUID GLUCOSE PLEURAL
[2022-04-07 17:30] LABS: AMYLASE, BODY FLUID < 20 U/L (NOT ESTABLISHED); LDH, BODY FLUID 67 U/L (NOT ESTABLISHED); SOURCE, BODY FLUID AMYLASE PLEURAL; SOURCE, BODY FLUID LDH PLEURAL; SOURCE, BODY FLUID TOT PROTEIN PLEURAL; TOTAL PROTEIN, BODY FLUID < 2.0 G/DL (NOT ESTABLISHED)
[2022-04-07 19:23] LABS: APPEARANCE, BODY FLUID HAZY (CLEAR); PLEURAL FL COLOR YELLOW (COLORLESS); SOURCE, BODY FLUID PLEURAL
[2022-04-07] MEDS: SIMVASTATIN 20 MG TAB PO SCH (20:54)
[2022-04-07] MEDS: AMITRIPTYLINE 25MG TABLET PO SCH (20:55)
[2022-04-08] MEDS: oxyCODONE 5MG TAB PO PRN (01:28)
[2022-04-08] MEDS: IPRATROPIUM 0.5MG/ALBUTEROL 2.5MG INH SOL UD 3ML (DUONEB) INH SCH ×4 (02:13→19:33)
[2022-04-08 04:00] VITALS: BP 104/57
[2022-04-08] MEDS: METOPROLOL TART 12.5 MG PER 1/2 TAB PO SCH ×5 (05:08→23:51)
[2022-04-08 05:24] LABS: HEMATOCRIT 26.5 % (36.0-47.0); MEAN CORPUSCULAR HEMOGLOBIN 29.6 pg (27.0-33.0); MEAN CORPUSCULAR HGB CONC 28.7 g/dl (32.0-36.5); MEAN CORPUSCULAR VOLUME 103.1 fl (80.0-96.0); RED BLOOD COUNT 2.57 10^6/uL (4.00-5.40); WHITE BLOOD COUNT 12.5 10^3/uL (4.0-10.0)
[2022-04-08 05:25] LABS: HEMOGLOBIN 7.6 g/dl (12.0-15.5)
[2022-04-08 05:26] LABS: PLATELET COUNT, AUTOMATED 394 10^3/uL (150-450)
[2022-04-08 05:42] LABS: MAGNESIUM LEVEL 1.8 MG/DL (1.8-2.4)
[2022-04-08 05:43] LABS: VANCOMYCIN RANDOM 14.1 UG/ML
[2022-04-08] MEDS ORDERED: HEPARIN 1,000UNITS/ML 10ML VIAL (FOR RADIOLOGY & DIALYSIS ONLY) XX SCH (06:00)
[2022-04-08] MEDS ORDERED: SODIUM CHLORIDE 0.9% 1000ML IV PRN (06:00)
[2022-04-08] MEDS ORDERED: HEPARIN 1,000UNITS/ML 10ML VIAL (FOR RADIOLOGY & DIALYSIS ONLY) IV PRN (06:00)
[2022-04-08 07:15] LABS: CALCIUM LEVEL 8.8 MG/DL (8.3-10.6); GLOMERULAR FILTRATION RATE 25.1 (>32); POTASSIUM SERUM 4.4 MMOL/L (3.5-5.1)
[2022-04-08 07:22] LABS: HEPATITIS B SURFACE ANTIBODY NEGATIVE (POSITIVE)
[2022-04-08 07:34] LABS: HEPATITIS B SURFACE ANTIGEN NEGATIVE (NEGATIVE)
[2022-04-08 07:55] LABS: HEPATITIS B CORE ANTIBODY IGM NEGATIVE (NEGATIVE)
[2022-04-08 08:00] VITALS: BP 112/62
[2022-04-08] MEDS: CETIRIZINE (ZyrTEC) 10 MG TAB PO SCH (08:49)
[2022-04-08] MEDS: APIXABAN 2.5 MG TAB (ELIQUIS) PO SCH ×2 (08:49→21:14)
[2022-04-08] MEDS: ASCORBIC ACID 500 MG TAB PO SCH ×2 (08:49→21:15)
[2022-04-08] MEDS: CALCIUM ACETATE 667MG GELCAP PO SCH ×3 (08:49→21:14)
[2022-04-08] MEDS: ASPIRIN 81MG ENTERIC TABLET PO SCH (08:49)
[2022-04-08] MEDS: INSULIN LISPRO (NovoLOG) PER UNIT SC SCH ×4 (08:49→21:00)
[2022-04-08 20:00] VITALS: BP 103/53
[2022-04-08] MEDS: AMITRIPTYLINE 25MG TABLET PO SCH (21:14)
[2022-04-08] MEDS: SIMVASTATIN 20 MG TAB PO SCH (21:15)
[2022-04-09] MEDS: IPRATROPIUM 0.5MG/ALBUTEROL 2.5MG INH SOL UD 3ML (DUONEB) INH SCH ×3 (01:59→19:39)
[2022-04-09 04:00] VITALS: BP 132/57
[2022-04-09 05:25] LABS: HEMATOCRIT 31.5 % (36.0-47.0); HEMOGLOBIN 9.2 g/dl (12.0-15.5); MEAN CORPUSCULAR HEMOGLOBIN 27.6 pg (27.0-33.0); MEAN CORPUSCULAR HGB CONC 29.2 g/dl (32.0-36.5); MEAN CORPUSCULAR VOLUME 94.6 fl (80.0-96.0); RED BLOOD COUNT 3.33 10^6/uL (4.00-5.40); WHITE BLOOD COUNT 6.1 10^3/uL (4.0-10.0)
[2022-04-09 05:26] LABS: PLATELET COUNT, AUTOMATED 143 10^3/uL (150-450)
[2022-04-09 05:35] LABS: VANCOMYCIN RANDOM 13.6 UG/ML
[2022-04-09 05:36] LABS: CALCIUM LEVEL 9.5 MG/DL (8.3-10.6); CREATININE FOR GFR 2.72 MG/DL (0.55-1.30); GLOMERULAR FILTRATION RATE 17.6 (>32); POTASSIUM SERUM 4.5 MMOL/L (3.5-5.1)
[2022-04-09] MEDS: METOPROLOL TART 12.5 MG PER 1/2 TAB PO SCH ×3 (05:37→17:27)
[2022-04-09] MEDS: APIXABAN 2.5 MG TAB (ELIQUIS) PO SCH ×2 (06:11→23:02)
[2022-04-09] MEDS: CETIRIZINE (ZyrTEC) 10 MG TAB PO SCH (06:12)
[2022-04-09] MEDS: ASCORBIC ACID 500 MG TAB PO SCH ×2 (06:13→23:03)
[2022-04-09] MEDS: CALCIUM ACETATE 667MG GELCAP PO SCH ×3 (06:13→17:28)
[2022-04-09] MEDS: ASPIRIN 81MG ENTERIC TABLET PO SCH (06:13)
[2022-04-09] MEDS ORDERED: VANCOMYCIN HCL 1,000 MG, VIAL MATE ADAPTER 1 EACH in D5W 250 ML IV ONE (08:00)
[2022-04-09 08:09] VITALS: BP 101/66
[2022-04-09] MEDS: INSULIN LISPRO (NovoLOG) PER UNIT SC SCH ×4 (08:14→21:00)
[2022-04-09] MEDS: ONDANSETRON 4MG 2ML VIAL IV PRN ×2 (12:10→20:03)
[2022-04-09 12:19] VITALS: BP 90/60
[2022-04-09 16:00] VITALS: BP 136/65
[2022-04-09 20:00] VITALS: BP 129/58
[2022-04-09] MEDS: AMITRIPTYLINE 25MG TABLET PO SCH (23:02)
[2022-04-09] MEDS: SIMVASTATIN 20 MG TAB PO SCH (23:03)
[2022-04-09] MEDS: oxyCODONE 5MG TAB PO PRN (23:04)
[2022-04-10] MEDS: IPRATROPIUM 0.5MG/ALBUTEROL 2.5MG INH SOL UD 3ML (DUONEB) INH SCH ×4 (02:32→20:12)
[2022-04-10 04:00] VITALS: BP 124/60
[2022-04-10 05:12] LABS: VANCOMYCIN RANDOM 20.8 UG/ML
[2022-04-10 05:14] LABS: CALCIUM LEVEL 8.9 MG/DL (8.3-10.6); CREATININE FOR GFR 3.1 MG/DL (0.55-1.30); GLOMERULAR FILTRATION RATE 15.1 (>32); MAGNESIUM LEVEL 1.9 MG/DL (1.8-2.4); POTASSIUM SERUM 5.1 MMOL/L (3.5-5.1)
[2022-04-10] MEDS: METOPROLOL TART 12.5 MG PER 1/2 TAB PO SCH ×5 (06:00→23:50)
[2022-04-10] MEDS: APIXABAN 2.5 MG TAB (ELIQUIS) PO SCH ×2 (06:11→21:05)
[2022-04-10] MEDS: CETIRIZINE (ZyrTEC) 10 MG TAB PO SCH (06:11)
[2022-04-10] MEDS: ASCORBIC ACID 500 MG TAB PO SCH ×2 (06:12→21:06)
[2022-04-10] MEDS: INSULIN LISPRO (NovoLOG) PER UNIT SC SCH ×4 (06:12→21:00)
[2022-04-10] MEDS: CALCIUM ACETATE 667MG GELCAP PO SCH ×3 (06:12→18:43)
[2022-04-10] MEDS: ASPIRIN 81MG ENTERIC TABLET PO SCH (06:12)
[2022-04-10 08:19] VITALS: BP 113/57
[2022-04-10] MEDS ORDERED: SODIUM CHLORIDE 0.9% 1000ML IV PRN (10:45)
[2022-04-10] MEDS ORDERED: HEPARIN 1,000UNITS/ML 10ML VIAL (FOR RADIOLOGY & DIALYSIS ONLY) XX SCH (10:45)
[2022-04-10] MEDS ORDERED: HEPARIN 1,000UNITS/ML 10ML VIAL (FOR RADIOLOGY & DIALYSIS ONLY) IV PRN (10:45)
[2022-04-10 12:44] VITALS: BP 120/62
[2022-04-10] MEDS: DARBEPOETIN 200MCG/0.4ML *DIALYSIS* SYRINGE IV SCH (13:58)
[2022-04-10 19:44] VITALS: BP 116/68
[2022-04-10] MEDS: AMITRIPTYLINE 25MG TABLET PO SCH (21:05)
[2022-04-10] MEDS: SIMVASTATIN 20 MG TAB PO SCH (21:06)
[2022-04-10 23:51] VITALS: BP 112/57
[2022-04-11] MEDS: IPRATROPIUM 0.5MG/ALBUTEROL 2.5MG INH SOL UD 3ML (DUONEB) INH SCH ×4 (01:08→19:39)
[2022-04-11 05:51] VITALS: BP 123/58
[2022-04-11] MEDS: METOPROLOL TART 12.5 MG PER 1/2 TAB PO SCH ×3 (05:54→17:32)
[2022-04-11] MEDS ORDERED: HEPARIN 1,000UNITS/ML 10ML VIAL (FOR RADIOLOGY & DIALYSIS ONLY) IV PRN (06:00)
[2022-04-11] MEDS ORDERED: HEPARIN 1,000UNITS/ML 10ML VIAL (FOR RADIOLOGY & DIALYSIS ONLY) XX SCH (06:00)
[2022-04-11 07:05] LABS: BASO # 0.1 10^3/uL (0.0-0.2); BASO % 0.9 % (0.0-1.0); EOS # 0.1 10^3/uL (0.0-0.5); EOS % 1.9 % (0.0-3.0); HEMATOCRIT 32.9 % (36.0-47.0); HEMOGLOBIN 9.6 g/dl (12.0-15.5); LYMPH # 0.8 10^3/uL (1.5-5.0); LYMPH % 12.8 % (24.0-44.0); MEAN CORPUSCULAR HEMOGLOBIN 27.6 pg (27.0-33.0); MEAN CORPUSCULAR HGB CONC 29.2 g/dl (32.0-36.5); MEAN CORPUSCULAR VOLUME 94.5 fl (80.0-96.0); MONO # 0.8 10^3/uL (0.0-0.8); MONO % 12.2 % (2.0-8.0); NEUTROPHILS # 4.6 10^3/uL (1.5-8.5); NEUTROPHILS % 71.6 % (36.0-66.0); PLATELET COUNT, AUTOMATED 127 10^3/uL (150-450); RED BLOOD COUNT 3.48 10^6/uL (4.00-5.40); WHITE BLOOD COUNT 6.5 10^3/uL (4.0-10.0)
[2022-04-11 07:29] LABS: ALBUMIN 2.3 G/DL (3.2-5.2); CALCIUM LEVEL 8.6 MG/DL (8.3-10.6); CREATININE FOR GFR 2.36 MG/DL (0.55-1.30); GLOMERULAR FILTRATION RATE 20.7 (>32); PHOSPHORUS LEVEL 3.2 MG/DL (2.4-5.1); POTASSIUM SERUM 4.6 MMOL/L (3.5-5.1)
[2022-04-11 07:52] VITALS: BP 112/55
[2022-04-11] MEDS: INSULIN LISPRO (NovoLOG) PER UNIT SC SCH ×4 (08:20→20:33)
[2022-04-11] MEDS: ASCORBIC ACID 500 MG TAB PO SCH ×2 (08:20→20:32)
[2022-04-11] MEDS: CETIRIZINE (ZyrTEC) 10 MG TAB PO SCH (08:20)
[2022-04-11] MEDS: APIXABAN 2.5 MG TAB (ELIQUIS) PO SCH ×2 (08:20→20:32)
[2022-04-11] MEDS: CALCIUM ACETATE 667MG GELCAP PO SCH ×3 (08:20→17:55)
[2022-04-11] MEDS: ASPIRIN 81MG ENTERIC TABLET PO SCH (08:20)
[2022-04-11 17:05] VITALS: BP 114/59
[2022-04-11] MEDS: VANCOMYCIN HCL 1,000 MG, VIAL MATE ADAPTER 1 EACH in D5W 250 ML IV SCH (17:55)
[2022-04-11] MEDS: SIMVASTATIN 20 MG TAB PO SCH (20:32)
[2022-04-11] MEDS: AMITRIPTYLINE 25MG TABLET PO SCH (20:33)
[2022-04-11 21:00] VITALS: BP 126/59
[2022-04-12 00:30] VITALS: BP 104/75
[2022-04-12] MEDS: METOPROLOL TART 12.5 MG PER 1/2 TAB PO SCH ×4 (00:45→17:20)
[2022-04-12] MEDS: IPRATROPIUM 0.5MG/ALBUTEROL 2.5MG INH SOL UD 3ML (DUONEB) INH SCH ×4 (01:24→19:30)
[2022-04-12 06:00] VITALS: BP 113/42
[2022-04-12] MEDS: CALCIUM ACETATE 667MG GELCAP PO SCH ×3 (08:54→17:19)
[2022-04-12] MEDS: ASPIRIN 81MG ENTERIC TABLET PO SCH (08:54)
[2022-04-12] MEDS: APIXABAN 2.5 MG TAB (ELIQUIS) PO SCH ×2 (08:55→20:27)
[2022-04-12] MEDS: ASCORBIC ACID 500 MG TAB PO SCH ×2 (08:55→20:27)
[2022-04-12] MEDS: CETIRIZINE (ZyrTEC) 10 MG TAB PO SCH (08:55)
[2022-04-12] MEDS: INSULIN LISPRO (NovoLOG) PER UNIT SC SCH ×4 (08:55→20:09)
[2022-04-12 14:00] VITALS: BP 114/46
[2022-04-12] MEDS ORDERED: VANCOMYCIN HCL 500 MG in D5W MINI-BAG PLUS 100 ML IV SCH (14:30)
[2022-04-12 20:00] VITALS: BP 105/51
[2022-04-12] MEDS: RAMELTEON 8 MG TAB (ROZEREM) PO PRN (20:27)
[2022-04-12] MEDS: SIMVASTATIN 20 MG TAB PO SCH (20:27)
[2022-04-12] MEDS: AMITRIPTYLINE 25MG TABLET PO SCH (20:27)
[2022-04-12] MEDS: oxyCODONE 5MG TAB PO PRN (20:28)
[2022-04-13] MEDS: IPRATROPIUM 0.5MG/ALBUTEROL 2.5MG INH SOL UD 3ML (DUONEB) INH SCH ×4 (02:58→19:04)
[2022-04-13 04:41] VITALS: BP 105/50
[2022-04-13] MEDS: oxyCODONE 5MG TAB PO PRN ×2 (04:48→20:27)
[2022-04-13] MEDS: METOPROLOL TART 12.5 MG PER 1/2 TAB PO SCH ×4 (06:00→17:43)
[2022-04-13 06:02] LABS: BASO % 0.3 % (0.0-1.0); EOS # 0.2 10^3/uL (0.0-0.5); EOS % 2.1 % (0.0-3.0); HEMATOCRIT 31.1 % (36.0-47.0); HEMOGLOBIN 9.2 g/dl (12.0-15.5); LYMPH # 1.5 10^3/uL (1.5-5.0); LYMPH % 13.6 % (24.0-44.0); MEAN CORPUSCULAR HGB CONC 29.6 g/dl (32.0-36.5); MEAN CORPUSCULAR VOLUME 94.8 fl (80.0-96.0); MONO # 1.2 10^3/uL (0.0-0.8); MONO % 10.3 % (2.0-8.0); NEUTROPHILS # 8.2 10^3/uL (1.5-8.5); NEUTROPHILS % 73.2 % (36.0-66.0); PLATELET COUNT, AUTOMATED 147 10^3/uL (150-450); RED BLOOD COUNT 3.28 10^6/uL (4.00-5.40); WHITE BLOOD COUNT 11.2 10^3/uL (4.0-10.0)
[2022-04-13] MEDS ORDERED: HEPARIN 1,000UNITS/ML 10ML VIAL (FOR RADIOLOGY & DIALYSIS ONLY) XX SCH (06:25)
[2022-04-13] MEDS ORDERED: SODIUM CHLORIDE 0.9% 1000ML IV PRN (06:25)
[2022-04-13] MEDS ORDERED: HEPARIN 1,000UNITS/ML 10ML VIAL (FOR RADIOLOGY & DIALYSIS ONLY) IV PRN (06:25)
[2022-04-13 06:36] LABS: CALCIUM LEVEL 8.4 MG/DL (8.3-10.6); CREATININE FOR GFR 2.68 MG/DL (0.55-1.30); GLOMERULAR FILTRATION RATE 17.9 (>32); POTASSIUM SERUM 4.6 MMOL/L (3.5-5.1)
[2022-04-13] MEDS: CALCIUM ACETATE 667MG GELCAP PO SCH ×3 (06:48→17:41)
[2022-04-13] MEDS: ASCORBIC ACID 500 MG TAB PO SCH ×2 (06:48→20:20)
[2022-04-13] MEDS: CETIRIZINE (ZyrTEC) 10 MG TAB PO SCH (06:49)
[2022-04-13] MEDS: ASPIRIN 81MG ENTERIC TABLET PO SCH (06:49)
[2022-04-13] MEDS: APIXABAN 2.5 MG TAB (ELIQUIS) PO SCH ×2 (06:49→20:21)
[2022-04-13 09:04] LABS: C REACTIVE PROTEIN QUANTITATIV 9.9 MG/DL (<1.0)
[2022-04-13] MEDS: INSULIN LISPRO (NovoLOG) PER UNIT SC SCH ×4 (09:27→20:27)
[2022-04-13 17:51] VITALS: BP 111/42
[2022-04-13] MEDS: RAMELTEON 8 MG TAB (ROZEREM) PO PRN (20:20)
[2022-04-13] MEDS: SIMVASTATIN 20 MG TAB PO SCH (20:21)
[2022-04-13] MEDS: AMITRIPTYLINE 25MG TABLET PO SCH (20:21)
[2022-04-13 20:40] VITALS: BP 104/51
[2022-04-14] MEDS: IPRATROPIUM 0.5MG/ALBUTEROL 2.5MG INH SOL UD 3ML (DUONEB) INH SCH ×4 (01:48→19:17)
[2022-04-14 06:00] VITALS: BP 124/64
[2022-04-14] MEDS: METOPROLOL TART 12.5 MG PER 1/2 TAB PO SCH ×4 (06:49→18:00)
[2022-04-14] MEDS ORDERED: HEPARIN 1,000UNITS/ML 10ML VIAL (FOR RADIOLOGY & DIALYSIS ONLY) XX SCH (07:10)
[2022-04-14] MEDS ORDERED: SODIUM CHLORIDE 0.9% 1000ML IV PRN (07:10)
[2022-04-14] MEDS ORDERED: HEPARIN 1,000UNITS/ML 10ML VIAL (FOR RADIOLOGY & DIALYSIS ONLY) IV PRN (07:10)
[2022-04-14] MEDS ORDERED: VANCOMYCIN HCL 1,000 MG, VIAL MATE ADAPTER 1 EACH in D5W 250 ML IV ONE (08:00)
[2022-04-14] MEDS: CETIRIZINE (ZyrTEC) 10 MG TAB PO SCH (08:14)
[2022-04-14] MEDS: APIXABAN 2.5 MG TAB (ELIQUIS) PO SCH ×2 (08:14→20:27)
[2022-04-14] MEDS: INSULIN LISPRO (NovoLOG) PER UNIT SC SCH ×4 (08:14→20:28)
[2022-04-14] MEDS: CALCIUM ACETATE 667MG GELCAP PO SCH ×3 (08:14→18:23)
[2022-04-14] MEDS: ASCORBIC ACID 500 MG TAB PO SCH ×2 (08:14→20:27)
[2022-04-14] MEDS: ASPIRIN 81MG ENTERIC TABLET PO SCH (08:14)
[2022-04-14 08:29] LABS: BASO # 0.1 10^3/uL (0.0-0.2); BASO % 0.5 % (0.0-1.0); EOS # 0.1 10^3/uL (0.0-0.5); EOS % 1.2 % (0.0-3.0); HEMATOCRIT 32.6 % (36.0-47.0); HEMOGLOBIN 9.4 g/dl (12.0-15.5); LYMPH % 11.1 % (24.0-44.0); MEAN CORPUSCULAR HEMOGLOBIN 27.5 pg (27.0-33.0); MEAN CORPUSCULAR HGB CONC 28.8 g/dl (32.0-36.5); MEAN CORPUSCULAR VOLUME 95.3 fl (80.0-96.0); MONO # 0.9 10^3/uL (0.0-0.8); MONO % 9.7 % (2.0-8.0); NEUTROPHILS # 7.1 10^3/uL (1.5-8.5); NEUTROPHILS % 76.9 % (36.0-66.0); PLATELET COUNT, AUTOMATED 160 10^3/uL (150-450); RED BLOOD COUNT 3.42 10^6/uL (4.00-5.40); WHITE BLOOD COUNT 9.2 10^3/uL (4.0-10.0)
[2022-04-14 10:07] LABS: ALBUMIN 2.1 G/DL (3.2-5.2); BILIRUBIN,TOTAL 0.6 MG/DL (0.3-1.2); CALCIUM LEVEL 8.7 MG/DL (8.3-10.6); GLOMERULAR FILTRATION RATE 25.1 (>32); POTASSIUM SERUM 4.1 MMOL/L (3.5-5.1)
[2022-04-14] MEDS: oxyCODONE 5MG TAB PO PRN ×2 (10:16→20:28)
[2022-04-14 14:18] LABS: C REACTIVE PROTEIN QUANTITATIV 8.3 MG/DL (<1.0)
[2022-04-14] MEDS: guaiFENesin 200 MG TAB PO PRN (18:29)
[2022-04-14] MEDS: RAMELTEON 8 MG TAB (ROZEREM) PO PRN (20:27)
[2022-04-14] MEDS: AMITRIPTYLINE 25MG TABLET PO SCH (20:27)
[2022-04-14] MEDS: SIMVASTATIN 20 MG TAB PO SCH (20:27)
[2022-04-14 22:00] VITALS: BP 115/46
[2022-04-15] MEDS: IPRATROPIUM 0.5MG/ALBUTEROL 2.5MG INH SOL UD 3ML (DUONEB) INH SCH ×2 (01:18→07:23)
[2022-04-15] MEDS: METOPROLOL TART 12.5 MG PER 1/2 TAB PO SCH ×3 (05:51→12:00)
[2022-04-15 05:52] VITALS: BP 111/50
[2022-04-15] MEDS ORDERED: HEPARIN 1,000UNITS/ML 10ML VIAL (FOR RADIOLOGY & DIALYSIS ONLY) IV PRN (06:30)
[2022-04-15] MEDS ORDERED: HEPARIN 1,000UNITS/ML 10ML VIAL (FOR RADIOLOGY & DIALYSIS ONLY) XX SCH (06:30)
[2022-04-15] MEDS ORDERED: SODIUM CHLORIDE 0.9% 1000ML IV PRN (06:30)
[2022-04-15] MEDS: CALCIUM ACETATE 667MG GELCAP PO SCH ×2 (06:52→12:12)
[2022-04-15] MEDS: ASPIRIN 81MG ENTERIC TABLET PO SCH (06:52)
[2022-04-15] MEDS: ASCORBIC ACID 500 MG TAB PO SCH (06:53)
[2022-04-15] MEDS: APIXABAN 2.5 MG TAB (ELIQUIS) PO SCH (06:53)
[2022-04-15] MEDS: CETIRIZINE (ZyrTEC) 10 MG TAB PO SCH (06:53)
[2022-04-15 07:13] LABS: BASO # 0.1 10^3/uL (0.0-0.2); BASO % 0.6 % (0.0-1.0); EOS # 0.1 10^3/uL (0.0-0.5); EOS % 1.4 % (0.0-3.0); HEMOGLOBIN 9.3 g/dl (12.0-15.5); LYMPH # 1.3 10^3/uL (1.5-5.0); LYMPH % 15.1 % (24.0-44.0); MEAN CORPUSCULAR HEMOGLOBIN 27.6 pg (27.0-33.0); MEAN CORPUSCULAR HGB CONC 29.1 g/dl (32.0-36.5); MONO # 1.1 10^3/uL (0.0-0.8); MONO % 12.8 % (2.0-8.0); NEUTROPHILS % 69.5 % (36.0-66.0); PLATELET COUNT, AUTOMATED 131 10^3/uL (150-450); RED BLOOD COUNT 3.37 10^6/uL (4.00-5.40); WHITE BLOOD COUNT 8.6 10^3/uL (4.0-10.0)
[2022-04-15 07:28] LABS: C REACTIVE PROTEIN QUANTITATIV 7.2 MG/DL (<1.0)
[2022-04-15 07:29] LABS: CALCIUM LEVEL 8.5 MG/DL (8.3-10.6); CREATININE FOR GFR 1.68 MG/DL (0.55-1.30); GLOMERULAR FILTRATION RATE 30.7 (>32); POTASSIUM SERUM 4.3 MMOL/L (3.5-5.1)
[2022-04-15] MEDS: INSULIN LISPRO (NovoLOG) PER UNIT SC SCH ×2 (07:48→12:11)
[2022-04-15] MEDS ORDERED: AMIT25TA17 PO (09:53)
[2022-04-15 12:00] VITALS: BP 112/58
[2022-04-15] MEDS: guaiFENesin 200 MG TAB PO PRN (12:07)
== END 2022-04-15 13:51 | disposition home health service (06) | DRG 291 ==
LOC: M ED 13:30 → EDBD 13:30 → M ED INP 16:13 → M ICU 21:37 → M PCU 04-05 23:00 → M MSPAV 04-11 15:25
PROVIDERS: ADMIT General Practice; ATTEND Internal Medicine
PROC: 0W993ZZ Drainage of Right Pleural Cavity, Percutaneous Approach (ICD-10-PCS; principal; 2022-04-07 15:01)
DX: I13.2 Hypertensive heart and chronic kidney disease with heart failure and with stage 5 chronic kidney disease, or end stage renal disease (principal); U07.1 COVID-19; I50.33 Acute on chronic diastolic (congestive) heart failure; E87.3 Alkalosis; E87.1 Hypo-osmolality and hyponatremia; J90 Pleural effusion, not elsewhere classified; I27.20 Pulmonary hypertension, unspecified; D64.9 Anemia, unspecified; K21.9 Gastro-esophageal reflux disease without esophagitis; I25.10 Atherosclerotic heart disease of native coronary artery without angina pectoris; E78.5 Hyperlipidemia, unspecified; I48.91 Unspecified atrial fibrillation; K57.90 Diverticulosis of intestine, part unspecified, without perforation or abscess without bleeding; Z86.73 Personal history of transient ischemic attack (TIA), and cerebral infarction without residual deficits; Z95.2 Presence of prosthetic heart valve; M81.0 Age-related osteoporosis without current pathological fracture; G47.33 Obstructive sleep apnea (adult) (pediatric); E66.01 Morbid (severe) obesity due to excess calories; J45.20 Mild intermittent asthma, uncomplicated; M17.12 Unilateral primary osteoarthritis, left knee; M10.9 Gout, unspecified; E55.9 Vitamin D deficiency, unspecified; F41.9 Anxiety disorder, unspecified; F32.A Depression, unspecified

== ENCOUNTER → 2022-04-08 | Outpatient (REF) ==
[~2022-04-08] MED LIST changes: +ACET-897 PO; +BIOF4GEL2 TOP; +BISA10SU27 PR; +OXYC-517 PO; +POLY510P14 PO
== END ==
PROVIDERS: ATTEND Internal Medicine
DX: M00.069 Staphylococcal arthritis, unspecified knee (principal); Z53.8 Procedure and treatment not carried out for other reasons

== ENCOUNTER → 2022-04-10 | Outpatient (REF) | PROVIDERS: ATTEND Internal Medicine | DX: M00.069 Staphylococcal arthritis, unspecified knee (principal); Z53.8 Procedure and treatment not carried out for other reasons ==

== ENCOUNTER → 2022-04-15 | Outpatient (REF) ==
[~2022-04-15] MED LIST changes: +AMIT25TA17 PO
== END ==
PROVIDERS: ATTEND Internal Medicine
DX: Z53.8 Procedure and treatment not carried out for other reasons (principal)

== ENCOUNTER → 2022-04-20 | Outpatient (REF) ==
[2022-04-20 09:57] LABS: HEMATOCRIT 32.9 % (36.0-47.0); HEMOGLOBIN 9.5 g/dl (12.0-15.5); MEAN CORPUSCULAR HEMOGLOBIN 26.8 pg (27.0-33.0); MEAN CORPUSCULAR HGB CONC 28.9 g/dl (32.0-36.5); MEAN CORPUSCULAR VOLUME 92.7 fl (80.0-96.0); PLATELET COUNT, AUTOMATED 211 10^3/uL (150-450); RED BLOOD COUNT 3.55 10^6/uL (4.00-5.40); WHITE BLOOD COUNT 6.2 10^3/uL (4.0-10.0)
[2022-04-20 10:37] LABS: CALCIUM LEVEL 8.6 MG/DL (8.3-10.6); CREATININE FOR GFR 2.39 MG/DL (0.55-1.30); GLOMERULAR FILTRATION RATE 20.4 (>32); POTASSIUM SERUM 4.6 MMOL/L (3.5-5.1)
== END ==
PROVIDERS: ATTEND Physician Assistant
DX: I50.9 Heart failure, unspecified (principal)

== ENCOUNTER → 2022-04-27 | Outpatient (REF) ==
[2022-04-27 10:02] LABS: HEMATOCRIT 31.9 % (36.0-47.0); HEMOGLOBIN 9.3 g/dl (12.0-15.5); MEAN CORPUSCULAR HEMOGLOBIN 26.7 pg (27.0-33.0); MEAN CORPUSCULAR HGB CONC 29.2 g/dl (32.0-36.5); MEAN CORPUSCULAR VOLUME 91.7 fl (80.0-96.0); PLATELET COUNT, AUTOMATED 189 10^3/uL (150-450); RED BLOOD COUNT 3.48 10^6/uL (4.00-5.40); WHITE BLOOD COUNT 6.7 10^3/uL (4.0-10.0)
[2022-04-27 10:31] LABS: CREATININE FOR GFR 2.27 MG/DL (0.55-1.30); GLOMERULAR FILTRATION RATE 21.7 (>32); POTASSIUM SERUM 4.6 MMOL/L (3.5-5.1)
== END ==
PROVIDERS: ATTEND Physician Assistant
DX: I50.9 Heart failure, unspecified (principal)

== ENCOUNTER 2022-05-01 11:26 | Inpatient (IN) | payer MEDICARE, MEDICAID ==
[2022-05-01 12:40] LABS: VENOUS BASE EXCESS 0.9 (-2.0-2.0); VENOUS HCO3 25.7 MEQ/L (23.0-27.0); VENOUS O2 SATURATION 97.6 % (60.0-80.0); VENOUS PARTIAL PRESSURE CO2 41.7 mmHg (38.0-50.0); VENOUS PARTIAL PRESSURE O2 131.5 mmHg (30.0-50.0); VENOUS PH 7.407 UNITS (7.330-7.430); VENOUS STANDARD HCO3 25.3 MEQ/L; VENOUS TOTAL CO2 26.9 MEQ/L (24.0-28.0)
[2022-05-01 12:50] LABS: BASO % 0.3 % (0.0-1.0); EOS % 0.1 % (0.0-3.0); HEMATOCRIT 30.3 % (36.0-47.0); HEMOGLOBIN 9.1 g/dl (12.0-15.5); LYMPH # 1.2 10^3/uL (1.5-5.0); LYMPH % 17.3 % (24.0-44.0); MEAN CORPUSCULAR HEMOGLOBIN 27.2 pg (27.0-33.0); MEAN CORPUSCULAR VOLUME 90.4 fl (80.0-96.0); MONO # 0.6 10^3/uL (0.0-0.8); NEUTROPHILS # 4.9 10^3/uL (1.5-8.5); NEUTROPHILS % 72.1 % (36.0-66.0); PLATELET COUNT, AUTOMATED 142 10^3/uL (150-450); RED BLOOD COUNT 3.35 10^6/uL (4.00-5.40); WHITE BLOOD COUNT 6.8 10^3/uL (4.0-10.0)
[2022-05-01 13:16] LABS: ALBUMIN 1.7 G/DL (3.2-5.2); BILIRUBIN,DIRECT 0.4 MG/DL (<0.4); BILIRUBIN,TOTAL 0.5 MG/DL (0.3-1.2); CREATININE FOR GFR 2.1 MG/DL (0.55-1.30); GLOMERULAR FILTRATION RATE 23.7 (>32); POTASSIUM SERUM 3.9 MMOL/L (3.5-5.1); TOTAL PROTEIN 4.5 G/DL (5.7-8.2)
[2022-05-01 13:18] LABS: THYROID STIMULATING HORMONE 1.392 uIU/ML (0.55-4.78)
[2022-05-01 13:30] LABS: RSV AMPLIFICATION NEGATIVE (NEGATIVE)
[2022-05-01] MEDS ORDERED: MILKSUS3 PO (14:24)
[2022-05-01] MEDS ORDERED: FLON1SPR NARES (14:24)
[2022-05-01] MEDS ORDERED: MIRA3350 PO (14:24)
[2022-05-01] MEDS ORDERED: AMIT25TA17 PO (14:24)
[2022-05-01] MEDS ORDERED: NYST1POW9 TOP (14:24)
[2022-05-01] MEDS ORDERED: GLUC1KIT IM (14:24)
[2022-05-01] MEDS ORDERED: OXYC-517 PO (14:24)
[2022-05-01] MEDS ORDERED: JUVE1POW PO (14:24)
[2022-05-01] MEDS ORDERED: ROZE8TAB16 PO (14:24)
[2022-05-01] MEDS ORDERED: FLEEENE12 PR (14:24)
[2022-05-01] MEDS ORDERED: HOME MED LIST COMPLETE! XX SCH (14:25)
[2022-05-01] MEDS ORDERED: GLUCOSE 4GM CHEW TABLET PO PRN (16:30)
[2022-05-01] MEDS ORDERED: GLUCAGON INJ 1MG VIAL SC PRN (16:30)
[2022-05-01] MEDS ORDERED: DEXTROSE 50% 50ML SYRINGE IV PRN (16:30)
[2022-05-01] MEDS ORDERED: BISACODYL 10MG SUPP PR PRN (16:35)
[2022-05-01] MEDS ORDERED: oxyCODONE 5MG TAB PO PRN (16:35)
[2022-05-01] MEDS ORDERED: ALBUTEROL 90 MCG/ACT 8GM HFA INHALER INH PRN (16:35)
[2022-05-01] MEDS ORDERED: FLEET ENEMA PR PRN (16:35)
[2022-05-01] MEDS: INSULIN LISPRO (NovoLOG) PER UNIT SC SCH ×2 (18:52→20:16)
[2022-05-01 19:26] VITALS: BP 115/52
[2022-05-01] MEDS: FLUTICASONE HFA 110MCG 12GM INHALER (FLOVENT) INH SCH (19:43)
[2022-05-01 20:09] VITALS: BP 121/46
[2022-05-01] MEDS: RAMELTEON 8 MG TAB (ROZEREM) PO PRN (20:17)
[2022-05-01] MEDS: SIMVASTATIN 20 MG TAB PO SCH (20:17)
[2022-05-01] MEDS: MIRALAX *UNIT DOSE* 17GM PACKET PO SCH (20:17)
[2022-05-01] MEDS: AMITRIPTYLINE 25MG TABLET PO SCH (20:17)
[2022-05-01] MEDS: APIXABAN 2.5 MG TAB (ELIQUIS) PO SCH (20:17)
[2022-05-01] MEDS: ACETAMINOPHEN 500 MG TAB PO PRN (20:18)
[2022-05-01] MEDS: NYSTATIN 100,000 UNITS/GM TOPICAL PWD 15GM TOP SCH (20:18)
[2022-05-02] VITALS (16 sets, daily range): BP systolic 100–108; BP diastolic 50–60; O2SAT 83–100
[2022-05-02 00:44] LABS: HEMOGLOBIN A1c 6.3 % (4.0-6.0)
[2022-05-02 04:14] LABS: BASO % 0.4 % (0.0-1.0); EOS % 0.7 % (0.0-3.0); HEMATOCRIT 30.1 % (36.0-47.0); HEMOGLOBIN 8.9 g/dl (12.0-15.5); LYMPH # 1.2 10^3/uL (1.5-5.0); LYMPH % 21.4 % (24.0-44.0); MEAN CORPUSCULAR HEMOGLOBIN 26.6 pg (27.0-33.0); MEAN CORPUSCULAR HGB CONC 29.6 g/dl (32.0-36.5); MEAN CORPUSCULAR VOLUME 89.9 fl (80.0-96.0); MONO # 0.5 10^3/uL (0.0-0.8); MONO % 8.8 % (2.0-8.0); NEUTROPHILS # 3.9 10^3/uL (1.5-8.5); NEUTROPHILS % 67.8 % (36.0-66.0); PLATELET COUNT, AUTOMATED 142 10^3/uL (150-450); RED BLOOD COUNT 3.35 10^6/uL (4.00-5.40); WHITE BLOOD COUNT 5.7 10^3/uL (4.0-10.0)
[2022-05-02 04:27] LABS: CREATININE FOR GFR 2.45 MG/DL (0.55-1.30); GLOMERULAR FILTRATION RATE 19.9 (>32); POTASSIUM SERUM 3.9 MMOL/L (3.5-5.1)
[2022-05-02] MEDS: ACETAMINOPHEN 500 MG TAB PO PRN ×2 (05:55→20:55)
[2022-05-02] MEDS: APIXABAN 2.5 MG TAB (ELIQUIS) PO SCH ×2 (05:57→20:55)
[2022-05-02] MEDS: NYSTATIN 100,000 UNITS/GM TOPICAL PWD 15GM TOP SCH ×2 (05:57→20:56)
[2022-05-02] MEDS: FLUTICASONE HFA 110MCG 12GM INHALER (FLOVENT) INH SCH ×2 (07:36→20:17)
[2022-05-02] MEDS: ASPIRIN 81MG ENTERIC TABLET PO SCH (08:11)
[2022-05-02] MEDS: CETIRIZINE (ZyrTEC) 10 MG TAB PO SCH (08:11)
[2022-05-02] MEDS: INSULIN LISPRO (NovoLOG) PER UNIT SC SCH ×4 (08:12→20:49)
[2022-05-02] MEDS ORDERED: HEPARIN 1,000UNITS/ML 10ML VIAL (FOR RADIOLOGY & DIALYSIS ONLY) XX SCH (08:15)
[2022-05-02] MEDS ORDERED: HEPARIN 1,000UNITS/ML 10ML VIAL (FOR RADIOLOGY & DIALYSIS ONLY) IV PRN (08:15)
[2022-05-02] MEDS ORDERED: SODIUM CHLORIDE 0.9% 1000ML IV PRN (08:15)
[2022-05-02] MEDS: MIDODRINE 5 MG TAB PO SCH ×2 (14:18→17:24)
[2022-05-02] MEDS: OMEPRAZOLE 20MG CAP PO SCH (14:18)
[2022-05-02] MEDS: FLUTICASONE PROP 0.05% NASAL SPRAY 16 GM (FLONASE) NARES SCH (14:18)
[2022-05-02] MEDS: RAMELTEON 8 MG TAB (ROZEREM) PO PRN (20:54)
[2022-05-02] MEDS: AMITRIPTYLINE 25MG TABLET PO SCH (20:54)
[2022-05-02] MEDS: SIMVASTATIN 20 MG TAB PO SCH (20:55)
[2022-05-02] MEDS: MIRALAX *UNIT DOSE* 17GM PACKET PO SCH (20:55)
[2022-05-03] VITALS (11 sets, daily range): BP systolic 103–117; BP diastolic 57–86; O2SAT 87–100
[2022-05-03 05:25] LABS: BASO % 0.5 % (0.0-1.0); EOS % 0.3 % (0.0-3.0); HEMATOCRIT 30.8 % (36.0-47.0); HEMOGLOBIN 9.2 g/dl (12.0-15.5); LYMPH # 1.4 10^3/uL (1.5-5.0); LYMPH % 18.9 % (24.0-44.0); MEAN CORPUSCULAR HEMOGLOBIN 27.1 pg (27.0-33.0); MEAN CORPUSCULAR HGB CONC 29.9 g/dl (32.0-36.5); MEAN CORPUSCULAR VOLUME 90.6 fl (80.0-96.0); MONO # 0.7 10^3/uL (0.0-0.8); MONO % 9.1 % (2.0-8.0); NEUTROPHILS # 5.2 10^3/uL (1.5-8.5); NEUTROPHILS % 70.2 % (36.0-66.0); PLATELET COUNT, AUTOMATED 146 10^3/uL (150-450); WHITE BLOOD COUNT 7.4 10^3/uL (4.0-10.0)
[2022-05-03 05:41] LABS: CALCIUM LEVEL 8.2 MG/DL (8.3-10.6); CREATININE FOR GFR 1.84 MG/DL (0.55-1.30); GLOMERULAR FILTRATION RATE 27.6 (>32); POTASSIUM SERUM 4.2 MMOL/L (3.5-5.1)
[2022-05-03] MEDS: FLUTICASONE HFA 110MCG 12GM INHALER (FLOVENT) INH SCH ×2 (07:28→20:03)
[2022-05-03] MEDS: INSULIN LISPRO (NovoLOG) PER UNIT SC SCH ×4 (07:30→21:00)
[2022-05-03] MEDS: FLUTICASONE PROP 0.05% NASAL SPRAY 16 GM (FLONASE) NARES SCH (08:19)
[2022-05-03] MEDS: OMEPRAZOLE 20MG CAP PO SCH (08:20)
[2022-05-03] MEDS: ASPIRIN 81MG ENTERIC TABLET PO SCH (08:20)
[2022-05-03] MEDS: CETIRIZINE (ZyrTEC) 10 MG TAB PO SCH (08:20)
[2022-05-03] MEDS: MIDODRINE 5 MG TAB PO SCH ×3 (08:20→17:19)
[2022-05-03] MEDS: APIXABAN 2.5 MG TAB (ELIQUIS) PO SCH ×2 (08:21→22:35)
[2022-05-03] MEDS: NYSTATIN 100,000 UNITS/GM TOPICAL PWD 15GM TOP SCH ×2 (08:23→22:36)
[2022-05-03] MEDS ORDERED: ISOVUE-370 76% 100ML VIAL As Ordered ONE (09:41)
[2022-05-03] MEDS: METOPROLOL TART 12.5 MG PER 1/2 TAB PO SCH ×2 (10:31→21:00)
[2022-05-03] MEDS: GASTROGRAFIN SOLUTION 30ML PO SCH ×2 (10:31→10:40)
[2022-05-03] MEDS ORDERED: GASTROGRAFIN SOLUTION 30ML As Ordered ONE (11:23)
[2022-05-03] MEDS: MIRALAX *UNIT DOSE* 17GM PACKET PO SCH (21:00)
[2022-05-03] MEDS: SIMVASTATIN 20 MG TAB PO SCH (22:35)
[2022-05-03] MEDS: AMITRIPTYLINE 25MG TABLET PO SCH (22:35)
[2022-05-04] VITALS: BP 111/58
[2022-05-04 04:00] VITALS: BP 128/63
[2022-05-04 05:27] LABS: BASO % 0.3 % (0.0-1.0); EOS % 0.3 % (0.0-3.0); HEMATOCRIT 30.8 % (36.0-47.0); HEMOGLOBIN 9.3 g/dl (12.0-15.5); LYMPH # 1.5 10^3/uL (1.5-5.0); LYMPH % 19.4 % (24.0-44.0); MEAN CORPUSCULAR HEMOGLOBIN 27.1 pg (27.0-33.0); MEAN CORPUSCULAR HGB CONC 30.2 g/dl (32.0-36.5); MEAN CORPUSCULAR VOLUME 89.8 fl (80.0-96.0); MONO # 0.7 10^3/uL (0.0-0.8); MONO % 9.4 % (2.0-8.0); NEUTROPHILS # 5.4 10^3/uL (1.5-8.5); NEUTROPHILS % 69.8 % (36.0-66.0); PLATELET COUNT, AUTOMATED 144 10^3/uL (150-450); RED BLOOD COUNT 3.43 10^6/uL (4.00-5.40); WHITE BLOOD COUNT 7.7 10^3/uL (4.0-10.0)
[2022-05-04] MEDS ORDERED: SODIUM CHLORIDE 0.9% 1000ML IV PRN (06:50)
[2022-05-04] MEDS ORDERED: DARBEPOETIN 100MCG/0.5ML *DIALYSIS* SYRINGE IV SCH (06:50)
[2022-05-04] MEDS ORDERED: HEPARIN 1,000UNITS/ML 10ML VIAL (FOR RADIOLOGY & DIALYSIS ONLY) XX SCH (06:50)
[2022-05-04] MEDS ORDERED: HEPARIN 1,000UNITS/ML 10ML VIAL (FOR RADIOLOGY & DIALYSIS ONLY) IV PRN (06:50)
[2022-05-04 07:16] VITALS: BP 131/95
[2022-05-04] MEDS: INSULIN LISPRO (NovoLOG) PER UNIT SC SCH ×4 (07:30→21:00)
[2022-05-04] MEDS: MIDODRINE 5 MG TAB PO SCH ×3 (08:02→16:16)
[2022-05-04] MEDS: CETIRIZINE (ZyrTEC) 10 MG TAB PO SCH (08:02)
[2022-05-04] MEDS: OMEPRAZOLE 20MG CAP PO SCH (08:03)
[2022-05-04] MEDS: ASPIRIN 81MG ENTERIC TABLET PO SCH (08:03)
[2022-05-04] MEDS: APIXABAN 2.5 MG TAB (ELIQUIS) PO SCH ×2 (08:03→22:21)
[2022-05-04] MEDS: METOPROLOL TART 12.5 MG PER 1/2 TAB PO SCH ×2 (08:03→21:00)
[2022-05-04] MEDS: NYSTATIN 100,000 UNITS/GM TOPICAL PWD 15GM TOP SCH ×2 (08:04→22:21)
[2022-05-04] MEDS: FLUTICASONE PROP 0.05% NASAL SPRAY 16 GM (FLONASE) NARES SCH (08:04)
[2022-05-04] MEDS: FLUTICASONE HFA 110MCG 12GM INHALER (FLOVENT) INH SCH ×2 (08:12→19:12)
[2022-05-04 16:03] VITALS: BP 108/53
[2022-05-04] MEDS: ACETAMINOPHEN 500 MG TAB PO PRN (16:17)
[2022-05-04 20:00] VITALS: BP 93/59
[2022-05-04] MEDS: MIRALAX *UNIT DOSE* 17GM PACKET PO SCH (21:00)
[2022-05-04] MEDS: RAMELTEON 8 MG TAB (ROZEREM) PO PRN (22:19)
[2022-05-04] MEDS: AMITRIPTYLINE 25MG TABLET PO SCH (22:20)
[2022-05-04] MEDS: SIMVASTATIN 20 MG TAB PO SCH (22:22)
[2022-05-05] VITALS: BP 95/63
[2022-05-05 04:00] VITALS: BP 135/71
[2022-05-05 05:49] LABS: BASO % 0.3 % (0.0-1.0); EOS % 0.3 % (0.0-3.0); HEMATOCRIT 31.1 % (36.0-47.0); HEMOGLOBIN 9.3 g/dl (12.0-15.5); LYMPH # 1.2 10^3/uL (1.5-5.0); LYMPH % 20.2 % (24.0-44.0); MEAN CORPUSCULAR HEMOGLOBIN 27.4 pg (27.0-33.0); MEAN CORPUSCULAR HGB CONC 29.9 g/dl (32.0-36.5); MEAN CORPUSCULAR VOLUME 91.5 fl (80.0-96.0); MONO # 0.5 10^3/uL (0.0-0.8); NEUTROPHILS # 4.3 10^3/uL (1.5-8.5); NEUTROPHILS % 70.4 % (36.0-66.0); PLATELET COUNT, AUTOMATED 140 10^3/uL (150-450); WHITE BLOOD COUNT 6.1 10^3/uL (4.0-10.0)
[2022-05-05 06:20] LABS: CALCIUM LEVEL 7.9 MG/DL (8.3-10.6); CREATININE FOR GFR 1.83 MG/DL (0.55-1.30); GLOMERULAR FILTRATION RATE 27.8 (>32)
[2022-05-05] MEDS: ASPIRIN 81MG ENTERIC TABLET PO SCH (06:22)
[2022-05-05] MEDS: INSULIN LISPRO (NovoLOG) PER UNIT SC SCH ×2 (07:30→15:05)
[2022-05-05 07:40] VITALS: BP 123/62
[2022-05-05] MEDS: FLUTICASONE HFA 110MCG 12GM INHALER (FLOVENT) INH SCH (08:12)
[2022-05-05] MEDS: CETIRIZINE (ZyrTEC) 10 MG TAB PO SCH (09:21)
[2022-05-05] MEDS: MIDODRINE 5 MG TAB PO SCH ×2 (09:21→15:05)
[2022-05-05 09:22] VITALS: BP 123/62
[2022-05-05] MEDS: APIXABAN 2.5 MG TAB (ELIQUIS) PO SCH (09:22)
[2022-05-05] MEDS: METOPROLOL TART 12.5 MG PER 1/2 TAB PO SCH (09:22)
[2022-05-05] MEDS: ACETAMINOPHEN 500 MG TAB PO PRN (09:23)
[2022-05-05] MEDS: OMEPRAZOLE 20MG CAP PO SCH (09:23)
[2022-05-05] MEDS: FLUTICASONE PROP 0.05% NASAL SPRAY 16 GM (FLONASE) NARES SCH (09:24)
[2022-05-05] MEDS: NYSTATIN 100,000 UNITS/GM TOPICAL PWD 15GM TOP SCH (09:24)
[2022-05-05] MEDS ORDERED: METO1TAB87 PO (09:34)
[2022-05-05] MEDS ORDERED: SODIUM CHLORIDE 0.9% 1000ML IV PRN (11:00)
[2022-05-05] MEDS ORDERED: HEPARIN 1,000UNITS/ML 10ML VIAL (FOR RADIOLOGY & DIALYSIS ONLY) IV PRN (11:00)
[2022-05-05] MEDS ORDERED: HEPARIN 1,000UNITS/ML 10ML VIAL (FOR RADIOLOGY & DIALYSIS ONLY) XX SCH (11:00)
[2022-05-05] MEDS ORDERED: MIDO5TA PO (11:04)
[2022-05-05 15:18] VITALS: BP 113/74
== END 2022-05-05 15:47 | DRG 291 ==
LOC: M ED 11:26 → EDBD 11:26 → M ED INP 15:59 → M PCU 18:13
PROVIDERS: ADMIT Internal Medicine; ATTEND Internal Medicine
DX: I50.43 Acute on chronic combined systolic (congestive) and diastolic (congestive) heart failure (principal); J96.01 Acute respiratory failure with hypoxia; N18.6 End stage renal disease; G93.41 Metabolic encephalopathy; L89.323 Pressure ulcer of left buttock, stage 3; E87.20 Acidosis, unspecified; I48.11 Longstanding persistent atrial fibrillation; N82.4 Other female intestinal-genital tract fistulae; J44.9 Chronic obstructive pulmonary disease, unspecified; F32.A Depression, unspecified; E11.22 Type 2 diabetes mellitus with diabetic chronic kidney disease; D63.1 Anemia in chronic kidney disease; K21.9 Gastro-esophageal reflux disease without esophagitis; E78.5 Hyperlipidemia, unspecified; I25.10 Atherosclerotic heart disease of native coronary artery without angina pectoris; M10.9 Gout, unspecified; G47.33 Obstructive sleep apnea (adult) (pediatric); K57.90 Diverticulosis of intestine, part unspecified, without perforation or abscess without bleeding; Z95.5 Presence of coronary angioplasty implant and graft; Z66 Do not resuscitate; Z74.01 Bed confinement status; M17.12 Unilateral primary osteoarthritis, left knee; L89.312 Pressure ulcer of right buttock, stage 2; Z86.73 Personal history of transient ischemic attack (TIA), and cerebral infarction without residual deficits; M81.0 Age-related osteoporosis without current pathological fracture; E66.01 Morbid (severe) obesity due to excess calories; F41.9 Anxiety disorder, unspecified; E55.9 Vitamin D deficiency, unspecified; Z88.0 Allergy status to penicillin; Z91.030 Bee allergy status; Z88.8 Allergy status to other drugs, medicaments and biological substances; Z91.018 Allergy to other foods; Z91.040 Latex allergy status; Z91.011 Allergy to milk products; Z79.899 Other long term (current) drug therapy; Z79.82 Long term (current) use of aspirin

== ENCOUNTER → 2022-05-04 | Outpatient (REF) | payer MEDICAID, MEDICARE ==
[~2022-05-04] MED LIST changes: +FLEEENE12 PR; +GLUC1KIT IM; +JUVE1POW PO; +METO1TAB87 PO; +MIDO5TA PO; +MILKSUS3 PO; +MIRA3350 PO; +NYST1POW9 TOP; +ROZE8TAB16 PO
== END ==
PROVIDERS: ATTEND Internal Medicine
DX: I50.9 Heart failure, unspecified (principal); Z53.8 Procedure and treatment not carried out for other reasons

== ENCOUNTER → 2022-05-13 | Outpatient (REF) | payer MEDICAID, MEDICARE | PROVIDERS: ATTEND Physician Assistant | DX: N18.6 End stage renal disease (principal); Z53.8 Procedure and treatment not carried out for other reasons ==